=== PATIENT | male | born 1955 | race Caucasian/White ===

== ENCOUNTER → 2019-10-06 12:05 | Outpatient (BNVA) | payer MEDICARE, MEDICAID, SELFPAY | PROVIDERS: Family Provider Nurse Practitioner Family; PCP Nurse Practitioner Family; Visit Provider Nurse Practitioner Family | DX: D64.9 Anemia, unspecified (principal); R22.32 Localized swelling, mass and lump, left upper limb; F41.9 Anxiety disorder, unspecified; G89.4 Chronic pain syndrome; I10 Essential (primary) hypertension; J44.9 Chronic obstructive pulmonary disease, unspecified; E55.9 Vitamin D deficiency, unspecified; E11.9 Type 2 diabetes mellitus without complications; E78.2 Mixed hyperlipidemia; J30.2 Other seasonal allergic rhinitis; K21.9 Gastro-esophageal reflux disease without esophagitis; G47.00 Insomnia, unspecified | CPT/HCPCS: 36415; 80053; 81001; 82728; 83540; 83550; 85025 ==

== ENCOUNTER 2019-10-08 20:00 | Outpatient (CLI) | payer MEDICARE, MEDICAID, SELFPAY | END 2019-10-08 20:01 | disposition home or self-care (01) | LOC: SLEEP 10-09 09:02 | PROVIDERS: Family Provider Nurse Practitioner Family; PCP Nurse Practitioner Family; Visit Provider Nurse Practitioner Family | DX: G47.30 Sleep apnea, unspecified (principal) | CPT/HCPCS: 95810; 95811 ==

== ENCOUNTER 2019-10-16 13:24 | Outpatient (CLI) | payer MEDICARE, MEDICAID, SELFPAY ==
--- NOTE | 2019-10-16 13:30 | US_ITS ---
WS: [id number] US soft tissue/extremity 60766 REASON FOR EXAM: mass left axillary FINDINGS: The left axilla shows a large mass measures 6.34 x 2.88 cm. The mass appears to be complex in most likely represents a complex lymph node. Increased flow in the lesion is seen. US/US soft tissue/extremity 01117 IMPRESSION: Complex mass left axilla greater than 6 cm most likely lymphadenopathy.
== END 2019-10-16 13:25 | disposition home or self-care (01) ==
LOC: US 13:28
PROVIDERS: Family Provider Nurse Practitioner Family; PCP Nurse Practitioner Family; Visit Provider Nurse Practitioner Family
DX: R22.32 Localized swelling, mass and lump, left upper limb (principal)
CPT/HCPCS: 76882

== ENCOUNTER → 2020-01-21 11:07 | Outpatient (BNVA) | payer MEDICARE, MEDICAID, SELFPAY | PROVIDERS: Family Provider Nurse Practitioner Family; PCP Nurse Practitioner Family; Visit Provider Nurse Practitioner Family | DX: E78.2 Mixed hyperlipidemia (principal); I10 Essential (primary) hypertension; E55.9 Vitamin D deficiency, unspecified; E03.9 Hypothyroidism, unspecified; E11.9 Type 2 diabetes mellitus without complications; M25.579 Pain in unspecified ankle and joints of unspecified foot; R06.02 Shortness of breath; F41.9 Anxiety disorder, unspecified; D64.9 Anemia, unspecified | CPT/HCPCS: 36415; 71046; 73610; 80053; 80061; 81001; 82306; 82607; 82728; 83036; 83540; 83735; 83880; 84443; 85025 ==

== ENCOUNTER 2020-02-17 13:53 | Outpatient (CLI) | payer MEDICARE, MEDICAID, SELFPAY ==
--- NOTE | 2020-02-17 13:56 | XRR_ITS ---
PROCEDURE INFORMATION: Exam: XR Chest, 2 Views Exam date and time: 02/17/2020 2:08 PM Age: 64 years old Clinical indication: Shortness of breath and other: Chest heaviness; Left arm pain last week; Prior surgery; Surgery date: 6+ months TECHNIQUE: Imaging protocol: XR of the chest Views: 2 views. COMPARISON: No relevant prior studies available. FINDINGS: Lungs: Unremarkable. No consolidation. Pleural space: Unremarkable. No pleural effusion. No pneumothorax. Heart/Mediastinum: Unremarkable. No cardiomegaly. Bones/joints: Metallic sternotomy wires are in place. There is compression deformities T12 and L1 vertebral bodies. There is general osteopenia of the dorsal spine. XR/XR chest 2V* [id number] IMPRESSION: No acute findings. Status post sternotomy Dorsal spine osteopenia and compression deformities.
--- NOTE | 2020-02-17 13:56 | CTR_ITS ---
PROCEDURE INFORMATION: Exam: CT Neck With Contrast Exam date and time: 02/17/2020 1:57 PM Age: 64 years old Clinical indication: Other: Axillary lymphadenopathy TECHNIQUE: Imaging protocol: Computed tomography images of the neck with intravenous contrast. Radiation optimization: All CT scans at this facility use at least one of these dose optimization techniques: automated exposure control; mA and/or kV adjustment per patient size (includes targeted exams where dose is matched to clinical indication); or iterative reconstruction. Contrast material: VISIPAQUE; Contrast volume: 75 ml; Contrast route: INTRAVENOUS (IV); COMPARISON: No relevant prior studies available. RADIATION DOSE METRICS: Total DLP (mGy-cm): 747.78 FINDINGS: Sinuses: Complete opacification of the left maxillary sinus with marked widening of the left ostiomeatal unit with partial opacification of the nasal cavity suggesting antrochoanal polyp. Mild right maxillary sinus disease. Mild left ethmoid sinus disease. Nasopharynx: Unremarkable. Dental: Examination is limited secondary to metallic artifact from dental fillings and/or dental hardware. Oropharynx: Unremarkable. No significant tonsillar enlargement. Hypopharynx: Unremarkable. Larynx: Unremarkable. Normal epiglottis. Retropharyngeal space: Unremarkable. Submandibular/Parotid glands: Normal. Glands are normal in size. Thyroid: Normal. No enlarged or calcified nodules. Lymph nodes: Unremarkable. No lymphadenopathy. Trachea: Visualized trachea is unremarkable. Lungs: Unremarkable as visualized. Bones/joints: Moderate to severe multilevel spine degenerative changes including degenerative disc disease, spondylosis and facet degenerative changes. Vasculature: Possible stenosis in the origin of the right ICA. Soft tissues: Unremarkable. No significant soft tissue swelling. Other findings: Levoscoliosis. CT/CT neck w con* [id number] IMPRESSION: 1. Possible stenosis in the origin of the right ICA. 2. Complete opacification of the left maxillary sinus with marked widening of the left ostiomeatal unit with partial opacification of the nasal cavity suggesting antrochoanal polyp. Radiation Dose CTDIVOL = (mGy): DLP = 747.78 (mGy-cm)
--- NOTE | 2020-02-17 13:56 | CTR_ITS ---
PROCEDURE INFORMATION: Exam: CT Chest With Contrast Exam date and time: 02/17/2020 2:00 PM Age: 64 years old Clinical indication: Other: Axillary lymphadenopathy; Prior surgery; Surgery type: Heart TECHNIQUE: Imaging protocol: Computed tomography of the chest with intravenous contrast. Radiation optimization: All CT scans at this facility use at least one of these dose optimization techniques: automated exposure control; mA and/or kV adjustment per patient size (includes targeted exams where dose is matched to clinical indication); or iterative reconstruction. Contrast material: VISIPAQUE; Contrast volume: 75 ml; Contrast route: INTRAVENOUS (IV); COMPARISON: CR XR chest 2V* [id number] 02/17/2020 2:02 PM RADIATION DOSE METRICS: Total DLP (mGy-cm): 2269.49 FINDINGS: Lungs: Right discoid atelectasis and/or scarring. Pleural space: Unremarkable. No pneumothorax. No pleural effusion. Heart: Sternotomy wires and mediastinal clips consistent with previous CABG procedure. Aorta: Unremarkable. No aortic aneurysm. Great vessels off aortic arch: Calcification of the thoracic aorta and/or great vessels consistent with atherosclerotic vessel disease. Lymph nodes: Moderate to large bilateral axillary lymphadenopathy with the largest left axillary lymph node measuring 5.2 x 3.8 cm. Infectious versus autoimmune versus neoplastic. Bones/joints: Unremarkable. No acute fracture. Soft tissues: See Lymph nodes finding. IMPRESSION: Moderate to large bilateral axillary lymphadenopathy with the largest left axillary lymph node measuring 5.2 x 3.8 cm. Infectious versus autoimmune versus neoplastic. PROCEDURE INFORMATION: Exam: CT Abdomen And Pelvis With Contrast Exam date and time: 02/17/2020 2:00 PM Age: 64 years old Clinical indication: Other: Axillary lymphadenopathy; Prior surgery; Surgery type: Heart TECHNIQUE: Imaging protocol: Computed tomography of the abdomen and pelvis with intravenous contrast. Radiation optimization: All CT scans at this facility use at least one of these dose optimization techniques: automated exposure control; mA and/or kV adjustment per patient size (includes targeted exams where dose is matched to clinical indication); or iterative reconstruction. Contrast material: VISIPAQUE; Contrast volume: 75 ml; Contrast route: INTRAVENOUS (IV); COMPARISON: CR XR chest 2V* [id number] 02/17/2020 2:02 PM RADIATION DOSE METRICS: Total DLP (mGy-cm): 2269.49 FINDINGS: Liver: Severe fatty infiltration of the liver. Gallbladder and bile ducts: Surgical clips in the gallbladder fossa consistent with cholecystectomy. Pancreas: Normal. No ductal dilation. Spleen: Normal. No splenomegaly. Adrenals: Normal. No mass. Kidneys and ureters: Normal. No hydronephrosis. Stomach and bowel: Bowel wall thickening in the distal rectum consistent with mild distal proctitis. Appendix: No evidence of appendicitis. Intraperitoneal space: Unremarkable. No free air. No significant fluid collection. Vasculature: Calcification of the abdominal aorta and/or iliac arteries consistent with atherosclerotic vessel disease. Lymph nodes: One or more calcified gerda hepatis and/or retroperitoneal and/or mesenteric lymph nodes consistent with old granulomatous disease. Bladder: Unremarkable as visualized. Reproductive: Unremarkable as visualized. Bones/joints: Moderate to severe multilevel spine degenerative changes including degenerative disc disease, spondylosis and facet degenerative changes. Mild dextroscoliosis. Soft tissues: Unremarkable. CT/CT chest abd pel w con* IMPRESSION: 1. Severe fatty infiltration of the liver. 2. Bowel wall thickening in the distal rectum consistent with mild distal proctitis. Radiation Dose CTDIVOL = (mGy): DLP = 2269.49~2269.49 (mGy-cm)
[2020-02-17] MEDS: iodixanol 320 mg/mL 100mL Btl IV ×2 (15:43→15:44)
== END 2020-02-17 13:54 | disposition home or self-care (01) ==
PROVIDERS: PCP Nurse Practitioner Family; Visit Provider Surgery
DX: R06.02 Shortness of breath (principal); R59.0 Localized enlarged lymph nodes; K76.0 Fatty (change of) liver, not elsewhere classified; M85.88 Other specified disorders of bone density and structure, other site
CPT/HCPCS: 70491; 71046; 71260; 74177

== ENCOUNTER 2020-03-16 06:39 | Day surgery (SDC) | payer MEDICARE, MEDICAID, SELFPAY ==
[2020-03-15 11:23] VITALS: BMI 33.6
[2020-03-16] VITALS (8 sets, daily range): BP systolic 113–141; BP diastolic 57–91; PULSE 72–80; RESP 15–25; TEMP 36.4–36.6; O2SAT 92–99
[2020-03-16] MEDS: sodium chloride 0.9% 1,000 ML 30 ML IV (07:10)
[2020-03-16 07:13] LABS: Glucose Point of Care 128 mg/dL (70-110)
--- NOTE | 2020-03-16 07:18 | P.ANESASSM_ITS ---
Pre-Anesthetic Assessment Pre-Anesthetic Assessment: Height/Weight: Height 1.7 m Weight 97.522 kg Temp Pulse Resp BP Pulse Ox 97.9 F 76 16 128/91 94 03/16/20 06:55 03/16/20 06:55 03/16/20 06:55 03/16/20 06:55 03/16/20 06:55 Preop Diagnosis: Bilateral axillary lymphadenopathy Proposed Procedure: Operation Date: 03/16/20 08:05 Proposed Procedures p Axillary Node Biopsy 50166 R59.0(Bilateral) - Ilan Valera MD Familial anesthetic complications: none, last took eliquis a couple of day ago Was Beta Alicia taken within 24 hours: N/A Last intake: Intake Last Liquid Date 03/16/20 Last Liquid Time 06:00 Last Solid Date 03/16/20 Last Solid Time 23:30 Social: Social History: Tobacco and No alcohol Exam: Pre-Anes Outpt Exam: alert, oriented x 3, clear to auscultation bilaterally and regular rate & rhythm Airway: Cervical ROM: WNL MP: 4 Dentition: Other (missing) Pulmonary: Pulmonary: Asthma, COPD and Sleep apnea (hasn't received) CV/HEM: CV/HEM: Afib, CAD and HTN Comments: stent placed in 2009 hx hypertrophic obstructive cardiomyopathy but has had surgical resection : : None reported Hepatic: Hepatic: None reported GI: GI: GERD Metabolic: Metabolic: DM, Hyperlipidemia, Morbid obesity and Thyroid Musc/skel: Musc/skel: None reported Neuropsych: Neuropsych: None reported Anesthetic Plan: ASA status: 3 Anesthesia: General Risk of > 500 ml blood loss (7ml/kg in children): No Meds/Allergies Current Medications: Current Medications Generic Name Dose Route Start Last Admin Trade Name Freq PRN Reason Stop Dose Admin Sodium Chloride 1,000 mls @ 30 ml s/hr 03/16/20 07:00 03/16/20 07:10 Sodium Chloride 0.9% IV 03/17/20 06:59 30 mls/hr .Q24H TOM Administration PFSH Anesthesia PFSH: Medical History Ankle pain Anxiety ASHD (arteriosclerotic heart disease) Atrial fibrillation Chronic pain syndrome Chronic seasonal allergic rhinitis Congestive heart failure (CHF) Diabetes mellitus, type II Essential hypertension Hypertrophic cardiomyopathy Hypomagnesemia Hypothyroidism Insomnia Iron deficiency Mixed hyperlipidemia Multilevel degenerative disc disease Shortness of breath Sleep apnea Tobacco abuse Vitamin D deficiency Surgical History Coronary angioplasty status [facility] 2105 H/O ventricular septal myectomy Family History Mother Myocardial infarction Father Hypertension Other Diabetes Family history of CABG Social History Smoking and tobacco status: current every day smoker Second hand smoke exposure: No Desire information about alcohol rehabilitation?: No Counseling given: No Desire information about substance/drug rehabilitation?: No Counseling given: No Data Anesthesia Other Labs: Laboratory Results - last 48 hr 03/16/20 07:08 POC Glucose 128 Cardiac Studies: No Data to Display
--- NOTE | 2020-03-16 08:10 | W.PM.OPSFHP ---
Same Day Surgery H&P Indication for Procedure/HPI DATE OF PROCEDURE: March 16, 2020 CHIEF COMPLAINT/INDICATIONFOR SURGICAL PROCEDURE: I have lumps on both armpits PREOP DIAGNOSIS: Bilateral axillary lymphadenopathy PLANNED PROCEDRUE: Operation Date: 03/16/20 08:05 Proposed Procedures p Axillary Node Biopsy 70928 R59.0(Bilateral) - Ilan Valera MD This is a pleasant 64 years old gentleman noticed growing lumps on both armpits, patient was evaluated at my office as he has been referred and I did order a CT scan of the neck chest abdomen and pelvis that appreciated bilateral axilla lymphadenopathy left is larger than the right. Patient comes today for biopsy of the lymph nodes ROS All systems have been reviewed negative except as per the above or per problem list Medications/Allergies* Allergies/Adverse Reactions Allergy/AdvReac Type Severity Reaction Status Date / Time Iodinated Contrast Media Allergy ALGY-Hives Verified 03/16/20 08:11 metoprolol Allergy unknown Verified 03/16/20 08:11 red dye Allergy unknown Verified 03/16/20 08:11 Current Medications: Generic Name Dose Route Start Last Admin Trade Name Freq PRN Reason Stop Dose Admin Sodium Chloride 1,000 mls @ 30 mls/hr 03/16/20 07:00 03/16/20 07:10 Sodium Chloride 0.9% IV 03/17/20 06:59 30 mls/hr .Q24H TOM Administration Pertinent History/Comorbid Conditions* Medical History (Updated 02/09/20 @ 10:48 by Ilan Valera MD) Ankle pain Anxiety ASHD (arteriosclerotic heart disease) Atrial fibrillation Chronic pain syndrome Chronic seasonal allergic rhinitis Congestive heart failure (CHF) Diabetes mellitus, type II Essential hypertension Hypertrophic cardiomyopathy Hypomagnesemia Hypothyroidism Insomnia Iron deficiency Mixed hyperlipidemia Multilevel degenerative disc disease Shortness of breath Sleep apnea Tobacco abuse Vitamin D deficiency Surgical History (Updated 10/06/19 @ 21:50 by PORFIRIO Hutchinson) Coronary angioplasty status [facility] 2105 H/O ventricular septal myectomy Family History (Updated 10/13/19 @ 14:50 by Becca Clark LPN) Family history of CABG Diabetes Myocardial infarction Mother Hypertension Father Social History Smoking and tobacco status: current every day smoker Second hand smoke exposure: No Desire information about alcohol rehabilitation?: No Counseling given: No Desire information about substance/drug rehabilitation?: No Counseling given: No Pertinent Exam Findings alert, oriented x 3, clear to auscultation bilaterally, regular rate & rhythm, operative site marked and procedure specific exam findings (Bilateral axillary lymphadenopathy) Recommendations Surgery/Procedure today (Informed consent per chart, will plan to obtain a biopsy of the left axillary mass) Coding Level of Care Code Acute Certification And Selection Specialist for Dina Donaldson
[2020-03-16] MEDS: lidocaine 2% INJ 20 mL INJECTION (09:20)
--- NOTE | 2020-03-16 09:23 | PM.OP ---
Operative Report Date of procedure: March 16, 2020 Pre-op Diagnosis: Bilateral axillary lymphadenopathy Post-op diagnosis: same Post-op Findings: Left axillary lymphadenopathy with altered blood contained within the lymph node Lymph node measures about 3.5 x 4 cm Procedure Done: Excision of lymph node of left axilla Implants: Surgi-Viral for hemostasis Multiple medium sized clips Specimens removed/disposition: Left axillary lymphadenopathy The lymph node was cut in 3 pieces and sent as follows: 1-tissues sent for fresh to rule out lymphoma 2-tissues for cultures and sensitivities 3-tissues for histopathology and permanent Surgeon: Ilan Valera [employer] Bever[employer] Intern: transmission technician Cristobal Circulating nurse Linh Jeter 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 Indications, risks, benefits and alternatives all discussed with the patient and he agreed to proceed accordingly understanding that he is a high risk for bleeding postoperatively as he has been on chronic blood thinner for his cardiac condition. Procedure: After identifying the patient holding area, the correct site and side was marked before the procedure by myself, left axillary region, patient was then taken to the operative suite, was placed in supine position, patient was intubated by the anesthesia provider,Timeout was done verifying the patient's name/date of /planned procedure and destination after the procedure, all were in agreement.SCDs confirmed to be functioning, preoperative antibiotics administered per protocol, and beta chan protocol was confirmed Prep and drape of the left axillary region was done under the usual sterile technique. Local anesthesia 2% lidocaine was infiltrated site of the incision overlying the left axillary lymphadenopathy, skin incision was done all the way down to the subcutaneous tissues dissection was then carried on,the mass was dissected Amalgamated lymph node with large central lymph node with bluish hue initially was concerning for melanoma yet during dissection there was an altered blood within the lymph node which measured 3.5 x 4 cm, medium size clips were used to control the feeding small vessels to the lymph node The specimen was passed to the circulating nurse after slicing the lymph node into 3 pieces by myself in the form of: 1-tissues sent for fresh to rule out lymphoma 2-tissues for cultures and sensitivities 3-tissues for histopathology and permanent Hemostasis was achieved using Bovie cautery, followed by irrigation with normal saline, 3-0 Vicryl as [id number] for hemostasis as well as Surgi-Viral, hemostasis was then achieved Closure was done in layers using 3-0 Vicryl followed by 4-0 Monocryl pressure dressing after surgical glue was applied followed by pressure dressing Count was completed at the end of the procedure Patient was taken to the recovery room in stable condition I was present for the whole entire procedure
--- NOTE | 2020-03-16 09:39 | SUR.PHASEI ---
0928 PATIENT TO PACU FROM OR. RR EVEN AND UNLABORED. SPO2 99% ON SIMPLE MASK AT 8L. DRY COUGH NOTED. DRESSING TO LEFT AXILLARY, CDI.
--- NOTE | 2020-03-16 10:01 | SUR.PHASEI ---
0957 PATIENT TO OPS. RR EVEN AND UNLABORED. BREATHING IMPROVED AFTER BREATHING TREATMENT. PATIENT DENIES PAIN. DRESSING INTACT TO RIGHT AXILLARY.
[2020-03-25 13:09] LABS: Miscellaneous Test See Scanned Lab Rpt
== END 2020-03-16 10:45 | disposition home or self-care (01) ==
PROVIDERS: PCP Nurse Practitioner Family; Visit Provider Surgery
PROC: (CPT 38525; principal; 2020-03-16 08:00)
DX: R59.1 Generalized enlarged lymph nodes (principal); J44.9 Chronic obstructive pulmonary disease, unspecified; G47.30 Sleep apnea, unspecified; I48.91 Unspecified atrial fibrillation; I25.10 Atherosclerotic heart disease of native coronary artery without angina pectoris; K21.9 Gastro-esophageal reflux disease without esophagitis; E11.9 Type 2 diabetes mellitus without complications; E66.01 Morbid (severe) obesity due to excess calories; Z68.33 Body mass index [BMI] 33.0-33.9, adult; I11.0 Hypertensive heart disease with heart failure; I50.9 Heart failure, unspecified; E03.9 Hypothyroidism, unspecified; E78.2 Mixed hyperlipidemia; F17.210 Nicotine dependence, cigarettes, uncomplicated
CPT/HCPCS: 38525; 12345; 36416; 82962; 87070; 87176; 87205; 88184; 88185; 88271; 88275; 88305; J0690; J2405; J2704; J2710; J3010; J3490; J7030; J7611

== ENCOUNTER 2020-04-07 14:03 | Outpatient (CLI) | payer MEDICARE, MEDICAID, SELFPAY ==
[2020-04-07 17:28] LABS: Immunoglobulin IGA 124 mg/dL (70-400); Immunoglobulin IGG 633 mg/dL (700-1600); Immunoglobulin IGM 56 mg/dL (40-230)
[2020-04-09 09:36] LABS: PROTEIN, TOTAL 5.7 g/dL (6.1-8.1)
[2020-04-09 15:50] LABS: KAPPA LIGHT CHAIN, FREE, SERUM 10.8 mg/L (3.3-19.4); KAPPA/LAMBDA LIGHT CHAINS FREE 1.37 (0.26-1.65); LAMBDA LIGHT CHAIN, FREE, SERU 7.9 mg/L (5.7-26.3)
[2020-04-09 16:20] LABS: ALBUMIN 3.4 g/dL (3.8-4.8); ALPHA 1 GLOBULIN 0.3 g/dL (0.2-0.3); ALPHA 2 GLOBULIN 0.7 g/dL (0.5-0.9); BETA 1 GLOBULIN 0.4 g/dL (0.4-0.6); BETA 2 GLOBULIN 0.3 g/dL (0.2-0.5); GAMMA GLOBULIN 0.6 g/dL (0.8-1.7)
--- NOTE | 2020-04-28 14:38 | ONC CON_ITS ---
Dr. Mendenhall New Patient Note Patient: Catrachito Agosto Unit #: [id number]: 1955 Dicatated By: Darlene Mendenhall M.D.Date of Visit: Apr 07, 2020 Onc MED New Patient/Consult Referring Physician: Dr. LALITO MEJIA M.D. History of Present Illness: Mr. Jose Agosto, is a 64-year-old gentleman with a year-long history of left axillary lymphadenopathy, as per patient in December he noticed fullness in the right axilla which was progressive and was referred to surgery for evaluation and was diagnosed with bilateral axillary lymphadenopathy underwent CT scan of the chest abdomen and pelvis on February 17, 2020 which showed moderate to large bilateral axillary lymphadenopathy with the largest left axillary lymph node measuring 5.2 x 3.8 cm infectious versus autoimmune versus neoplastic was the impression otherwise no intrathoracic abnormality seen CT scan of abdomen pelvis showed severe fatty infiltration of the liver bowel wall thickening in the distal rectum consistent with a mild distal proctitis, 1 or more calcified gerda hepatis and or retroperitoneal or mesenteric lymph nodes consistent with old granulomatous disease. No bone abnormality seen. 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 Patient denies any night sweats, denies any weight loss, denies any recurrent fever or infection denies any abdominal fullness denies any trauma to upper extremity denies any skin rash denies any travel to foreign land, denies any tick bite, denies any upcd-iel-[id number] herbal medication, denies any IV drug abuse. Patient has longstanding history of heavy smoking about 1 to 2 packs a day for more than 50 years. Past Medical History: Mr. Agosto's medical history consists of anxiety, ashd, cardiomyopathy, chronic obstructive pulmonary disease, chronic pain, congestive heart failure, degenerative disease of the spine, hyperlipidemia, hypertension, hypothyroidism, insomnia, iron deficiency, type II diabetes, and vitamin d deficiency. Past Surgical History: Mr. Agosto's surgical/procedural history consists of coronary angioplasty and ventricular septal myectomy. Medications: Acetaminophen Extra Strength 1 - 2 Capsule (of 500 mg) Oral daily PRN, Aspirin 1 Tablet (of 81 mg) Tablet, enteric coated Oral daily, buPROPion HCl ER (XL) 1 Tablet (of 300 mg) Tablet SR 24 HR Oral daily, Cetirizine HCl 1 Tablet (of 10 mg) Oral daily, Citalopram Hydrobromide 1 Tablet (of 40 mg) Oral daily, clonazePAM 1.5 Tablet (of 1 mg) Oral daily, Dexilant 1 Capsule (of 60 mg) Capsule Delayed Release Oral daily, dilTIAZem HCl ER 1 Capsule (of 180 mg) Capsule SR 24 HR Oral daily, Eliquis 1 Tablet (of 5 mg) Oral b.i.d., Ezetimibe 1 Tablet (of 10 mg) Oral daily, HYDROcodone-Acetaminophen 1 Tablet (of 5-325 mg) Oral q 6 hours PRN, Januvia 1 Tablet (of 25 mg) Oral daily, Levothyroxine Sodium 1 Tablet (of 200 mcg) Oral daily, metFORMIN HCl 1 Tablet (of 500 mg) Oral daily, Montelukast Sodium 1 Tablet (of 10 mg) Oral daily, Potassium Chloride ER 1 Tablet (of 20 meq) Tablet, controlled release Oral b.i.d., Rosuvastatin Calcium 1 Tablet (of 20 mg) Oral daily, Torsemide 1 Tablet (of 100 mg) Oral daily, traMADol HCl 1 Tablet (of 50 mg) Oral b.i.d. PRN, traZODone HCl 1 Tablet (of 50 mg) Oral daily, Vitamin D 1 Capsule (of 1.25 mg) Oral q 7 weeks Allergies: Metoprolol Tartrate and Red Dye. Social History: Mr. Agosto is single and he is retired. He is a daily smoker who has smoked for 39 years. He has no history of drinking. He has indicated exposure to the following products: cigarettes. Mr. Agosto reports the following support systems: lives alone, lives in own house, supportive family/friends willing to assist with needs, and adequate transportation available for expected visits. His diet consists of regular meals. He indicates his activity level as: regular exercise. Family History: Mr. Agosto's mother at age 80: myocardial infarction, and liver cancer. Mr. Bunchs father at age 87: hypertension, and Alzheimer's disease. Review Of Symptoms: Constitutional - Appetite is good and weight is stable. No fever, night sweats, or hot flashes. Energy level is fair, ENMT - Positive for sinus congestion/drainage. No mouth sores. No sore throat or difficulty swallowing, Hematologic/Lymphatic - Positive for easy bruising and bleeding, Respiratory - No shortness of breath. Positive for cough. No pleuritic pain or hemoptysis, Cardiovascular - No angina pain. No palpitations, Gastrointestinal - Positive for nausea, no vomiting. Positive for heartburn and acid reflux. No diarrhea or constipation. No blood in the stool or black stools, Genitourinary (M) - No dysuria or hematuria. No urinary frequency. No urgency. Occasional incontinence, Musculoskeletal - Positive for joint pain, Neurologic - No headache. Positive for dizziness. Positive for numbness in his legs. No other focal neurologic symptoms, Psychiatric - Positive for anxiety, depression and insomnia. Vital Signs: Performed on Apr 07, 2020 15:17: 0, 33.64 (HIGH), 2.08 sq.m, 67.00 in, 95 % (LOW), 64 /min, 20 /min, 139/71 mm(hg), 98.5 F, and 214.8 lbs (HIGH). Performance Status: 0 - Fully active, able to carry on all predisease activities without restrictions. (ECOG) Physical Examination: ENMT - No mouth sores, no thrush, no jaundice, bilateral axillary lymphadenopathy status post excisional biopsy left axilla, Respiratory - Poor air entry, with bilateral mild wheezing, Cardiovascular - Regular rate and rhythm of heart, Abdomen - Soft, bowel sounds present, nontender, Extremities - No visible edema or rash. Lab/Imaging: Most recent lab results are not available for this patient. 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 versus other per excisional biopsy of left axillary lymph node Flow cytometry of left axillary lymph node done on March 16, 2020 shows predominance of CD8 positive T cells but no monotypic B-cell or overtly aberrant T-cell population detected CT scan of chest abdomen pelvis done on February 17, 2020 showed bilateral axillary lymphadenopathy and fatty liver Plan: Discussed with patient regarding his disease status and pathology report and patient was informed that at this point pathology and subtype and primary of his malignancy is not clear, case was discussed with pathology today and have decided to proceed with cancer type ID to identify the primary as plasmacytoid differentiation was seen, will consider work-up to rule out underlying plasma cell disorder so we will consider serum protein electrophoresis, serum light chain assay, quantitative immunoglobulins, 24-hour urine for urine protein electrophoresis and immunofixation, and CT PET scan. Patient will return to clinic in 3 weeks if above-mentioned work-up remained inconclusive, done at patient's request, we may consider referring him to tertiary care center for second opinion regarding pathology as well as for clinical trial, if available. Patient was advised to quit smoking and he was offered any assistance he may need Signed By: Darlene Mendenhall M.D. <<Signature on File>>
== END 2020-04-07 14:04 | disposition home or self-care (01) ==
LOC: ONCMED 14:08
PROVIDERS: PCP Nurse Practitioner Family; Referring Provider Surgery; Visit Provider Internal Medicine Hematology & Oncology
DX: C80.1 Malignant (primary) neoplasm, unspecified (principal); R59.0 Localized enlarged lymph nodes; K76.0 Fatty (change of) liver, not elsewhere classified; F17.210 Nicotine dependence, cigarettes, uncomplicated
CPT/HCPCS: 36415; 82784; 83883; 84155; 84165; 99203

== ENCOUNTER 2020-04-28 15:10 | Outpatient (CLI) | payer MEDICARE, MEDICAID, SELFPAY ==
--- NOTE | 2020-04-28 15:30 | CT_ITS ---
WS: [id number] CT SINUSES TECHNIQUE: Noncontrast CT of the paranasal sinuses with coronal and sagittal reformatted images. CLINICAL INFORMATION: chronic sinus infection COMPARISON: None. DLP: 392.[address] scans at [facility] use at least one of these dose optimization techniques: automat ed exposure control; mA and/or kV adjustment per patient size (includes targeted exams where dose is matched to clinical indication); or iterative reconstruction. FINDINGS: Mild nasal septal deviation measuring 3 to 4 mm left to right. Complete opacification the right maxil dia sinus with inspissated secretions. Opacification of the right ostiomeatal units. Mild mucosal th ickening left maxillary sinus. Mild mucosal thickening left frontal sinus and frontal ethmoidal reces s. Partial opacification of the frontoethmoidal recesses with mild polypoid mucosal thickening. Sphen oid sinus is patent. Trace mucosal thickening in the sphenoid sinus. Mastoid air cells are well aerat ed. CT/CT sinus wo con* [id number] IMPRESSION: 1. Chronic appearing opacification of the right maxillary sinus with inspissat ed secretions. Opacification right ostiomeatal unit. 2. Mild mucosal thickening in the frontal sinuses with partial opacification frontal ethmoidal recesses. 3. Mild polypoid mucosal thickening in the ethmoid air cells. 4. Mastoid air cells are well aerated.
== END 2020-04-28 15:11 | disposition home or self-care (01) ==
LOC: RADWPI 15:15
PROVIDERS: PCP Nurse Practitioner Family; Visit Provider Nurse Practitioner Family
DX: J32.9 Chronic sinusitis, unspecified (principal)
CPT/HCPCS: 70486

== ENCOUNTER 2020-05-04 09:20 | Outpatient (CLI) | payer MEDICARE, MEDICAID, SELFPAY ==
[2020-05-04 10:07] LABS: Immunoglobulin IGA 120 mg/dL (70-400); Immunoglobulin IGG 579 mg/dL (700-1600); Immunoglobulin IGM 63 mg/dL (40-230)
[2020-05-05 10:37] LABS: PROTEIN, TOTAL 5.8 g/dL (6.1-8.1)
[2020-05-05 13:26] LABS: KAPPA LIGHT CHAIN, FREE, SERUM 11.3 mg/L (3.3-19.4); LAMBDA LIGHT CHAIN, FREE, SERU 8.7 mg/L (5.7-26.3)
[2020-05-05 14:27] LABS: CREATININE, 24 HOUR URINE 1.52 g/24 h (0.50-2.15); PROTEIN, TOTAL, 24 HR UR 276 mg/24 h (<150); Protein/Creatinine Ratio 0.182 (< OR = 0.114); Protein/Creatinine Ratio 182 mg/g creat (< OR = 114)
[2020-05-05 16:22] LABS: ALBUMIN 3.5 g/dL (3.8-4.8); ALPHA 1 GLOBULIN 0.3 g/dL (0.2-0.3); ALPHA 2 GLOBULIN 0.7 g/dL (0.5-0.9); BETA 1 GLOBULIN 0.5 g/dL (0.4-0.6); BETA 2 GLOBULIN 0.3 g/dL (0.2-0.5); GAMMA GLOBULIN 0.6 g/dL (0.8-1.7)
[2020-05-07 12:07] LABS: ALBUMIN 100 %; ALPHA-1-GLOBULINS 0 %; ALPHA-2-GLOBULINS 0 %; BETA GLOBULINS 0 %; GAMMA GLOBULINS 0 %
== END 2020-05-04 09:21 | disposition home or self-care (01) ==
LOC: ONCMED 09:24
PROVIDERS: PCP Nurse Practitioner Family; Visit Provider Internal Medicine Hematology & Oncology
DX: C85.94 Non-Hodgkin lymphoma, unspecified, lymph nodes of axilla and upper limb (principal); F41.9 Anxiety disorder, unspecified; I25.10 Atherosclerotic heart disease of native coronary artery without angina pectoris; I25.5 Ischemic cardiomyopathy; J44.9 Chronic obstructive pulmonary disease, unspecified; G89.29 Other chronic pain; M47.9 Spondylosis, unspecified; E78.5 Hyperlipidemia, unspecified; I10 Essential (primary) hypertension; E03.9 Hypothyroidism, unspecified; G47.00 Insomnia, unspecified; D50.9 Iron deficiency anemia, unspecified; E11.9 Type 2 diabetes mellitus without complications; E55.9 Vitamin D deficiency, unspecified
CPT/HCPCS: 82784; 83883; 84155; 84165

== ENCOUNTER → 2020-05-19 11:05 | Outpatient (BNVA) | payer MEDICARE, MEDICAID, SELFPAY | PROVIDERS: PCP Nurse Practitioner Family; Visit Provider Nurse Practitioner Family | DX: R59.0 Localized enlarged lymph nodes (principal); E11.69 Type 2 diabetes mellitus with other specified complication; E03.9 Hypothyroidism, unspecified | CPT/HCPCS: 80053; 82728; 83036; 83550; 84443; 85025 ==

== ENCOUNTER 2020-06-10 08:00 | Outpatient (CLI) | payer MEDICARE, MEDICAID, SELFPAY ==
[2020-06-10 08:37] LABS: Basophils # 0.1 10^3/uL (0.0-0.1); Basophils % 0.7 %; Eosinophils # 0.3 10^3/uL (0.0-0.8); Eosinophils % 3.2 %; Hematocrit 39.5 % (42.0-52.0); Hemoglobin 12.8 g/dL (11.7-16.6); Lymphocytes # 1.4 10^3/uL (0.8-4.8); Lymphocytes % 13.5 %; Mean Corpuscular HGB Conc 32.4 g/dL (30.0-36.0); Mean Corpuscular Hemoglobin 28.1 pg (28.0-34.0); Mean Corpuscular Volume 86.8 fL (80-94); Mean Platelet Volume 9.5 fL (7.4-10.4); Monocytes # 0.8 10^3/uL (0.2-0.9); Monocytes % 7.9 %; Neutrophils # 7.51 10^3/uL (1.8-7.7); Neutrophils % 74.5 %; Nucleated Red Blood Cells % 0 %; Platelet Count 281 10^3/cmm (130-400); Red Blood Count 4.55 10^6/uL (4.1-5.3); White Blood Count 10.1 10^3/uL (4.0-10.0)
[2020-06-10 09:02] LABS: Alanine Aminotransferase 20 U/L (0-41); Albumin Level 4.1 g/dL (3.5-5.2); Alkaline Phosphatase 119 IU/L (40-130); Anion Gap 13.2 (5-19); Aspartate Amino Transferase 39 U/L (0-40); Blood Urea Nitrogen 13 mg/dL (8-23); Calcium 8.9 mg/dL (8.5-10.5); Carbon Dioxide 33 mmol/L (22-29); Chloride 96 mmol/L (98-107); Globulin 2.3 g/dL (1.3-4.6); Glomerular Filtration Rate 112.5 mL/min (90-130); Glucose 142 mg/dL (65-115); Osmolality Calculated 291 mOsm/kg (285-295); Potassium 3.2 mmol/L (3.5-5.1); Sodium 139 mmol/L (136-145); Total Bilirubin 0.4 mg/dL (0.15-1.2); Total Protein 6.4 g/dL (6.6-8.7)
--- NOTE | 2020-06-10 09:55 | ONC FU_ITS ---
Dr. eMndenhall follow up note Patient: Catrachito Agosto Unit #: [id number]: 1955 Dicatated By: Darlene Mendenhall M.D.Date of Visit:Jun 10, 2020 Onc Med Follow-up/Prog Note History of Present Illness: Mr. Jose Agosto, is a 65-year-old gentleman with a year-long history of left axillary lymphadenopathy, as per patient in December he noticed fullness in the right axilla which was progressive and was referred to surgery for evaluation and was diagnosed with bilateral axillary lymphadenopathy underwent CT scan of the chest abdomen and pelvis on February 17, 2020 which showed moderate to large bilateral axillary lymphadenopathy with the largest left axillary lymph node measuring 5.2 x 3.8 cm infectious versus autoimmune versus neoplastic was the impression otherwise no intrathoracic abnormality seen CT scan of abdomen pelvis showed severe fatty infiltration of the liver bowel wall thickening in the distal rectum consistent with a mild distal proctitis, 1 or more calcified gerda hepatis and or retroperitoneal or mesenteric lymph nodes consistent with old granulomatous disease. No bone abnormality seen. 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 Patient denies any night sweats, denies any weight loss, denies any recurrent fever or infection denies any abdominal fullness denies any trauma to upper extremity denies any skin rash denies any travel to foreign land, denies any tick bite, denies any [id number]-[id number] herbal medication, denies any IV drug abuse. Patient has longstanding history of heavy smoking about 1 to 2 packs a day for more than 50 years. 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 CT PET scan was done on June 02, 2020 which showed bilateral breast involvement, 8.4 x 5.1 cm on the left side with a maximum SUV of 15.95, left axillary lymphadenopathy with a dominant 3.7 x 2.6 cm mass with a maximum SUV of 19.88 and the right breast mass also is present laterally extending to the skin with possibly involving measuring 5.9 x 3.7 cm with SUV of 17.43. And a single enlarged left superior phrenic lymph node size 1.7 cm with SUV of 13.38 and incidental findings in the ascending colon with SUV of 12.64 may reflect tumor activity. Otherwise no lung involvement no liver involvement or any osseous metastatic disease. Came for follow-up, denies any specific complaints, no fever chills, no nausea or vomiting, no diarrhea or constipation, no new bony pains. Appetite is good. Medications: Acetaminophen Extra Strength 1 - 2 Capsule (of 500 mg) Oral daily PRN, Aspirin 1 Tablet (of 81 mg) Tablet, enteric coated Oral daily, buPROPion HCl ER (XL) 1 Tablet (of 300 mg) Tablet SR 24 HR Oral daily, Cetirizine HCl 1 Tablet (of 10 mg) Oral daily, Citalopram Hydrobromide 1 Tablet (of 40 mg) Oral daily, clonazePAM 1.5 Tablet (of 1 mg) Oral daily, Dexilant 1 Capsule (of 60 mg) Capsule Delayed Release Oral daily, dilTIAZem HCl ER 1 Capsule (of 180 mg) Capsule SR 24 HR Oral daily, Eliquis 1 Tablet (of 5 mg) Oral b.i.d., Ezetimibe 1 Tablet (of 10 mg) Oral daily, HYDROcodone-Acetaminophen 1 Tablet (of 5-325 mg) Oral q 6 hours PRN, Januvia 1 Tablet (of 25 mg) Oral daily, Levothyroxine Sodium 1 Tablet (of 200 mcg) Oral daily, Montelukast Sodium 1 Tablet (of 10 mg) Oral daily, Potassium Chloride ER 1 Tablet (of 20 meq) Tablet, controlled release Oral b.i.d., Rosuvastatin Calcium 1 Tablet (of 20 mg) Oral daily, Torsemide 1 Tablet (of 100 mg) Oral daily, traMADol HCl 1 Tablet (of 50 mg) Oral b.i.d. PRN, traZODone HCl 1 Tablet (of 50 mg) Oral daily, Vitamin D 1 Capsule (of 1.25 mg) Oral q 7 days Allergies: Metoprolol Tartrate and Red Dye. Review of Systems: Constitutional - Appetite is good and weight is stable. No fever, night sweats, or hot flashes. Energy level is fair, ENMT - Positive for sinus congestion/drainage. No mouth sores. No sore throat or difficulty swallowing, Hematologic/Lymphatic - Positive for easy bruising and bleeding, Respiratory - No shortness of breath. Positive for cough. No pleuritic pain or hemoptysis, Cardiovascular - No angina pain. No palpitations, Gastrointestinal - Positive for nausea, no vomiting. Positive for heartburn and acid reflux. No diarrhea or constipation. No blood in the stool or black stools, Genitourinary (M) - No dysuria or hematuria. No urinary frequency. No urgency. Occasional incontinence, Musculoskeletal - Positive for joint pain, Neurologic - No headache. Positive for dizziness. Positive for numbness in his legs. No other focal neurologic symptoms, Psychiatric - Positive for anxiety, depression and insomnia. Vital Signs: Performed on Jun 10, 2020 08:30 Height - 67.00 in Weight - 207.6 lbs (LOW) BSA - 2.05 sq.m BMI - 32.51 (HIGH) Temperature - 98.3 F (LOW) Pulse - 73 /min Respiration - 18 /min BP - 132/75 mm(hg) O2 Sat - 93 % (LOW) Pain - 0 Performance Status: 0 - Fully active, able to carry on all predisease activities without restrictions. (ECOG) Physical Examination: ENMT - No mouth sores, no thrush no jaundice, Respiratory - Lungs are clear to auscultation, Cardiovascular - Regular rate and rhythm of heart, Abdomen - Soft, bowel sounds present, Extremities - No visible edema. Lab/Imaging: Most recent lab results are not available for this patient. 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 left breast showed 8.4 x 5.1 cm with SUV of 15.95 and 3.7 x 2.6 cm dominant lymph node with SUV of 19.88 and right breast mass also present laterally extending to the skin measuring 5.9 x 3.7 cm with SUV of 17.43 and a single enlarged 1.7 cm left superior phrenic lymph node with SUV of 13.38 and There is intense increase of metabolic activity associated with the descending colon with SUV of 12.64. CT scan of chest abdomen pelvis done on February 17, 2020 showed bilateral axillary lymphadenopathy and fatty liver Plan: Discussed with patient regarding his disease status and cancer type ID report which confirmed undifferentiated sarcoma and CT PET scan showed bilateral breast involvement along with left axillary lymphadenopathy and single left superior phrenic lymph node and also incidental finding in descending colon, second primary versus metastatic disease Discussed with patient as patient has history of cardiomyopathy, congestive heart failure for which he was treated at [facility],, will refer him to oncology clinic at [facility] for evaluation for clinical trial or second opinion. Patient will return to clinic 1 week after his visit to [place]. Signed By: Darlene Mendenhall M.D. <<Signature on File>>
== END 2020-06-10 08:01 | disposition home or self-care (01) ==
LOC: ONCMED 08:03
PROVIDERS: PCP Nurse Practitioner Family; Visit Provider Internal Medicine Hematology & Oncology
DX: C50.822 Malignant neoplasm of overlapping sites of left male breast (principal); C50.821 Malignant neoplasm of overlapping sites of right male breast; C18.9 Malignant neoplasm of colon, unspecified; C77.8 Secondary and unspecified malignant neoplasm of lymph nodes of multiple regions; I25.5 Ischemic cardiomyopathy; I50.9 Heart failure, unspecified; K76.0 Fatty (change of) liver, not elsewhere classified; R59.0 Localized enlarged lymph nodes
CPT/HCPCS: 36415; 80053; 85025; 99214

== ENCOUNTER 2020-06-10 19:44 | Emergency (ER) | payer MEDICARE, MEDICAID, SELFPAY ==
[2020-06-10 20:04] VITALS: BP 136/78; PULSE 71; RESP 18; TEMP 36.9; O2SAT 94; BMI 32.4
--- NOTE | 2020-06-10 20:29 | ED_ITS ---
HPI - General Adult General: Chief complaint: General Medical Stated complaint: ruptured lymph node with mild bleeding Time Seen by Provider: 06/10/20 19:52 History of Present Illness: HPI narrative: 65-year-old male patient presents to the emergency department via EMS due to lymph node bleeding. Diagnosed with dendritic cell sarcoma, currently awaiting treatment at [place]. He is under the care of Dr. Mendenhall. He reports enlarged lymph node underneath the right axilla with drainage times several weeks. He reports tonight, drainage increased and started bleeding. He reports not able to control the bleeding. Remains on Eliquis due to heart disease. Onset (ago): hour(s) (1-2) Location: upper extremity Pain Consistency: other (denies) Associated symptoms: Reports no associated symptoms; Deny chest pain, diaphoresis, dyspnea, headache(s), nausea, rash, palpitations or vomiting Treatments prior to arrival: other (Use of Eliquis) Review of Systems General: Reports: 10 or more systems reviewed and unremarkable except in HPI and below Const: Denies: fever(s), chills or diaphoresis Eyes: Denies: blurry vision or eye redness ENMT: Denies: throat pain, dental pain or disequilibrium Card: Denies: chest pain, palpitations or irregular heart rhythm Resp: Denies: dyspnea, productive cough, non-productive cough or wheezing GI: Denies: abdominal pain, nausea or vomiting : Denies: dysuria Musc: Denies: back pain Skin/Breast: Reports: erythema (right axilla) and changing lesions; Denies: rash or pruritus Neuro: Denies: headache(s), weakness in extremities or behavioral changes Greg/Lymph: Denies: easy bruising PFS ED PFSH: Medical History (Updated 06/10/20 @ 21:30 by CHARLIE Vidal) Acute lower respiratory infection Anxiety ASHD (arteriosclerotic heart disease) Atrial fibrillation Chronic pain syndrome Chronic recurrent sinusitis Chronic seasonal allergic rhinitis Congestive heart failure (CHF) Diabetes mellitus, type II Essential hypertension Hypertrophic cardiomyopathy Hypomagnesemia Hypothyroidism Insomnia Iron deficiency Lower respiratory infection Mixed hyperlipidemia Multilevel degenerative disc disease Sleep apnea Vitamin D deficiency Surgical History Coronary angioplasty status [facility] 2105 H/O ventricular septal myectomy Family History Mother Myocardial infarction Father Hypertension Other Diabetes Family history of CABG Social History Smoking and tobacco status: current every day smoker Second hand smoke exposure: No Desire information about alcohol rehabilitation?: No Counseling given: No Desire information about substance/drug rehabilitation?: No Counseling given: No Physical Exam Const: COMMON NORMALS: no acute distress, patient oriented x3, healthy appearing and alert GENERAL APPEARANCE: cooperative, comfortable and well hydrated HENMT: COMMON NORMALS: normocephalic, Normal external nose present and moist oral mucous membranes HEAD & SCALP: normocephalic NOSE: Normal external nose present Eye: COMMON NORMALS: Equal, round and reactive pupils present and EOMs intact bilaterally GENERAL EYE: appearance normal, both eyes and all related structures PUPIL: Yes Equal, round and reactive pupils present Neck/C-Spine: COMMON NORMALS: full ROM and no lymphadenopathy GENERAL: Yes normal visual inspection and Yes trachea midline CERVICAL SPINE: Yes cervical ROM normal Lymph: LYMPHATIC: no lymphadenopathy noted Chest: COMMONS NORMALS: normal inspection of the chest Resp: COMMON NORMALS: normal respiratory effort and clear to auscultation bilaterally AUSCULTATION: clear to auscultation bilaterally Cardio: COMMON NORMALS: regular rhythm, S1 normal heart sound present and S2 normal heart sound present RHYTHM: regular rhythm HEART SOUNDS: S1 normal heart sound present and S2 normal heart sound present GI: COMMON NORMALS: Soft to palpation and non-tender INSPECTION: Yes normal to inspection PALPATION: Yes Soft to palpation : COMMON NORMALS: Yes no CVA tenderness BLADDER/KIDNEY EXAM: Yes no CVA tenderness Back/Pelvis: COMMON NORMALS: no CVA tenderness and thoracic and lumbar spine normal to inspection Extremity: COMMON NORMALS: normal to inspection and capillary refill normal Neuro: COMMON NORMALS: patient oriented x3 and no focal motor deficits SENSORIUM/ORIENTATION: Yes alert Psych: COMMON NORMALS: mental status grossly normal, Normal thought process present and cooperative ACTIVITY/MOTOR BEHAVIOR: Yes appropriate eye contact THOUGHT PROCESS: Normal thought process present Skin: COMMON NORMALS: no rashes or lesions noted and turgor normal GENERAL SKIN EXAM: no rashes or lesions noted and turgor normal LESIONS: lesion noted (10 cm x 10 cm with 2 cm opening - small continuous trickel of blood visualized from the opening. Nontender upon exam, appears as lymph node) Procedures Laceration Laceration 1: Site: upper extremity (right axilla) Side (If applicable): right Size (cm): 2 Description: other (Opening) Depth: simple, single layer and mgraqam-nek-wetilvg (Figure 8 stitch) Local Anesthetic: lidocaine 1% and with epi Amount of anesthesia used (mL): 6 Course ED course: 65-year-old male patient presents to the emergency department with bleeding a cancerous lymph node. He reports drainage first couple of weeks with an control bleeding started tonight. Attempted to control bleeding with Surgicel, not successful; case discussed with Dr. Joseph, mnrotq-nn-bhhec stitch with 4-0 Prolene applied with hemostasis obtained. Pressure dressing was applied. Patient reports will continue to monitor - advised to return to the ED if bleeding recurs - he is to f/u with PCP/oncology for lymph node bleeding. Vital Signs: Vital signs: Vital Signs Temperature 98.4 F 06/10/20 20:04 Pulse Rate 68 06/10/20 21:42 Respiratory Rate 18 06/10/20 21:42 Blood Pressure 140/78 06/10/20 21:42 Pulse Oximetry 100 06/10/20 21:42 Discharge Plan Discharge Patient Disposition: Home Clinical Impression: Bleeding from wound Wound disruption Qualifiers: Encounter type: initial encounter Qualified Code(s): T81.30XA - Disruption of wound, unspecified, initial encounter Condition: Stable Prescriptions: No Action lidocaine HCl [Xylocaine] 10 mg/mL (1 %) solution 2 ml IM ONCE Qty: 1 RF: 0 ceftriaxone 1 gram recon soln 1 gm IM ONCE Qty: 1 RF: 0 dexamethasone sodium phosphate 10 mg/mL solution 10 mg IM ONCE Qty: 1 RF: 0 prednisone 20 mg tablet 40 mg PO .in a.m. 5 Days Qty: 10 RF: 0 clonazepam 1 mg tablet 1.5 mg PO DAILY 30 Days Qty: 50 RF: 2 fluticasone propionate 50 mcg/actuation spray,suspension 1 spray INTRANASAL DAILY PRN (Reason: allergy symptoms) 30 Days Qty: 9.9 RF: 5 albuterol sulfate [Ventolin HFA] 90 mcg/actuation HFA aerosol inhaler 1 - 2 inh INHALATION Q4H PRN (Reason: shortness of breath or wheezing) 30 Days Qty: 8.5 RF: 5 losartan [Cozaar] 50 mg tablet 50 mg PO DAILY 30 Days Qty: 30 RF: 5 tizanidine 4 mg capsule 4 mg PO .HS 30 Days Qty: 30 RF: 5 tramadol 50 mg tablet 50 mg PO BID PRN (Reason: pain) 30 Days Qty: 60 RF: 2 apixaban [Eliquis] 5 mg tablet 5 mg PO BID Qty: 60 RF: 2 Hold Instructions: Resume on 03/19/20. potassium chloride 20 mEq tablet,ER particles/crystals 20 meq PO BID 30 Days Qty: 60 RF: 5 rosuvastatin 20 mg capsule, sprinkle 20 mg PO DAILY Qty: 90 RF: 1 citalopram 40 mg tablet 40 mg PO DAILY 90 Days Qty: 90 RF: 1 bupropion HCl 300 mg tablet extended release 24 hr 300 mg PO QAM 30 Days Qty: 30 RF: 5 diltiazem HCl 180 mg capsule,extended release 24hr See Rx Instructions .ROUTE .COMPLEX Qty: 30 RF: 5 sitagliptin [Januvia] 25 mg tablet See Rx Instructions .ROUTE .COMPLEX Qty: 30 RF: 2 torsemide 100 mg tablet See Rx Instructions .ROUTE .COMPLEX Qty: 30 RF: 2 trazodone 50 mg tablet See Rx Instructions .ROUTE .COMPLEX Qty: 30 RF: 4 metformin 500 mg tablet extended release 24 hr See Rx Instructions .ROUTE .COMPLEX Qty: 90 RF: 2 ezetimibe 10 mg tablet See Rx Instructions .ROUTE .COMPLEX Qty: 30 RF: 5 montelukast 10 mg tablet See Rx Instructions .ROUTE .COMPLEX Qty: 30 RF: 5 dexlansoprazole [Dexilant] 60 mg capsule,biphase delayed releas See Rx Instructions .ROUTE .COMPLEX Qty: 30 RF: 5 ergocalciferol (vitamin D2) [Vitamin D2] 1,250 mcg (50,000 unit) capsule See Rx Instructions .ROUTE .COMPLEX Qty: 4 RF: 3 levothyroxine 200 mcg tablet See Rx Instructions .ROUTE .COMPLEX Qty: 90 RF: 1 [place] 5-325 mg tablet 1 tab PO Q6H PRN (Reason: pain) Qty: 20 RF: 0 Discharge Orders: Discharge Order (Routine); Ordered 06/10/20 Ordered By: Lyndsey Lobato Referrals: ANTONIO Torres, [facility] [Primary Care Provider] - Discharge Diet: Usual diet Discharge Activity: Limit activity as instructed Patient Instructions: Skin Abscess, Suture Care - Skin Glue Activity Restrictions/Additional Instructions: Follow-up with your primary care physician/Dr. Mendenhall in 5 to 7 days Continue follow-up with [facility] If bleeding from the area occurs, return to the emergency department Continue with pressure dressing to the area May change dressing twice daily, keep covered, do not apply water to the wound, limit right arm movement to help with bleeding issue Discharge Date/Time: 06/10/20 21:44 Coding Level of Care Code ED Radio Message Router for Chg Fwd Exam Comprehensive
[2020-06-10 21:32] VITALS: BP 136/81; PULSE 68; RESP 16; O2SAT 95
--- NOTE | 2020-06-10 21:37 | PC.NURSE ---
applied bulky pressure dressing to R axilla. Pt tolerated well.
[2020-06-10 21:42] VITALS: BP 140/78; PULSE 68; RESP 18; O2SAT 100
--- NOTE | 2020-06-14 09:42 | DCPLANNER ---
poultry hatchery manager had message to schedule a follow up appointment for patient with oncology. poultry hatchery manager spoke with Amanda Mar, gave clinic patients information. poultry hatchery manager was told patients information would be printed and a follow up appointment would be scheduled and clinic will call patient with appointment information.
--- NOTE | 2020-06-17 12:52 | DCPLANNER ---
manager outreach spoke with Amanda, community outreach coordinator with oncology. A follow up appointment was scheduled for , June 24, 2020 at 10:[address] Mendenhall. manager outreach was told that clinic will call patient with appointment information.
--- NOTE | 2020-06-25 10:26 | DCPLANNER ---
Patient had a follow up appointment scheduled for 06.24.[address] Mendenhall - patient did attend appointment.
== END 2020-06-10 21:44 | disposition home or self-care (01) ==
PROVIDERS: Emergency Provider Nurse Practitioner Family; PCP Nurse Practitioner Family
DX: T81.30XA Disruption of wound, unspecified, initial encounter (principal); I48.91 Unspecified atrial fibrillation; I11.0 Hypertensive heart disease with heart failure; I50.9 Heart failure, unspecified; E11.9 Type 2 diabetes mellitus without complications; E78.2 Mixed hyperlipidemia; Z98.61 Coronary angioplasty status; F17.210 Nicotine dependence, cigarettes, uncomplicated; Z79.84 Long term (current) use of oral hypoglycemic drugs
CPT/HCPCS: 12001; 12345; 99282

== ENCOUNTER → 2020-06-22 15:01 | Outpatient (BNVA) | payer MEDICARE, MEDICAID, SELFPAY | PROVIDERS: PCP Nurse Practitioner Family; Visit Provider Internal Medicine Hematology & Oncology | DX: Z11.59 Encounter for screening for other viral diseases (principal) | CPT/HCPCS: 87635 ==

== ENCOUNTER 2020-08-03 15:14 | Outpatient (CLI) | payer MEDICARE, MEDICAID, SELFPAY ==
[2020-08-03 15:37] LABS: Basophils # 0.1 10^3/uL (0.0-0.1); Basophils % 0.7 %; Eosinophils # 0.5 10^3/uL (0.0-0.8); Eosinophils % 3.1 %; Hematocrit 36.9 % (42.0-52.0); Hemoglobin 12.1 g/dL (11.7-16.6); Lymphocytes # 2.1 10^3/uL (0.8-4.8); Lymphocytes % 14.2 %; Mean Corpuscular HGB Conc 32.8 g/dL (30.0-36.0); Mean Corpuscular Hemoglobin 27.4 pg (28.0-34.0); Mean Corpuscular Volume 83.5 fL (80-94); Mean Platelet Volume 9.7 fL (7.4-10.4); Monocytes # 1.1 10^3/uL (0.2-0.9); Monocytes % 7.5 %; Neutrophils # 10.71 10^3/uL (1.8-7.7); Nucleated Red Blood Cells % 0 %; Platelet Count 275 10^3/cmm (130-400); Red Blood Count 4.42 10^6/uL (4.1-5.3); Red Cell Distribution Width 13.4 % (12.1-15.1); White Blood Count 14.5 10^3/uL (4.0-10.0)
[2020-08-03 16:21] LABS: Alanine Aminotransferase 18 U/L (0-41); Albumin Level 3.9 g/dL (3.5-5.2); Alkaline Phosphatase 131 IU/L (40-130); Anion Gap 12.4 (5-19); Aspartate Amino Transferase 33 U/L (0-40); Blood Urea Nitrogen 15 mg/dL (8-23); Calcium 9.1 mg/dL (8.5-10.5); Carbon Dioxide 31 mmol/L (22-29); Chloride 98 mmol/L (98-107); Globulin 2.4 g/dL (1.3-4.6); Glomerular Filtration Rate 96.4 mL/min (90-130); Glucose 110 mg/dL (65-115); Osmolality Calculated 287 mOsm/kg (285-295); Potassium 3.4 mmol/L (3.5-5.1); Sodium 138 mmol/L (136-145); Total Bilirubin 0.3 mg/dL (0.15-1.2); Total Protein 6.3 g/dL (6.6-8.7)
== END 2020-08-03 15:15 | disposition home or self-care (01) ==
LOC: ONCMED 15:20
PROVIDERS: PCP Nurse Practitioner Family; Visit Provider Internal Medicine Hematology & Oncology
DX: C76.8 Malignant neoplasm of other specified ill-defined sites (principal); C80.1 Malignant (primary) neoplasm, unspecified
CPT/HCPCS: 36415; 80053; 85025

== ENCOUNTER 2020-08-05 05:46 | Outpatient (CLI) | payer MEDICARE, MEDICAID, SELFPAY ==
--- NOTE | 2020-08-05 09:34 | ONC FU_ITS ---
Dr. Mendenhall follow up note Patient: Catrachito Agosto Unit #: [id number]: [id number] Dicatated By: Darlene Mendenhall M.D.Date of Visit:Aug 05, 2020 Onc Med Follow-up/Prog Note History of Present Illness: Mr. Jose Agosto, is a 65-year-old gentleman with a year-long history of left axillary lymphadenopathy, as per patient in December he noticed fullness in the right axilla which was progressive and was referred to surgery for evaluation and was diagnosed with bilateral axillary lymphadenopathy underwent CT scan of the chest abdomen and pelvis on February 17, 2020 which showed moderate to large bilateral axillary lymphadenopathy with the largest left axillary lymph node measuring 5.2 x 3.8 cm infectious versus autoimmune versus neoplastic was the impression otherwise no intrathoracic abnormality seen CT scan of abdomen pelvis showed severe fatty infiltration of the liver bowel wall thickening in the distal rectum consistent with a mild distal proctitis, 1 or more calcified gerda hepatis and or retroperitoneal or mesenteric lymph nodes consistent with old granulomatous disease. No bone abnormality seen. 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 Patient denies any night sweats, denies any weight loss, denies any recurrent fever or infection denies any abdominal fullness denies any trauma to upper extremity denies any skin rash denies any travel to foreign land, denies any tick bite, denies any ytgz-[id number]-[id number] herbal medication, denies any IV drug abuse. Patient has longstanding history of heavy smoking about 1 to 2 packs a day for more than 50 years. 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 CT PET scan was done on June 02, 2020 which showed bilateral breast involvement, 8.4 x 5.1 cm on the left side with a maximum SUV of 15.95, left axillary lymphadenopathy with a dominant 3.7 x 2.6 cm mass with a maximum SUV of 19.88 and the right breast mass also is present laterally extending to the skin with possibly involving measuring 5.9 x 3.7 cm with SUV of 17.43. And a single enlarged left superior phrenic lymph node size 1.7 cm with SUV of 13.38 and incidental findings in the ascending colon with SUV of 12.64 may reflect tumor activity. 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 Rosado on July 26, 2020 and immunotherapy with ipilimumab/nivolumab was recommended Came for follow-up, complaining of fullness bilateral axilla more in left. Also complaining of discomfort in anterior chest wall now taking tramadol and hydrocodone,. Denies any fever chills no nausea or vomiting no diarrhea or constipation no headaches blurred vision or double vision, no upper extremity weakness or numbness, no melena or hematochezia. Medications: Acetaminophen Extra Strength 1 - 2 Capsule (of 500 mg) Oral daily PRN, Aspirin 1 Tablet (of 81 mg) Tablet, enteric coated Oral daily, buPROPion HCl ER (XL) 1 Tablet (of 300 mg) Tablet SR 24 HR Oral daily, Cetirizine HCl 1 Tablet (of 10 mg) Oral daily, Citalopram Hydrobromide 1 Tablet (of 40 mg) Oral daily, clonazePAM 1.5 Tablet (of 1 mg) Oral daily, Dexilant 1 Capsule (of 60 mg) Capsule Delayed Release Oral daily, dilTIAZem HCl ER 1 Capsule (of 180 mg) Capsule SR 24 HR Oral daily, Eliquis 1 Tablet (of 5 mg) Oral b.i.d., Ezetimibe 1 Tablet (of 10 mg) Oral daily, HYDROcodone-Acetaminophen 1 Tablet (of 5-325 mg) Oral q 6 hours PRN, Januvia 1 Tablet (of 25 mg) Oral daily, Levothyroxine Sodium 1 Tablet (of 200 mcg) Oral daily, Montelukast Sodium 1 Tablet (of 10 mg) Oral daily, Potassium Chloride ER 1 Tablet (of 20 meq) Tablet, controlled release Oral b.i.d., Rosuvastatin Calcium 1 Tablet (of 20 mg) Oral daily, Torsemide 1 Tablet (of 100 mg) Oral daily, traMADol HCl 1 Tablet (of 50 mg) Oral b.i.d. PRN, traZODone HCl 1 Tablet (of 50 mg) Oral daily, Vitamin D 1 Capsule (of 1.25 mg) Oral q 7 days Allergies: Metoprolol Tartrate and Red Dye. Review of Systems: Constitutional - Appetite is good and weight is stable. No fever, night sweats, or hot flashes. Energy level ispoor, ENMT - Positive for sinus congestion/drainage. No mouth sores. No sore throat or difficulty swallowing, Hematologic/Lymphatic - Positive for easy bruising and bleeding, Respiratory - No shortness of breath. Positive for cough. No pleuritic pain or hemoptysis, Cardiovascular - No angina pain. No palpitations, Gastrointestinal - Positive for nausea, no vomiting. Positive for heartburn and acid reflux. No diarrhea or constipation. No blood in the stool or black stools, Genitourinary (M) - No dysuria or hematuria. No urinary frequency. No urgency. Occasional incontinence, Musculoskeletal - Positive for joint pain, Neurologic - No headache. Positive for dizziness. Positive for numbness in his legs. No other focal neurologic symptoms, Psychiatric - Positive for anxiety, depression and insomnia. Vital Signs: Performed on Aug 05, 2020 08:03 Height - 67.00 in Weight - 210.2 lbs (HIGH) BSA - 2.07 sq.m BMI - 32.92 (HIGH) Temperature - 97.8 F (LOW) Pulse - 76 /min Respiration - 20 /min BP - 149/81 mm(hg) (HIGH) O2 Sat - 96 % Pain - 0 Performance Status: 0 - Fully active, able to carry on all predisease activities without restrictions. (ECOG) Physical Examination: ENMT - No mouth sores, no thrush, no jaundice, Bilateral axillary lymphadenopathy,No overlying skin changes except scars from previous biopsies Respiratory - Lungs are clear to auscultation, Cardiovascular - Regular rate and rhythm of heart, Abdomen - Soft, bowel sounds present, Extremities - No visible edema. Lab/Imaging: Test performed on Aug 03, 2020 15:15 Sodium 138 mmol/L Potassium 3.4 mmol/L Chloride 98 mmol/L CO2 31 mmol/L Anion Gap 12.4 BUN 15 mg/dL Creatinine 0.8 mg/dL Cr Clearance (Est) 119.3400 mL/min eGFR 96.4 mL/min Glucose 110 mg/dL Osmolality - Calculated 287 mOsm/kg Calcium 9.1 mg/dL Protein, Total 6.3 g/dL Albumin 3.9 g/dL Globulin 2.4 g/dL Bilirubin, Total 0.3 mg/dL ALT (SGPT) 18 U/L AST (SGOT) 33 U/L Alkaline Phosphatase 131 IU/L WBC 14.5 10 3/uL RBC 4.42 10 6/uL HGB 12.1 g/dL HCT 36.9 % MCV 83.5 fL MCH 27.4 pg MCHC 32.8 g/dL RDW 13.4 % Platelet Count 275 10 3/cmm MPV 9.7 fL Neutrophils 10.71 10 3/uL Lymphocytes 2.1 10 3/uL Monocytes 1.1 10 3/uL Eosinophils 0.5 10 3/uL Basophils 0.1 10 3/uL Neutrophil % 74.0 % Lymphocyte % 14.2 % Monocyte % 7.5 % Eosinophil % 3.1 % Basophils % 0.7 % NRBC % 0 % Test performed on May 04, 2020 09:30 U Protein, 24hr 276 mg/24 h U Protein/Creat Ratio 0.182 U Albumin % 100 % UPE Interpretation SEE NOTE Agarose electrophoresis of urine reveals albumin. No abnormal protein is observed. 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 done on June 25, 2020 at [facility] in [place]; NRAS mutated, T ERT promoter mutated, TMB high, PD-L1 more than 99% Initially diagnosed with Poorly differentiated carcinoma high-grade sarcomatous differentiation versus histiocytic sarcoma with plasmacytoid differentiation versus other per excisional biopsy of left axillary lymph node, Later on at [facility] patient underwent another biopsy On June 25, 2020, as mentioned above, based on molecular profiling and IHC staining it was confirmed as dedifferentiated melanoma rather sarcoma Cancer type ID confirmed undifferentiated sarcoma with 90% probability CT PET scan done on June 02, 2020 showed prominent bilateral breast tissue tumor activity with additional left axillary lymph node involvement e.g. left breast showed 8.4 x 5.1 cm with SUV of 15.95 and 3.7 x 2.6 cm dominant lymph node with SUV of 19.88 and right breast mass also present laterally extending to the skin measuring 5.9 x 3.7 cm with SUV of 17.43 and a single enlarged 1.7 cm left superior phrenic lymph node with SUV of 13.38 and There is intense increase of metabolic activity associated with the descending colon with SUV of 12.64. CT scan of chest abdomen pelvis done on February 17, 2020 showed bilateral axillary lymphadenopathy and fatty liver Plan: Discussed with patient regarding his labs white blood count 14.5 hemoglobin 12.1 hematocrit 36.9 platelets 275,000 CMP within normal limits except potassium 3.4 Clinically, patient doing reasonably well now with upper anterior chest wall discomfort/pain as well as bilateral axillary fullness more on the left side not being controlled with tramadol/hydrocodone. Initially patient was diagnosed with undifferentiated sarcoma, then patient was referred to [facility] where he underwent a biopsy of right axillary mass on June 25, 2020 and final pathology report based on molecular profiling and IHC stains confirmed dedifferentiated melanoma, patient was seen in the melanoma clinic on July 26, [address] Henao recommended immunotherapy with ipilimumab 1 mg/kg and nivolumab 3 mg/kg every 3 weeks x4 and then evaluation and also recommended pretreatment CT scan of chest abdomen pelvis as last CT PET scan was done in May 2020, also suggested MRI scan of the brain., Testing for guardant ct DNA was ordered and now awaiting report. Discussed with patient regarding immunotherapy with ipilimumab/nivolumab, which will be given every 3 weeks, all the side effects possible benefits associated with immunotherapy including but not limited to, nausea, skin rash, pneumonitis, colitis, endocrinopathy, jaundice, bone marrow suppression, generalized weakness and fatigue, fever, flulike symptoms were mentioned, further teaching will done by chemotherapy nurse, in the meantime will obtain approval from his insurance prior to the treatment and also schedule him for CT scan of chest abdomen pelvis and MRI scan of the brain. And Port-A-Cath placement. Patient return to clinic 1 week after initiation of immunotherapy with CBC CMP and TSH. Signed By: Darlene Mendenhall M.D. <<Signature on File>>
== END 2020-08-05 05:47 | disposition home or self-care (01) ==
LOC: ONCMED 05:49
PROVIDERS: PCP Nurse Practitioner Family; Visit Provider Internal Medicine Hematology & Oncology
DX: C43.59 Malignant melanoma of other part of trunk (principal); C77.3 Secondary and unspecified malignant neoplasm of axilla and upper limb lymph nodes; R07.89 Other chest pain; K76.0 Fatty (change of) liver, not elsewhere classified; F17.210 Nicotine dependence, cigarettes, uncomplicated; Z79.891 Long term (current) use of opiate analgesic
CPT/HCPCS: 99214

== ENCOUNTER 2020-08-13 09:34 | Outpatient (CLI) | payer MEDICARE, MEDICAID, SELFPAY ==
--- NOTE | 2020-08-13 09:48 | CT_ITS ---
WS: [id number] CT NECK WITH CONTRAST HISTORY: MELANOMA STAGING TECHNIQUE: Contiguous 5 mm axial images are performed through the neck with intravenous contrast. Sag ittal and coronal reformats are also submitted. All CT scans at [facility] use at least o ne of these dose optimization techniques: automated exposure control; mA and/or kV adjustment per pat ient size (includes targeted exams where dose is matched to clinical indication); or iterative recons truction. CONTRAST: CONTRAST: Omnipaque 300; 95 mL IV. DLP: 824.85 mGy.cm COMPARISON: 04/28/2020, 02/17/2020. Nasopharynx, oropharynx, hypopharynx and larynx are unremarkable. No soft tissue masses or abnormal e nhancement. Torus tubarius and fossa of Rosenmuller and parapharyngeal fat are normal. Very small cervical chain lymph nodes. These lymph nodes are not enlarged. No increased density or ne crosis. Thyroid gland is very small caliber or absent. Parotid and submandibular glands are negative. Mild cervical spondylosis. No osteoblastic or osteolytic bone disease. Visualized portions of the skull base demonstrate no abnormalities. Orbits and globes are within norm al limits. No soft tissue masses. Moderate circumferential mucoperiosteal thickening in the RIGHT maxillary sinus. No air-fluid levels. No pulmonary nodules. Pulmonary artery is mildly dilated at 3.7 cm. Enlarged LEFT axillary lymph nodes. The largest measures 5.2 x 3.6 cm. These lymph nodes were previou sly described on 02/17/2020. Moderate to high-grade stenosis proximal RIGHT ICA. Described also on 02/17/2020. CT/CT neck w con* [id number] IMPRESSION: 1. No significant cervical chain lymphadenopathy. Small cervical chain lymph n odes but these are less than a centimeter with no significant enhancement. 2. LEFT axillary lymphadenopathy with the largest lymph node measuring 5.2 x 3 .6 cm. Similar in appearance to 02/17/2020. 3. High-grade RIGHT ICA stenosis.
[2020-08-13] MEDS: iodixanol 320 mg/mL 100mL Btl IV (10:18)
== END 2020-08-13 09:35 | disposition home or self-care (01) ==
LOC: RAD 09:40
PROVIDERS: PCP Nurse Practitioner Family; Visit Provider Internal Medicine
DX: C80.1 Malignant (primary) neoplasm, unspecified (principal); R59.0 Localized enlarged lymph nodes; I65.21 Occlusion and stenosis of right carotid artery
CPT/HCPCS: 70491

== ENCOUNTER 2020-08-16 09:48 | Outpatient (CLI) | payer MEDICARE, MEDICAID, SELFPAY ==
--- NOTE | 2020-08-16 09:57 | CT_ITS ---
WS: [id number] CT CHEST, ABDOMEN AND PELVIS WITH CONTRAST. HISTORY: METASTATIC MELANOMA TECHNIQUE: Contiguous 5 mm axial imaging performed through the chest, abdomen and pelvis with IV cont rast, oral contrast has not been provided. Coronal and sagittal reformats chest. Coronal and sagittal reformats through the abdomen and pelvis. All CT scans at [facility] use at least one of these dose optimization techniques: automated exposure control; mA and/or kV adjustment per patient size (includes targeted exams where dose is matched to clinical indication); or iterative reconstruct ion. CONTRAST: Visipaque 320; 95 mL IV. DLP: 2135.11 mGy.cm COMPARISON: 02/17/2020, neck CT 08/13/2020, 05/20/[address]: No pulmonary nodules or pneumonia. No pleural or pericardial effusions. No mediastinal or h ilar lymphadenopathy. Heart size is top normal to slightly enlarged. Small hiatal hernia. There is a large lobulated cystic and solid mass in the LEFT axilla measuring 5.7 x 10.0 x 5.8 cm. Th ere are septations and mild soft tissue nodules. This corresponds to the previously described lymph n odes seen on 02/17/2020 and also the recent neck CT. There is been an overall increase in size of this LEFT axillary mass. There are adjacent clips which may be from a prior biopsy. No invasion into the adjacent muscles. There is an additional new soft tissue mass posterior to the LEFT clavicle between the first and second ribs. This additional soft tissue mass is lobulated measuring 5.6 x 2.3 x 3.5 cm and doesn't extend to the intercostal muscles. Mass abuts but does not invade the LEFT axillary lauro ry. No adenopathy on the RIGHT. Prior median sternotomy. No osteoblastic or osteolytic bone disease i s appreciated. Abdomen CT: No metastatic lesions in the liver or spleen. Contracted gallbladder without inflammation . Normal pancreas. There is a soft tissue nodule which is new measuring 1.6 cm which may be arising f rom the medial limb of the LEFT adrenal gland or a metastatic deposit in the retroperitoneum. This no dule is adjacent to the superior medial border of the LEFT kidney and the medial limb of the adrenal gland. New since prior study. No renal obstruction or mass. Cyst exophytic from the upper pole the RI GHT kidney measures 1.0 cm. There is a tiny probable cyst from the mid lateral LEFT kidney. Mild athe rosclerosis aorta. No GI tract obstruction. No ascites. Pelvic CT: No free fluid within the pelvis. No adenopathy. Urinary bladder is well distended. Very mi nimal enlargement of the prostate gland. There are 2 sclerotic foci within the LEFT ischium which hav e been present and stable since 05/20/2019 and are probably benign bone islands. Additional bone islan d in the RIGHT femoral head. CT/CT chest abd pel w con* IMPRESSION: 1. Increasing size of the necrotic lobulated mass in the LEFT axilla since 01/26. Probably representing a necrotic neoplastic lymph node now measuring 5. 7 x 10.0 x 5.8 cm. 2. New lobulated mass in the upper LEFT thorax posterior to the LEFT clavicle and posterior to the LEFT subclavian artery measures 5.6 x 2.3 x 3.5 cm and is probably an additional metastatic lymph node. 3. New 1.6 cm nodule which may be an retroperitoneal diastatic deposit or asso ciated with the medial limb of the LEFT adrenal gland. Suspicious for metastati c site. 2. No metastatic lesions within the liver or RIGHT adrenal gland. 3. No ascites.
[2020-08-16] MEDS: iodixanol 320 mg/mL 100mL Btl IV (10:12)
== END 2020-08-16 09:49 | disposition home or self-care (01) ==
PROVIDERS: PCP Nurse Practitioner Family; Visit Provider Internal Medicine
DX: C43.9 Malignant melanoma of skin, unspecified (principal); R22.1 Localized swelling, mass and lump, neck
CPT/HCPCS: 71260; 74177

== ENCOUNTER 2020-08-16 11:26 | Outpatient (CLI) | payer MEDICARE, MEDICAID, SELFPAY ==
[2020-08-16 12:32] LABS: Alanine Aminotransferase 25 U/L (0-41); Albumin Level 3.8 g/dL (3.5-5.2); Alkaline Phosphatase 151 IU/L (40-130); Anion Gap 13.9 (5-19); Aspartate Amino Transferase 27 U/L (0-40); Blood Urea Nitrogen 14 mg/dL (8-23); Calcium 9.3 mg/dL (8.5-10.5); Carbon Dioxide 29 mmol/L (22-29); Chloride 100 mmol/L (98-107); Globulin 2.4 g/dL (1.3-4.6); Glomerular Filtration Rate 112.5 mL/min (90-130); Glucose 229 mg/dL (65-115); Osmolality Calculated 296 mOsm/kg (285-295); Potassium 3.9 mmol/L (3.5-5.1); Sodium 139 mmol/L (136-145); Thyroid Stimulating Hormone 0.17 uIU/mL (0.27-4.20); Total Bilirubin 0.3 mg/dL (0.15-1.2); Total Protein 6.2 g/dL (6.6-8.7)
[2020-08-16 12:39] LABS: Basophils # 0.1 10^3/uL (0.0-0.1); Basophils % 0.2 %; Hematocrit 39.1 % (42.0-52.0); Hemoglobin 12.5 g/dL (11.7-16.6); Lymphocytes # 1.5 10^3/uL (0.8-4.8); Lymphocytes % 4.9 %; Mean Corpuscular Hemoglobin 27.5 pg (28.0-34.0); Mean Corpuscular Volume 85.9 fL (80-94); Mean Platelet Volume 9.7 fL (7.4-10.4); Monocytes # 0.6 10^3/uL (0.2-0.9); Neutrophils # 28.55 10^3/uL (1.8-7.7); Neutrophils % 91.1 %; Nucleated Red Blood Cells % 0 %; Platelet Count 340 10^3/cmm (130-400); Red Blood Count 4.55 10^6/uL (4.1-5.3); Red Cell Distribution Width 13.9 % (12.1-15.1)
[2020-08-16 12:43] LABS: Slide Review Slide Review Perform; White Blood Count 31.3 10^3/uL (4.0-10.0)
== END 2020-08-16 11:27 | disposition home or self-care (01) ==
LOC: ONCMED 11:29
PROVIDERS: PCP Nurse Practitioner Family; Visit Provider Internal Medicine Hematology & Oncology
DX: C73 Malignant neoplasm of thyroid gland (principal); C43.9 Malignant melanoma of skin, unspecified; R22.1 Localized swelling, mass and lump, neck
CPT/HCPCS: 36415; 71260; 74177; 80053; 84443; 85025

== ENCOUNTER 2020-08-17 06:27 | Outpatient (CLI) | payer MEDICARE, MEDICAID, BC, SELFPAY ==
[2020-08-17] MEDS: sodium chloride 0.9% 250 ML 75 ML IV (09:20)
[2020-08-17] MEDS: acetaminophen 325 mg Tablet 650 MG PO (09:20)
[2020-08-17] MEDS: diphenhydrAMINE 50 mg/mL SDV 1mL IVP (09:25)
[2020-08-17] MEDS: sodium chloride 0.9% (100 ml) 100 ML 275 ML (09:25)
[2020-08-17] MEDS: dexamethasone 20 MG in sodium chloride 0.9% 50 ML 188 MG IV (09:55)
[2020-08-17] MEDS: famotidine 20 mg/2 mL INJ IVP (10:18)
== END 2020-08-17 06:28 | disposition home or self-care (01) ==
LOC: ONCMED 06:29
PROVIDERS: PCP Nurse Practitioner Family; Visit Provider Internal Medicine Hematology & Oncology
DX: Z51.12 Encounter for antineoplastic immunotherapy (principal); Z51.11 Encounter for antineoplastic chemotherapy; C76.8 Malignant neoplasm of other specified ill-defined sites
CPT/HCPCS: 96367; 96375; 96413; 96415; 96417; J1100; J1200; J3490; J7050; J9228; J9299

== ENCOUNTER 2020-08-18 11:30 | Outpatient (CLI) | payer MEDICARE, MEDICAID, SELFPAY ==
--- NOTE | 2020-08-18 11:34 | MR_ITS ---
WS: [id number] MRI BRAIN WITH AND WITHOUT CONTRAST HISTORY: CA W/UNKOWN PRIMARY SITE; MELANOMA, STAGING COMPARISON: CT 03/02/2018. TECHNIQUE: Multiplanar imaging performed through the brain with Prohance 17 ml's IV. No acute infarcts are seen. Vilchis-white matter differentiation is well preserved. There are numerous T 2 and FLAIR signal hyperintensities in the periventricular and subcortical white matter. None of thes e lesions enhance. No midline shift. No susceptibility artifacts or prior lacunar infarcts. Ventricles and extra-axial spaces are normal. Clivus and pituitary gland are normal. Visualized posterior fossa and brainstem are also normal. Postcontrast images are negative for masses or vascular malformations. Dural venous sinuses are normal. Paranasal sinuses: Small amount of fluid in the LEFT maxillary sinus. Mastoid air cells: Small amount of fluid in the LEFT mastoid air cells. Calvarium and scalp: Normal. MR/MR head wo/w con [id number] IMPRESSION: 1. No evidence for metastatic disease to the brain or calvarium. 2. Moderate chronic microvascular ischemic changes in the white matter.
== END 2020-08-18 11:31 | disposition home or self-care (01) ==
LOC: RADSHAW 11:32
PROVIDERS: PCP Nurse Practitioner Family; Visit Provider Internal Medicine
DX: C80.1 Malignant (primary) neoplasm, unspecified (principal); I67.82 Cerebral ischemia
CPT/HCPCS: 70553; A9579

== ENCOUNTER 2020-08-24 05:43 | Outpatient (CLI) | payer MEDICARE, MEDICAID, SELFPAY ==
[2020-08-24 13:50] LABS: Basophils % 0.2 %; Eosinophils # 0.3 10^3/uL (0.0-0.8); Eosinophils % 1.8 %; Hemoglobin 12.2 g/dL (11.7-16.6); Lymphocytes # 1.7 10^3/uL (0.8-4.8); Lymphocytes % 10.6 %; Mean Corpuscular HGB Conc 31.3 g/dL (30.0-36.0); Mean Corpuscular Hemoglobin 27.4 pg (28.0-34.0); Mean Corpuscular Volume 87.4 fL (80-94); Mean Platelet Volume 9.6 fL (7.4-10.4); Monocytes # 1.1 10^3/uL (0.2-0.9); Monocytes % 6.7 %; Neutrophils # 12.74 10^3/uL (1.8-7.7); Neutrophils % 78.8 %; Nucleated Red Blood Cells % 0 %; Platelet Count 234 10^3/cmm (130-400); Red Blood Count 4.46 10^6/uL (4.1-5.3); Red Cell Distribution Width 13.9 % (12.1-15.1); White Blood Count 16.2 10^3/uL (4.0-10.0)
[2020-08-24 14:35] LABS: Alanine Aminotransferase 23 U/L (0-41); Albumin Level 3.5 g/dL (3.5-5.2); Alkaline Phosphatase 162 IU/L (40-130); Blood Urea Nitrogen 16 mg/dL (8-23); Calcium 8.9 mg/dL (8.5-10.5); Carbon Dioxide 31 mmol/L (22-29); Chloride 96 mmol/L (98-107); Globulin 2.2 g/dL (1.3-4.6); Glomerular Filtration Rate 66.8 mL/min (90-130); Glucose 138 mg/dL (65-115); Osmolality Calculated 285 mOsm/kg (285-295); Sodium 136 mmol/L (136-145); Thyroid Stimulating Hormone 2.52 uIU/mL (0.27-4.20); Total Bilirubin 0.2 mg/dL (0.15-1.2); Total Protein 5.7 g/dL (6.6-8.7)
[2020-08-24 14:40] LABS: Anion Gap 12.7 (5-19); Aspartate Amino Transferase 36 U/L (0-40); Potassium 3.7 mmol/L (3.5-5.1)
--- NOTE | 2020-08-29 23:20 | ONC FU_ITS ---
[facility] Whittington Patient Note Patient: Catrachito Agosto Unit #: [id number]: 1955 Dictated By: Hailey StarksDate of Visit: Aug 24, 2020 Onc MED Follow-Up/Prog Note Chief Complaint: Cancer in left axilla History of Present Illness: Mr. Agosto is a 65-year-old gentleman with a year-long history of left axillary lymphadenopathy. In October of November 2019, he noticed the LEFT axillary mass seemed to increase with associated pain. He also noticed fullness in the RIGHT axilla. The right axillary mass grew significantly over 1 to 2-month interval. He did have minor trauma to the right axillary mass which led to significant bleeding from the mass requiring a trip to the emergency room for suture to secure the bleeding. At that time he stopped his aspirin but continued Eliquis for history of atrial fib. He did have follow-up with his PCP who did refer him to his surgery for a biopsy. On 03/16/2020 he underwent excisional biopsy of the left axillary mass with pathology demonstrating large cell malignancy, most suggestive of high-grade sarcomatous differentiation quotation. 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 On 03/18/[address] of the chest abdomen pelvis which demonstrated bilateral axillary lymphadenopathy (with the largest left axillary lymph node measuring 5.2 x 3.8 cm) and bowel wall thickening in the distal rectum and some calcified nodes in the abdomen. 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 CT PET scan was done on June 02, 2020 which showed bilateral breast involvement, 8.4 x 5.1 cm on the left side with a maximum SUV of 15.95, left axillary lymphadenopathy with a dominant 3.7 x 2.6 cm mass with a maximum SUV of 19.88 and the right breast mass also is present laterally extending to the skin with possibly involving measuring 5.9 x 3.7 cm with SUV of 17.43. And a single enlarged left superior phrenic lymph node size 1.7 cm with SUV of 13.38 and incidental findings in the ascending colon with SUV of 12.64 may reflect tumor activity. Otherwise no lung involvement no liver involvement or any osseous metastatic disease. On 06/15/[address] Simon (surgical oncology) and on 06/25/2020 he underwent right axillary mass excision for diagnostic and palliative indications. On 06/19/2020 the final pathology with molecular profiling and IHC stains determined to represent dedifferentiated melanoma, he was referred to Dr. Rosado in the Melanoma clinic at [facility] on 07/26/2020. 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 Mets to bilateral breast/axilla, and left deep axillary/retrocrural spicular cesar conglomerate and a left retroperitoneal soft tissue mass on PET CT from 06/02/2020. NRAS mutated, TERT promoter mutated, TMB high, PD-L1 greater than 99%. It was recommended that he have repeat chest abdomen pelvis for new baseline given the imaging at that point was greater than 2 months old. He also was recommended to have brain MRI to complete staging. In the interim it was an option to treat him with ipilimumab/nivolumab with inverted dosing (Ipi 1 mg/kg/Nivo 3 mg/kg) Mr. Agosto began his first treatment on 08/17/2020. PMH: Mr Agosto denies any night sweats, denies any weight loss, denies any recurrent fever or infection denies any abdominal fullness denies any trauma to upper extremity denies any skin rash denies any travel to foreign land, denies any tick bite, denies any [id number] herbal medication, denies any IV drug abuse. He has longstanding history of heavy smoking about 1 to 2 packs a day for more than 50 years. Other medical illnesses include atrial for, anxiety, asthma, CAD, CHF, depression, diabetes mellitus, GERD, hyperlipidemia, hypertension, hypertrophic cardiomyopathy, hypothyroidism, OH (mitral competence), HARESH, sleep apnea. Surgeries include cardiac stent placement 2009 heart surgery septum myectomy for hypertrophic cardiomyopathy in 2016. MRI of the brain on 08/18/2020 reports no evidence of metastatic disease to the brain or calvarium. There is moderate chronic microvascular ischemic changes in the white matter. Left axillary lymphadenopathy with the largest lymph node measuring 5.2 x 3.6 cm similar in appearance to 02/17/2020. CTA neck from 08/13/2020 reports no significant cervical chain lymphadenopathy. Small cervical chain lymph nodes but these are less than 1 cm with no significant enhancement. Also noted high-grade right ICA stenosis. CT of the chest abdomen pelvis with contrast from 08/16/2020 reports increase in size of the necrotic lobulated mass in the left axilla since 02/17/2020. Probably representing necrotic neoplastic lymph node now measuring 5.7 x 10 x 5.8 cm. There was a new lobulated mass in the left upper thorax posterior to the left clavicle and posterior to the left subclavian artery measuring 5.6 x 2.3 x 3.5 cm. There is a new 1.6 nodule in the retroperitoneal metastatic deposit or associated with the medial limb of the left adrenal gland which was suspicious for metastatic site. No metastatic lesions within the liver or right adrenal gland no ascites. There were 2 sclerotic foci within the left ischium which have been present and stable since 05/20/2019 and are probably benign bone islands . There are additional bone islands in the right femoral head noted. Mr. Agosto is here today for follow-up. He had his first treatment of the ipilimumab/nivolumab 1 week ago. He has tolerated the treatment well. He presents today with concerns of swelling in his left lower extremity. He states that he had significant pain 1 to 2 days ago and was bad enough that that I needed to call the ambulance but then it went away with warm moist packs and rest . He denies any nausea or vomiting. He has had no fever or chills. He states that he has had no new pain other than the leg. He has had no diarrhea or constipation. He states other than his left lower leg bothering him he has feels pretty good. He feels that the axillary mass is already better. He is having less pain in his arm. He states he did have a little loose stool but it was not bad enough to even worry about . He has had some dry mouth but admits to not drinking as much fluid as he normally does. He continues with Eliquis 5 mg at bedtime and aspirin daily for CAD/A. fib. He has not no other concerns than the left lower extremity today. His ECOG is 2. Past Medical History: Anxiety Ashd Cardiomyopathy Chronic obstructive pulmonary disease Chronic pain Congestive heart failure Degenerative disease of the spine Hyperlipidemia Hypertension Hypothyroidism Insomnia Iron deficiency Type II diabetes Vitamin d deficiency Past Surgical History: Coronary angioplasty Ventricular septal myectomy Allergies: Metoprolol Tartrate and Red Dye. Medications: Acetaminophen Extra Strength 1 - 2 Capsule (of 500 mg) Oral daily PRN Aspirin 1 Tablet (of 81 mg) Tablet, enteric coated Oral daily buPROPion HCl ER (XL) 1 Tablet (of 300 mg) Tablet SR 24 HR Oral daily Cetirizine HCl 1 Tablet (of 10 mg) Oral daily Citalopram Hydrobromide 1 Tablet (of 40 mg) Oral daily clonazePAM 1.5 Tablet (of 1 mg) Oral daily Dexilant 1 Capsule (of 60 mg) Capsule Delayed Release Oral daily dilTIAZem HCl ER 1 Capsule (of 180 mg) Capsule SR 24 HR Oral daily Eliquis 1 Tablet (of 5 mg) Oral b.i.d. Ezetimibe 1 Tablet (of 10 mg) Oral daily HYDROcodone-Acetaminophen 1 Tablet (of 5-325 mg) Oral q 6 hours PRN Januvia 1 Tablet (of 25 mg) Oral daily Levothyroxine Sodium 1 Tablet (of 200 mcg) Oral daily Montelukast Sodium 1 Tablet (of 10 mg) Oral daily Potassium Chloride ER 1 Tablet (of 20 meq) Tablet, controlled release Oral b.i.d. Rosuvastatin Calcium 1 Tablet (of 20 mg) Oral daily Torsemide 1 Tablet (of 100 mg) Oral daily traMADol HCl 1 Tablet (of 50 mg) Oral b.i.d. PRN traZODone HCl 1 Tablet (of 50 mg) Oral daily Vitamin D 1 Capsule (of 1.25 mg) Oral q 7 days Family History: Mr. Agosto's mother at age 80: myocardial infarction, and liver cancer. Mr. Agosto's father at age 87: hypertension, and Alzheimer's disease. Social History: Mr. Agosto is single and he is retired. He is an occasional smoker who has smoked 0.5 packs/day for 39 years. He has no history of drinking. He has indicated exposure to the following products: cigarettes. Mr. [place] reports the following support systems: lives alone, lives in own house, supportive family/friends willing to assist with needs, and adequate transportation available for expected visits. His diet consists of regular meals. He indicates his activity level as: regular exercise. Review Of Symptoms: Constitutional Denies fevers, chills, night sweats, excessive fatigue or weight loss. Allergic/Immunologic No reactions. Eyes Denies significant visual changes. No diplopia. No amaurosis. ENMT Denies changes in hearing, sore throat, mouth sores, difficulty or changes in swallowing ability, and/or sinus drainage. Dry mouth. Hematologic/Lymphatic Denies easy bruising or bleeding. The patient denies any tender or palpable lymph nodes. Breasts Respiratory Denies dyspnea on exertion, chest pain, cough or hemoptysis. Denies orthopnea. Cardiovascular Denies anginal chest pain, palpitations or orthopnea. Gastrointestinal Denies nausea, vomiting, diarrhea, GI bleeding, or constipation. Denies change in bowel habits and/or stool color, no heartburn or early satiety. Genitourinary (M) Denies hematuria, dysuria, increased frequency, urgency, hesitancy or incontinence. Musculoskeletal Denies joint pain, swelling or redness. No decreased range of motion. Swelling in left lower extremity with pain- it was bad enough a day or two ago I almost called the ambulance . Integumentary Denies chronic rashes, inflammation, ulcerations or skin changes. Neurologic Denies headache, blurred vision, and no areas of focal weakness or numbness. Normal gait. No sensory problems. Psychiatric Denies insomnia, depression, becky or mood swings. Vital Signs: Performed on Aug 24, 2020 14:58 Height - 67.00 in Weight - 213.8 lbs (HIGH) BSA - 2.08 sq.m BMI - 33.49 (HIGH) Temperature - 98.0 F (LOW) Pulse - 72 /min Respiration - 19 /min BP - 147/66 mm(hg) (HIGH) O2 Sat - 92 % (LOW) Pain - 0,2 - Ambulatory/capable of all self-care, unable to perform any work activities. Up and about more than 50% of waking hours. (ECOG) Physical Examination: Constitutional Alert, oriented, no acute distress. Skin pink, warm and dry. Head Normocephalic; atraumatic. Eyes Conjunctivae and sclerae are clear and without icterus. Pupils are reactive and equal. ENMT No oral exudates, ulcers, masses, thrush or mucositis. Oropharynx clear. Tongue normal. Neck Supple without masses or thyromegaly. No jugular venous distension. Hematologic/Lymphatic No petechiae or purpura. No tender or palpable lymph nodes in the cervical or supraclavicular areas. Respiratory Lungs are clear to auscultation without rhonchi or wheezing. Cardiovascular Regular rate and rhythm of heart without murmurs,clicks, gallops or rubs. Back/Spine Non-tender to palpation. Extremities LLE with 2+ edema with calf tenderness. Musculoskeletal No tenderness or swelling, normal range of motion without obvious weakness. Integumentary No rashes or lesions. Neurologic No sensory or motor deficits, normal cerebellar function, normal gait. Psychiatric Alert and oriented times three. Coherent speech. Verbalizes understanding of our discussions today. Laboratory:Test performed on Aug 24, 2020 13:23 Sodium 136 mmol/L TSH 2.52 uIU/mL Potassium 3.7 mmol/L Chloride 96 mmol/L CO2 31 mmol/L Anion Gap 12.7 BUN 16 mg/dL Creatinine 1.1 mg/dL Cr Clearance (Est) 87.8800 mL/min eGFR 66.8 mL/min Glucose 138 mg/dL Osmolality - Calculated 285 mOsm/kg Calcium 8.9 mg/dL Protein, Total 5.7 g/dL Albumin 3.5 g/dL Globulin 2.2 g/dL Bilirubin, Total 0.2 mg/dL ALT (SGPT) 23 U/L AST (SGOT) 36 U/L Alkaline Phosphatase 162 IU/L WBC 16.2 10 3/uL RBC 4.46 10 6/uL HGB 12.2 g/dL HCT 39.0 % MCV 87.4 fL MCH 27.4 pg MCHC 31.3 g/dL RDW 13.9 % Platelet Count 234 10 3/cmm MPV 9.6 fL Neutrophils 12.74 10 3/uL Lymphocytes 1.7 10 3/uL Monocytes 1.1 10 3/uL Eosinophils 0.3 10 3/uL Basophils 0.0 10 3/uL Neutrophil % 78.8 % Lymphocyte % 10.6 % Monocyte % 6.7 % Eosinophil % 1.8 % Basophils % 0.2 % NRBC % 0 % Impression: 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 excisional biopsy done on June 25, 2020 at [facility] in [place]; NRAS mutated, T ERT promoter mutated, TMB high, PD-L1 more than 99% Initially diagnosed with Poorly differentiated carcinoma high-grade sarcomatous differentiation versus histiocytic sarcoma with plasmacytoid differentiation versus other per excisional biopsy of left axillary lymph node, Later on at [facility] patient underwent another biopsy On June 25, 2020, as mentioned above, based on molecular profiling and IHC staining it was confirmed as dedifferentiated melanoma rather sarcoma Cancer type ID confirmed undifferentiated sarcoma with 90% probability CT scan of chest abdomen pelvis done on February 17, 2020 showed bilateral axillary lymphadenopathy and fatty liver. CT PET scan done on June 02, 2020 showed prominent bilateral breast tissue tumor activity with additional left axillary lymph node involvement e.g. left breast showed 8.4 x 5.1 cm with SUV of 15.95 and 3.7 x 2.6 cm dominant lymph node with SUV of 19.88 and right breast mass also present laterally extending to the skin measuring 5.9 x 3.7 cm with SUV of 17.43 and a single enlarged 1.7 cm left superior phrenic lymph node with SUV of 13.38 and There is intense increase of metabolic activity associated with the descending colon with SUV of 12.64. Mr Agosto presented to Dr Mendenhall for followup and initiation of treatment closer to home. He had upper anterior chest wall discomfort/pain as well as bilateral axillary fullness more on the left side not being controlled with tramadol/hydrocodone. Initially patient was diagnosed with undifferentiated sarcoma, then patient was referred to [facility] where he underwent a biopsy of right axillary mass on June 25, 2020 and final pathology report based on molecular profiling and IHC stains confirmed dedifferentiated melanoma, patient was seen in the melanoma clinic on July 26, [address] Henao recommended immunotherapy with ipilimumab 1 mg/kg and nivolumab 3 mg/kg every 3 weeks x4 and then evaluation and also recommended pretreatment CT scan of chest abdomen pelvis as last CT PET scan was done in May 2020, also suggested MRI scan of the brain., Testing for guardant ct DNA was ordered and now awaiting report. Mr Agosto was offered treatment with Ipilimumab/nivolumab. He began his 1st cycle on August 17, 2020. Plan: 1. Proceed with cycle 1 ipilimumab/nivolumab. This is day 8. 2. Labs from today reviewed in detail and discussed with Mr. Agosto and a copy was given to him. WBC 16.2, hemoglobin 12.2, platelets 234,000 ANC is 12,740. Potassium 3.7 random glucose 131 creatinine 1.1 LFTs are normal alk phos is 162. TSH is 2.52. His weight is stable at 213.8 pounds. He is afebrile. 3. For complaints of left lower extremity swelling and pain I have asked for a venous Doppler of the left lower extremity SARAN to rule out DVT. He is currently on Eliquis 5 mg at bedtime as well as aspirin daily. He has been anticoagulated for history of atrial fib and CAD. 4. In regards to the CT of the neck with the reports of high-grade stenosis in the ICA. I have asked for a carotid ultrasound for follow-up. 5. We did discuss the results of the CT of the neck from 08/13/2020; the CT of the chest abdomen pelvis with contrast from 08/16/2020 and the MRI of the head with and without contrast from 08/18/2020. Those were results reviewed in detail and a copy was given to them. 6. We will plan to see him back in 2 weeks with CBC CMP and TSH. 7. . Mrs. Agosto were encouraged to contact us in interim should questions or problems arise. 8. Greater than 50 minutes was spent [id number] in review of test results including labs and scans, treatment plan, side effect identification and management and answering questions. Signed By: Bayron Starks, AOCNP Darlene Mendenhall MD <<Signature on File>>
== END 2020-08-24 05:44 | disposition home or self-care (01) ==
LOC: ONCMED 05:45
PROVIDERS: Internal Medicine Hematology & Oncology; PCP Nurse Practitioner Family; Visit Provider Nurse Practitioner
DX: C43.59 Malignant melanoma of other part of trunk (principal); C77.3 Secondary and unspecified malignant neoplasm of axilla and upper limb lymph nodes; M79.605 Pain in left leg; M79.89 Other specified soft tissue disorders; F17.210 Nicotine dependence, cigarettes, uncomplicated; I48.91 Unspecified atrial fibrillation; I25.10 Atherosclerotic heart disease of native coronary artery without angina pectoris; Z79.01 Long term (current) use of anticoagulants; Z79.899 Other long term (current) drug therapy
CPT/HCPCS: 36415; 80053; 84443; 85025; 99215

== ENCOUNTER 2020-08-24 16:26 | Outpatient (CLI) | payer MEDICARE, MEDICAID, SELFPAY ==
--- NOTE | 2020-08-24 | USCV_ITS ---
Catrachito Agosto Age: 65 Gender: M : 1955 Exam Date: 08/24/2020 16:43 Ordering Phys: Sherly Whittington NP Technologist: Johny Crow [place] [facility] [place]: LEFT LEG PAIN AND SWELLING SUDDEN ONSET PROCEDURES: Venous duplex imaging was performed in only the left lower extremity. The following venous structures were evaluated: common femoral vein, profunda vein, proximal portion of the greater saphenous vein, superficial femoral vein, and the popliteal vein. In addition, the posterior tibial and peroneal trunk were evaluated. Serial compression, augmentation maneuvers, and spectral Doppler flow evaluation were performed. FINDINGS: Normal 2-D Doppler and augmentation and compressibility throughout the lower extremity venous structures. Additional imaging through the proximal calf veins also reveals no thrombus. Limited evaluation of the greater saphenous vein is patent with no thrombus.. CONCLUSIONS No evidence of left lower extremity DVT. Torres Florez MD (Electronically Signed) Final Date: 25 August 2020 16:33 S
--- NOTE | 2020-08-24 16:48 | USCV_ITS ---
Catrachito Agosto Age: 65 Gender: M : 1955 Exam Date: 08/24/2020 16:51 Ordering Phys: Sherly Whittington NP Technologist: Lynn Gardner [place]am [place] [facility] [place] [facility] [place] Indication: STENOSIS Risk Factors: Previous Vascular Surgery: Right Brachial BP: / Left Brachial BP: / Right Left Velocity (cm/s) Spectral Plaque Velocity (cm/s) Spectral Plaque Syst/Diast Broadening Syst/Diast Broadening 75.00/ 14.30 Prox CCA 63.00 / 12.30 52.90/ 14.30 Mid CCA 61.70 / 16.00 52.90/ 13.20 Distal CCA 69.10 / 17.30 80.00/ 17.50 Prox ICA 87.90 / 22.40 113.80/27.50 Mid ICA 89.50 / 25.60 85.00/ 22.50 Distal ICA 71.10 / 22.50 108.80 ECA 182.10 2.15 ICA/CCA 1.45 Antegrade Vertebral Antegrade 38.70/ 12.30 cm/s 33.20/ 11.70 cm/s Tri Subclavian Tri 174.2 107.2 0 0 CONCLUSIONS Right ICA stenosis <50%. Moderate atheromatous plaque right carotid bulb/ICA. Left ICA stenosis <50%. Mild atheromatous plaque left carotid bulb/ICA. Normal antegrade Doppler flow noted in the right vertebral artery. Normal antegrade Doppler flow noted in the left vertebral artery. Torres Florez MD (Electronically Signed) Final Date: 25 August 2020 16:39 S
== END 2020-08-24 16:27 | disposition home or self-care (01) ==
LOC: RAD 16:32
PROVIDERS: PCP Nurse Practitioner Family; Visit Provider Nurse Practitioner
DX: M79.605 Pain in left leg (principal); M79.89 Other specified soft tissue disorders; I65.23 Occlusion and stenosis of bilateral carotid arteries
CPT/HCPCS: 93880; 93971

== ENCOUNTER 2020-09-07 08:36 | Outpatient (CLI) | payer MEDICARE, MEDICAID, SELFPAY ==
[2020-09-07 09:14] LABS: Basophils % 0.2 %; Eosinophils # 1.3 10^3/uL (0.0-0.8); Eosinophils % 14.3 %; Hematocrit 40.3 % (42.0-52.0); Hemoglobin 12.8 g/dL (11.7-16.6); Lymphocytes # 1.5 10^3/uL (0.8-4.8); Lymphocytes % 16.1 %; Mean Corpuscular HGB Conc 31.8 g/dL (30.0-36.0); Mean Corpuscular Hemoglobin 27.5 pg (28.0-34.0); Mean Corpuscular Volume 86.5 fL (80-94); Mean Platelet Volume 9.1 fL (7.4-10.4); Monocytes # 0.7 10^3/uL (0.2-0.9); Monocytes % 7.3 %; Neutrophils # 5.75 10^3/uL (1.8-7.7); Neutrophils % 61.8 %; Nucleated Red Blood Cells % 0 %; Platelet Count 255 10^3/cmm (130-400); Red Blood Count 4.66 10^6/uL (4.1-5.3); Red Cell Distribution Width 14.6 % (12.1-15.1); White Blood Count 9.3 10^3/uL (4.0-10.0)
[2020-09-07 09:45] LABS: Alanine Aminotransferase 17 U/L (0-41); Albumin Level 3.8 g/dL (3.5-5.2); Alkaline Phosphatase 141 IU/L (40-130); Anion Gap 10.3 (5-19); Aspartate Amino Transferase 24 U/L (0-40); Blood Urea Nitrogen 7 mg/dL (8-23); Calcium 8.9 mg/dL (8.5-10.5); Carbon Dioxide 35 mmol/L (22-29); Chloride 98 mmol/L (98-107); Globulin 2.1 g/dL (1.3-4.6); Glomerular Filtration Rate 96.4 mL/min (90-130); Glucose 139 mg/dL (65-115); Osmolality Calculated 290 mOsm/kg (285-295); Potassium 3.3 mmol/L (3.5-5.1); Sodium 140 mmol/L (136-145); Total Bilirubin 0.3 mg/dL (0.15-1.2); Total Protein 5.9 g/dL (6.6-8.7)
[2020-09-07] MEDS: diphenhydrAMINE 50 mg/mL SDV 1mL IVP (11:15)
[2020-09-07] MEDS: sodium chloride 0.9% 250 ML 75 ML IV (11:15)
[2020-09-07] MEDS: famotidine 20 mg/2 mL INJ IVP (11:18)
[2020-09-07] MEDS: acetaminophen 325 mg Tablet 650 MG PO (11:18)
[2020-09-07] MEDS: dexamethasone 20 MG in sodium chloride 0.9% 50 ML 188 MG IV (11:23)
[2020-09-07] MEDS: oxyCODONE-APAP 5-325 mg Tablet 2 TAB PO (13:05)
--- NOTE | 2020-09-07 14:28 | ONC FU_ITS ---
Dr. Mendenhall follow up note Patient: Catrachito Agosto Unit #: [id number]: 1955 Dicatated By: Darlene Mendenhall M.D.Date of Visit:Sep 07, 2020 Onc Med Follow-up/Prog Note History of Present Illness: Mr. Agosto is a 65-year-old gentleman with a year-long history of left axillary lymphadenopathy. In OctoberNovember 2019, he noticed the LEFT axillary mass seemed to increase with associated pain. He also noticed fullness in the RIGHT axilla. The right axillary mass grew significantly over 1 to 2-month interval. He did have minor trauma to the right axillary mass which led to significant bleeding from the mass requiring a trip to the emergency room for suture to secure the bleeding. At that time he stopped his aspirin but continued Eliquis for history of atrial fib. He did have follow-up with his PCP who did refer him to his surgery for a biopsy. On 03/16/2020 he underwent excisional biopsy of the left axillary mass with pathology demonstrating large cell malignancy, most suggestive of high-grade sarcomatous differentiation quotation. 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 On 03/18/[address] of the chest abdomen pelvis which demonstrated bilateral axillary lymphadenopathy (with the largest left axillary lymph node measuring 5.2 x 3.8 cm) and bowel wall thickening in the distal rectum and some calcified nodes in the abdomen. 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 CT PET scan was done on June 02, 2020 which showed bilateral breast involvement, 8.4 x 5.1 cm on the left side with a maximum SUV of 15.95, left axillary lymphadenopathy with a dominant 3.7 x 2.6 cm mass with a maximum SUV of 19.88 and the right breast mass also is present laterally extending to the skin with possibly involving measuring 5.9 x 3.7 cm with SUV of 17.43. And a single enlarged left superior phrenic lymph node size 1.7 cm with SUV of 13.38 and incidental findings in the ascending colon with SUV of 12.64 may reflect tumor activity. Otherwise no lung involvement no liver involvement or any osseous metastatic disease. On 06/15/[address] Simon (surgical oncology) and on 06/25/2020 he underwent right axillary mass excision for diagnostic and palliative indications. On 06/19/2020 the final pathology with molecular profiling and IHC stains determined to represent dedifferentiated melanoma, he was referred to Dr. Rosado in the Melanoma clinic at [facility] on 07/26/2020. 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 Mets to bilateral breast/axilla, and left deep axillary/retrocrural spicular cesar conglomerate and a left retroperitoneal soft tissue mass on PET CT from 06/02/2020. NRAS mutated, TERT promoter mutated, TMB high, PD-L1 greater than 99%. It was recommended that he have repeat chest abdomen pelvis for new baseline given the imaging at that point was greater than 2 months old. He also was recommended to have brain MRI to complete staging. In the interim it was an option to treat him with ipilimumab/nivolumab with inverted dosing (Ipi 1 mg/kg/Nivo 3 mg/kg) Mr. Agosto began his first treatment on 08/17/2020. PMH: Mr Agosto denies any night sweats, denies any weight loss, denies any recurrent fever or infection denies any abdominal fullness denies any trauma to upper extremity denies any skin rash denies any travel to foreign land, denies any tick bite, denies any weag-fyl-msjjpsw herbal medication, denies any IV drug abuse. He has longstanding history of heavy smoking about 1 to 2 packs a day for more than 50 years. Other medical illnesses include atrial for, anxiety, asthma, CAD, CHF, depression, diabetes mellitus, GERD, hyperlipidemia, hypertension, hypertrophic cardiomyopathy, hypothyroidism, AR (mitral competence), HARESH, sleep apnea. Surgeries include cardiac stent placement 2009 heart surgery septum myectomy for hypertrophic cardiomyopathy in 2016. MRI of the brain on 08/18/2020 reports no evidence of metastatic disease to the brain or calvarium. There is moderate chronic microvascular ischemic changes in the white matter. Left axillary lymphadenopathy with the largest lymph node measuring 5.2 x 3.6 cm similar in appearance to 02/17/2020. CTA neck from 08/13/2020 reports no significant cervical chain lymphadenopathy. Small cervical chain lymph nodes but these are less than 1 cm with no significant enhancement. Also noted high-grade right ICA stenosis. CT of the chest abdomen pelvis with contrast from 08/16/2020 reports increase in size of the necrotic lobulated mass in the left axilla since 02/17/2020. Probably representing necrotic neoplastic lymph node now measuring 5.7 x 10 x 5.8 cm. There was a new lobulated mass in the left upper thorax posterior to the left clavicle and posterior to the left subclavian artery measuring 5.6 x 2.3 x 3.5 cm. There is a new 1.6 nodule in the retroperitoneal metastatic deposit or associated with the medial limb of the left adrenal gland which was suspicious for metastatic site. No metastatic lesions within the liver or right adrenal gland no ascites. There were 2 sclerotic foci within the left ischium which have been present and stable since 05/20/2019 and are probably benign bone islands . There are additional bone islands in the right femoral head noted. Left lower extremity venous Doppler study done on August 24, 2020 showed no evidence of DVT Started on ipilimumab/nivolumab Every 3 weeks on August 17, 2020. Came for follow-up, complaining of generalized weakness and fatigue otherwise no fever chills, no shortness of breath, no wheezing, no jaundice, no diarrhea or constipation, no mouth sores, no headaches. Tolerated first cycle of immunotherapy with ipi/nivolumab, well Medications: Acetaminophen Extra Strength 1 - 2 Capsule (of 500 mg) Oral daily PRN, Aspirin 1 Tablet (of 81 mg) Tablet, enteric coated Oral daily, buPROPion HCl ER (XL) 1 Tablet (of 300 mg) Tablet SR 24 HR Oral daily, Cetirizine HCl 1 Tablet (of 10 mg) Oral daily, Citalopram Hydrobromide 1 Tablet (of 40 mg) Oral daily, clonazePAM 1.5 Tablet (of 1 mg) Oral daily, Dexilant 1 Capsule (of 60 mg) Capsule Delayed Release Oral daily, dilTIAZem HCl ER 1 Capsule (of 180 mg) Capsule SR 24 HR Oral daily, Eliquis 1 Tablet (of 5 mg) Oral b.i.d., Ezetimibe 1 Tablet (of 10 mg) Oral daily, HYDROcodone-Acetaminophen 1 Tablet (of 5-325 mg) Oral q 6 hours PRN, Januvia 1 Tablet (of 25 mg) Oral daily, Levothyroxine Sodium 1 Tablet (of 200 mcg) Oral daily, Montelukast Sodium 1 Tablet (of 10 mg) Oral daily, Potassium Chloride ER 1 Tablet (of 20 meq) Tablet, controlled release Oral b.i.d., Rosuvastatin Calcium 1 Tablet (of 20 mg) Oral daily, Torsemide 1 Tablet (of 100 mg) Oral daily, traMADol HCl 1 Tablet (of 50 mg) Oral b.i.d. PRN, traZODone HCl 1 Tablet (of 50 mg) Oral daily, Vitamin D 1 Capsule (of 1.25 mg) Oral q 7 days Allergies: Metoprolol Tartrate and Red Dye. Review of Systems: Constitutional - Appetite is good and weight is stable. No fever, night sweats, or hot flashes. Energy level is poor, ENMT - Positive for sinus congestion/drainage. No mouth sores. No sore throat or difficulty swallowing, Hematologic/Lymphatic - Positive for easy bruising and bleeding, Respiratory - No shortness of breath. Positive for cough. No pleuritic pain or hemoptysis, Cardiovascular - No angina pain. No palpitations, Gastrointestinal - Positive for nausea, no vomiting. Positive for heartburn and acid reflux. No diarrhea or constipation. No blood in the stool or black stools, Genitourinary (M) - No dysuria or hematuria. No urinary frequency. No urgency. Occasional incontinence, Musculoskeletal - Positive for joint pain, Neurologic - No headache. Positive for dizziness. Positive for numbness in his legs. No other focal neurologic symptoms, Psychiatric - Positive for anxiety, depression and insomnia. Vital Signs: Performed on Sep 07, 2020 10:15 Height - 67.00 in Weight - 212.0 lbs (LOW) BSA - 2.07 sq.m BMI - 33.20 (HIGH) Temperature - 97.5 F (LOW) Pulse - 72 /min Respiration - 18 /min BP - 135/64 mm(hg) O2 Sat - 95 % (LOW) Pain - 6 Performance Status: 1 - No physically strenuous activity, but ambulatory and able to carry out light or sedentary work (e.g. office work, light house work). (ECOG) Physical Examination: ENMT - No mouth sores, no thrush, no jaundice, Respiratory - Lungs are clear to auscultation, Cardiovascular - irregular rate and rhythm of heart, Abdomen - Soft, bowel sounds present, Extremities - Trace edema left leg. Lab/Imaging: Test performed on Sep 07, 2020 09:00 TSH 1.90 uU/mL Glucose 139 mg/dL BUN 7 mg/dL Creatinine 0.8 mg/dL Cr Clearance (Est) 120.84 mL/min Sodium 140 mmol/L Potassium 3.3 mmol/L Chloride 98 mmol/L CO2 35 mmol/L Calcium 8.9 mg/dL Protein, Total 5.9 g/dL Albumin 3.8 g/dL Globulin 2.1 g/dL Bilirubin, Total 0.3 mg/dL Alkaline Phosphatase 141 IU/L AST (SGOT) 24 IU/L ALT (SGPT) 17 IU/L WBC 9.3 10^9/L RBC 4.66 10^12/L HGB 12.8 g/dL HCT 40.3 % MCV 86.5 fl MCH 27.5 pg MCHC 31.8 g/dL RDW 14.6 % Platelet Count 255 10^9/L MPV 9.1 fL Neutrophils (Gran) 5.75 10^9/L Lymphocytes 1.5 10^9/L Monocytes 0.7 10^9/L Eosinophils 1.3 10^9/L Manual Lymphocytes 16.1 % Manual Monocytes 7.3 % Manual Eosinophils 14.3 % Manual Basophils 0.2 % Test performed on Aug 24, 2020 13:23 Anion Gap 12.7 eGFR 66.8 mL/min Osmolality - Calculated 285 mOsm/kg Basophils 0.0 10 3/uL Neutrophil % 78.8 % Lymphocyte % 10.6 % Monocyte % 6.7 % Eosinophil % 1.8 % Basophils % 0.2 % NRBC % 0 % Test performed on Aug 16, 2020 11:45 CBC Slide Review Slide Review Perform SLIDE REVIEW AGREES WITH AUTOMATED RESULTS Test performed on May 04, 2020 09:30 U Protein, 24hr 276 mg/24 h U Protein/Creat Ratio 0.182 U Albumin % 100 % UPE Interpretation SEE NOTE Agarose electrophoresis of urine reveals albumin. No abnormal protein is observed. THIS TEST WAS PERFORMED AT: [facility] [address] [place] [address] OBDULIA BELTRAN DO,MPH U Creatinine, 24 hr 1.52 g/24 h IgA 120 mg/dL IgG 579 mg/dL IgM 63 mg/dL [place] Free Light Chains 11.3 mg/L Lambda Free Light Chains 8.7 mg/L [place]/Lambda Free Ratio 1.30 U [id number] 0 % U Gywrm-1-[id number] 0 % U Beta Globulin 0 % U Gamma Globulin 0 % Impression: 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 excisional biopsy done on June 25, 2020 at [place] in [facility]; NRAS mutated, T ERT promoter mutated, TMB high, PD-L1 more than 99% Initially diagnosed with Poorly differentiated carcinoma high-grade sarcomatous differentiation versus histiocytic sarcoma with plasmacytoid differentiation versus other per excisional biopsy of left axillary lymph node, Later on at [place] patient underwent another biopsy On June 25, 2020, as mentioned above, based on molecular profiling and IHC staining it was confirmed as dedifferentiated melanoma rather sarcoma Cancer type ID confirmed undifferentiated sarcoma with 90% probability CT scan of chest abdomen pelvis done on February 17, 2020 showed bilateral axillary lymphadenopathy and fatty liver. CT PET scan done on June 02, 2020 showed prominent bilateral breast tissue tumor activity with additional left axillary lymph node involvement e.g. left breast showed 8.4 x 5.1 cm with SUV of 15.95 and 3.7 x 2.6 cm dominant lymph node with SUV of 19.88 and right breast mass also present laterally extending to the skin measuring 5.9 x 3.7 cm with SUV of 17.43 and a single enlarged 1.7 cm left superior phrenic lymph node with SUV of 13.38 and There is intense increase of metabolic activity associated with the descending colon with SUV of 12.64. Mr Agosto presented to us for followup and initiation of treatment closer to home. He had upper anterior chest wall discomfort/pain as well as bilateral axillary fullness more on the left side not being controlled with tramadol/hydrocodone. Initially patient was diagnosed with undifferentiated sarcoma, then patient was referred to [facility] where he underwent a biopsy of right axillary mass on June 25, 2020 and final pathology report based on molecular profiling and IHC stains confirmed dedifferentiated melanoma, patient was seen in the melanoma clinic on July 26, [address] Henao recommended immunotherapy with ipilimumab 1 mg/kg and nivolumab 3 mg/kg every 3 weeks x4 and then evaluation and also recommended pretreatment CT scan of chest abdomen pelvis as last CT PET scan was done in May 2020, also suggested MRI scan of the brain., Testing for guardant ct DNA was ordered and now awaiting report. Mr Agosto was offered treatment with Ipilimumab/nivolumab. He began his 1st cycle on August 17, 2020. Plan: Discussed with patient regarding his labs white blood count 9.3 hemoglobin 12.8 hematocrit 40.3 platelets 255,000 CMP within normal limit except potassium 3.3 and TSH is 1.90 Clinically, patient is doing well with no new signs symptom suggestive of disease progression, has tolerated first dose of 3 weekly ipi/nivolumab, now will proceed with next cycle #2/4 with IPI/nivolumab today and then he will return to clinic in 3 weeks with CBC CMP As far as hypokalemia is concerned, patient is on potassium supplement with diuretics, he was advised to take additional dose for 3 days and will follow the potassium level Carotid study shows right ICA and left ICA stenosis both are less than 50% with a mild atheromatous plaque. Patient is already on aspirin.We will refer him to vascular surgery for evaluation Signed By: Darlene Mendenhall M.D. <<Signature on File>>
== END 2020-09-07 08:37 | disposition home or self-care (01) ==
PROVIDERS: PCP Nurse Practitioner Family; Visit Provider Internal Medicine Hematology & Oncology
DX: Z51.12 Encounter for antineoplastic immunotherapy (principal); C43.59 Malignant melanoma of other part of trunk; C77.3 Secondary and unspecified malignant neoplasm of axilla and upper limb lymph nodes; E87.6 Hypokalemia; I65.23 Occlusion and stenosis of bilateral carotid arteries; Z79.899 Other long term (current) drug therapy; Z79.82 Long term (current) use of aspirin
CPT/HCPCS: 80053; 84443; 85025; 96367; 96375; 96413; 96417; 99214; J1100; J1200; J3490; J7050; J9228; J9299

== ENCOUNTER → 2020-09-10 11:15 | Outpatient (BNVA) | payer MEDICARE, MEDICAID, SELFPAY | PROVIDERS: PCP Nurse Practitioner Family; Visit Provider Surgery | DX: R59.0 Localized enlarged lymph nodes (principal) | CPT/HCPCS: 87635 ==

== ENCOUNTER 2020-09-14 10:32 | Day surgery (SDC) | payer MEDICARE, MEDICAID, SELFPAY ==
[2020-09-13 10:27] VITALS: BMI 31.0
--- NOTE | 2020-09-14 11:05 | SC_ITS ---
WS: [id number] C-ARM RADIOGRAPHS CHEST; 3 IMAGES HISTORY: Powerport Placement COMPARISON: None available. Intraoperative imaging during Port-A-Cath placement. The distal tip overlies the RIGHT hilum near the SVC RIGHT atrial junction. SC/C-arm FL for CVA [id number] IMPRESSION: Intraoperative imaging during Port-A-Cath placement through the RIGHT subclavia n vein.
--- NOTE | 2020-09-14 11:32 | P.HP_ITS ---
Same Day Surgery H&P Indication for Procedure/HPI DATE OF PROCEDURE: September 14, 2020 CHIEF COMPLAINT/INDICATIONFOR SURGICAL PROCEDURE: History of melanoma PREOP DIAGNOSIS: Melanoma PLANNED PROCEDRUE: Operation Date: 09/14/20 12:55 Proposed Procedures p Portacath Placement 28214 R59.0(Not Applicable) - Ilan Valera MD This is a 65 years old gentleman well-known to me from previous clinical encounter where I did obtain a biopsy from left axillary mass, patient had unclear pathological diagnosis and was worked up further at [place] and was found to have melanoma likely with unknown known primary. Patient presents today to my office to discuss Port-A-Cath placementTo start immunotherapy Interim history 09/14/2020 Patient comes today for PowerPort placement ROS All systems have been reviewed negative except as per the above and/or per problem list Medications/Allergies* Home Medications Medication Instructions Recorded Confirmed Type Dexilant 60 mg PO DAILY 09/13/20 09/13/20 History Januvia 25 mg PO DAILY 09/13/20 09/13/20 History Vitamin D2 1,250 mcg PO Q7D 09/13/20 09/13/20 History bupropion HCl 300 mg PO DAILY 09/13/20 09/13/20 History citalopram 40 mg PO DAILY 09/13/20 09/13/20 History diltiazem HCl 180 mg PO DAILY 09/13/20 09/13/20 History ezetimibe 10 mg PO DAILY 09/13/20 09/13/20 History levothyroxine 200 mcg PO DAILY 09/13/20 09/13/20 History montelukast 10 mg PO DAILY 09/13/20 09/13/20 History potassium chloride 20 meq PO DAILY 09/13/20 09/13/20 History rosuvastatin 20 mg PO DAILY 09/13/20 09/13/20 History torsemide 100 mg PO DAILY 09/13/20 09/13/20 History trazodone 50 mg PO DAILY 09/13/20 09/13/20 History Allergies/Adverse Reactions Allergy/AdvReac Type Severity Reaction Status Date / Time Iodinated Contrast Media Allergy ALGY-Hives Verified 09/14/20 11:33 metoprolol Allergy unknown Verified 09/14/20 11:33 red dye Allergy unknown Verified 09/14/20 11:33 Pertinent History/Comorbid Conditions* Medical History (Updated 08/14/20 @ 18:02 by Ilan Valera MD) Acute lower respiratory infection Anxiety ASHD (arteriosclerotic heart disease) Atrial fibrillation Chronic pain syndrome Chronic recurrent sinusitis Chronic seasonal allergic rhinitis Congestive heart failure (CHF) Diabetes mellitus, type II Essential hypertension Hypertrophic cardiomyopathy Hypomagnesemia Hypothyroidism Insomnia Iron deficiency Lower respiratory infection Mixed hyperlipidemia Multilevel degenerative disc disease Sarcoma Sleep apnea Vitamin D deficiency Surgical History (Updated 10/06/19 @ 21:50 by PORFIRIO Hutchinson) Coronary angioplasty status [facility] 2105 H/O ventricular septal myectomy Family History (Updated 10/13/19 @ 14:50 by Becca Clark LPN) Family history of CABG Diabetes Myocardial infarction Mother Hypertension Father Social History Smoking and tobacco status: current every day smoker Second hand smoke exposure: No Desire information about alcohol rehabilitation?: No Counseling given: No Desire information about substance/drug rehabilitation?: No Counseling given: No Pertinent Exam Findings alert, oriented x 3, clear to auscultation bilaterally, regular rate & rhythm, operative site marked and procedure specific exam findings Recommendations Surgery/Procedure today (Plan of care;After thorough history physical examination and reviewing the chart, I counseled the patient for Port-A-Cath placement, indications, risks including pneumothorax and injury of major vascular structures, benefits,indications and alternatives were all discussed with the patient, patient u) Coding Level of Care Code Acute Veterinary Laboratory Diagnostician for Dina Donaldson
[2020-09-14 11:36] VITALS: BP 133/59; PULSE 76; RESP 18; TEMP 36.5; O2SAT 94
[2020-09-14 11:37] LABS: Glucose Point of Care 121 mg/dL (70-110)
[2020-09-14] MEDS: sodium chloride 0.9% 1,000 ML 30 ML IV (11:42)
--- NOTE | 2020-09-14 11:45 | ANES.PREANE2 ---
Pre-Anesthetic Assessment Pre-Anesthetic Assessment: Height/Weight: Height 1.75 m Weight 95.254 kg Temp Pulse Resp BP Pulse Ox 97.7 F 76 18 133/59 94 09/14/20 11:36 09/14/20 11:36 09/14/20 11:36 09/14/20 11:36 09/14/20 11:36 Preop Diagnosis: Melanoma Proposed Procedure: Operation Date: 09/14/20 12:55 Proposed Procedures p Portacath Placement 21300 R59.0(Not Applicable) - Ilan Valera MD Familial anesthetic complications: None Was Beta Alicia taken within 24 hours: N/A Last intake: Intake Last Liquid Date 09/13/20 Last Liquid Time 23:55 Last Solid Date 09/13/20 Last Solid Time 22:00 Social: Social History: No alcohol and No tobacco Exam: Pre-Anes Outpt Exam: alert, oriented x 3, clear to auscultation bilaterally and regular rate & rhythm Airway: Cervical ROM: WNL MP: 3 Dentition: Chipped Pulmonary: Pulmonary: COPD Comments: Smokers cough CV/HEM: CV/HEM: CAD Comments: hX HOCM s/p septal myectomy hx afib Metabolic: Metabolic: DM and Thyroid Anesthetic Plan: ASA status: 4 Anesthesia: MAC Risk of > 500 ml blood loss (7ml/kg in children): No Meds/Allergies Current Medications: Current Medications Generic Name Dose Route Start Last Admin Trade Name Freq PRN Reason Stop Dose Admin Sodium Chloride 1,000 mls @ 30 ml s/hr 09/14/20 11:30 09/14/20 11:42 Sodium Chloride 0.9% IV 09/15/20 11:29 30 mls/hr .Q24H TOM Administration PFSH Anesthesia PFSH: Medical History Acute lower respiratory infection Anxiety ASHD (arteriosclerotic heart disease) Atrial fibrillation Chronic pain syndrome Chronic recurrent sinusitis Chronic seasonal allergic rhinitis Congestive heart failure (CHF) Diabetes mellitus, type II Essential hypertension Hypertrophic cardiomyopathy Hypomagnesemia Hypothyroidism Insomnia Iron deficiency Lower respiratory infection Mixed hyperlipidemia Multilevel degenerative disc disease Sarcoma Sleep apnea Vitamin D deficiency Surgical History Coronary angioplasty status [facility] 2105 H/O ventricular septal myectomy Family History Mother Myocardial infarction Father Hypertension Other Diabetes Family history of CABG Social History Smoking and tobacco status: current every day smoker Second hand smoke exposure: No Desire information about alcohol rehabilitation?: No Counseling given: No Desire information about substance/drug rehabilitation?: No Counseling given: No Data Anesthesia Other Labs: Laboratory Results - last 48 hr 09/14/20 11:35 POC Glucose 121 H Cardiac Studies: No Data to Display
[2020-09-14] MEDS: lidocaine 2% INJ 20 mL INJECTION (12:35)
[2020-09-14] MEDS: heparin, porcine 1,000 unit/mL INJ 10 mL 9000 UNIT IRRIGATION (12:37)
--- NOTE | 2020-09-14 12:53 | PM.OP ---
Operative Report Date of procedure: September 14, 2020 Pre-op Diagnosis: Melanoma Post-op diagnosis: same Post-op Findings: Normal anatomy right subclavian vein Procedure Done: PowerPort placement right subclavian vein Fluoroscopy interpretation done with me through the procedure Implants: PowerPort right subclavian vein Surgeon: Ilan Valera Guest Services Coordinator: highway engineering technician Donna Circulating nurse Linh Jeter Anesthesia: MAC (Kanika Akbar) Estimated blood loss (mL): 15 Condition: stable Disposition: same day Brief History: This is a pleasant 65 years old gentleman diagnosed with melanoma requiring PowerPort placement . plan of care; After thorough history physical examination and reviewing the chart, I counseled the patient for Port-A-Cath placement, indications, risks including pneumothorax and injury of major vascular structures, benefits,indications and alternatives were all discussed with the patient, patient understands and is interested to proceed. Rationale was carefully and clearly discussed with the patient.Appropriate informed consent have been reviewed and signed. Procedure: Patient was identified in the holding area and taken to the operative room and placed in supine position IV propofol was given by the anesthesia provider ,both arms were tucked,Time-out was done verifying the patient's name/date of /planned procedure and destination after the procedure, all were in agreement. SCDs confirmed to be functioning, preoperative antibiotics administered per protocol, and beta chan protocol was confirmed, appropriate positioning of the patient was done by me. Medications were reviewed to assess for anticoagulant usage. Risks and benefits and prevention of central line associated blood stream infection (CLABSI) were discussed with the patient/CPOA, and a consent was obtained. Monitors were in place and monitored throughout the procedure. All necessary supplies were available prior to start. Hand hygiene was completed prior to starting. Maximum barrier technique was utilized including a sterile gown, sterile gloves with a hat and mask. Site was was prepped with [chlorhexidine] and a full body drape was placed. 5 mL of 2% lidocaine was injected into the skin with a 25 gauge needle. Prep& drape was done under the usual sterile technique, lidocaine 2% was injected at the site of the stick, started by right subclavian stick that retrieved venous blood was obtained from the first stick, a guidewire was then threaded and under the guidance of fluoroscopy position was confirmed to be in the IVC and my interpretation, there was no PVC changes, at that point the guidewire was secured to the drapes with a hemostat and the needle was taken out, attention was then deviated towards creation of a pocket for the port were lidocaine 2% was injected using an 15 blade knife skin incision was created dissection using the Bovie to create a pocket for the Port-A-Cath to be accommodated, hemostasis was secured, after the port being appropriately flushed it was inserted into the pocket and a tunneler was used to accommodate the catheter of the port cath to be delivered through the incision first created at the site of the stick, at that point under fluoroscopy an estimated length was measured for the catheter and was cut at the designed level, followed by that a dilator with the sheath introduced onto the guidewire the dilator and the wire were retrieved and the catheter of the port was introduced via the sheath where it was peeled off and the catheter maintained to be in the SVC that was confirmed with fluoroscopy, and the fluoroscopy interpretation was done by me throughout the entire procedure. I did discuss with Dr. Kumar over the phone and she recommended to pull back 2 to 3 cm on the catheter which I did and reimaged it and maintained to be in an appropriate position thereafter. And the port maintained to flush appropriately. The port was kept in its pocket,3-0 Vicryl deep subdermal interrupted sutures, skin was then closed by 4-0 Monocryl as subcuticular closure. The stick site was closed by 4-0 Monocryl and Dermabond was used followed by dressing. Patient tolerated the procedure well was taken to the recovery area Count was correct at the end of the procedure I was present for the whole entire procedure Position of the catheter was checked with a postoperative chest x-ray and it was in good position without evidence of pneumothorax
--- NOTE | 2020-09-14 12:56 | XRR_ITS ---
PROCEDURE INFORMATION: Exam: XR Chest, 1 View Exam date and time: 09/14/2020 1:07 PM Age: 65 years old Clinical indication: Device placement; Other: Status post powerport placement right subclavian vein; Prior surgery; Surgery date: Post-operative (0-2 days) TECHNIQUE: Imaging protocol: XR of the chest Views: 1 view. COMPARISON: CT chest abd pel w con* 08/16/2020 10:01 AM FINDINGS: Tubes, catheters and devices: A right central line is present extending into the right atrium. Lungs: A linear fibrotic density is present in the right lower lobe. No consolidation. Pleural space: Unremarkable. No pleural effusion. No pneumothorax. Heart/Mediastinum: Unremarkable. No cardiomegaly. Bones/joints: Metallic sternotomy wires are in place. Soft tissues: Metallic surgical clips are present in the left axillary soft tissues. XR/XR chest 1V portable [id number] IMPRESSION: 1. No acute findings. 2. A central line is present on the right side extending into the right atrium 3. Status post sternotomy
[2020-09-14 12:58] VITALS: BP 169/80; PULSE 72; RESP 18; TEMP 36.3; O2SAT 92
[2020-09-14 13:40] VITALS: BP 153/98; PULSE 68; RESP 18; O2SAT 93
--- NOTE | 2020-09-14 14:18 | ANE.PACU2 ---
Inpatient post-anesthesia follow up: Airway intact: Yes Vital signs: Temperature 97.4 F Pulse Rate 68 Respiratory Rate 18 Blood Pressure 153/98 Pulse Oximetry 93 Oxygen Delivery Me thod Room Air Oxygen Flow Rate Fraction of Inspir ed Oxygen Hydration adequate: Yes Nausea and vomiting: No Pain level: 1 Mental status: Baseline
== END 2020-09-14 14:09 | disposition home or self-care (01) ==
PROVIDERS: PCP Nurse Practitioner Family; Visit Provider Surgery
PROC: (CPT 36561; principal; 2020-09-14 12:45)
DX: C43.9 Malignant melanoma of skin, unspecified (principal); J44.9 Chronic obstructive pulmonary disease, unspecified; I25.10 Atherosclerotic heart disease of native coronary artery without angina pectoris; I48.91 Unspecified atrial fibrillation; E11.9 Type 2 diabetes mellitus without complications; F17.210 Nicotine dependence, cigarettes, uncomplicated; F41.9 Anxiety disorder, unspecified; I10 Essential (primary) hypertension; E03.9 Hypothyroidism, unspecified; E78.2 Mixed hyperlipidemia; G47.30 Sleep apnea, unspecified
CPT/HCPCS: 36561; 12345; 36416; 71045; 77001; 82962; 96365; C1788; J0690; J1644; J2250; J2704; J3010; J7030

== ENCOUNTER 2020-09-27 06:15 | Outpatient (CLI) | payer MEDICARE, MEDICAID, SELFPAY ==
[2020-09-27 14:16] LABS: Basophils # 0.1 10^3/uL (0.0-0.1); Hematocrit 38.9 % (42.0-52.0); Hemoglobin 12.4 g/dL (11.7-16.6); Lymphocytes # 1.8 10^3/uL (0.8-4.8); Lymphocytes % 19.2 %; Mean Corpuscular HGB Conc 31.9 g/dL (30.0-36.0); Mean Corpuscular Hemoglobin 27.3 pg (28.0-34.0); Mean Corpuscular Volume 85.7 fL (80-94); Mean Platelet Volume 9.4 fL (7.4-10.4); Monocytes # 1.1 10^3/uL (0.2-0.9); Monocytes % 11.6 %; Neutrophils # 5.19 10^3/uL (1.8-7.7); Neutrophils % 56.9 %; Nucleated Red Blood Cells % 0 %; Platelet Count 205 10^3/cmm (130-400); Red Blood Count 4.54 10^6/uL (4.1-5.3); White Blood Count 9.1 10^3/uL (4.0-10.0)
[2020-09-27 15:17] LABS: Alanine Aminotransferase 24 U/L (0-41); Alkaline Phosphatase 122 IU/L (40-130); Anion Gap 8.3 (5-19); Aspartate Amino Transferase 40 U/L (0-40); Blood Urea Nitrogen 12 mg/dL (8-23); Calcium 9.3 mg/dL (8.5-10.5); Carbon Dioxide 34 mmol/L (22-29); Chloride 97 mmol/L (98-107); Globulin 2.1 g/dL (1.3-4.6); Glomerular Filtration Rate 96.4 mL/min (90-130); Glucose 94 mg/dL (65-115); Osmolality Calculated 282 mOsm/kg (285-295); Potassium 3.3 mmol/L (3.5-5.1); Sodium 136 mmol/L (136-145); Thyroid Stimulating Hormone 0.08 uIU/mL (0.27-4.20); Total Bilirubin 0.4 mg/dL (0.15-1.2); Total Protein 6.1 g/dL (6.6-8.7)
== END 2020-09-27 06:16 | disposition home or self-care (01) ==
LOC: ONCMED 06:17
PROVIDERS: PCP Nurse Practitioner Family; Visit Provider Internal Medicine Hematology & Oncology
DX: C43.59 Malignant melanoma of other part of trunk (principal)
CPT/HCPCS: 36415; 80053; 84443; 85025

== ENCOUNTER 2020-09-28 05:41 | Outpatient (CLI) | payer MEDICARE, MEDICAID, SELFPAY ==
--- NOTE | 2020-09-28 11:14 | ONC FU_ITS ---
Dr. Mendenhall follow up note Patient: Catrachito Agosto Unit #: [id number]: 1955 Dicatated By: Darlene Mendenhall M.D.Date of Visit:Sep 28, 2020 Onc Med Follow-up/Prog Note History of Present Illness: Mr. Agosto is a 65-year-old gentleman with a year-long history of left axillary lymphadenopathy. In October of November 2019, he noticed the LEFT axillary mass seemed to increase with associated pain. He also noticed fullness in the RIGHT axilla. The right axillary mass grew significantly over 1 to 2-month interval. He did have minor trauma to the right axillary mass which led to significant bleeding from the mass requiring a trip to the emergency room for suture to secure the bleeding. At that time he stopped his aspirin but continued Eliquis for history of atrial fib. He did have follow-up with his PCP who did refer him to his surgery for a biopsy. On 03/16/2020 he underwent excisional biopsy of the left axillary mass with pathology demonstrating large cell malignancy, most suggestive of high-grade sarcomatous differentiation quotation. 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 On 03/18/[address] of the chest abdomen pelvis which demonstrated bilateral axillary lymphadenopathy (with the largest left axillary lymph node measuring 5.2 x 3.8 cm) and bowel wall thickening in the distal rectum and some calcified nodes in the abdomen. 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 CT PET scan was done on June 02, 2020 which showed bilateral breast involvement, 8.4 x 5.1 cm on the left side with a maximum SUV of 15.95, left axillary lymphadenopathy with a dominant 3.7 x 2.6 cm mass with a maximum SUV of 19.88 and the right breast mass also is present laterally extending to the skin with possibly involving measuring 5.9 x 3.7 cm with SUV of 17.43. And a single enlarged left superior phrenic lymph node size 1.7 cm with SUV of 13.38 and incidental findings in the ascending colon with SUV of 12.64 may reflect tumor activity. Otherwise no lung involvement no liver involvement or any osseous metastatic disease. On 06/15/[address] Simon (surgical oncology) and on 06/25/2020 he underwent right axillary mass excision for diagnostic and palliative indications. On 06/19/2020 the final pathology with molecular profiling and IHC stains determined to represent dedifferentiated melanoma, he was referred to Dr. Rosado in the Melanoma clinic at [facility] on 07/26/2020. 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 Mets to bilateral breast/axilla, and left deep axillary/retrocrural spicular cesar conglomerate and a left retroperitoneal soft tissue mass on PET CT from 06/02/2020. NRAS mutated, TERT promoter mutated, TMB high, PD-L1 greater than 99%. It was recommended that he have repeat chest abdomen pelvis for new baseline given the imaging at that point was greater than 2 months old. He also was recommended to have brain MRI to complete staging. In the interim it was an option to treat him with ipilimumab/nivolumab with inverted dosing (Ipi 1 mg/kg/Nivo 3 mg/kg) Mr. Agosto began his first treatment on 08/17/2020. PMH: Mr Agosto denies any night sweats, denies any weight loss, denies any recurrent fever or infection denies any abdominal fullness denies any trauma to upper extremity denies any skin rash denies any travel to foreign land, denies any tick bite, denies any cacq-vxf-mmlqzak herbal medication, denies any IV drug abuse. He has longstanding history of heavy smoking about 1 to 2 packs a day for more than 50 years. Other medical illnesses include atrial for, anxiety, asthma, CAD, CHF, depression, diabetes mellitus, GERD, hyperlipidemia, hypertension, hypertrophic cardiomyopathy, hypothyroidism, NH (mitral competence), HARESH, sleep apnea. Surgeries include cardiac stent placement 2009 heart surgery septum myectomy for hypertrophic cardiomyopathy in 2016. MRI of the brain on 08/18/2020 reports no evidence of metastatic disease to the brain or calvarium. There is moderate chronic microvascular ischemic changes in the white matter. Left axillary lymphadenopathy with the largest lymph node measuring 5.2 x 3.6 cm similar in appearance to 02/17/2020. CTA neck from 08/13/2020 reports no significant cervical chain lymphadenopathy. Small cervical chain lymph nodes but these are less than 1 cm with no significant enhancement. Also noted high-grade right ICA stenosis. CT of the chest abdomen pelvis with contrast from 08/16/2020 reports increase in size of the necrotic lobulated mass in the left axilla since 02/17/2020. Probably representing necrotic neoplastic lymph node now measuring 5.7 x 10 x 5.8 cm. There was a new lobulated mass in the left upper thorax posterior to the left clavicle and posterior to the left subclavian artery measuring 5.6 x 2.3 x 3.5 cm. There is a new 1.6 nodule in the retroperitoneal metastatic deposit or associated with the medial limb of the left adrenal gland which was suspicious for metastatic site. No metastatic lesions within the liver or right adrenal gland no ascites. There were 2 sclerotic foci within the left ischium which have been present and stable since 05/20/2019 and are probably benign bone islands . There are additional bone islands in the right femoral head noted. Left lower extremity venous Doppler study done on August 24, 2020 showed no evidence of DVT Started on ipilimumab/nivolumab Every 3 weeks on August 17, 2020. Came for follow-up, denies any specific complaint except itching in the upper mid back and also little more anxious otherwise his left axillary mass has improved significantly since he is on immunotherapy, left arm discomfort has improved too. But no fever chills, no nausea or vomiting, no diarrhea constipation, no skin rash, no shortness of breath or wheezing, no jaundice, tolerating ipilimumab/nivolumab well otherwise Medications: Acetaminophen Extra Strength 1 - 2 Capsule (of 500 mg) Oral daily PRN, Aspirin 1 Tablet (of 81 mg) Tablet, enteric coated Oral daily, buPROPion HCl ER (XL) 1 Tablet (of 300 mg) Tablet SR 24 HR Oral daily, Cetirizine HCl 1 Tablet (of 10 mg) Oral daily, Citalopram Hydrobromide 1 Tablet (of 40 mg) Oral daily, clonazePAM 1.5 Tablet (of 1 mg) Oral daily, Dexilant 1 Capsule (of 60 mg) Capsule Delayed Release Oral daily, dilTIAZem HCl ER 1 Capsule (of 180 mg) Capsule SR 24 HR Oral daily, Eliquis 1 Tablet (of 5 mg) Oral b.i.d., Ezetimibe 1 Tablet (of 10 mg) Oral daily, HYDROcodone-Acetaminophen 1 Tablet (of 5-325 mg) Oral q 6 hours PRN, Januvia 1 Tablet (of 25 mg) Oral daily, Levothyroxine Sodium 0.5 Tablet (of 200 mcg) Oral daily, Montelukast Sodium 1 Tablet (of 10 mg) Oral daily, Potassium Chloride ER 1 Tablet (of 20 meq) Tablet, controlled release Oral b.i.d., Rosuvastatin Calcium 1 Tablet (of 20 mg) Oral daily, Torsemide 1 Tablet (of 100 mg) Oral daily, traMADol HCl 1 Tablet (of 50 mg) Oral b.i.d. PRN, traZODone HCl 1 Tablet (of 50 mg) Oral daily, Vitamin D 1 Capsule (of 1.25 mg) Oral q 7 days Allergies: Metoprolol Tartrate and Red Dye. Review of Systems: Review of Systems is not available for this patient. Vital Signs: Performed on Sep 28, 2020 10:37 Height - 67.00 in Weight - 211.8 lbs (LOW) BSA - 2.07 sq.m BMI - 33.17 (HIGH) Temperature - 96.4 F (LOW) Pulse - 76 /min Respiration - 18 /min BP - 142/65 mm(hg) (HIGH) O2 Sat - 92 % (LOW) Pain - 0 Performance Status: 1 - No physically strenuous activity, but ambulatory and able to carry out light or sedentary work (e.g. office work, light house work). (ECOG) Physical Examination: ENMT - No mouth sores, no thrush, no jaundice, Significant improvement in left axillary lymphadenopathy, Respiratory - Lungs are clear to auscultation, Cardiovascular - Regular rate and rhythm of heart, Abdomen - Soft, bowel sounds present, Extremities - No visible edema About 1 cm wartlike raised skin lesion in the mid upper back and adjacent to that on the right side of upper back there is half centimeter irregular flat pigmented skin lesion. Lab/Imaging: Test performed on Sep 07, 2020 09:00 Sodium 140 mmol/L TSH 1.90 uIU/mL Potassium 3.3 mmol/L Chloride 98 mmol/L CO2 35 mmol/L Anion Gap 10.3 BUN 7 mg/dL Creatinine 0.8 mg/dL Cr Clearance (Est) 120.8400 mL/min eGFR 96.4 mL/min Glucose 139 mg/dL Osmolality - Calculated 290 mOsm/kg Calcium 8.9 mg/dL Protein, Total 5.9 g/dL Albumin 3.8 g/dL Globulin 2.1 g/dL Bilirubin, Total 0.3 mg/dL ALT (SGPT) 17 U/L AST (SGOT) 24 U/L Alkaline Phosphatase 141 IU/L WBC 9.3 10 3/uL RBC 4.66 10 6/uL HGB 12.8 g/dL HCT 40.3 % MCV 86.5 fL MCH 27.5 pg MCHC 31.8 g/dL RDW 14.6 % Platelet Count 255 10 3/cmm MPV 9.1 fL Neutrophils 5.75 10 3/uL Lymphocytes 1.5 10 3/uL Monocytes 0.7 10 3/uL Eosinophils 1.3 10 3/uL Basophils 0.0 10 3/uL Neutrophil % 61.8 % Lymphocyte % 16.1 % Manual Lymphocytes 16.1 % Manual Monocytes 7.3 % Monocyte % 7.3 % Eosinophil % 14.3 % Manual Eosinophils 14.3 % Basophils % 0.2 % Manual Basophils 0.2 % NRBC % 0 % Test performed on Aug 16, 2020 11:45 CBC Slide Review Slide Review Perform SLIDE REVIEW AGREES WITH AUTOMATED RESULTS Test performed on May 04, 2020 09:30 U Protein, 24hr 276 mg/24 h U Protein/Creat Ratio 0.182 U Albumin % 100 % UPE Interpretation SEE NOTE Agarose electrophoresis of urine reveals albumin. No abnormal protein is observed. THIS TEST WAS PERFORMED AT: [employer] [address] [place] [address] OBDULIA BELTRAN DO,MPH U Creatinine, 24 hr 1.52 g/24 h IgA 120 mg/dL IgG 579 mg/dL IgM 63 mg/dL Friedens Free Light Chains 11.3 mg/L Lambda Free Light Chains 8.7 mg/L Friedens/Lambda Free Ratio 1.30 U [id number]-2-[id number] 0 % U Ygury-3-qgdpjssw 0 % U Beta Globulin 0 % U Gamma Globulin 0 % Impression: 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 excisional biopsy done on June 25, 2020 at [facility] in [place]; NRAS mutated, T ERT promoter mutated, TMB high, PD-L1 more than 99% Initially diagnosed with Poorly differentiated carcinoma high-grade sarcomatous differentiation versus histiocytic sarcoma with plasmacytoid differentiation versus other per excisional biopsy of left axillary lymph node, Later on at [facility] patient underwent another biopsy On June 25, 2020, as mentioned above, based on molecular profiling and IHC staining it was confirmed as dedifferentiated melanoma rather sarcoma Cancer type ID confirmed undifferentiated sarcoma with 90% probability CT scan of chest abdomen pelvis done on February 17, 2020 showed bilateral axillary lymphadenopathy and fatty liver. CT PET scan done on June 02, 2020 showed prominent bilateral breast tissue tumor activity with additional left axillary lymph node involvement e.g. left breast showed 8.4 x 5.1 cm with SUV of 15.95 and 3.7 x 2.6 cm dominant lymph node with SUV of 19.88 and right breast mass also present laterally extending to the skin measuring 5.9 x 3.7 cm with SUV of 17.43 and a single enlarged 1.7 cm left superior phrenic lymph node with SUV of 13.38 and There is intense increase of metabolic activity associated with the descending colon with SUV of 12.64. Mr Agosto presented to us for followup and initiation of treatment closer to home. He had upper anterior chest wall discomfort/pain as well as bilateral axillary fullness more on the left side not being controlled with tramadol/hydrocodone. Initially patient was diagnosed with undifferentiated sarcoma, then patient was referred to [facility] where he underwent a biopsy of right axillary mass on June 25, 2020 and final pathology report based on molecular profiling and IHC stains confirmed dedifferentiated melanoma, patient was seen in the melanoma clinic on July 26, [address] Henao recommended immunotherapy with ipilimumab 1 mg/kg and nivolumab 3 mg/kg every 3 weeks x4 and then evaluation and also recommended pretreatment CT scan of chest abdomen pelvis as last CT PET scan was done in May 2020, also suggested MRI scan of the brain., Testing for guardant ct DNA was ordered and now awaiting report. Mr Agosto was offered treatment with Ipilimumab/nivolumab. He began his 1st cycle on August 17, 2020. Plan: Discussed with patient regarding his labs white blood count 9.1 hemoglobin 12.4 hematocrit 38.9 platelets 205,000 CMP within normal limit except potassium 3.3 and his TSH is 0.08 compared to 1.90 on September 07, 2020 and patient is on levothyroxine 200 mcg p.o. daily Clinically, patient is done reasonably well, tolerating immunotherapy with ipilimumab/nivolumab well but with expected side effects. We will proceed with next dose #3/4 today and then he will return to clinic in 3 weeks with CBC CMP and TSH We will also adjust his thyroid supplement based on his recent TSH level, patient has already taken his recommended dose of levothyroxine 200 mcg p.o. daily today, patient was advised to skip tomorrow and then start on levothyroxine 100 mcg p.o. daily on day after tomorrow and will follow with his TSH level. As far as mild hypokalemia is concerned, patient on potassium supplement 20 mEq p.o. twice a day, will check his magnesium level if low, consider supplement otherwise we will add additional dose of KCl 20 mEq for 3 days then he will continue with his usual dose and will follow with potassium level. As far as mid upper back itching is concerned, patient has raised skin lesion in the mid upper back, will refer him to dermatology for evaluation. Return to clinic in 3 weeks with CBC CMP and TSH Signed By: Darlene Mendenhall M.D. <<Signature on File>>
[2020-09-28] MEDS: acetaminophen 325 mg Tablet 650 MG PO (11:36)
[2020-09-28] MEDS: sodium chloride 0.9% 250 ML 75 ML IV (11:55)
[2020-09-28] MEDS: famotidine 20 mg/2 mL INJ IVP (11:57)
[2020-09-28] MEDS: dexamethasone 20 MG in sodium chloride 0.9% 50 ML 187 MG IV (12:00)
[2020-09-28 12:01] LABS: Magnesium 2.1 mg/dL (1.7-2.3)
[2020-09-28] MEDS: sodium chloride 0.9% (100 ml) 100 ML 75 ML (12:20)
[2020-09-28] MEDS: diphenhydrAMINE 50 mg/mL SDV 1mL IVP (12:20)
== END 2020-09-28 05:42 | disposition home or self-care (01) ==
LOC: ONCMED 05:44
PROVIDERS: PCP Nurse Practitioner Family; Visit Provider Internal Medicine Hematology & Oncology
DX: Z51.12 Encounter for antineoplastic immunotherapy (principal); C43.59 Malignant melanoma of other part of trunk; C77.3 Secondary and unspecified malignant neoplasm of axilla and upper limb lymph nodes; E87.6 Hypokalemia; L29.9 Pruritus, unspecified; L98.9 Disorder of the skin and subcutaneous tissue, unspecified; Z79.899 Other long term (current) drug therapy
CPT/HCPCS: 83735; 96367; 96375; 96413; 96417; 99214; J1100; J1200; J3490; J7050; J9228; J9299

== ENCOUNTER 2020-10-14 19:49 | Inpatient (IN) | payer MEDICARE, MEDICAID, SELFPAY ==
[2020-10-14 19:50] VITALS: BP 119/73; PULSE 76; RESP 24; TEMP 38.5; O2SAT 89; BMI 32.5
--- NOTE | 2020-10-14 19:59 | XRR_ITS ---
PROCEDURE INFORMATION: Exam: XR Chest, 1 View Exam date and time: 10/14/2020 8:07 PM Age: 65 years old Clinical indication: Cough and fever and shortness of breath; Prior surgery; Surgery type: Heart, port TECHNIQUE: Imaging protocol: XR of the chest Views: 1 view. COMPARISON: CR XR chest 1V portable [id number] 09/14/2020 1:04 PM FINDINGS: Tubes, catheters and devices: Central venous catheter again demonstrated. Lungs: Hyperinflation, interstitial prominence, and left basilar airspace disease. Pleural spaces: Mild pleural thickening. Heart/Mediastinum: Borderline cardiomegaly. Bones/joints: Median sternotomy. Degenerative change. Soft tissues: Surgical clips in the left axilla. XR/XR chest 1V portable [id number] IMPRESSION: Hyperinflation, interstitial prominence, and left basilar airspace disease.
--- NOTE | 2020-10-14 20:00 | ECG_ITS ---
[facility] Test Date: 2020-10-14 Pat Name: Catrachito Agosto Department: Room: Gender: Male Band Saw Marker: : 1955 Requested By: Ericka Blanc Order Number: [id number] José MD: Prince Orlando M.D. Measurements Intervals [place] Rate: 77 P: 29 ID: [id number] QRS: -33 QRSD: 130 T: 113 QT: 439 QTc: 498 Interpretive Statements SINUS RHYTHM LEFT AXIS DEVIATION [QRS AXIS < -30] POSSIBLE ANTERIOR MYOCARDIAL INFARCTION , OF INDETERMINATE AGE [30 ms Q WAVE IN V3/V4, OR R < 0.2 mV IN V4] MODERATE T-WAVE ABNORMALITY, CONSIDER LATERAL ISCHEMIA [-0.1+ mV T WAVE IN I/aVL/V5/V6] Compared to ECG 03/02/2018 19:49:24 Left-axis deviation now present Myocardial infarct finding now present T-wave abnormality now present Possible ischemia now present Sinus bradycardia no longer present First degree AV block no longer present Left bundle-branch block no longer present Electronically Signed On 10-15-2020 16:05:30 [employer] by Prince Orlando M.D. [id number]
[2020-10-14] MEDS: acetaminophen 500 mg Tablet 1000 MG PO (20:50)
[2020-10-14] MEDS: cefTRIAXone 1,000 MG in sodium chloride 0.9% (plus) 50 ML 100 MG IV (20:51)
[2020-10-14 21:03] LABS: INR 1.14 (0.8-1.2)
[2020-10-14 21:04] LABS: Basophils # 0.1 10^3/uL (0.0-0.1); Basophils % 0.6 %; Eosinophils # 0.7 10^3/uL (0.0-0.8); Eosinophils % 4.7 %; Hematocrit 39.8 % (42.0-52.0); Hemoglobin 12.8 g/dL (11.7-16.6); Lymphocytes # 1.5 10^3/uL (0.8-4.8); Lymphocytes % 10.8 %; Mean Corpuscular HGB Conc 32.2 g/dL (30.0-36.0); Mean Corpuscular Hemoglobin 27.4 pg (28.0-34.0); Mean Platelet Volume 9.6 fL (7.4-10.4); Monocytes % 7.4 %; Neutrophils # 10.53 10^3/uL (1.8-7.7); Neutrophils % 76.1 %; Nucleated Red Blood Cells % 0 %; Platelet Count 222 10^3/cmm (130-400); Red Blood Count 4.68 10^6/uL (4.1-5.3); Red Cell Distribution Width 15.5 % (12.1-15.1); White Blood Count 13.8 10^3/uL (4.0-10.0)
[2020-10-14 21:06] LABS: Lactic Sepsis W/Reflex 1.3 mmol/L (0.5-2.2)
[2020-10-14 21:12] LABS: Troponin(5th) Baseline 23 ng/L (0-15)
[2020-10-14 21:19] LABS: Alanine Aminotransferase 17 U/L (0-41); Albumin Level 3.3 g/dL (3.5-5.2); Alkaline Phosphatase 88 IU/L (40-130); Aspartate Amino Transferase 30 U/L (0-40); Blood Urea Nitrogen 3 mg/dL (8-23); Calcium 8.5 mg/dL (8.5-10.5); Carbon Dioxide 28 mmol/L (22-29); Chloride 94 mmol/L (98-107); Globulin 2.2 g/dL (1.3-4.6); Glomerular Filtration Rate 84.2 mL/min (90-130); Glucose 116 mg/dL (65-115); NT Pro B Type Natriuretic Pept 111 pg/mL (0-125); Osmolality Calculated 272 mOsm/kg (285-295); Sodium 132 mmol/L (136-145); Total Bilirubin 0.5 mg/dL (0.15-1.2); Total Protein 5.5 g/dL (6.6-8.7)
--- NOTE | 2020-10-14 21:21 | CTR_ITS ---
PROCEDURE INFORMATION: Exam: CT Chest Without Contrast; Diagnostic Exam date and time: 10/14/2020 9:25 PM Age: 65 years old Clinical indication: Fever and shortness of breath; Prior surgery; Additional info: Fever, HX melanoma axillae, chest TECHNIQUE: Imaging protocol: Diagnostic computed tomography of the chest without contrast. Radiation optimization: All CT scans at this facility use at least one of these dose optimization techniques: automated exposure control; mA and/or kV adjustment per patient size (includes targeted exams where dose is matched to clinical indication); or iterative reconstruction. COMPARISON: CT chest abd pel w con* 08/16/2020 10:01 AM RADIATION DOSE METRICS: Total DLP (mGy-cm): 2404.72 FINDINGS: Tubes, catheters and devices: A MediPort catheter is placed via the right subclavian vein with its tip at the level of the superior cavoatrial junction. Lungs: There are strandy opacities present in the lung bases posteriorly likely representing atelectasis or parenchymal and pleural scarring. However, a bibasilar infiltrate and pneumonia cannot be entirely excluded. Pleural spaces: Unremarkable. No pneumothorax. No pleural effusion. Heart: Calcifications are present within the coronary arteries. Aorta: Calcifications are seen within the thoracic aorta. Lymph nodes: Unremarkable. No enlarged lymph nodes. Bones/joints: Unremarkable. No acute fracture. Soft tissues: Unremarkable. IMPRESSION: Strandy opacities are seen in the lung bases posteriorly most probably representing atelectasis or parenchymal and pleural scarring although a bibasilar infiltrate and pneumonia cannot be entirely excluded. PROCEDURE INFORMATION: Exam: CT Abdomen And Pelvis Without Contrast Exam date and time: 10/14/2020 9:25 PM Age: 65 years old Clinical indication: Fever and shortness of breath; Prior surgery; Additional info: Fever, HX melanoma axillae, chest TECHNIQUE: Imaging protocol: Computed tomography of the abdomen and pelvis without contrast. Radiation optimization: All CT scans at this facility use at least one of these dose optimization techniques: automated exposure control; mA and/or kV adjustment per patient size (includes targeted exams where dose is matched to clinical indication); or iterative reconstruction. COMPARISON: CT chest abd pel w con* 08/16/2020 10:01 AM RADIATION DOSE METRICS: Total DLP (mGy-cm): 2404.72 FINDINGS: Mediastinal space: There is a small hiatal hernia present. Liver: There is hypoattenuation of the hepatic parenchyma compatible with fatty infiltration. Gallbladder and bile ducts: Normal. No calcified stones. No ductal dilation. Pancreas: Normal. No ductal dilation. Spleen: Normal. No splenomegaly. Adrenal glands: Normal. No mass. Kidneys and ureters: Normal. No hydronephrosis. Stomach and bowel: There are strandy and hazy opacities adjacent to the descending colon, findings could represent mild colitis. Appendix: No evidence of appendicitis. Intraperitoneal space: Unremarkable. No free air. No significant fluid collection. Vasculature: Unremarkable. No abdominal aortic aneurysm. Lymph nodes: Unremarkable. No enlarged lymph nodes. Urinary bladder: There is mild bladder wall thickening although the bladder is incompletely distended. However, cystitis cannot be entirely excluded. Reproductive: Unremarkable as visualized. Bones/joints: Unremarkable. No acute fracture. Soft tissues: Unremarkable. CT/CT chest abd pel wo con IMPRESSION: 1. Hazy opacities are seen adjacent to the descending colon, findings could represent mild inflammatory changes and colitis. 2. Fatty infiltration of the liver 3. Small hiatal hernia 4. Mild bladder wall thickening although the bladder is nondistended. However, cystitis cannot be entirely excluded. Radiation Dose CTDIVOL = (mGy): DLP = 2404.72~2404.72 (mGy-cm)
--- NOTE | 2020-10-14 21:21 | CTR_ITS ---
PROCEDURE INFORMATION: Exam: CT Head Without Contrast Exam date and time: 10/14/2020 9:25 PM Age: 65 years old Clinical indication: Altered mental status/memory loss and fever and weakness, extremity; Bilateral; Confusion or disorientation; Additional info: Fever, melanoma, confusion TECHNIQUE: Imaging protocol: Computed tomography of the head without contrast. Radiation optimization: All CT scans at this facility use at least one of these dose optimization techniques: automated exposure control; mA and/or kV adjustment per patient size (includes targeted exams where dose is matched to clinical indication); or iterative reconstruction. ADDITIONAL STUDY INFORMATION: Total DLP (mGy-cm): 1738.85 COMPARISON: CT head wo con* [id number] 03/02/2018 6:32 PM FINDINGS: Examination is limited by artifacts from patient motion. There are prominent intracranial arterial calcifications. Evaluation of the brain demonstrates no other convincing areas of abnormal density when allowing for artifacts from patient motion. There is mild cerebral cortical atrophy. Ventricles do not appear significantly dilated. No definite depressed calvarial fracture is demonstrated. There is opacification in some of the visualized paranasal sinuses, most compatible with mucosal disease. Visualized mastoid air cells demonstrate no significant opacification. There is aeration of the left anterior clinoid process and the optic nerve traverses this region. CT/CT head wo con* [id number] IMPRESSION: No definite acute intracranial process is demonstrated when allowing for artifacts from patient motion. Other findings as discussed above. Radiation Dose CTDIVOL = (mGy): DLP = 1738.85 (mGy-cm)
[2020-10-14] MEDS: vancomycin 1,500 MG/300 ML PIGGYBACK 200 MG IV (21:23)
[2020-10-14 21:30] VITALS: BP 119/73; PULSE 77; RESP 18; O2SAT 96
--- NOTE | 2020-10-14 21:37 | ED_ITS ---
HPI - Weakness General: Chief complaint: Weakness Stated complaint: gen weakness Time Seen by Provider: 10/14/20 19:53 History of Present Illness: HPI Narrative: This patient is a 65-year-old gentleman who comes in today with fever, weakness, headache. He reports that the symptoms started at least several days ago but he is uncertain when they actually started. He knew he had a fever but was surprised that it was as high as it was when he came in. He was seen by his nurse practitioner and started on antibiotics for a presumed sinus infection a few days ago but he said he thought the antibiotic was making him sick so he only took a few of them. He has had a cough which she says is a sinus cough . His headache he also attributes to sinuses. He does feel short of breath. He has had some nausea. He was diagnosed within the last 6 months or so with melanoma first found in axillary nodes. It has been found in other areas as well but without brain metastases on his most recent work-up. He is currently on immune/chemotherapy. His last treatment was almost 3 weeks ago and he is due for another treatment coming up this week. He has a port in his right chest. He does not know of any sick contacts or exposures to Covid. He is short of breath and his sat was 89% when he came in. His temperature was 101.8. He is somewhat confused on my history. Associated symptoms: Reports chills, confusion, fever(s), headache(s) and nausea; Denies chest pain, dysuria, easy bruising or vomiting Review of Systems General: Reports: 10 or more systems reviewed and unremarkable except in HPI and below Const: Reports: fever(s), chills, body aches, fatigue and malaise Eyes: Denies: change in vision ENMT: Reports: throat pain, nasal discharge, nasal congestion and sinus pain Card: Denies: chest pain or swelling of feet/ankles Resp: Reports: dyspnea and non-productive cough; Denies: productive cough GI: Reports: nausea; Denies: abdominal pain or vomiting : Denies: difficulty urinating or dysuria Musc: Denies: neck pain or back pain Skin/Breast: Denies: rash Neuro: Reports: headache(s) and confusion; Denies: numbness in extremities or weakness in extremities Greg/Lymph: Denies: easy bruising or easy bleeding PFSH ED PFSH: Medical History (Updated 10/14/20 @ 23:19 by Ericka Braden MD) Acute lower respiratory infection Anxiety ASHD (arteriosclerotic heart disease) Atrial fibrillation Chronic pain syndrome Chronic recurrent sinusitis Chronic seasonal allergic rhinitis Congestive heart failure (CHF) Diabetes mellitus, type II Essential hypertension Hypertrophic cardiomyopathy Hypomagnesemia Hypothyroidism Insomnia Iron deficiency Lower respiratory infection Melanoma Mixed hyperlipidemia Multilevel degenerative disc disease Sleep apnea Vitamin D deficiency Surgical History Coronary angioplasty status [facility] 2105 H/O ventricular septal myectomy Family History Mother Myocardial infarction Father Hypertension Other Diabetes Family history of CABG Social History Smoking and tobacco status: current every day smoker Second hand smoke exposure: No Desire information about alcohol rehabilitation?: No Counseling given: No Desire information about substance/drug rehabilitation?: No Counseling given: No Physical Exam Const: EXAM LIMITATIONS: altered mental status GENERAL APPEARANCE: other (Uncomfortable, ill-appearing) NUTRITIONAL APPEARANCE: obese ORIENTATION/CONSCIOUSNESS: Yes oriented to person, Yes oriented to place and Yes oriented to time HENMT: HEAD & SCALP: normal to inspection FACE & SINUS: normal facial exam Eye: GENERAL EYE: appearance normal, both eyes and all related structures Neck/C-Spine: COMMON NORMALS: supple, no meningeal signs and no JVD Chest: COMMONS NORMALS: normal inspection of the chest Resp: COMMON NORMALS: normal respiratory effort and No use of accessory muscles EFFORT & INSPECTION: Yes tachypneic AUSCULTATION: diminished lung sounds Cardio: COMMON NORMALS: no JVD, regular rhythm and No murmurs present (Cardio) RATE: tachycardic RHYTHM: regular rhythm GI: COMMON NORMALS: Normal to inspection, nondistended, normoactive bowel sounds present, Soft to palpation and non-tender INSPECTION: Yes normal to inspection AUSCULTATION: Yes normoactive bowel sounds PALPATION: Yes Soft to palpation Back/Pelvis: COMMON NORMALS: thoracic and lumbar spine normal to inspection Extremity: COMMON NORMALS: normal to inspection Neuro: COMMON NORMALS: moves all extremities, no focal motor deficits and no sensory deficits noted SENSORIUM/ORIENTATION: Yes oriented to person, Yes oriented to place and Yes oriented to time MENINGEAL SIGNS: Yes no meningeal signs Psych: COMMON NORMALS: mental status grossly normal, cooperative and normal affect Skin: COMMON NORMALS: no rashes or lesions noted and turgor normal GENERAL SKIN EXAM: no rashes or lesions noted and turgor normal Course ED course: Patient with history of cancer and chemotherapy. He presents with fever today. His symptoms are related to sinus per the patient. He also does have some shortness of breath and cough. His oxygen saturation on initial arrival was 89%. He does not use oxygen at home. He said he has been told he has a little bit of COPD. His sats remained in the low 90s in the ER. He was on 2 L of oxygen. His chest x-ray was fairly unremarkable. His CT of his chest showed some infiltrates in bilateral bases which could also have been scarring or atelectasis. CT of his head just showed some sinusitis. Covid rapid test was negative however a PCR has been sent. According to his chart he was put on amoxicillin clavulanate by urgent care but he said he had not been taking it because he thought it was making him worse. Potassium was low and was replaced IV. Magnesium level is pending. White count is 13.8. He will be admitted to the hospitalist for IV antibiotics and further management of his symptoms. Vital Signs: Vital signs: Vital Signs Temperature 101.3 F H 10/14/20 19:50 Pulse Rate 77 10/14/20 21:30 Respiratory Rate 18 10/14/20 21:30 Blood Pressure 119/73 10/14/20 21:30 Pulse Oximetry 96 10/14/20 21:30 MDM - Weakness Lab Data: Labs: Lab Results 10/14/20 10/14/20 10/14/20 Range/Units 20:23 20:23 20:23 WBC 13.8 H (4.0-10.0) 10^3/ uL RBC 4.68 (4.1-5.3) 10^6/u L Hgb 12.8 (11.7-16.6) g/dL Hct 39.8 L (42.0-52.0) % MCV 85.0 (80-94) fL MCH 27.4 L (28.0-34.0) pg MCHC 32.2 (30.0-36.0) g/dL RDW 15.5 H (12.1-15.1) % Plt Count 222 (130-400) 10^3/c mm MPV 9.6 (7.4-10.4) fL Neut % (Auto) 76.1 % Lymph % (Auto) 10.8 % [place] % (Auto) 7.4 % Eos % (Auto) 4.7 % Baso % (Auto) 0.6 % Neut # (Auto) 10.53 H (1.8-7.7) 10^3/u L Lymph # (Auto) 1.5 (0.8-4.8) 10^3/u L [place] # (Auto) 1.0 H (0.2-0.9) 10^3/u L Eos # (Auto) 0.7 (0.0-0.8) 10^3/u L Baso # (Auto) 0.1 (0.0-0.1) 10^3/u L Nucleated RBC % (a uto) 0 % Nucleated RBCs # 0.0 /100WBC PT 15.00 H (12.1-14.9) SECO NDS INR 1.14 (0.8-1.2) Sodium 132 L (136-145) mmol/L Potassium 3.0 L (3.5-5.1) mmol/L Chloride 94 L (98-107) mmol/L Carbon Dioxide 28 (22-29) mmol/L Anion Gap 13.0 (5-19) BUN 3 L (8-23) mg/dL Creatinine 0.9 (0.7-1.2) mg/dL GFR Calculation 84.2 L (90-130) mL/min Glucose 116 H (65-115) mg/dL Calculated Osmolal ity 272 L (285-295) mOsm/k g Lactic Acid (0.5-2.2) mmol/L Calcium 8.5 (8.5-10.5) mg/dL Total Bilirubin 0.5 (0.15-1.2) mg/dL AST 30 (0-40) U/L ALT 17 (0-41) U/L Alkaline Phosphata se 88 (40-130) IU/L Troponin T Baselin e (0-15) ng/L Delta Troponin T (0-10) ABS# NT-Pro-B Natriuret Pep 111 (0-125) pg/mL Total Protein 5.5 L (6.6-8.7) g/dL Albumin 3.3 L (3.5-5.2) g/dL Globulin 2.2 (1.3-4.6) g/dL Urine Color (Yellow) Urine Appearance (CLEAR) Urine pH (5-7) Ur Specific Gravit y (1.005-1.030) Urine Protein (Negative) Urine Glucose (UA) (Normal) Urine Ketones (Negative) Urine Blood (Negative) Urine Nitrate (Negative) Urine Bilirubin (Negative) Urine Urobilinogen (Negative) mg/dL Ur Leukocyte Abida ase (Negative) SARS-CoV-2 Ag (Rap id) (Negative) 10/14/20 10/14/20 10/14/20 Range/Units 20:23 20:35 22:09 WBC (4.0-10.0) 10^3/ uL RBC (4.1-5.3) 10^6/u L Hgb (11.7-16.6) g/dL Hct (42.0-52.0) % MCV (80-94) fL MCH (28.0-34.0) pg MCHC (30.0-36.0) g/dL RDW (12.1-15.1) % Plt Count (130-400) 10^3/c mm MPV (7.4-10.4) fL Neut % (Auto) % Lymph % (Auto) % [place] % (Auto) % Eos % (Auto) % Baso % (Auto) % Neut # (Auto) (1.8-7.7) 10^3/u L Lymph # (Auto) (0.8-4.8) 10^3/u L [place] # (Auto) (0.2-0.9) 10^3/u L Eos # (Auto) (0.0-0.8) 10^3/u L Baso # (Auto) (0.0-0.1) 10^3/u L Nucleated RBC % (a uto) % Nucleated RBCs # /100WBC PT (12.1-14.9) SECO NDS INR (0.8-1.2) Sodium (136-145) mmol/L Potassium (3.5-5.1) mmol/L Chloride (98-107) mmol/L Carbon Dioxide (22-29) mmol/L Anion Gap (5-19) BUN (8-23) mg/dL Creatinine (0.7-1.2) mg/dL GFR Calculation (90-130) mL/min Glucose (65-115) mg/dL Calculated Osmolal ity (285-295) mOsm/k g Lactic Acid 1.3 (0.5-2.2) mmol/L Calcium (8.5-10.5) mg/dL Total Bilirubin (0.15-1.2) mg/dL AST (0-40) U/L ALT (0-41) U/L Alkaline Phosphata se (40-130) IU/L Troponin T Baselin e 23 H (0-15) ng/L Delta Troponin T (0-10) ABS# NT-Pro-B Natriuret Pep (0-125) pg/mL Total Protein (6.6-8.7) g/dL Albumin (3.5-5.2) g/dL Globulin (1.3-4.6) g/dL Urine Color Yellow (Yellow) Urine Appearance Clear (CLEAR) Urine pH 6 (5-7) Ur Specific Gravit y 1.010 (1.005-1.030) Urine Protein Neg (Negative) Urine Glucose (UA) Norm (Normal) Urine Ketones Negative (Negative) Urine Blood Neg (Negative) Urine Nitrate Negative (Negative) Urine Bilirubin Neg (Negative) Urine Urobilinogen Norm (Negative) mg/dL Ur Leukocyte Abida ase Negative (Negative) SARS-CoV-2 Ag (Rap id) (Negative) 10/14/20 10/14/20 Range/Units 22:09 22:42 WBC (4.0-10.0) 10^3/ uL RBC (4.1-5.3) 10^6/u L Hgb (11.7-16.6) g/dL Hct (42.0-52.0) % MCV (80-94) fL MCH (28.0-34.0) pg MCHC (30.0-36.0) g/dL RDW (12.1-15.1) % Plt Count (130-400) 10^3/c mm MPV (7.4-10.4) fL Neut % (Auto) % Lymph % (Auto) % [place] % (Auto) % Eos % (Auto) % Baso % (Auto) % Neut # (Auto) (1.8-7.7) 10^3/u L Lymph # (Auto) (0.8-4.8) 10^3/u L [place] # (Auto) (0.2-0.9) 10^3/u L Eos # (Auto) (0.0-0.8) 10^3/u L Baso # (Auto) (0.0-0.1) 10^3/u L Nucleated RBC % (a uto) % Nucleated RBCs # /100WBC PT (12.1-14.9) SECO NDS INR (0.8-1.2) Sodium (136-145) mmol/L Potassium (3.5-5.1) mmol/L Chloride (98-107) mmol/L Carbon Dioxide (22-29) mmol/L Anion Gap (5-19) BUN (8-23) mg/dL Creatinine (0.7-1.2) mg/dL GFR Calculation (90-130) mL/min Glucose (65-115) mg/dL Calculated Osmolal ity (285-295) mOsm/k g Lactic Acid (0.5-2.2) mmol/L Calcium (8.5-10.5) mg/dL Total Bilirubin (0.15-1.2) mg/dL AST (0-40) U/L ALT (0-41) U/L Alkaline Phosphata se (40-130) IU/L Troponin T Baselin e (0-15) ng/L Delta Troponin T 8.50 (0-10) ABS# NT-Pro-B Natriuret Pep (0-125) pg/mL Total Protein (6.6-8.7) g/dL Albumin (3.5-5.2) g/dL Globulin (1.3-4.6) g/dL Urine Color (Yellow) Urine Appearance (CLEAR) Urine pH (5-7) Ur Specific Gravit y (1.005-1.030) Urine Protein (Negative) Urine Glucose (UA) (Normal) Urine Ketones (Negative) Urine Blood (Negative) Urine Nitrate (Negative) Urine Bilirubin (Negative) Urine Urobilinogen (Negative) mg/dL Ur Leukocyte Abida ase (Negative) SARS-CoV-2 Ag (Rap id) Negative (Negative) Discharge Plan Discharge Prescriptions: No Action amoxicillin-pot clavulanate [Augmentin] 875-125 mg tablet 1 tab PO BID 10 Days Qty: 20 RF: 0 prednisone 20 mg tablet 40 mg PO .in a.m. 5 Days Qty: 10 RF: 0 fluticasone propionate 50 mcg/actuation spray,suspension 1 spray INTRANASAL DAILY PRN (Reason: allergy symptoms) 30 Days Qty: 9.9 RF: 5 losartan [Cozaar] 50 mg tablet 50 mg PO DAILY 30 Days Qty: 30 RF: 5 tizanidine 4 mg capsule 4 mg PO .HS 30 Days Qty: 30 RF: 5 tramadol 50 mg tablet 50 mg PO BID PRN (Reason: pain) 30 Days Qty: 60 RF: 2 ferrous sulfate 325 mg (65 mg iron) tablet 325 mg PO DAILY Qty: 30 RF: 5 clonazepam 1 mg tablet 1.5 mg PO DAILY 30 Days Qty: 50 RF: 2 albuterol sulfate [ProAir HFA] 90 mcg/actuation HFA aerosol inhaler See Rx Instructions .ROUTE .COMPLEX Qty: 8.5 RF: 3 Eliquis 5 mg tablet 5 mg PO DAILY 30 Days Qty: 30 RF: 2 Hold Instructions: Resume on 09/18/20. hydrocodone-acetaminophen [[place]] 5-325 mg tablet 1 tab PO Q6H PRN (Reason: pain) Qty: 20 RF: 0 citalopram 40 mg tablet 40 mg PO DAILY RF: 0 trazodone 50 mg tablet 50 mg PO DAILY RF: 0 diltiazem HCl 180 mg capsule,extended release 24hr 180 mg PO DAILY RF: 0 potassium chloride 20 mEq tablet,ER particles/crystals 20 meq PO DAILY RF: 0 torsemide 100 mg tablet 100 mg PO DAILY RF: 0 montelukast 10 mg tablet 10 mg PO DAILY RF: 0 levothyroxine 200 mcg tablet 200 mcg PO DAILY RF: 0 Vitamin D2 1,250 mcg (50,000 unit) capsule 1,250 mcg PO Q7D RF: 0 ezetimibe 10 mg tablet 10 mg PO DAILY RF: 0 rosuvastatin 20 mg tablet 20 mg PO DAILY RF: 0 bupropion HCl 300 mg tablet extended release 24 hr 300 mg PO DAILY RF: 0 Januvia 25 mg tablet 25 mg PO DAILY RF: 0 Dexilant 60 mg capsule,biphase delayed releas 60 mg PO DAILY RF: 0 Coding Level of Care Code ED Head School Custodian for Dina Donaldson
--- NOTE | 2020-10-14 21:45 | PC.NURSE ---
patient to ct
--- NOTE | 2020-10-14 22:00 | ECG_ITS ---
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 Measurements Intervals [place] Rate: 67 P: 34 VT: 173 QRS: -27 QRSD: 133 T: 108 QT: 490 QTc: 517 Interpretive Statements SINUS RHYTHM INTRAVENTRICULAR CONDUCTION DELAY [130+ ms QRS DURATION] POSSIBLE ANTERIOR MYOCARDIAL INFARCTION , OF INDETERMINATE AGE [30 ms Q WAVE IN V3/V4, OR R < 0.2 mV IN V4] Compared to ECG 10/14/2020 20:06:18 Intraventricular conduction delay now present Left-axis deviation no longer present T-wave abnormality no longer present Possible ischemia no longer present Myocardial infarct finding still present Electronically Signed On 10-15-2020 16:11:08 SCHOOL BUSINESS MANAGER by Prince Orlando M.D. [id number]
[2020-10-14 22:40] LABS: Add Urine Microscopic? NO
[2020-10-14 22:48] LABS: Bilirubin Urine Neg (Negative); Blood Urine Neg (Negative); Glucose Urine UA Norm (Normal); Ketones Urine Negative (Negative); Leukocyte Esterase Urine Negative (Negative); Nitrate Urine Negative (Negative); Protein Urine Neg (Negative); Urine Appearance Clear (CLEAR); Urine Color Yellow (Yellow); Urobilinogen Urine Norm (Negative); pH Urine 6 (5-7)
[2020-10-14 22:59] LABS: SARS Covid-2 Antigen Negative (Negative)
[2020-10-14 23:11] LABS: Magnesium 1.4 mg/dL (1.7-2.3)
--- NOTE | 2020-10-14 23:29 | PM.HP ---
Providers/Chief Complaint Primary Care Provider: PORFIRIO Beard Chief Complaint: gen weakness History of Present Illness Catrachito Agosto is a 65 year old male who is currently undergoing chemotherapy for melanoma presented today with chief complaint abdominal pain and diarrhea. Patient is stating that for last few weeks he has been feeling extremely fatigued and lethargic, initially he attributed his weakness to chemotherapeutic agents, but this time his weakness was not getting better, a week ago he was experiencing sinus congestion, low-grade fever and recently he started experiencing abdominal pain which is associated with diarrhea. He has not noticed chest pain, orthopnea, PND, productive cough. Because of these concerns he decided to come to the hospital for further evaluation. Diagnostics in the ER revealed colitis, concern for COVID-19 however Covid antigen negative PCR was sent, he met sepsis criteria with fever, , leukocytosis, he was given ceftriaxone, azithromycin & vancomycin in the ER without fluid resuscitation, CT chest abdomen pelvis was reviewed which revealed colitis, pulmonary imaging revealed pleural scarring and possible infiltrate left-sided Review of Systems Const: Reports: fever(s), chills, body aches, change in appetite, fatigue and malaise Eyes: Denies: change in vision ENMT: Denies: throat pain Card: Denies: chest pain Resp: Denies: dyspnea GI: Reports: abdominal pain, nausea, vomiting, diarrhea and bloating : Denies: flank pain Musc: Denies: neck pain Skin/Breast: Reports: rash, lesions and changes in skin color Neuro: Denies: headache(s) Psych: Denies: anxiety Endo: Denies: polyuria Greg/Lymph: Denies: easy bruising All/Imm: Denies: urticaria Medications/Allergies Home Medications Medication Instructions Recorded Confirmed Last Taken Type fluticasone propionate 50 1 spray INTRANASAL DAILY PRN 30 10/06/19 09/23/20 09/13/20 Rx mcg/actuation nasal Days #9.9 ml spray,suspension losartan 50 mg tablet 50 mg PO DAILY 30 Days #30 tab 10/06/19 09/23/20 09/13/20 Rx tizanidine 4 mg capsule 4 mg PO .HS 30 Days #30 cap 10/06/19 09/23/20 03/15/20 Rx hydrocodone-acetaminophen [[place]] 1 tab PO Q6H PRN #20 tab 03/16/20 09/23/20 09/12/20 Rx ferrous sulfate 325 mg (65 mg 325 mg PO DAILY #30 tab 07/14/20 09/23/20 09/13/20 Rx iron) tablet clonazepam 1 mg tablet 1.5 mg PO DAILY 30 Days #50 tab 08/02/20 09/23/20 09/13/20 Rx Dexilant 60 mg PO DAILY 09/13/20 09/23/20 09/13/20 History Januvia 25 mg PO DAILY 09/13/20 09/23/20 09/13/20 History Vitamin D2 1,250 mcg PO Q7D 09/13/20 09/23/20 Unknown History bupropion HCl 300 mg PO DAILY 09/13/20 09/23/20 09/13/20 History citalopram 40 mg PO DAILY 09/13/20 09/23/20 09/13/20 History diltiazem HCl 180 mg PO DAILY 09/13/20 09/23/20 09/14/20 08:00 History ezetimibe 10 mg PO DAILY 09/13/20 09/23/20 09/13/20 History levothyroxine 200 mcg PO DAILY 09/13/20 09/23/20 09/14/20 10:00 History montelukast 10 mg PO DAILY 09/13/20 09/23/20 Unknown History potassium chloride 20 meq PO DAILY 09/13/20 09/23/20 Unknown History rosuvastatin 20 mg PO DAILY 09/13/20 09/23/20 Unknown History torsemide 100 mg PO DAILY 09/13/20 09/23/20 Unknown History trazodone 50 mg PO DAILY 09/13/20 09/23/20 Unknown History albuterol sulfate 90 mcg/actuation See Rx Instructions .ROUTE 09/22/20 09/23/20 Unknown Rx aerosol inhaler .COMPLEX #8.5 g apixaban 5 mg tablet 5 mg PO DAILY 30 Days #30 tab 09/22/20 09/23/20 Unknown Rx amoxicillin 875 mg-potassium 1 tab PO BID 10 Days #20 tab 10/08/20 10/08/20 Unknown Rx clavulanate 125 mg tablet prednisone 20 mg tablet 40 mg PO .in a.m. 5 Days #10 tab 10/08/20 10/08/20 Unknown Rx tramadol 50 mg tablet 50 mg PO BID PRN 30 Days #60 tab 02/12/21 02/12/21 Unknown Rx Allergies Allergy/AdvReac Type Severity Reaction Status Date / Time Iodinated Contrast Media Allergy ALGY-Hives Verified 09/23/20 15:01 metoprolol Allergy unknown Verified 09/23/20 15:01 red dye Allergy unknown Verified 09/23/20 15:01 PFSH Acute PFSH: Medical History Acute lower respiratory infection Anxiety ASHD (arteriosclerotic heart disease) Atrial fibrillation Chronic pain syndrome Chronic recurrent sinusitis Chronic seasonal allergic rhinitis Congestive heart failure (CHF) Diabetes mellitus, type II Essential hypertension Hypertrophic cardiomyopathy Hypomagnesemia Hypothyroidism Insomnia Iron deficiency Lower respiratory infection Melanoma Mixed hyperlipidemia Multilevel degenerative disc disease Sleep apnea Vitamin D deficiency Surgical History Coronary angioplasty status [facility] 2105 H/O ventricular septal myectomy Family History Mother Myocardial infarction Father Hypertension Other Diabetes Family history of CABG Social History Smoking and tobacco status: current every day smoker Second hand smoke exposure: No Desire information about alcohol rehabilitation?: No Counseling given: No Desire information about substance/drug rehabilitation?: No Counseling given: No Vitals/I&O/Wt Last Vital Signs Temp 101.3 F H 10/14/20 19:50 Pulse 77 10/14/20 21:30 Resp 18 10/14/20 21:30 BP 119/73 10/14/20 21:30 Pulse Ox 96 10/14/20 21:30 Weight last 48 hrs Weight 99.79 kg Physical Exam Narrative: EXAM NARRATIVE: Middle-age male who appears stated age Currently in distress because abdominal pain He was saturating well on room air when I entered the room, he was not requiring supplemental oxygen Normal blood pressure, S1, S2 no murmur or signs of heart failure Central obesity, mild tenderness to deep palpation of midepigastric region, bowel sounds sluggish No acute respiratory distress bilateral breath sounds without adventitious rhonchi or crackles No neurological deficit awake alert oriented x3 GCS 15 He appears drowsy however verbally redirectable able to mention above HPI no signs of meningitis, kerning's sign is negative Has chronic skin changes with history of melanoma Lower extremity venous dermatitis Data : 10/14/20 20:23 10/14/20 20:23 Micro: Microbiology 10/14/20 20:55 Blood Culture - Preliminary Blood SPECIMEN COLLECTED 10/14/20 20:35 Blood Culture - Preliminary Blood SPECIMEN COLLECTED A&P Assessment and plan (1) Sepsis: Status: Acute (2) Colitis: Status: Acute (3) Community acquired pneumonia: Status: Acute (4) Fever: Status: Acute (5) Melanoma: Status: Acute Additional A&P Information Sepsis Sepsis criteria met with fever, leukocytosis, Source of infection colitis and left lower lobe pneumonia Covid antigen negative, PCR sent Considering his immunocompromise state I would use vancomycin and Zosyn for now, check urine antigens, obtain blood cultures, give him septic bolus Melanoma: Currently undergoing chemotherapy, next session is on Sunday Hypertrophic cardiomyopathy: Status post surgery: No acute exacerbation, avoid dehydration We will give him septic bolus Abdominal pain and diarrhea secondary to colitis: Hypomagnesemia will be repleted, patient is not neutropenic, I highly doubt typhlitis, continue broad-spectrum antibiotics for now obtain enteric culture Consistent carb diet DVT prophylaxis Lovenox Full code Attestations Medical Necessity Statement*: Anticipating stay in the hospital cross more than 2 midnights for sepsis colitis and pneumonia Time Spent in Patient Care: (>than 50% of time spent in counselling and/or direct pt care on unit). 40mins Coding Level of Care Code Acute Quality Assurance Tester for g Fwd Diagnoses Sepsis A41.9 Colitis K52.9 Community acquired pneumonia J18.9 Fever R50.9 Melanoma C43.9
[2020-10-14] MEDS: azithromycin 500 MG in sodium chloride 0.9% 250 ML 250 MG IV (23:45)
[2020-10-14 23:54] VITALS: BP 119/73; PULSE 67; RESP 12; O2SAT 93
[2020-10-15] VITALS (13 sets, daily range): BP systolic 70–135; BP diastolic 43–82; PULSE 62–88; RESP 13–19; TEMP 36.9–37.1; O2SAT 90–99
[2020-10-15] MEDS: potassium chloride premix 100 ML 25 MEQ IV (01:08)
--- NOTE | 2020-10-15 02:00 | ECG_ITS ---
[facility] Test Date: 2020-10-15 Pat Name: Catrachito Agosto Department: Room: EDIP Gender: Male Utilization Reviewer: : 1955 Requested By: Ericka Blanc Order Number: [id number] José MD: Prince Orlando M.D. Measurements Intervals [place] Rate: 70 P: 69 [place]: 177 QRS: 23 QRSD: 107 T: 41 QT: 494 QTc: 536 Interpretive Statements SINUS RHYTHM PROLONGED QT INTERVAL CRITICAL TEST RESULT Compared to ECG 10/14/2020 22:50:44 Prolonged QT interval now present Intraventricular conduction delay no longer present Myocardial infarct finding no longer present Electronically Signed On 10-15-2020 16:12:14 LOADING AND UNLOADING SUPERVISOR by Prince Orlando M.D. [id number]
[2020-10-15 02:28] LABS: Troponin 5 6HR 23.88 ng/L (0-15); Troponin 5 6HR Delta 0.88 ng/L (0-12)
[2020-10-15] MEDS: sodium chloride 0.9% 1,000 ML 999 ML IV ×2 (06:14→21:28)
[2020-10-15] MEDS: magnesium sulfate premix 2 GM/50 ML PIGGYBACK IV (06:15)
[2020-10-15] MEDS: losartan 50 mg Tablet PO (08:29)
[2020-10-15] MEDS: buPROPion XL (24 HR) 300 mg Tablet PO (08:33)
[2020-10-15] MEDS: apixaban 5 mg Tablet PO ×2 (08:33→21:17)
[2020-10-15] MEDS: dilTIAZem ER (24HR) 180 mg Capsule PO (08:33)
[2020-10-15] MEDS: levothyroxine 100 mcg Tablet 200 MCG PO (08:33)
[2020-10-15] MEDS: sodium chloride 0.9% 1,000 ML 75 ML IV ×2 (08:34→18:20)
[2020-10-15] MEDS: piperacillin-tazobactam 3.375 GM in sodium chloride 0.9% (plus) 50 ML IV ×2 (08:34→21:15)
[2020-10-15] MEDS: HYDROcodone-acetaminophen 5-325 mg Tablet 1 TAB PO (08:41)
[2020-10-15 11:15] LABS: Anion Gap 11.3 (5-19); Blood Urea Nitrogen 5 mg/dL (8-23); Calcium 8.2 mg/dL (8.5-10.5); Carbon Dioxide 26 mmol/L (22-29); Chloride 96 mmol/L (98-107); Creatinine Clr Calc Pharmacy 69.5663; Glomerular Filtration Rate 60.4 mL/min (90-130); Glucose 111 mg/dL (65-115); Magnesium 1.8 mg/dL (1.7-2.3); Phosphorus 2.4 mg/dL (2.5-4.5); Potassium 3.3 mmol/L (3.5-5.1); Sodium 130 mmol/L (136-145)
[2020-10-15] MEDS: vancomycin 1,500 MG/300 ML PIGGYBACK 200 MG IV (11:27)
[2020-10-15] MEDS: phosphorus 250 mg Tablet PO (13:22)
[2020-10-15] MEDS: potassium chloride ER 20 mEq Tablet 40 MEQ PO (13:22)
--- NOTE | 2020-10-15 14:26 | P.PN_ITS ---
Subjective Subjective: Interval history: Patient reports feeling a little better. Reports improved diarrhea. No rectal blood, fever or chills, nausea or vomiting, abdominal pain, shortness of breath, chest pain or cough. He reports that he develops this type of diarrhea every time after he takes antibiotics. He was recently on antibiotics for sinus infection. Medications: Reviewed: Yes Medication Review Details: Generic Name Dose Route Start Last Admin Trade Name Freq PRN Reason Stop Dose Admin Hydrocodone Bitart /Acetaminophen 1 tab 10/15/20 04:56 10/15/20 08:41 Hydrocodone-Acet aminophen 5-325 Mg Tablet PO 1 tab Q6H PRN Administration MODERATE PAIN Apixaban 5 mg 10/15/20 09:00 10/15/20 08:33 Apixaban 5 Mg Ta blet PO 5 mg BID@0900,2100 TOM Administration Bupropion HCl 300 mg 10/15/20 09:00 10/15/20 08:33 Bupropion Xl (24 Hr) 300 Mg Tablet PO 300 mg DAILY TOM Administration Diltiazem HCl 180 mg 10/15/20 09:00 10/15/20 08:33 Diltiazem Er (24 hr) 180 Mg Capsule PO 180 mg DAILY TOM Administration Sodium Chloride 1,000 mls @ 75 ml s/hr 10/15/20 04:56 10/15/20 08:34 Sodium Chloride 0.9% IV 75 mls/hr .[id number] TOM Administration Piperacillin Sod/T azobactam 50 mls @ 12.5 mls /hr 10/15/20 09:00 10/15/20 11:59 Sod 3.375 gm/ So dium Chloride IV Infused Q8H TMO Infusion Vancomycin/PEG/NAD A/Lysine/Water 1,500 mg in 300 m ls @ 200 mls/hr 10/15/20 12:00 10/15/20 13:23 Vancocin IV Infused Q12H TOM Infusion Insulin Aspart 0 unit 10/15/20 08:00 10/15/20 11:27 Insulin Aspart 1 00 Unit/1 Ml SUBCUT Not Given WM&BEDTIME TOM Protocol Levothyroxine Sodi um 200 mcg 10/15/20 08:00 10/15/20 08:33 Levothyroxine 10 0 Mcg Tablet PO 200 mcg QAM TOM Administration Losartan Potassium 50 mg 10/15/20 09:00 10/15/20 08:29 Losartan 50 Mg T ablet PO 50 mg DAILY TOM Administration Vitals/I&O/Wt Last Vital Signs Temp 98.4 F 10/15/20 03:21 Pulse 82 10/15/20 03:48 Resp 14 10/15/20 03:48 BP 117/56 10/15/20 08:29 Pulse Ox 91 10/15/20 03:48 10/14/20 10/15/20 10/15/20 22:59 06:59 14:59 Intake Total 700 / 700 2840 / 2840 Balance 700 / 700 2840 / 2840 Weight last 48 hrs Weight 99.79 kg Physical Exam Narrative: EXAM NARRATIVE: Sleeping comfortably when I entered the room. Arousable. Alert and oriented x4. No acute distress. Mood and affect are appropriate. Responses are adequate. Skin is warm and dry. Moist mucous memories. Eyes PERRLA, extraocular muscles are intact Neck supple. No JVD Lungs decreased breath sounds bibasilarly. Minimal crackles at left base. No respiratory distress no accessory muscle use Heart S1, S2, regular Abdomen is soft, slightly distended, obese, nontender, bowel sounds are present. No guarding or rebound. Extremities no peripheral cyanosis no calf tenderness bilaterally Data : 10/14/20 20:23 10/15/20 10:54 Other Labs: Laboratory Results WBC 13.8 10^3/uL (4.0-10.0) H 10/14/20 20:23 RBC 4.68 10^6/uL (4.1-5.3) 10/14/20 20:23 Hgb 12.8 g/dL (11.7-16.6) 10/14/20 20:23 Hct 39.8 % (42.0-52.0) L 10/14/20 20:23 MCV 85.0 fL (80-94) 10/14/20 20:23 MCH 27.4 pg (28.0-34.0) L 10/14/20 20:23 MCHC 32.2 g/dL (30.0-36.0) 10/14/20 20:23 RDW 15.5 % (12.1-15.1) H 10/14/20 20:23 Plt Count 222 10^3/cmm (130-400) 10/14/20 20:23 MPV 9.6 fL (7.4-10.4) 10/14/20 20:23 Neut % (Auto) 76.1 % 10/14/20 20:23 Lymph % (Auto) 10.8 % 10/14/20 20:23 [place] % (Auto) 7.4 % 10/14/20 20:23 Eos % (Auto) 4.7 % 10/14/20 20:23 Baso % (Auto) 0.6 % 10/14/20 20:23 Neut # (Auto) 10.53 10^3/uL (1.8-7.7) H 10/14/20 20:23 Lymph # (Auto) 1.5 10^3/uL (0.8-4.8) 10/14/20 20:23 [place] # (Auto) 1.0 10^3/uL (0.2-0.9) H 10/14/20 20:23 Eos # (Auto) 0.7 10^3/uL (0.0-0.8) 10/14/20 20:23 Baso # (Auto) 0.1 10^3/uL (0.0-0.1) 10/14/20 20:23 Nucleated RBC % (auto) 0 % 10/14/20 20: Nucleated RBCs # 0.0 /100WBC 10/14/20 20:23 PT 15.00 SECONDS (12.1-14.9) H 10/14/20 20:23 INR 1.14 (0.8-1.2) 10/14/20 20:23 Sodium 130 mmol/L (136-145) L 10/15/20 10:54 Potassium 3.3 mmol/L (3.5-5.1) L 10/15/20 10:54 Chloride 96 mmol/L (98-107) L 10/15/20 10:54 Carbon Dioxide 26 mmol/L (22-29) 10/15/20 10:54 Anion Gap 11.3 (5-19) 10/15/20 10:54 BUN 5 mg/dL (8-23) L 10/15/20 10:54 Creatinine 1.2 mg/dL (0.7-1.2) 10/15/20 10:54 GFR Calculation 60.4 mL/min (90-130) L 10/15/20 10:54 Glucose 111 mg/dL (65-115) 10/15/20 10:54 Calculated Osmolality 272 mOsm/kg (285-295) L 10/14/20 20:23 Lactic Acid 1.3 mmol/L (0.5-2.2) 10/14/20 20:35 Calcium 8.2 mg/dL (8.5-10.5) L 10/15/20 10:54 Phosphorus 2.4 mg/dL (2.5-4.5) L 10/15/20 10:54 Magnesium 1.8 mg/dL (1.7-2.3) 10/15/20 10:54 Total Bilirubin 0.5 mg/dL (0.15-1.2) 10/14/20 20:23 AST 30 U/L (0-40) 10/14/20 20:23 ALT 17 U/L (0-41) 10/14/20 20:23 Alkaline Phosphatase 88 IU/L (40-130) 10/14/20 20:23 Troponin T Baseline 23 ng/L (0-15) H 10/14/20 20:23 Troponin T 120 Minute 31.50 ng/L (0-15) H 10/14/20 22:42 Delta Troponin T 8.50 ABS# (0-10) 10/14/20 22:42 Troponin T Hi Sens 6Hr 23.88 ng/L (0-15) H 10/15/20 02:05 Troponin T Hi Sens 6Hr Delta 0.88 ng/L (0-12) 10/15/20 02:05 NT-Pro-B Natriuret Pep 111 pg/mL (0-125) 10/14/20 20:23 Total Protein 5.5 g/dL (6.6-8.7) L 10/14/20 20:23 Albumin 3.0 g/dL (3.5-5.2) L 10/15/20 10:54 Globulin 2.2 g/dL (1.3-4.6) 10/14/20 20:23 Urine Color Yellow (Yellow) 10/14/20 22:09 Urine Appearance Clear (CLEAR) 10/14/20 22:09 Urine pH 6 (5-7) 10/14/20 22:09 Ur Specific [place] 1.010 (1.005-1.030) 10/14/20 22:09 Urine Protein Neg (Negative) 10/14/20 22:09 Urine Glucose (UA) Norm (Normal) 10/14/20 22:09 Urine Ketones Negative (Negative) 10/14/20 22:09 Urine Blood Neg (Negative) 10/14/20 22:09 Urine Nitrate Negative (Negative) 10/14/20 22:09 Urine Bilirubin Neg (Negative) 10/14/20 22:09 Urine Urobilinogen Norm mg/dL (Negative) 10/14/20 22:09 Ur Leukocyte Esterase Negative (Negative) 10/14/20 22:09 SARS-CoV-2 Ag (Rapid) Negative (Negative) 10/14/20 22:09 Impressions Chest X-Ray 10/14/20 19:59 IMPRESSION: Hyperinflation, interstitial prominence, and left basilar airspace disease. Chest/Abdomen/Pelvis CT 10/14/20 21:21 IMPRESSION: 1. Hazy opacities are seen adjacent to the descending colon, findings could represent mild inflammatory changes and colitis. 2. Fatty infiltration of the liver 3. Small hiatal hernia 4. Mild bladder wall thickening although the bladder is nondistended. However, cystitis cannot be entirely excluded. Radiation Dose CTDIVOL = (mGy): DLP = 2404.72~2404.72 (mGy-cm) Head CT 10/14/20 21:21 IMPRESSION: No definite acute intracranial process is demonstrated when allowing for artifacts from patient motion. Other findings as discussed above. Radiation Dose CTDIVOL = (mGy): DLP = 1738.85 (mGy-cm) Micro: Microbiology 10/14/20 22:09 Legionella Urinary Antigen - Final Urine,Clean Catch Bacterial Antigens - Final 10/15/20 06:02 Enteric Pathogens (PCR) - Final Stool Routine Collection C.difficile Toxin B Gene (PCR) - Final 10/14/20 20:55 Blood Culture - Preliminary Blood SPECIMEN COLLECTED 10/14/20 20:35 Blood Culture - Preliminary Blood SPECIMEN COLLECTED A&P Assessment and plan (1) Sepsis: Status: Acute (2) Colitis: Status: Acute (3) Community acquired pneumonia: Status: Acute (4) Fever: Status: Acute (5) Melanoma: Status: Acute Additional A&P Information Sepsis Sepsis criteria met with fever, leukocytosis, Source of infection colitis and left lower lobe pneumonia Covid antigen negative, PCR sent Considering his immunocompromise state I would use vancomycin and Zosyn for now, check urine antigens, obtain blood cultures, give him septic bolus Melanoma: Currently undergoing chemotherapy, next session is on Sunday Hypertrophic cardiomyopathy: Status post surgery: No acute exacerbation, avoid dehydration We will give him septic bolus Abdominal pain and diarrhea secondary to colitis: Hypomagnesemia will be repleted, patient is not neutropenic, I highly doubt typhlitis, continue broad- spectrum antibiotics for now obtain enteric culture Consistent carb diet DVT prophylaxis -[id number] Full code [place] Sepsis probably secondary to pneumonia versus colitis. Resolved. Continue IV fluids. Pneumonia. Immunosuppressed host. Continue vancomycin and Zosyn. Respiratory menon is stable. Colitis. Diarrhea is improving. Will order stool studies to rule out C. difficile. Will adjust antibiotics if C. difficile is present. For now continu e current antibiotics. No evidence of toxic megacolon or significant toxic state. History of atrial fibrillation. Continue home apixaban and diltiazem. Mildly elevated troponin without chest pain. I suspect demand ischemia secondary to sepsis. I will check his fasting lipids. We will prescribe statin if LDL is elevated. I will order aspirin. We will continue close monitoring. Will consider cardiology consult if he develops any chest pain or other acute cardiac concerns. Outpatient follow-up with the primary cardiology. Hypomagnesemia and hypokalemia. Continue monitoring and replacing. QT prolongation present on EKG. Probably secondary to electrolyte abnormalities. Acute metabolic encephalopathy secondary to sepsis. Resolved. Continue close monitoring. Hyponatremia probably secondary to lung disease and dehydration. Continue monitoring. History of melanoma. Continue follow-up with the primary oncologist after discharge. Hypertension. Well-controlled. Continue current management. DVT prophylaxis. On apixaban. The plan of care was discussed with the patient. He verbalized understanding and agreement. Attestations Medical Necessity Statement*: The patient requires IV antibiotics and close monitoring due to several severe problems identified. Coding Level of Care Code Acute Toxicologist for [facility] Diagnoses Sepsis A41.9 Colitis K52.9 Community acquired pneumonia J18.9 Fever R50.9 Melanoma C43.9
[2020-10-15 18:00] LABS: Coronavirus Lab Test PTC Negative
[2020-10-15] MEDS: sodium chloride 0.9% 500 ML 999 ML IV (18:15)
--- NOTE | 2020-10-15 20:15 | PC.NURSE ---
SHIFT SUMMARY THIS NURSE WAS MADE AWARE THAT THIS PT HAD ARRIVED TO THE [facility] UNIT AROUND 1800. THE AID, Mitra ROMO, WAS WITH THE PT, OBTAINING HIS VITAL SIGNS. THE PTS BLOOD PRESSURE WAS 58/35. I WAS THEN NOTIFIED, WE OBTAINED THE BLOOD PRESSURE AGAIN AND IT WAS NOT ANY BETTER. THE AID THEN DID A MANUAL IN THE PTS RIGHT ARM AND GOT A READING OF 62/38. THIS NURSE THEN DID A MANUAL IN THE PTS LEFT ARM AND GOT A READING OF 70/48. I OBTAINED THE BLOOD PRESSURE AGAIN AND THERE WAS NOT HARDLY ANY CHANGE IN THE PTS BLOOD PRESSURE. ANOTHER NURSE, Danni MCKINLEY RN, OBTAINED THE PATIENTS BLOOD PRESSURE AND GOT A READING OF 70/43. THE PHYSICIAN WAS NOTIFIED AND AN ORDER OF NORMAL SALINE 500ML IV BOLUS (999/HR) WAS GIVEN. THE FLUIDS WERE STARTED ON THE PT. PT WAS MONITORED THE WHOLE TIME, HE TOLERATED THE BOLUS WELL AND HIS LUNG SOUNDS WERE MONITORED CLOSELY WITH ONLY DIMINISHED LUNG SOUNDS NOTED, NO CRACKLES OR WHEEZES HEARD. AFTER THE 500 ML BOLUS THE PTS BLOOD PRESSURE WENT UP TO 95/59. SHIFT CHANGE HAD ALREADY OCCURRED. REPORT WAS GIVEN TO ANIMAL KILLER NURSE, Humberto SHAFFER, RN. Humberto SHAFFER IS GOING TO NOTIFY THE PHYSICIAN ON TONIGHT AND SEE IF ANY FURTHER ORDERS ARE GIVEN. PT HAS REMAINED ASYMPTOMATIC THE WHOLE TIME. NO COMPLAINTS OF DIZZINESS. PT HAS BEEN PINK AND WARM TO TOUCH, WITH THE EXCEPTION OF COOL FEET WITH PALPABLE PULSES BILATERALLY. Humberto SHAFFER WILL CONTINUE TO CLOSELY MONITOR PT THROUGHOUT THE NIGHT.
[2020-10-15] MEDS: ipratropium-albuterol 3 mL Neb INHALATION ×2 (20:18→23:42)
[2020-10-16] VITALS (80 sets, daily range): BP systolic 88–143; BP diastolic 43–72; PULSE 65–93; RESP 2–27; TEMP 36.6–37.6; O2SAT 74–99
--- NOTE | 2020-10-16 01:00 | PC.NURSE ---
Dr. Wilkerson at bedside. Patient has had low blood pressures since being admitted to the floor at around 1800. Patient is A&O and appears to be asymptomatic. Patient last manual blood pressure was 82/42.Dr. Wilkerson notified at bedside. Patient has also received 500mls at around 1800 and then a 1 liter bolus this evening. Bladder scar completed at Dr. Wilkerson request which showed 200mls of urine. In and out straight cath completed at Dr. Wilkersons request which emptied 350mls of dark yellow urine out of patient's bladder. Patient tolerated In and Out cath well. Orders placed by at this time. Patient is a COVIID rule out at this time.
[2020-10-16] MEDS: vancomycin 1,500 MG/300 ML PIGGYBACK 200 MG IV ×2 (01:27→12:37)
[2020-10-16] MEDS: hydrocortisone 100 mg/2 mL SDV IVP (01:41)
[2020-10-16] MEDS: levothyroxine 25 mcg Tablet PO (01:41)
[2020-10-16] MEDS: midodrine 5 mg TABLET 10 MG PO (03:02)
--- NOTE | 2020-10-16 03:04 | PM.EVENT ---
Event Note Event Note: Patient was evaluated for persistent hypotension, he required 1.5 L normal saline lipase pressure has not been incrementing his MAP is less than 65, Patient is not complaining overall excruciating abdominal pain, I requested nurse to take no pressure from size 10 which revealed blood pressure 90/50, I also gave him stress dose steroid and an extra dose of levothyroxine but his pressure has not been responding. He was awake alert oriented x3 GCS 15, no active distress, no active signs of peritonitis abdomen distended right lower quadrant pain radiating towards midepigastric region Urinary retention 250 cc straight cath x1 Transfer to ICU start phenylephrine held antihypertensive agents, discontinue midodrine, requested lactic acid
--- NOTE | 2020-10-16 03:32 | PC.NURSE ---
Report to Jose RN. Patient is A&Ox3. Respirations even and non-labored on 4 liters NC.
--- NOTE | 2020-10-16 03:50 | PC.NURSE ---
Patient transferred to ICU 12 at this time.
[2020-10-16] MEDS: phenylephrine inj 25 MG in sodium chloride 0.9% 250 ML 24.2 MG IV (03:58)
[2020-10-16] MEDS: piperacillin-tazobactam 3.375 GM in sodium chloride 0.9% (plus) 50 ML IV ×3 (04:08→19:44)
[2020-10-16] MEDS: HYDROcodone-acetaminophen 5-325 mg Tablet 1 TAB PO (04:50)
--- NOTE | 2020-10-16 05:01 | PC.NURSE ---
Patient arrived to the unit at 0343. Patient is pleasant and cooperative, no signs of distress, patient to be started on sy gtt
[2020-10-16] MEDS: ipratropium-albuterol 3 mL Neb INHALATION ×2 (05:06→08:06)
[2020-10-16] MEDS: levothyroxine 100 mcg Tablet 200 MCG PO (05:12)
[2020-10-16 06:59] LABS: Basophils % 0.3 %; Eosinophils # 0.1 10^3/uL (0.0-0.8); Hematocrit 34.9 % (42.0-52.0); Hemoglobin 11.1 g/dL (11.7-16.6); Lymphocytes # 0.7 10^3/uL (0.8-4.8); Lymphocytes % 5.5 %; Mean Corpuscular HGB Conc 31.8 g/dL (30.0-36.0); Mean Corpuscular Hemoglobin 27.8 pg (28.0-34.0); Mean Corpuscular Volume 87.5 fL (80-94); Mean Platelet Volume 9.3 fL (7.4-10.4); Monocytes # 0.3 10^3/uL (0.2-0.9); Monocytes % 2.4 %; Neutrophils # 11.59 10^3/uL (1.8-7.7); Nucleated Red Blood Cells % 0 %; Platelet Count 204 10^3/cmm (130-400); Red Blood Count 3.99 10^6/uL (4.1-5.3); Red Cell Distribution Width 16.1 % (12.1-15.1); White Blood Count 12.9 10^3/uL (4.0-10.0)
[2020-10-16 07:08] LABS: Lactate (Lactic Acid level) 0.7 mmol/L (0.5-2.2)
[2020-10-16 07:23] LABS: Procalcitonin 0.82 ng/mL (0-0.5)
--- NOTE | 2020-10-16 07:32 | ECG_ITS ---
[facility] Test Date: 2020-10-16 Pat Name: Catrachito Agosto Department: Room: ICU12 Gender: Male Lathe Operator: : 1955 Requested By: Adam Howard Order Number: [id number] José MD: Richa Diaz M.D. Measurements Intervals [place] Rate: 69 P: 22 MS: 152 QRS: -13 QRSD: 142 T: 105 QT: 460 QTc: 495 Interpretive Statements SINUS RHYTHM LEFT BUNDLE BRANCH BLOCK [120+ ms QRS DURATION, 80+ ms Q/S IN V1/V2, 85+ ms R IN I/aVL/V5/V6] Compared to ECG 10/15/2020 03:16:50 Left bundle-branch block now present Prolonged QT interval no longer present Electronically Signed On 10-16-2020 19:50:15 WIRE HARNESS ASSEMBLER by Richa Diaz M.D. [id number]
[2020-10-16 07:36] LABS: Anion Gap 13.7 (5-19); Blood Urea Nitrogen 9 mg/dL (8-23); Chloride 100 mmol/L (98-107); Potassium 3.7 mmol/L (3.5-5.1)
[2020-10-16 07:37] LABS: Magnesium 1.9 mg/dL (1.7-2.3); Phosphorus 3.1 mg/dL (2.5-4.5)
[2020-10-16 08:12] LABS: Albumin Level 2.7 g/dL (3.5-5.2); C Reactive Protein 142.6 mg/L (0.0-4.9); Calcium 7.6 mg/dL (8.5-10.5); Carbon Dioxide 21 mmol/L (22-29); Glomerular Filtration Rate 50.5 mL/min (90-130); Glucose 136 mg/dL (65-115); HDL Cholesterol 15 mg/dL (60-100); Sodium 131 mmol/L (136-145)
[2020-10-16 08:53] LABS: LDL Cholesterol Calculated 3 mg/dL (50-129); Triglycerides 192 mg/dL (0-150)
[2020-10-16] MEDS: apixaban 5 mg Tablet PO ×2 (09:03→20:21)
[2020-10-16 09:04] LABS: Cortisol Random 31.11 ug/dL (2.47-19.5)
[2020-10-16 09:06] LABS: Free T4 Free Thyroxine 1.01 ng/dL (0.82-1.77); Thyroid Stimulating Hormone 0.14 uIU/mL (0.27-4.20)
[2020-10-16 09:21] LABS: Cholesterol 56 mg/dL (0-200)
[2020-10-16 09:22] LABS: Chol HDL Ratio 3.73 mg/dL (1.0-5.00); Troponin T (5th) Once 23 ng/L (0-15)
[2020-10-16] MEDS: buPROPion XL (24 HR) 300 mg Tablet PO (09:54)
[2020-10-16] MEDS: sodium chlor 0.9% + KCl 20 mEq 20 MEQ/1,000 ML BAG 100 MEQ IV ×2 (10:27→21:04)
--- NOTE | 2020-10-16 10:40 | CTR_ITS ---
PROCEDURE INFORMATION: Exam: CT Abdomen And Pelvis Without Contrast Exam date and time: 10/16/2020 1:21 PM Age: 65 years old Clinical indication: Abdominal pain; Generalized; Patient HX: C/O abd pain and loose stools; Additional info: Abd. Pain TECHNIQUE: Imaging protocol: Computed tomography of the abdomen and pelvis without contrast. Total images: 253 Radiation optimization: All CT scans at this facility use at least one of these dose optimization techniques: automated exposure control; mA and/or kV adjustment per patient size (includes targeted exams where dose is matched to clinical indication); or iterative reconstruction. COMPARISON: CT chest abd pel wo con 10/14/2020 10:37 PM RADIATION DOSE METRICS: Total DLP (mGy-cm): 1522.38 FINDINGS: Lungs: Limited assessment of the lung bases fails to reveal evidence for active cardiopulmonary process. Minimal dependent atelectasis. Heart: Mild cardiomegaly. Coronary artery disease. No visible pericardial effusion. Mediastinal space: Small hiatal hernia. Liver: Diffuse fatty infiltration of the liver with hepatomegaly. Gallbladder and bile ducts: Partial hepatization of the gallbladder. No visible form cholelithiasis. No visible intra or extrahepatic biliary ectasia. Pancreas: Pancreas unremarkable. No visible pancreatic ductal ectasia. Spleen: Normal. No splenomegaly. Adrenal glands: Adrenal glands unremarkable. Kidneys and ureters: No hydronephrosis or perinephric fluid. No visible nephrolithiasis or ureterolithiasis. Stomach and bowel: Moderate grade diffuse either infectious or inflammatory colitis. Nonobstructive bowel pattern. No visible significant associated adynamic or reactive ileus. Appendix: The appendix is visualized and appears noninflamed. Intraperitoneal space: No visible evidence of mesenteric lymphadenitis or active mesenteritis/panniculitis. No visible pneumoperitoneum or intraperitoneal ascites. Vasculature: The abdominal aorta is nonaneurysmal. Mild arterial sclerotic disease. Lymph nodes: No current visible evidence of active mesenteric or retroperitoneal lymphadenopathy. Rare calcified granuloma. Urinary bladder: Urinary bladder unremarkable. Reproductive: Mild prostate hypertrophy. Bones/joints: No visible active or acute osseous pathology. Degenerative disease and degenerative disc disease of the spine. Mild scoliotic curvature. Soft tissues: Bilateral small inguinal hernias containing fat only. Other findings: Marked obesity. CT/CT abdomen pelvis wo con [id number] IMPRESSION: 1. Moderate grade diffuse either infectious or inflammatory colitis. 2. Diffuse fatty infiltration of the liver with hepatomegaly. 3. Partial hepatization of the gallbladder. 4. Other nonurgent, nonemergent, chronic, and age related findings as detailed in text above. Radiation Dose CTDIVOL = (mGy): DLP = 1522.38 (mGy-cm)
--- NOTE | 2020-10-16 13:50 | P.PN_ITS ---
Subjective Subjective: Interval history: He reports ongoing diarrhea. He was transferred to ICU due to hypotension. Received several boluses of IV fluids. Currently on Keagan-Synephrine. Denies abdominal pain. No fevers or chills. No nausea or vomiting. No chest pain, shortness of breath, cough, palpitations. Medications: Reviewed: Yes Medication Review Details: Generic Name Dose Route Start Last Admin Trade Name Freq PRN Reason Stop Dose Admin Hydrocodone Bitart /Acetaminophen 1 tab 10/15/20 04:56 10/15/20 08:41 Hydrocodone-Acet aminophen 5-325 Mg Tablet PO 1 tab Q6H PRN Administration MODERATE PAIN Apixaban 5 mg 10/15/20 09:00 10/15/20 08:33 Apixaban 5 Mg Ta blet PO 5 mg BID@0900,2100 TOM Administration Bupropion HCl 300 mg 10/15/20 09:00 10/15/20 08:33 Bupropion Xl (24 Hr) 300 Mg Tablet PO 300 mg DAILY TOM Administration Diltiazem HCl 180 mg 10/15/20 09:00 10/15/20 08:33 Diltiazem Er (24 hr) 180 Mg Capsule PO 180 mg DAILY TOM Administration Sodium Chloride 1,000 mls @ 75 ml s/hr 10/15/20 04:56 10/15/20 08:34 Sodium Chloride 0.9% IV 75 mls/hr .[id number] TOM Administration Piperacillin Sod/T azobactam 50 mls @ 12.5 mls /hr 10/15/20 09:00 10/15/20 11:59 Sod 3.375 gm/ So dium Chloride IV Infused Q8H TOM Infusion Vancomycin/PEG/NAD A/Lysine/Water 1,500 mg in 300 m ls @ 200 mls/hr 10/15/20 12:00 10/15/20 13:23 Vancocin IV Infused Q12H TOM Infusion Insulin Aspart 0 unit 10/15/20 08:00 10/15/20 11:27 Insulin Aspart 1 00 Unit/1 Ml SUBCUT Not Given WM&BEDTIME TOM Protocol Levothyroxine Sodi um 200 mcg 10/15/20 08:00 10/15/20 08:33 Levothyroxine 10 0 Mcg Tablet PO 200 mcg QAM TOM Administration Losartan Potassium 50 mg 10/15/20 09:00 10/15/20 08:29 Losartan 50 Mg T ablet PO 50 mg DAILY TOM Administration Vitals/I&O/Wt Last Vital Signs Temp 98.1 F 10/16/20 12:08 Pulse 83 10/16/20 13:30 Resp 21 H 10/16/20 13:30 BP 117/63 10/16/20 13:30 Pulse Ox 91 10/16/20 13:30 10/15/20 10/16/20 10/16/20 22:59 06:59 14:59 Intake Total 1976.25 / 4816.25 980.855 / 5797.105 943.389 / 943.389 Output Total 220 / 220 380 / 600 1200 / 1200 Balance 1756.25 / 4596.25 600.855 / 5197.105 -256.611 / -256.611 Weight last 48 hrs Weight 99.79 kg Physical Exam Narrative: EXAM NARRATIVE: Sleeping comfortably when I entered the room. Arousable. Alert and oriented x4. No acute distress. Mood and affect are appropriate. Responses are adequate. Skin is warm and dry. Dry mucous memories. Eyes PERRLA, extraocular muscles are intact Neck supple. No JVD Lungs decreased breath sounds bibasilarly. Minimal crackles at left base. No respiratory distress no accessory muscle use Heart S1, S2, regular Abdomen is soft, more distended today, obese, nontender, bowel sounds are present. No guarding or rebound. Extremities no peripheral cyanosis no calf tenderness bilaterally Data : 10/16/20 06:37 10/16/20 06:37 Micro: Microbiology 10/15/20 20:45 C.difficile Toxin B Gene (PCR) - Final Stool - Stool Aspirate 10/15/20 20:45 Stool Lactoferrin - Final Stool 10/14/20 20:55 Blood Culture - Preliminary Blood NEGATIVE TO DATE 10/14/20 20:35 Blood Culture - Preliminary Blood NEGATIVE TO DATE 10/14/20 22:09 Legionella Urinary Antigen - Final Urine,Clean Catch Bacterial Antigens - Final 10/15/20 06:02 Enteric Pathogens (PCR) - Final Stool Routine Collection C.difficile Toxin B Gene (PCR) - Final A&P Assessment and plan (1) Sepsis: Status: Acute (2) Colitis: Status: Acute (3) Community acquired pneumonia: Status: Acute (4) Fever: Status: Acute (5) Melanoma: Status: Acute Additional A&P Information Sepsis Sepsis criteria met with fever, leukocytosis, Source of infection colitis and left lower lobe pneumonia Covid antigen negative, PCR sent Considering his immunocompromise state I would use vancomycin and Zosyn for now, check urine antigens, obtain blood cultures, give him septic bolus Melanoma: Currently undergoing chemotherapy, next session is on Sunday Hypertrophic cardiomyopathy: Status post surgery: No acute exacerbation, avoid dehydration We will give him septic bolus Abdominal pain and diarrhea secondary to colitis: Hypomagnesemia will be repleted, patient is not neutropenic, I highly doubt typhlitis, continue broad- spectrum antibiotics for now obtain enteric culture Consistent carb diet DVT prophylaxis -[id number]- Full code [place] Sepsis probably secondary to pneumonia versus colitis. Continuing IV fluids and pressors as needed. Lactic acid was not elevated. Pneumonia. Immunosuppressed host. Continue vancomycin and Zosyn. Respiratory menon is stable. Colitis. Abdomen is more distended. Bowel sounds are heard. Having ongoing diarrhea. Stool is positive for fecal leukocytes. C. difficile was negative. During CT of the abdomen to rule out developing toxic megacolon. Unfortunately he has iodine allergy and we cannot use contrast. Acute kidney injury. Mild. Probably secondary to sepsis and dehydration. Continue IV hydration. Will consider additional testing if it worsens. History of atrial fibrillation. Continue home apixaban and diltiazem. Hypomagnesemia and hypokalemia. Continue monitoring and replacing. EKG abnormalities. QT prolongation present on initial EKG. Probably secondary to electrolyte abnormalities. Currently resolved. However the new EKG shows new left bundle branch block. His troponin is only minimally elevated and decreased from the baseline. I suspect the EKG and troponin changes are due to hypotension and sepsis, demand ischemia. There is no chest pain or other cardiac complaints. I will closely monitor him. I will continue his home medications including apixaban. I will add aspirin. He will need to follow-up with his outpatient management architect. Will consider cardiology consultation if his status changes. Acute metabolic encephalopathy secondary to sepsis. Resolved. Continue close monitoring. Hyponatremia probably secondary to lung disease and dehydration. Continue monitoring. History of melanoma. Continue follow-up with the primary oncologist after discharge. Hypertension. Currently hypotensive. DVT prophylaxis. On apixaban. GI prophylaxis. Famotidine. The plan of care was discussed with the patient. He verbalized understanding and agreement. Attestations Medical Necessity Statement*: Patient with sepsis and hypotension in ICU re quiring pressors and IV antibiotics. Coding Level of Care Code Acute Ethylene Oxide Panelboard Operator for [facility] Fwd Diagnoses Sepsis A41.9 Colitis K52.9 Community acquired pneumonia J18.9 Fever R50.9 Melanoma C43.9
--- NOTE | 2020-10-16 13:57 | ECG_ITS ---
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 Measurements Intervals [place] Rate: 83 P: 27 NM: 139 QRS: 9 QRSD: 140 T: 113 QT: 413 QTc: 486 Interpretive Statements SINUS RHYTHM LEFT BUNDLE BRANCH BLOCK [120+ ms QRS DURATION, 80+ ms Q/S IN V1/V2, 85+ ms R IN I/aVL/V5/V6] Compared to ECG 10/16/2020 08:31:28 No significant changes Electronically Signed On 10-16-2020 19:26:15 MANAGER SERVICES by Richa Diaz M.D. [id number]
[2020-10-16] MEDS: famotidine 20 mg/2 mL INJ IVP (14:29)
[2020-10-16 15:14] LABS: Troponin(5th) Baseline 16 ng/L (0-15)
[2020-10-16 17:12] LABS: Troponin 5 2HR 18.07 ng/L (0-15); Troponin 5 2HR Delta 2.07 ABS# (0-10)
[2020-10-16 20:22] LABS: Troponin 5 6HR 20.08 ng/L (0-15); Troponin 5 6HR Delta 4.08 ng/L (0-12)
[2020-10-16] MEDS: oxyCODONE-APAP 10-325 mg Tablet 1 TAB PO (21:03)
[2020-10-17] VITALS (48 sets, daily range): BP systolic 84–148; BP diastolic 44–81; PULSE 64–88; RESP 8–20; TEMP 37–37.3; O2SAT 89–100
[2020-10-17 00:07] LABS: Vancomycin Trough 26.4 ug/mL (10-15)
--- NOTE | 2020-10-17 00:31 | PC.PHAR ---
Vancomycin trough level on dosage of 1500mg IVPB every 12 hours is 26.4. Vancomycin is held for two doses and fgrequency is reduced to every 24 hours with another trough level to be obtained before the fourth dose at this frequency.
[2020-10-17] MEDS: famotidine 20 mg/2 mL INJ IVP ×2 (02:16→15:22)
[2020-10-17] MEDS: piperacillin-tazobactam 3.375 GM in sodium chloride 0.9% (plus) 50 ML IV ×3 (03:21→20:07)
[2020-10-17] MEDS: oxyCODONE-APAP 10-325 mg Tablet 1 TAB PO ×3 (04:28→22:26)
[2020-10-17] MEDS: levothyroxine 100 mcg Tablet 200 MCG PO (05:03)
[2020-10-17 05:09] LABS: Procalcitonin 0.58 ng/mL (0-0.5)
[2020-10-17 05:23] LABS: Albumin Level 2.6 g/dL (3.5-5.2); Anion Gap 9.5 (5-19); Blood Urea Nitrogen 6 mg/dL (8-23); C Reactive Protein 91.1 mg/L (0.0-4.9); Calcium 7.8 mg/dL (8.5-10.5); Carbon Dioxide 25 mmol/L (22-29); Chloride 103 mmol/L (98-107); Creatinine Clr Calc Pharmacy 104.3494; Glomerular Filtration Rate 96.4 mL/min (90-130); Glucose 93 mg/dL (65-115); Magnesium 1.7 mg/dL (1.7-2.3); Phosphorus 1.4 mg/dL (2.5-4.5); Potassium 3.5 mmol/L (3.5-5.1); Sodium 134 mmol/L (136-145)
[2020-10-17 05:46] LABS: Basophils # 0.1 10^3/uL (0.0-0.1); Basophils % 0.9 %; Eosinophils # 0.5 10^3/uL (0.0-0.8); Eosinophils % 7.2 %; Hematocrit 31.2 % (42.0-52.0); Lymphocytes % 15.3 %; Mean Corpuscular HGB Conc 32.1 g/dL (30.0-36.0); Mean Corpuscular Hemoglobin 27.7 pg (28.0-34.0); Mean Corpuscular Volume 86.4 fL (80-94); Mean Platelet Volume 9.4 fL (7.4-10.4); Monocytes # 0.7 10^3/uL (0.2-0.9); Monocytes % 10.6 %; Neutrophils # 4.19 10^3/uL (1.8-7.7); Neutrophils % 65.5 %; Nucleated Red Blood Cells % 0 %; Platelet Count 198 10^3/cmm (130-400); Red Blood Count 3.61 10^6/uL (4.1-5.3); Red Cell Distribution Width 15.8 % (12.1-15.1); White Blood Count 6.4 10^3/uL (4.0-10.0)
[2020-10-17] MEDS: sodium chlor 0.9% + KCl 20 mEq 20 MEQ/1,000 ML BAG 100 MEQ IV ×2 (06:27→15:23)
[2020-10-17] MEDS: CLONazepam 1 mg Tablet 1.5 MG PO (08:52)
[2020-10-17] MEDS: buPROPion XL (24 HR) 300 mg Tablet PO (08:53)
[2020-10-17] MEDS: apixaban 5 mg Tablet PO ×2 (08:53→20:07)
[2020-10-17 09:29] LABS: Glucose Point of Care 100 mg/dL (70-110)
[2020-10-17 12:44] LABS: Glucose Point of Care 101 mg/dL (70-110)
--- NOTE | 2020-10-17 14:20 | P.PN_ITS ---
Subjective Subjective: Interval history: She reports feeling better. Reports improved diarrhea, decreased abdominal distention, resolved abdominal discomfort. No nausea or vomiting. No chills. No blood in the stool or black stool. Denies chest pain, palpitations, shortness of breath, diaphoresis. Medications: Reviewed: Yes Medication Review Details: Generic Name Dose Route Start Last Admin Trade Name Freq PRN Reason Stop Dose Admin Albuterol/Ipratrop ium 3 ml 10/15/20 04:56 10/16/20 08:06 Ipratropium-Albu terol 3 Ml Neb INHALATION 3 ml Q4H PRN Administration SHORTNESS OF LYNDSAY TH Apixaban 5 mg 10/15/20 09:00 10/17/20 08:53 Apixaban 5 Mg Ta blet PO 5 mg BID@0900,2100 TOM Administration Bupropion HCl 300 mg 10/15/20 09:00 10/17/20 08:53 Bupropion Xl (24 Hr) 300 Mg Tablet PO 300 mg DAILY TOM Administration Clonazepam 1.5 mg 10/16/20 08:00 10/17/20 08:52 Clonazepam 1 Mg Tablet PO 1.5 mg DAILY@0800 TOM Administration Famotidine 20 mg 10/16/20 14:00 10/17/20 02:16 Famotidine 20 Mg /2 Ml Inj IVP 20 mg Q12H TOM Administration Piperacillin Sod/T azobactam 50 mls @ 12.5 mls /hr 10/15/20 09:00 10/17/20 11:37 Sod 3.375 gm/ So dium Chloride IV 12.5 mls/hr Q8H TOM Administration Phenylephrine HCl 25 mg/ 252.5 mls @ 0 mls /hr 10/16/20 03:20 10/16/20 13:37 Sodium Chloride IV 0 mcg/min .Q0M TOM 0 mls/hr Titration Protocol Per Protocol Potassium Chloride /Sodium Chloride 20 meq in 1,000 m ls @ 100 mls/hr 10/16/20 09:45 10/17/20 06:27 Sodium Chlor 0.9 % + Kcl 20 Meq IV 100 mls/hr .Q10H TOM Administration Insulin Aspart 0 unit 10/15/20 08:00 10/17/20 12:46 Insulin Aspart 1 00 Unit/1 Ml SUBCUT Not Given WM&BEDTIME TOM Protocol Levothyroxine Sodi um 200 mcg 10/15/20 08:00 10/17/20 05:03 Levothyroxine 10 0 Mcg Tablet PO 200 mcg QAM TOM Administration Oxycodone/Acetamin ophen 1 tab 10/16/20 15:23 10/17/20 09:07 Oxycodone-Apap 1 0-325 Mg Tablet PO 1 tab Q6H PRN Administration Pain Vitals/I&O/Wt Last Vital Signs Temp 98.6 F 10/17/20 08:00 Pulse 70 10/17/20 14:00 Resp 16 10/17/20 14:00 BP 115/67 10/17/20 14:00 Pulse Ox 98 10/17/20 14:00 10/16/20 10/17/20 10/17/20 22:59 06:59 14:59 Intake Total 4350 / 5293.389 1488.333 / 6781.722 582 / 582 Output Total 3250 / 4450 900 / 5350 700 / 700 Balance 1100 / 843.389 588.333 / 1431.722 -118 / -118 Physical Exam Narrative: EXAM NARRATIVE: Awake, alert and oriented x4. No acute distress. Mood and affect are appropriate. Responses are adequate. Skin is warm and dry. Dry mucous memories. Eyes PERRLA, extraocular muscles are intact Neck supple. No JVD Lungs decreased breath sounds bibasilarly. Minimal crackles at left base. No respiratory distress no accessory muscle use Heart S1, S2, regular Abdomen is soft, less distended today,nontender, bowel sounds are present. No guarding or rebound. Extremities no peripheral cyanosis no calf tenderness bilaterally Data : 10/17/20 04:09 10/17/20 04:09 A&P Assessment and plan (1) Sepsis: Status: Acute (2) Colitis: Status: Acute (3) Community acquired pneumonia: Status: Acute (4) Fever: Status: Acute (5) Melanoma: Status: Acute Additional A&P Information Sepsis Sepsis criteria met with fever, leukocytosis, Source of infection colitis and left lower lobe pneumonia Covid antigen negative, PCR sent Considering his immunocompromise state I would use vancomycin and Zosyn for now, check urine antigens, obtain blood cultures, give him septic bolus Melanoma: Currently undergoing chemotherapy, next session is on Sunday Hypertrophic cardiomyopathy: Status post surgery: No acute exacerbation, avoid dehydration We will give him septic bolus Abdominal pain and diarrhea secondary to colitis: Hypomagnesemia will be repleted, patient is not neutropenic, I highly doubt typhlitis, continue broad- spectrum antibiotics for now obtain enteric culture Consistent carb diet DVT prophylaxis -[id number]- Full code [place] Sepsis probably secondary to pneumonia versus colitis. Continuing IV fluids. Currently off pressors. Stable. Pneumonia. Immunosuppressed host. Continue vancomycin and Zosyn. Respiratory menon is stable. Colitis. Symptoms are better. Diarrhea is better. Stool is positive for fecal leukocytes. C. difficile was negative. Continue current management for now. Acute kidney injury. Mild. Probably secondary to sepsis and dehydration. Resolved. Continue IV hydration. History of atrial fibrillation. Continue home apixaban. Rate controlled. Holding diltiazem. Hypomagnesemia, hypophosphatemia and hypokalemia. Continue monitoring and replacing. EKG abnormalities. QT prolongation present on initial EKG. Probably secondary to electrolyte abnormalities. Currently resolved. However the new EKG shows new left bundle branch block. His troponin is only minimally elevated and decreased from the baseline. I suspect the EKG and troponin changes are due to hypotension and sepsis, demand ischemia. There is no chest pain or other cardiac complaints. I will closely monitor him. I will continue his home medications including apixaban. He will need to follow-up with his outpatient hair or beauty salon manager. Will consider cardiology consultation if his status changes. (curb-sided dr Diaz) Acute metabolic encephalopathy secondary to sepsis. Resolved. Continue close monitoring. Hyponatremia probably secondary to lung disease and dehydration. Improved. Continue monitoring. History of melanoma. Continue follow-up with the primary oncologist after discharge. Hypertension. Stable. DVT prophylaxis. On apixaban. GI prophylaxis. Famotidine. The plan of care was discussed with the patient. He verbalized understanding and agreement. Discussed with the multidisciplinary team. Attestations Medical Necessity Statement*: Patient still requires IV fluids and IV antibiotics. Condition is not stable enough yet for transfer to regular floor. Coding Level of Care Code Acute Missile Control Pilot for [facility] Fwd Diagnoses Sepsis A41.9 Colitis K52.9 Community acquired pneumonia J18.9 Fever R50.9 Melanoma C43.9
[2020-10-17] MEDS: ipratropium-albuterol 3 mL Neb INHALATION ×2 (16:07→20:02)
[2020-10-17 18:17] LABS: Glucose Point of Care 89 mg/dL (70-110)
[2020-10-17 20:19] LABS: Glucose Point of Care 88 mg/dL (70-110)
[2020-10-18] VITALS (28 sets, daily range): BP systolic 97–135; BP diastolic 48–76; PULSE 69–90; RESP 12–22; TEMP 36.4–37.3; O2SAT 92–100
[2020-10-18] MEDS: famotidine 20 mg/2 mL INJ IVP ×2 (01:37→13:08)
[2020-10-18] MEDS: sodium chlor 0.9% + KCl 20 mEq 20 MEQ/1,000 ML BAG 100 MEQ IV ×3 (01:37→18:22)
[2020-10-18] MEDS: piperacillin-tazobactam 3.375 GM in sodium chloride 0.9% (plus) 50 ML IV ×3 (04:20→19:52)
[2020-10-18] MEDS: levothyroxine 100 mcg Tablet 200 MCG PO (05:09)
[2020-10-18 05:51] LABS: Basophils # 0.1 10^3/uL (0.0-0.1); Basophils % 0.8 %; Eosinophils # 0.7 10^3/uL (0.0-0.8); Eosinophils % 10.5 %; Hematocrit 33.3 % (42.0-52.0); Hemoglobin 10.3 g/dL (11.7-16.6); Lymphocytes # 1.1 10^3/uL (0.8-4.8); Lymphocytes % 17.7 %; Mean Corpuscular HGB Conc 30.9 g/dL (30.0-36.0); Mean Corpuscular Hemoglobin 27.4 pg (28.0-34.0); Mean Corpuscular Volume 88.6 fL (80-94); Mean Platelet Volume 9.1 fL (7.4-10.4); Monocytes # 0.7 10^3/uL (0.2-0.9); Monocytes % 10.8 %; Neutrophils # 3.72 10^3/uL (1.8-7.7); Neutrophils % 59.7 %; Nucleated Red Blood Cells % 0 %; Platelet Count 228 10^3/cmm (130-400); Red Blood Count 3.76 10^6/uL (4.1-5.3); Red Cell Distribution Width 16.1 % (12.1-15.1); White Blood Count 6.2 10^3/uL (4.0-10.0)
[2020-10-18 06:14] LABS: Alanine Aminotransferase 15 U/L (0-41); Albumin Level 2.7 g/dL (3.5-5.2); Alkaline Phosphatase 83 IU/L (40-130); Aspartate Amino Transferase 26 U/L (0-40); Blood Urea Nitrogen 4 mg/dL (8-23); Calcium 7.7 mg/dL (8.5-10.5); Carbon Dioxide 25 mmol/L (22-29); Chloride 104 mmol/L (98-107); Creatinine Clr Calc Pharmacy 104.3494; Globulin 2.1 g/dL (1.3-4.6); Glomerular Filtration Rate 134.4 mL/min (90-130); Glucose 77 mg/dL (65-115); Magnesium 1.7 mg/dL (1.7-2.3); Osmolality Calculated 278 mOsm/kg (285-295); Phosphorus 2.1 mg/dL (2.5-4.5); Sodium 136 mmol/L (136-145); Total Bilirubin 0.2 mg/dL (0.15-1.2); Total Protein 4.8 g/dL (6.6-8.7)
[2020-10-18 07:25] LABS: Glucose Point of Care 77 mg/dL (70-110)
[2020-10-18] MEDS: ipratropium-albuterol 3 mL Neb INHALATION (07:42)
--- NOTE | 2020-10-18 07:58 | PC.NURSE ---
Assisted patient up to chair, patient bear down and pushed out rectal tube, tube was intact and balloon was still inflated, noted blood tinged stool, assisted with urinal voided, hygiene completed and assisted back up to chair for breakfast. Call light in reach.
[2020-10-18 08:41] LABS: Glucose Point of Care 94 mg/dL (70-110)
[2020-10-18] MEDS: CLONazepam 1 mg Tablet 1.5 MG PO (08:50)
[2020-10-18] MEDS: phosphorus 250 mg Tablet PO ×2 (08:50→18:20)
[2020-10-18] MEDS: apixaban 5 mg Tablet PO ×2 (08:52→21:59)
[2020-10-18] MEDS: buPROPion XL (24 HR) 300 mg Tablet PO (08:55)
[2020-10-18] MEDS: magnesium sulfate premix 2 GM/50 ML PIGGYBACK IV (08:58)
[2020-10-18] MEDS: predniSONE 20 mg Tablet 40 MG PO (09:03)
[2020-10-18] MEDS: oxyCODONE-APAP 10-325 mg Tablet 1 TAB PO (09:09)
--- NOTE | 2020-10-18 09:32 | PC.CHAP ---
Pastoral Care Encounter/Spiritual Assessment Type of Contact [] Declined boiler fitter visit [] Patient/Family/Request visit [] Outpatient visit [] Follow-up visit [] Physician referral [] Code/Alert [x] Routine visit [] Staff referral [] Actively dying [] Patient sleeping [] Family support [] [] Out of room [] Palliative care [] [] Receiving care in room [] Pre-surgical visit [] Trauma [] Long length of stay [x] ICU visit [] Other: Relational/Emotional Strength [] Patient feels connected with others/family/visitors/staff [] Distress [] Loneliness/isolation [] Abandonment Spirituality of Patient [] Person of [place] [] Attends Oriental Orthodox of their [place] [] Believes in Prayer [] Reads Bible or Latter-Day materials [] There are Spiritual issues to be addressed Co Director Interventions [x] Prayer [] Active listening [] Non-anxious presence [] Spiritual/emotional support [] Crisis/trauma care [] Spiritual counseling [] Bereavement support [] Provided bereavement packet [] Provided Bible/devotional materials [] Provided toy/stuffed animal, coloring book to patient or family member [] Provided Communion [] Anointing/[place] [] Salvation [x] Completed spiritual assessment [] Other: Impact on Illness or Injury [] Angry [] Fearful [] Anxious [] Often cries [] Exhaustion [] Unable to work [] Unable to attend episcopalian [] Unable to walk/stand [] Unable to read [] Unable to drive [] Unable to eat/drink [] Unable to sleep [] Unable to be with family [] Patient intubated [] Other: Summary Time spent with patient
[2020-10-18 12:33] LABS: Glucose Point of Care 93 mg/dL (70-110)
--- NOTE | 2020-10-18 13:06 | P.PN_ITS ---
Subjective Subjective: Interval history: This morning patient was examined, he sitting up in bed, enjoying breakfast, he tells me that this is the first time in the last few days had he has had an appetite to eat anything, has been afebrile overnight, currently on 2 L, does not use oxygen at home, is rectal tube came out last night, and it remains out, patient would not like it to to be placed again, his diarrhea has improved to some degree, no cough, no fevers, no chills, no chest pain Medications: Reviewed: Yes Medication Review Details: Generic Name Dose Route Start Last Admin Trade Name Freq PRN Reason Stop Dose Admin Albuterol/Ipratrop ium 3 ml 10/15/20 04:56 10/16/20 08:06 Ipratropium-Albu terol 3 Ml Neb INHALATION 3 ml Q4H PRN Administration SHORTNESS OF LYNDSAY TH Apixaban 5 mg 10/15/20 09:00 10/17/20 08:53 Apixaban 5 Mg Ta blet PO 5 mg BID@0900,2100 TOM Administration Bupropion HCl 300 mg 10/15/20 09:00 10/17/20 08:53 Bupropion Xl (24 Hr) 300 Mg Tablet PO 300 mg DAILY TOM Administration Clonazepam 1.5 mg 10/16/20 08:00 10/17/20 08:52 Clonazepam 1 Mg Tablet PO 1.5 mg DAILY@0800 TOM Administration Famotidine 20 mg 10/16/20 14:00 10/17/20 02:16 Famotidine 20 Mg /2 Ml Inj IVP 20 mg Q12H TOM Administration Piperacillin Sod/T azobactam 50 mls @ 12.5 mls /hr 10/15/20 09:00 10/17/20 11:37 Sod 3.375 gm/ So dium Chloride IV 12.5 mls/hr Q8H TOM Administration Phenylephrine HCl 25 mg/ 252.5 mls @ 0 mls /hr 10/16/20 03:20 10/16/20 13:37 Sodium Chloride IV 0 mcg/min .Q0M TOM 0 mls/hr Titration Protocol Per Protocol Potassium Chloride /Sodium Chloride 20 meq in 1,000 m ls @ 100 mls/hr 10/16/20 09:45 10/17/20 06:27 Sodium Chlor 0.9 % + Kcl 20 Meq IV 100 mls/hr .Q10H TOM Administration Insulin Aspart 0 unit 10/15/20 08:00 10/17/20 12:46 Insulin Aspart 1 00 Unit/1 Ml SUBCUT Not Given WM&BEDTIME TOM Protocol Levothyroxine Sodi um 200 mcg 10/15/20 08:00 10/17/20 05:03 Levothyroxine 10 0 Mcg Tablet PO 200 mcg QAM TOM Administration Oxycodone/Acetamin ophen 1 tab 10/16/20 15:23 10/17/20 09:07 Oxycodone-Apap 1 0-325 Mg Tablet PO 1 tab Q6H PRN Administration Pain Vitals/I&O/Wt Last Vital Signs Temp 97.6 F 10/18/20 12:00 Pulse 90 10/18/20 12:00 Resp 21 H 10/18/20 12:00 BP 110/74 10/18/20 12:00 Pulse Ox 94 10/18/20 12:00 10/17/20 10/18/20 10/18/20 22:59 06:59 14:59 Intake Total 1243.333 / 9397.797 6353 / 3485.333 1160 / 1160 Output Total 1450 / 2150 350 / 2500 875 / 875 Balance -206.667 / -679.869 4437 / 985.333 285 / 285 Physical Exam Const: COMMON NORMALS: no acute distress and patient oriented x3 HENMT: COMMON NORMALS: normocephalic HEAD & SCALP: normocephalic Neck/C-Spine: COMMON NORMALS: no JVD Resp: COMMON NORMALS: normal respiratory effort, No retractions, No use of accessory muscles and clear to auscultation bilaterally AUSCULTATION: clear to auscultation bilaterally Cardio: COMMON NORMALS: no JVD, regular rate, regular rhythm, S1 normal heart sound present and S2 normal heart sound present RATE: regular rate RHYTHM: regular rhythm HEART SOUNDS: S1 normal heart sound present and S2 normal heart sound present GI: COMMON NORMALS: Normal to inspection, nondistended, normoactive bowel sounds present, Soft to palpation, non-tender, No hepatosplenomegaly present, no masses and no bruits PALPATION: Yes Soft to palpation and Yes No hepatosplenomegaly present Extremity: COMMON NORMALS: capillary refill normal, no clubbing, cyanosis or edema, no calf tenderness and no pedal edema Neuro: COMMON NORMALS: patient oriented x3 Psych: COMMON NORMALS: mental status grossly normal Data : 10/18/20 04:31 10/18/20 04:31 Micro: Microbiology 10/18/20 08:37 Occult Blood (FIT) - Final Stool - Stool Aspirate A&P Assessment and plan (1) Sepsis: -Secondary to pneumonia and/or colitis -In immunocompromised patient -Off pressors -Hemodynamically stable -Blood cultures, sputum cultures have been unremarkable Stool studies have been unremarkable -Currently on vancomycin and Zosyn -We will move out of the ICU later on today -I have added Cryptosporidium, Entamoeba, CMV studies -Continue IV fluids Status: Acute (2) Colitis: No infectious source so far has been found, additional stool studies has been ordered, likely chemotherapy playing a significant role Status: Acute (3) Community acquired pneumonia: In immunocompromised patient So far blood cultures, sputum cultures unremarkable Continue vancomycin and Zosyn Currently is on 2 L Status: Acute (4) Fever: Status: Acute (5) Melanoma: Status: Acute (6) WILLIAM (acute kidney injury): Status: Acute Additional A&P Information Hypertrophic cardiomyopathy: Status post surgery: No acute exacerbation, avoid dehydration We will give him septic bolus History of atrial fibrillation. Continue home apixaban. Rate controlled. Holding diltiazem due to hypotension. Hypomagnesemia, hypophosphatemia and hypokalemia. Continue monitoring and replacing. QT interval prolongation, likely secondary electrolyte abnormalities, now resolved Left bundle branch block, new onset, no chest pain complaints, troponins only minimally elevated, continue to monitor for chest pain, will have patient follow-up with cardiology as outpatient Acute metabolic encephalopathy secondary to sepsis. Resolved. Continue close monitoring. Hyponatremia resolved History of melanoma. Continue follow-up with the primary oncologist after disch arge. Hypertension. Stable. DVT prophylaxis. On apixaban. GI prophylaxis. Famotidine. The plan of care was discussed with the patient. He verbalized understanding and agreement. Discussed with the multidisciplinary team. Attestations Medical Necessity Statement*: Patient requires hospitalization force sepsis secondary to pneumonia, colitis, electrolyte abnormalities, QT interval prolongation, will move out of ICU today, critical care time spent over 45 minutes Coding Level of Care Code Acute Acoustic Engineer for [facility] Fwd Diagnoses Sepsis A41.9 Colitis K52.9 Community acquired pneumonia J18.9 Fever R50.9 Melanoma C43.9 WILLIAM (acute kidney injury) N17.9
--- NOTE | 2020-10-18 15:03 | PC.SOCIAL ---
*IMM* Patient received IM from Medicare. Signed, gave a copy to patient copy placed in the chart.
--- NOTE | 2020-10-18 15:21 | PC.NURSE ---
report called to MARIE Zhou, patient transferred to [facility] via wheelchair, transferred to bed, call light in reach.
[2020-10-18 18:46] LABS: Glucose Point of Care 158 mg/dL (70-110)
[2020-10-18 21:29] LABS: Glucose Point of Care 126 mg/dL (70-110)
[2020-10-18 23:39] LABS: Vancomycin Trough < 4.0 ug/mL (10-15)
[2020-10-19] VITALS (9 sets, daily range): BP systolic 121–153; BP diastolic 70–84; PULSE 78–87; RESP 16–20; TEMP 35.9–36.8; O2SAT 91–99
[2020-10-19] MEDS: vancomycin 1,500 MG/300 ML PIGGYBACK 200 MG IV (00:44)
[2020-10-19] MEDS: famotidine 20 mg/2 mL INJ IVP (01:55)
[2020-10-19 04:52] LABS: Basophils % 0.5 %; Eosinophils % 0.4 %; Hematocrit 31.4 % (42.0-52.0); Lymphocytes # 0.7 10^3/uL (0.8-4.8); Lymphocytes % 9.3 %; Mean Corpuscular HGB Conc 31.8 g/dL (30.0-36.0); Mean Corpuscular Hemoglobin 27.5 pg (28.0-34.0); Mean Corpuscular Volume 86.3 fL (80-94); Monocytes # 0.6 10^3/uL (0.2-0.9); Monocytes % 8.6 %; Neutrophils # 5.87 10^3/uL (1.8-7.7); Neutrophils % 80.4 %; Nucleated Red Blood Cells % 0 %; Platelet Count 234 10^3/cmm (130-400); Red Blood Count 3.64 10^6/uL (4.1-5.3); Red Cell Distribution Width 15.5 % (12.1-15.1); White Blood Count 7.3 10^3/uL (4.0-10.0)
[2020-10-19] MEDS: piperacillin-tazobactam 3.375 GM in sodium chloride 0.9% (plus) 50 ML IV (04:58)
[2020-10-19 05:16] LABS: Alanine Aminotransferase 14 U/L (0-41); Albumin Level 2.8 g/dL (3.5-5.2); Alkaline Phosphatase 76 IU/L (40-130); Anion Gap 8.2 (5-19); Aspartate Amino Transferase 21 U/L (0-40); Blood Urea Nitrogen 3 mg/dL (8-23); C Reactive Protein 37.8 mg/L (0.0-4.9); Calcium 8.4 mg/dL (8.5-10.5); Carbon Dioxide 28 mmol/L (22-29); Chloride 105 mmol/L (98-107); Creatinine Clr Calc Pharmacy 104.3494; Globulin 2.1 g/dL (1.3-4.6); Glomerular Filtration Rate 165.9 mL/min (90-130); Glucose 111 mg/dL (65-115); Magnesium 1.6 mg/dL (1.7-2.3); Osmolality Calculated 281 mOsm/kg (285-295); Phosphorus 1.6 mg/dL (2.5-4.5); Potassium 4.2 mmol/L (3.5-5.1); Sodium 137 mmol/L (136-145); Total Bilirubin 0.2 mg/dL (0.15-1.2); Total Protein 4.9 g/dL (6.6-8.7)
[2020-10-19 05:23] LABS: NT Pro B Type Natriuretic Pept 1202 pg/mL (0-125)
[2020-10-19] MEDS: levothyroxine 100 mcg Tablet 200 MCG PO (06:00)
[2020-10-19 06:52] LABS: Glucose Point of Care 108 mg/dL (70-110)
[2020-10-19] MEDS: sodium chlor 0.9% + KCl 20 mEq 20 MEQ/1,000 ML BAG 100 MEQ IV (08:29)
[2020-10-19] MEDS: phosphorus 250 mg Tablet PO (08:29)
[2020-10-19] MEDS: montelukast sodium 10 mg Tablet PO (08:30)
[2020-10-19] MEDS: predniSONE 20 mg Tablet 40 MG PO (08:30)
[2020-10-19] MEDS: CLONazepam 1 mg Tablet 1.5 MG PO (08:30)
[2020-10-19] MEDS: atorvastatin 40 mg Tablet 80 MG PO (08:30)
[2020-10-19] MEDS: buPROPion XL (24 HR) 300 mg Tablet PO (08:30)
[2020-10-19] MEDS: apixaban 5 mg Tablet PO (08:31)
--- NOTE | 2020-10-19 09:27 | PC.NURSE ---
Patient pulled IV port out of right chest port while ambulating to the restroom. After using the restroom Port access was restarted with a 19 guage in two attempts. Clear dressing applied and patient tolerated well.
[2020-10-19] MEDS: phosphorus 250 mg Tablet 500 MG PO (10:31)
[2020-10-19] MEDS: magnesium sulfate premix 2 GM/50 ML PIGGYBACK IV (10:31)
--- NOTE | 2020-10-19 11:44 | PM.DCS ---
Discharge Providers Date of Admission: 10/15/20 01:42 Date of Discharge: October 19, 2020 Attending Provider at Admission: Praneeth Wilkerson MD Attending Provider at Discharge: Curt Youssef MD Primary Care Provider: PORFIRIO Beard Diagnoses at Discharge Discharge Diagnosis (1) Sepsis: Status: Acute (2) Colitis: Status: Acute (3) Community acquired pneumonia: Status: Acute (4) Fever: Status: Acute (5) Melanoma: Status: Acute (6) WILLIAM (acute kidney injury): Status: Acute Reason for Visit Reason for Visit: gen weakness Hospital Course Hospital Course This is a 65-year-old male with a past medical history of atrial fibrillation on Coumadin, hypertension, congestive heart failure, type 2 diabetes mellitus, hypertension, history of hypertrophic cardiomyopathy status post septal myomectomy, hypothyroidism, history of CAD status post angioplasty, with a history of melanoma currently undergoing chemotherapy with ipilimumab and nivolumab who presents [facility] due to complaints of diarrhea and abdominal pain Patient was admitted to [facility] for diarrhea and abdominal pain secondary to colitis with left lower lobe pneumonia evidence sepsis and acute metabolic encephalopathy secondary to sepsis. Patient was admitted to the general medical floors, received broad-spectrum antibiotic therapy, fluid hydration, and clinically monitored. Patient developed an episode of low blood pressure, requiring ICU transfer, blood pressure improved with IV hydration, no pressors required. All cultures including blood cultures, stool cultures, C. difficile have been unremarkable. Patient's diarrhea improved, hydration status improved, blood pressures improved, patient was moved to the general medical floors. I spoke to Dr. Mendenhall, as patient continued to have episodes of diarrhea despite medical therapy, patient possibly could have an inflammatory colitis associated with his chemotherapy, thus he received steroid therapy as inpatient. On the morning of 10/19/2020, patient was adamant about going home, did not want to take any antibiotics as he thought that this was associated with his diarrhea. I have discharged the patient on instructions to drink plenty of electrolyte balance fluids, doxycycline for left lower lobe pneumonia, a prednisone burst, and a close follow-up with primary care and Dr. Mendenhall as outpatient. In addition patient's prior PET scan showed increased activity associated with the descending colon which correlates with the inflammatory changes seen on the CT of the abdomen, I have referred the patient for consideration of outpatient colonoscopy with general surgery. On discharge patient CMV, Entamoeba, Cryptosporidium results are pending which should be followed up as outpatient. Patient also had QT prolongation during his hospital admission secondary to electrolyte abnormalities, which corrected with electrolyte replacement. Patient has chronic hypomagnesemia, hypophosphatemia, hypokalemia. This is likely been exacerbated by patient's diarrhea. I have discharged the patient on magnesium and phosphate replacement therapy. Patient was also found to have a new onset left bundle branch block on admission, no complaints of chest pain, patient is to follow-up with cardiology as outpatient. Physical Exam Const: COMMON NORMALS: no acute distress and patient oriented x3 HENMT: COMMON NORMALS: normocephalic HEAD & SCALP: normocephalic Neck/C-Spine: COMMON NORMALS: no JVD Resp: COMMON NORMALS: normal respiratory effort, No retractions, No use of accessory muscles and clear to auscultation bilaterally AUSCULTATION: clear to auscultation bilaterally Cardio: COMMON NORMALS: no JVD, regular rate, regular rhythm, S1 normal heart sound present and S2 normal heart sound present RATE: regular rate RHYTHM: regular rhythm HEART SOUNDS: S1 normal heart sound present and S2 normal heart sound present GI: COMMON NORMALS: Normal to inspection, nondistended, normoactive bowel sounds present, Soft to palpation, non-tender, No hepatosplenomegaly present, no masses and no bruits PALPATION: Yes Soft to palpation and Yes No hepatosplenomegaly present Extremity: COMMON NORMALS: capillary refill normal, no clubbing, cyanosis or edema, no calf tenderness and no pedal edema Neuro: COMMON NORMALS: patient oriented x3 Psych: COMMON NORMALS: mental status grossly normal Discharge Data Data Completed and Pending: Completed Studies During Hospitalization Category Date Time Status CT abdomen pelvis wo con [id number] Rout ine Cat Scan 10/16/20 10:[address] chest abd pel wo con Urgent Cat Scan 10/14/20 21:[address] head wo con* 7 0450 Urgent Cat Scan 10/14/20 21:21 Completed XR chest 1V gerda ble [id number] Stat Exams 10/14/20 19:59 Completed Pending at discharge Category Date Time Status Blood Culture Sta t Lab 10/14/20 20:55 Results C Reactive Protei n AM LABS Lab 10/20/20 04:00 Ordered C Reactive Protei n AM LABS Lab 10/21/20 04:00 Ordered CMV IGG&IGM Panel Stat Lab 10/18/20 04:31 Received CYTOMEGALOVIRUS D NA, QN, REAL DAILY Lab 10/19/20 09:53 Received Complete Blood Co unt w/Auto AM LABS Lab 10/20/20 04:00 Ordered Complete Blood Co unt w/Auto AM LABS Lab 10/21/20 04:00 Ordered Comprehensive Met abolic Panel AM LA BS Lab 10/20/20 04:00 Ordered Comprehensive Met abolic Panel AM LA BS Lab 10/21/20 04:00 Ordered Enteric Parasite Panel by PCR Routi ne Lab 10/18/20 20:07 Received Lactate (Lactic A kiara level) AM LABS Lab 10/20/20 04:00 Ordered Lactate (Lactic A kiara level) AM LABS Lab 10/21/20 04:00 Ordered Magnesium AM LABS Lab 10/20/20 04:00 Ordered Magnesium AM LABS Lab 10/21/20 04:00 Ordered Miscellaneous Neelima t Routine Lab 10/18/20 08:37 Received Miscellaneous Neelima t Routine Lab 10/18/20 13:13 Ordered NT Pro B Type Lynne riuretic Pept QAM Lab 10/20/20 06:00 Ordered NT Pro B Type Lynne riuretic Pept QAM Lab 10/21/20 06:00 Ordered Phosphorus AM LAB S Lab 10/20/20 04:00 Ordered Phosphorus AM LAB S Lab 10/21/20 04:00 Ordered Procalcitonin AM LABS Lab 10/20/20 04:00 Ordered Procalcitonin AM LABS Lab 10/21/20 04:00 Ordered Labs from last 24 hours 10/19/20 10/19/20 10/19/20 09:53 06:41 04:35 WBC RBC Hgb Hct MCV MCH MCHC RDW Plt Count MPV Neut % (Auto) Lymph % (Auto) [place] % (Auto) Eos % (Auto) Baso % (Auto) Neut # (Auto) Lymph # (Auto) [place] # (Auto) Eos # (Auto) Baso # (Auto) Nucleated RBC % (a uto) Nucleated RBCs # Sodium Potassium Chloride Carbon Dioxide Anion Gap BUN Creatinine GFR Calculation Glucose POC Glucose 108 Calculated Osmolal ity Lactate Calcium Phosphorus Magnesium Total Bilirubin AST ALT Alkaline Phosphata se C-Reactive Protein NT-Pro-B Natriuret Pep 1202 H Total Protein Albumin Globulin Procalcitonin 0.20 Vancomycin Trough CMV Culture Source Pending CMV IgG Ab CMV IgM Ab CMV DNA Quant PCR Pending CMV Qnt PCR Interp Pending 10/19/20 10/19/20 10/19/20 04:35 04:35 04:35 WBC 7.3 RBC 3.64 L Hgb 10.0 L Hct 31.4 L MCV 86.3 MCH 27.5 L MCHC 31.8 RDW 15.5 H Plt Count 234 MPV 9.0 Neut % (Auto) 80.4 Lymph % (Auto) 9.3 [place] % (Auto) 8.6 Eos % (Auto) 0.4 Baso % (Auto) 0.5 Neut # (Auto) 5.87 Lymph # (Auto) 0.7 L [place] # (Auto) 0.6 Eos # (Auto) 0.0 Baso # (Auto) 0.0 Nucleated RBC % (a uto) 0 Nucleated RBCs # 0.0 Sodium 137 Potassium 4.2 Chloride 105 Carbon Dioxide 28 Anion Gap 8.2 BUN 3 L Creatinine 0.5 L GFR Calculation 165.9 H Glucose 111 POC Glucose Calculated Osmolal ity 281 L Lactate 1.0 Calcium 8.4 L Phosphorus 1.6 L Magnesium 1.6 L Total Bilirubin 0.2 AST 21 ALT 14 Alkaline Phosphata se 76 C-Reactive Protein 37.8 H NT-Pro-B Natriuret Pep Total Protein 4.9 L Albumin 2.8 L Globulin 2.1 Procalcitonin Vancomycin Trough CMV Culture Source CMV IgG Ab CMV IgM Ab CMV DNA Quant PCR CMV Qnt PCR Interp 10/18/20 10/18/20 10/18/20 23:06 21:20 18:08 WBC RBC Hgb Hct MCV MCH MCHC RDW Plt Count MPV Neut % (Auto) Lymph % (Auto) [place] % (Auto) Eos % (Auto) Baso % (Auto) Neut # (Auto) Lymph # (Auto) [place] # (Auto) Eos # (Auto) Baso # (Auto) Nucleated RBC % (a uto) Nucleated RBCs # Sodium Potassium Chloride Carbon Dioxide Anion Gap BUN Creatinine GFR Calculation Glucose POC Glucose 126 H 158 H Calculated Osmolal ity Lactate Calcium Phosphorus Magnesium Total Bilirubin AST ALT Alkaline Phosphata se C-Reactive Protein NT-Pro-B Natriuret Pep Total Protein Albumin Globulin Procalcitonin Vancomycin Trough < 4.0 L CMV Culture Source CMV IgG Ab CMV IgM Ab CMV DNA Quant PCR CMV Qnt PCR Interp 10/18/20 10/18/20 11:00 04:31 WBC RBC Hgb Hct MCV MCH MCHC RDW Plt Count MPV Neut % (Auto) Lymph % (Auto) [place] % (Auto) Eos % (Auto) Baso % (Auto) Neut # (Auto) Lymph # (Auto) [place] # (Auto) Eos # (Auto) Baso # (Auto) Nucleated RBC % (a uto) Nucleated RBCs # Sodium Potassium Chloride Carbon Dioxide Anion Gap BUN Creatinine GFR Calculation Glucose POC Glucose 93 Calculated Osmolal ity Lactate Calcium Phosphorus Magnesium Total Bilirubin AST ALT Alkaline Phosphata se C-Reactive Protein NT-Pro-B Natriuret Pep Total Protein Albumin Globulin Procalcitonin Vancomycin Trough CMV Culture Source CMV IgG Ab Pending CMV IgM Ab Pending CMV DNA Quant PCR CMV Qnt PCR Interp Vitals: Last Vital Signs Temp 97.1 F L 10/19/20 11:32 Pulse 87 10/19/20 11:32 Resp 18 10/19/20 11:32 BP 153/74 10/19/20 11:32 Pulse Ox 99 10/19/20 11:32 Discharge Plan Discharge Patient Disposition: Home Condition: Stable Prescriptions: New Phospha 250 Neutral 250 mg Tablet 500 mg PO BID 30 Days Qty: 30 RF: 0 magnesium oxide 400 mg magnesium tablet 400 mg PO BID 30 Days Qty: 60 RF: 0 doxycycline hyclate 100 mg tablet 100 mg PO BID 7 Days Qty: 14 RF: 0 Anti-Diarrheal (loperamide) 1 mg/7.5 mL liquid 2 mg PO Q4H PRN (Reason: loose stool) Qty: 120 RF: 0 prednisone 20 mg tablet 20 mg PO BID 5 Days Qty: 10 RF: 0 Continued citalopram 40 mg tablet 40 mg PO DAILY@0800 RF: 0 trazodone 50 mg tablet 50 mg PO DAILY@0800 RF: 0 diltiazem HCl 180 mg capsule,extended release 24hr 180 mg PO DAILY@0800 RF: 0 potassium chloride 20 mEq tablet,ER particles/crystals 20 meq PO DAILY@0800 RF: 0 montelukast 10 mg tablet 10 mg PO DAILY@0800 RF: 0 levothyroxine 200 mcg tablet 200 mcg PO DAILY@0700 RF: 0 ergocalciferol (vitamin D2) [Vitamin D2] 1,250 mcg (50,000 unit) capsule 1,250 mcg PO Q7D RF: 0 ezetimibe 10 mg tablet 10 mg PO DAILY@0800 RF: 0 rosuvastatin 20 mg tablet 20 mg PO DAILY@0800 RF: 0 bupropion HCl 300 mg tablet extended release 24 hr 300 mg PO DAILY@0800 RF: 0 Januvia 25 mg tablet 25 mg PO DAILY@0800 RF: 0 Dexilant 60 mg capsule,biphase delayed releas 60 mg PO DAILY@0800 RF: 0 losartan 50 mg Tablet 50 mg PO DAILY@0800 RF: 0 tizanidine 4 mg Tablet 4 mg PO BEDTIME@2000 RF: 0 hydrocodone-acetaminophen 5-325 mg tablet 1 tab PO Q6H PRN (Reason: Pain) RF: 0 clonazepam 1 mg tablet 1.5 mg PO DAILY@0800 RF: 0 tramadol 50 mg tablet 50 mg PO BID PRN (Reason: Pain) RF: 0 ProAir HFA 90 mcg/actuation HFA aerosol inhaler See Rx Instructions .ROUTE .COMPLEX RF: 0 fluticasone propionate 1 spray nasal DAILY PRN (Reason: Allergy Symptoms) RF: 0 oxycodone-acetaminophen 10-325 mg tablet 1 tab PO Q6H PRN (Reason: Pain) RF: 0 Changed Eliquis 5 mg tablet 5 mg PO BID Qty: 0 RF: 0 Held torsemide 100 mg tablet 100 mg PO DAILY@0800 RF: 0 Hold Instructions: Resume on 10/25/20. Discontinued amoxicillin-pot clavulanate 875-125 mg tablet 1 tab PO BID@0800,1999 RF: 0 Discharge Orders: Discharge Order (Routine); Ordered 10/19/20 Ordered By: Curt Youssef Referrals: Ilan Valera MD [Physician] - 11/17/20 1:00 pm (need for colonoscopy) ANTONIO Torres, PATIENT INTAKE COORDINATOR [Primary Care Provider] - 10/26/20 11:00 am Darlene Mendenhall MD [Staff Physician] - 1 week Discharge Diet: As Directed Discharge Activity: Resume usual activity Patient Instructions: Loperamide (By mouth), Doxycycline (By mouth), Magnesium Oxide (By mouth), Phosphate Supplement (By mouth), Ulcerative Colitis (DC), Infectious Colitis (GEN) Activity Restrictions/Additional Instructions: -Drink plenty of electrolyte balance fluids such as Gatorade -Take magnesium and phosphorus supplementation as prescribed -Take antibiotics as prescribed -If you have lightheadedness, dizziness, fevers come back to the emergency room -Follow-up with Dr. Mendenhall -Follow-up with general surgery in 3 to 4 weeks for consideration of colonoscopy Discharge Attestations Time Spent in Discharge Care*: greater than 30 min Quality Metrics Clinical Quality Measures During this hospital stay, did patient experience: None Coding Level of Care Code Acute Hatch Tender for [facility] Fwd Exam Comprehensive Diagnoses Sepsis A41.9 Colitis K52.9 Community acquired pneumonia J18.9 Fever R50.9 Melanoma C43.9 WILLIAM (acute kidney injury) N17.9
[2020-10-19 11:51] LABS: Glucose Point of Care 100 mg/dL (70-110)
[2020-10-19] MEDS: doxycycline 100 mg Tablet PO (12:34)
[2020-10-19] MEDS: loperamide liquid 1 mg/7.5 mL Btl 120 mL 4 MG PO (12:34)
[2020-10-19 12:43] LABS: Cytomegalovirus Antibody (IGM) <30.00 AU/mL
--- NOTE | 2020-10-19 13:16 | PC.NURSE ---
stool was on the floor at this time.
--- NOTE | 2020-10-19 14:50 | PC.NURSE ---
Patient's port access removed. 2x2 and tegaderm. Patient tolerated well. Patient educated well on discharge medications and instructions as well as follow up appointments. Patient stated understanding. Patient wheeled out via wheelchair accompanied by caregiver.
[2020-10-21 13:32] LABS: CMV DNA By PCR <200 IU/mL; CMV DNA, QN PCR <2.30 Log IU/mL; SOURCE WHOLE BLOOD
== END 2020-10-19 14:45 | disposition home or self-care (01) | DRG 871 ==
LOC: ER 10-15 00:27 → ER IP 10-15 07:19 → MEDSURG 10-15 17:03 → ICU 10-16 03:48 → MEDSURG 10-18 15:06
PROVIDERS: Internal Medicine; Admitting Provider Internal Medicine; Emergency Provider Emergency Medicine; PCP Nurse Practitioner Family; Visit Provider Family Medicine
DX: A41.9 Sepsis, unspecified organism (principal); G93.41 Metabolic encephalopathy; J18.9 Pneumonia, unspecified organism; N17.9 Acute kidney failure, unspecified; I24.8 Other forms of acute ischemic heart disease; E87.1 Hypo-osmolality and hyponatremia; C43.9 Malignant melanoma of skin, unspecified; Z79.899 Other long term (current) drug therapy; K52.9 Noninfective gastroenteritis and colitis, unspecified; F41.9 Anxiety disorder, unspecified; I25.10 Atherosclerotic heart disease of native coronary artery without angina pectoris; Z98.61 Coronary angioplasty status; I48.91 Unspecified atrial fibrillation; G89.4 Chronic pain syndrome; J32.9 Chronic sinusitis, unspecified; I50.9 Heart failure, unspecified; I11.0 Hypertensive heart disease with heart failure; E11.9 Type 2 diabetes mellitus without complications; E03.9 Hypothyroidism, unspecified; G47.00 Insomnia, unspecified; D50.9 Iron deficiency anemia, unspecified; E78.2 Mixed hyperlipidemia; G47.30 Sleep apnea, unspecified; E55.9 Vitamin D deficiency, unspecified; F17.210 Nicotine dependence, cigarettes, uncomplicated; Z79.51 Long term (current) use of inhaled steroids; Z79.891 Long term (current) use of opiate analgesic; I45.81 Long QT syndrome; I44.7 Left bundle-branch block, unspecified; I95.9 Hypotension, unspecified; E86.0 Dehydration; E87.6 Hypokalemia; E83.42 Hypomagnesemia
CPT/HCPCS: 36415; 36416; 36591; 70450; 71045; 71250; 74176; 80053; 80061; 80069; 80202; 81003; 82274; 82533; 82962; 83605; 83630; 83735; 83880; 84100; 84145; 84439; 84443; 84484; 85025; 85610; 86140; 86403; 87040; 87177; 87209; 87426; 87449; 87493; 87496; 87506; 87635; 87641; 93005; 94640; 94660; 96365; 96366; 96367; 96368; 96372; 97116; 97161; 97165; 97530; 99291; J0456; J0696; J1720; J1815; J2370; J2543; J2930; J3370; J3475; J3480; J3490; J3535; J7030; J7040; J7050; J7512

== ENCOUNTER 2020-10-22 16:58 | Emergency (ER) | payer MEDICARE, MEDICAID, SELFPAY ==
[2020-10-22 17:02] VITALS: BP 179/90; PULSE 80; RESP 18; TEMP 37.1; O2SAT 95; BMI 31.7
--- NOTE | 2020-10-22 19:24 | W.ED.NAVMDI ---
HPI - Nausea/Vomiting/Diarrhea General: Chief complaint: Nausea/Vomiting/Diarrhea Stated complaint: colitis Time Seen by Provider: 10/22/20 19:12 History of Present Illness: HPI Narrative: Patient is a 65-year-old male comes to the ED with diarrhea. Patient has a history of CHF, diabetes type 2, hypothyroidism, hypertension, A. fib and hyperlipidemia. Patient was hospitalized here at [facility] on October 14 for generalized weakness due to diarrhea. He was then discharged from inpatient care on October 16. He was diagnosed with sepsis and colitis. He has been taking Imodium and doxycycline since discharge. Patient says his diarrhea is about the same as it was when he discharged on October 16. He says whenever he eats anything it goes right through him. Patient says he has 6+ episodes of diarrhea a day. He describes having a little tinge of blood sometimes, but denies any visible blood seen in the stool. He is able to drink and keep fluids down denies any nausea or vomiting. He denies any fever, chills, abdominal pain, chest pain, shortness of breath, dysuria or hematuria. Patient is scheduled to follow-up with some of his doctors in the next 2 weeks. He was told at discharge to stop taking his Lasix until next week. Associated nausea: No Associated symtoms: Reports fatigue; Denies change in vision, chest pain, dysuria, headache(s), nausea or palpitations Review of Systems Const: Reports: change in appetite (Decreased appetite because he has diarrhea after he eats) and fatigue; Denies: fever(s) or chills Eyes: Denies: change in vision or eye discomfort ENMT: Denies: throat pain, odynophagia, nasal discharge or nasal congestion Card: Denies: chest pain, palpitations, edema, swelling of feet/ankles, dyspnea on exertion or orthopnea Resp: Denies: dyspnea, productive cough or non-productive cough GI: Reports: diarrhea; Denies: abdominal pain, nausea, vomiting, constipation or hematochezia : Denies: flank pain, difficulty urinating, dysuria or hematuria Musc: Denies: neck pain, back pain or extremity swelling Skin/Breast: Denies: rash or new lesions Neuro: Denies: headache(s), numbness in extremities or weakness in extremities PFS ED PFSH: Medical History Acute lower respiratory infection Anxiety ASHD (arteriosclerotic heart disease) Atrial fibrillation Chronic pain syndrome Chronic recurrent sinusitis Chronic seasonal allergic rhinitis Congestive heart failure (CHF) Diabetes mellitus, type II Essential hypertension Hypertrophic cardiomyopathy Hypomagnesemia Hypothyroidism Insomnia Iron deficiency Lower respiratory infection Melanoma Mixed hyperlipidemia Multilevel degenerative disc disease Sleep apnea Vitamin D deficiency Surgical History Coronary angioplasty status [facility] 2105 H/O ventricular septal myectomy Family History Mother Myocardial infarction Father Hypertension Other Diabetes Family history of CABG Social History Smoking and tobacco status: current every day smoker Second hand smoke exposure: No Desire information about alcohol rehabilitation?: No Counseling given: No Desire information about substance/drug rehabilitation?: No Counseling given: No Physical Exam Const: COMMON NORMALS: no acute distress, patient oriented x3 and healthy appearing GENERAL APPEARANCE: cooperative and comfortable HENMT: COMMON NORMALS: normocephalic HEAD & SCALP: normocephalic MOUTH: Normal oral and palatal mucosa present THROAT: posterior oropharynx normal and uvula midline Neck/C-Spine: COMMON NORMALS: supple GENERAL: Yes normal visual inspection Resp: COMMON NORMALS: normal respiratory effort, No retractions, No use of accessory muscles and clear to auscultation bilaterally AUSCULTATION: clear to auscultation bilaterally Cardio: COMMON NORMALS: regular rate, regular rhythm, S1 normal heart sound present, S2 normal heart sound present, No gallops present (Cardio), No clicks present (Cardio), No murmurs present (Cardio) and Peripheral pulses 2+ throughout RATE: regular rate RHYTHM: regular rhythm HEART SOUNDS: S1 normal heart sound present and S2 normal heart sound present PERIPHERAL PULSES: Peripheral pulses 2+ throughout GI: COMMON NORMALS: Normal to inspection, nondistended, normoactive bowel sounds present, Soft to palpation, non-tender and no masses INSPECTION: Yes central obesity PALPATION: Yes Soft to palpation : COMMON NORMALS: Yes no CVA tenderness BLADDER/KIDNEY EXAM: Yes no CVA tenderness Back/Pelvis: COMMON NORMALS: no CVA tenderness Extremity: GENERAL: Yes edema (Bilateral 2+ pitting edema to mid mtz.) Neuro: COMMON NORMALS: patient oriented x3 and moves all extremities Skin: GENERAL SKIN EXAM: dry skin Course Vital Signs: Vital signs: Vital Signs Temperature 98.7 F 10/22/20 17:02 Pulse Rate 77 10/22/20 22:08 Respiratory Rate 16 10/22/20 22:08 Blood Pressure 146/78 10/22/20 22:08 Pulse Oximetry 96 10/22/20 22:08 MDM - Nausea/Vomiting/Diarrhea MDM Narrative: Medical decision making narrative: Patient is a 65-year-old male who comes to the ED with diarrhea. Patient has a past medical history of heart failure, hypertension, A. fib, diabetes type 2 and hyperlipidemia. Patient was recently hospitalized over 6 days ago for sepsis due to colitis. He was told to stop taking his Lasix until October 25. Patient is currently taking Imodium and doxycycline to treat diarrhea. Patient appears nontoxic and in no acute distress while here in the ED. he has bilateral 2+ pitting edema on lower extremities. White blood cell count of 10.5 with the rest of CBC and CMP were unremarkable. Lipase 110. Lactic 0.8. Chest x-ray showed no acute findings. Patient was diagnosed with diarrhea and bilateral leg edema. He was told to continue taking his previously prescribed meds and I informed him to start taking his previously prescribed Lasix to help with his fluid retention. I recommended that he take the Lasix every other day until he sees a doctor and discuss his further management. Patient was given half a liter of IV fluids while here in the ED. He has follow-up with his PCP and Dr. Valera within the next couple weeks. Return to ED precautions. Patient understood agree with plan. Lab Data: Attestation: I reviewed the patient's lab results. Labs: Lab Results 10/22/20 10/22/20 10/22/20 Range/Units 19:40 19:40 19:40 WBC 10.5 H (4.0-10.0) 10^3/ uL RBC 4.16 (4.1-5.3) 10^6/u L Hgb 11.5 L (11.7-16.6) g/dL Hct 36.9 L (42.0-52.0) % MCV 88.7 (80-94) fL MCH 27.6 L (28.0-34.0) pg MCHC 31.2 (30.0-36.0) g/dL RDW 16.0 H (12.1-15.1) % Plt Count 386 (130-400) 10^3/c mm MPV 8.5 (7.4-10.4) fL Lymph % (Auto) Not Reportable Mora % (Auto) Not Reportable Lymph # (Auto) Not Reportable Mora # (Auto) Not Reportable Total Counted 100 (0-100) Atypical Lymphs % 0.0 (0-5) % Absolute Neutrophi ls 8.4 H (1.4-6.5) 10^3/c mm Segmented Neutroph ils 54 % Abs Segm Neuts (Ma n) 5.7 (1.6-7.1) 10/cmm Band Neutrophils 26.0 % Abs Band Neuts (Ma n) 2.7 H (0.0-1.2) 10^3/c mm Lymphocytes (Manua l) 9 % Monocytes (Manual) 7.0 % Absolute Monocytes 0.7 H (0.1-0.6) 10^3/c mm Eosinophils (Manua l) 0 % Absolute Eosinophi ls 0.0 (0.0-0.7) 10^3/c mm Basophils (Manual) 0.0 % Absolute Basophils 0.0 (0.0-0.2) 10^3/c mm Metamyelocytes 3.0 % Myelocytes 1.0 % Nucleated RBCs 1.0 (0-1) /100WBC Platelet Estimate Normal (Normal) Polychromasia 1+ H Sodium 138 (136-145) mmol/L Potassium 3.5 (3.5-5.1) mmol/L Chloride 102 (98-107) mmol/L Carbon Dioxide 29 (22-29) mmol/L Anion Gap 10.5 (5-19) BUN 6 L (8-23) mg/dL Creatinine 0.7 (0.7-1.2) mg/dL GFR Calculation 112.5 (90-130) mL/min Glucose 88 (65-115) mg/dL Calculated Osmolal ity 283 L (285-295) mOsm/k g Lactic Acid 0.8 (0.5-2.2) mmol/L Calcium 8.1 L (8.5-10.5) mg/dL Total Bilirubin 0.3 (0.15-1.2) mg/dL AST 34 (0-40) U/L ALT 22 (0-41) U/L Alkaline Phosphata se 82 (40-130) IU/L Total Protein 5.3 L (6.6-8.7) g/dL Albumin 3.2 L (3.5-5.2) g/dL Globulin 2.1 (1.3-4.6) g/dL Lipase 110 H (13-60) U/L Urine Color (Yellow) Urine Appearance (CLEAR) Urine pH (5-7) Ur Specific Gravit y (1.005-1.030) Urine Protein (Negative) Urine Glucose (UA) (Normal) Urine Ketones (Negative) Urine Blood (Negative) Urine Nitrate (Negative) Urine Bilirubin (Negative) Prot Sulfosalicyli c Acd (Negative) Urine Urobilinogen (Negative) mg/dL Ur Leukocyte Abida ase (Negative) Urine RBC (0-2) /hpf Urine WBC (0-5) /hpf Ur Squamous Epith Cells (0-5) /hpf Amorphous Sediment Urine Bacteria (NONE) /hpf 10/22/20 Range/Units 21:03 WBC (4.0-10.0) 10^3/ uL RBC (4.1-5.3) 10^6/u L Hgb (11.7-16.6) g/dL Hct (42.0-52.0) % MCV (80-94) fL MCH (28.0-34.0) pg MCHC (30.0-36.0) g/dL RDW (12.1-15.1) % Plt Count (130-400) 10^3/c mm MPV (7.4-10.4) fL Lymph % (Auto) Mora % (Auto) Lymph # (Auto) Mora # (Auto) Total Counted (0-100) Atypical Lymphs % (0-5) % Absolute Neutrophi ls (1.4-6.5) 10^3/c mm Segmented Neutroph ils % Abs Segm Neuts (Ma n) (1.6-7.1) 10/cmm Band Neutrophils % Abs Band Neuts (Ma n) (0.0-1.2) 10^3/c mm Lymphocytes (Manua l) % Monocytes (Manual) % Absolute Monocytes (0.1-0.6) 10^3/c mm Eosinophils (Manua l) % Absolute Eosinophi ls (0.0-0.7) 10^3/c mm Basophils (Manual) % Absolute Basophils (0.0-0.2) 10^3/c mm Metamyelocytes % Myelocytes % Nucleated RBCs (0-1) /100WBC Platelet Estimate (Normal) Polychromasia Sodium (136-145) mmol/L Potassium (3.5-5.1) mmol/L Chloride (98-107) mmol/L Carbon Dioxide (22-29) mmol/L Anion Gap (5-19) BUN (8-23) mg/dL Creatinine (0.7-1.2) mg/dL GFR Calculation (90-130) mL/min Glucose (65-115) mg/dL Calculated Osmolal ity (285-295) mOsm/k g Lactic Acid (0.5-2.2) mmol/L Calcium (8.5-10.5) mg/dL Total Bilirubin (0.15-1.2) mg/dL AST (0-40) U/L ALT (0-41) U/L Alkaline Phosphata se (40-130) IU/L Total Protein (6.6-8.7) g/dL Albumin (3.5-5.2) g/dL Globulin (1.3-4.6) g/dL Lipase (13-60) U/L Urine Color Yellow (Yellow) Urine Appearance Clear (CLEAR) Urine pH 9 H (5-7) Ur Specific Gravit y 1.010 (1.005-1.030) Urine Protein Neg (Negative) Urine Glucose (UA) Norm (Normal) Urine Ketones Negative (Negative) Urine Blood Neg (Negative) Urine Nitrate Negative (Negative) Urine Bilirubin Neg (Negative) Prot Sulfosalicyli c Acd Negative (Negative) Urine Urobilinogen Norm (Negative) mg/dL Ur Leukocyte Abida ase Negative (Negative) Urine RBC 0-4 H (0-2) /hpf Urine WBC 0-4 H (0-5) /hpf Ur Squamous Epith Cells 0-4 H (0-5) /hpf Amorphous Sediment Not Reportable Urine Bacteria Trace (NONE) /hpf Imaging Data^: CXR: Attestation: I personally reviewed and interpreted this imaging study as follows: Radiologist's impression: [address] [address] XRay Report Signed Patient: Catrachito Agosto Unit #: [id number] : 1955 Age/Sex: 65 / M ADM Date: 10/22/20 Loc: ER Room/Bed: Attending Dr: Ordering Provider/Ordering MD: Yobany Zamora Date of Service: 10/22/20 Procedure(s): XR chest 1V portable [id number] Accession Number(s): [id number] Report Number: [id number] PROCEDURE INFORMATION: Exam: XR Chest Exam date and time: 10/22/2020 7:44 PM Age: 65 years old Clinical indication: Other: Weak; Prior surgery; Surgery date: 6+ months; Additional info: Weakness TECHNIQUE: Imaging protocol: XR of the chest Views: 1 view. COMPARISON: CT chest abd pel wo con 10/14/2020 10:37 PM FINDINGS: Tubes, catheters and devices: Right chest tunnel Port-A-Cath terminates in the distal SVC. Lungs: Unremarkable. No consolidation. Pleural spaces: Unremarkable. No pleural effusion. No pneumothorax. Heart/Mediastinum: Prior CABG. Mild cardiac enlargement. Bones/joints: Unremarkable. Soft tissues: Surgical clips in the left axilla. XR/XR chest 1V portable [id number] IMPRESSION: No focal acute pulmonary disease identified. Dictated By: Angel Vega Signed By: Angel Vega Signed Date/Time: 10/22/202016 DD/ 14 Discharge Plan Discharge Patient Disposition: Home Clinical Impression: Leg edema Diarrhea Qualifiers: Diarrhea type: unspecified type Qualified Code(s): R19.7 - Diarrhea, unspecified Condition: Stable Prescriptions: No Action ergocalciferol (vitamin D2) [Vitamin D2] 1,250 mcg (50,000 unit) capsule See Rx Instructions .ROUTE .COMPLEX Qty: 4 RF: 3 citalopram 40 mg tablet 40 mg PO DAILY@0800 RF: 0 trazodone 50 mg tablet 50 mg PO DAILY@0800 RF: 0 diltiazem HCl 180 mg capsule,extended release 24hr 180 mg PO DAILY@0800 RF: 0 potassium chloride 20 mEq tablet,ER particles/crystals 20 meq PO DAILY@0800 RF: 0 torsemide 100 mg tablet 100 mg PO DAILY@0800 RF: 0 Hold Instructions: Resume on 10/25/20. montelukast 10 mg tablet 10 mg PO DAILY@0800 RF: 0 levothyroxine 200 mcg tablet 200 mcg PO DAILY@0700 RF: 0 ezetimibe 10 mg tablet 10 mg PO DAILY@0800 RF: 0 rosuvastatin 20 mg tablet 20 mg PO DAILY@0800 RF: 0 bupropion HCl 300 mg tablet extended release 24 hr 300 mg PO DAILY@0800 RF: 0 Januvia 25 mg tablet 25 mg PO DAILY@0800 RF: 0 Dexilant 60 mg capsule,biphase delayed releas 60 mg PO DAILY@0800 RF: 0 losartan 50 mg Tablet 50 mg PO DAILY@0800 RF: 0 tizanidine 4 mg Tablet 4 mg PO BEDTIME@2000 RF: 0 hydrocodone-acetaminophen 5-325 mg tablet 1 tab PO Q6H PRN (Reason: Pain) RF: 0 clonazepam 1 mg tablet 1.5 mg PO DAILY@0800 RF: 0 tramadol 50 mg tablet 50 mg PO BID PRN (Reason: Pain) RF: 0 ProAir HFA 90 mcg/actuation HFA aerosol inhaler See Rx Instructions .ROUTE .COMPLEX RF: 0 fluticasone propionate 1 spray nasal DAILY PRN (Reason: Allergy Symptoms) RF: 0 oxycodone-acetaminophen 10-325 mg tablet 1 tab PO Q6H PRN (Reason: Pain) RF: 0 Phospha 250 Neutral 250 mg Tablet 500 mg PO BID 30 Days Qty: 30 RF: 0 magnesium oxide 400 mg magnesium tablet 400 mg PO BID 30 Days Qty: 60 RF: 0 doxycycline hyclate 100 mg tablet 100 mg PO BID 7 Days Qty: 14 RF: 0 Eliquis 5 mg tablet 5 mg PO BID Qty: 0 RF: 0 Anti-Diarrheal (loperamide) 1 mg/7.5 mL liquid 2 mg PO Q4H PRN (Reason: loose stool) Qty: 120 RF: 0 prednisone 20 mg tablet 20 mg PO BID 5 Days Qty: 10 RF: 0 Discharge Orders: Discharge ED (Routine); Ordered 10/22/20 Ordered By: Yobany Zamora Referrals: ANTONIO Torres, [employer] [Primary Care Provider] - Discharge Diet: Cardiac and Low Salt Discharge Activity: Increase activity as tolerated Patient Instructions: Diarrhea - Adult, Leg Edema (ED) Activity Restrictions/Additional Instructions: Follow-up with medical provider as directed in 7 to 10 days for reevaluation. Start taking your diuretic every other day until reevaluated and seen by doctor. Also start taking your Metamucil multiple times daily to help with diarrhea. Continue taking all home medications as prescribed. Return to the ER or your medical provider if condition worsens. Please read and understand discharge instructions. If any questions, please ask. Coding Level of Care Code ED Supervisor Scouring Pads for Dina Fwd Exam Comprehensive
--- NOTE | 2020-10-22 19:32 | XRR_ITS ---
PROCEDURE INFORMATION: Exam: XR Chest Exam date and time: 10/22/2020 7:44 PM Age: 65 years old Clinical indication: Other: Weak; Prior surgery; Surgery date: 6+ months; Additional info: Weakness TECHNIQUE: Imaging protocol: XR of the chest Views: 1 view. COMPARISON: CT chest abd pel wo con 10/14/2020 10:37 PM FINDINGS: Tubes, catheters and devices: Right chest tunnel Port-A-Cath terminates in the distal SVC. Lungs: Unremarkable. No consolidation. Pleural spaces: Unremarkable. No pleural effusion. No pneumothorax. Heart/Mediastinum: Prior CABG. Mild cardiac enlargement. Bones/joints: Unremarkable. Soft tissues: Surgical clips in the left axilla. XR/XR chest 1V portable [id number] IMPRESSION: No focal acute pulmonary disease identified.
[2020-10-22] MEDS: sodium chloride 0.9% 500 ML 999 ML IV (19:38)
[2020-10-22 19:54] LABS: Hematocrit 36.9 % (42.0-52.0); Hemoglobin 11.5 g/dL (11.7-16.6); Mean Corpuscular HGB Conc 31.2 g/dL (30.0-36.0); Mean Corpuscular Hemoglobin 27.6 pg (28.0-34.0); Mean Corpuscular Volume 88.7 fL (80-94); Mean Platelet Volume 8.5 fL (7.4-10.4); Platelet Count 386 10^3/cmm (130-400); Red Blood Count 4.16 10^6/uL (4.1-5.3); White Blood Count 10.5 10^3/uL (4.0-10.0)
[2020-10-22 20:24] LABS: Alanine Aminotransferase 22 U/L (0-41); Albumin Level 3.2 g/dL (3.5-5.2); Alkaline Phosphatase 82 IU/L (40-130); Anion Gap 10.5 (5-19); Aspartate Amino Transferase 34 U/L (0-40); Blood Urea Nitrogen 6 mg/dL (8-23); Calcium 8.1 mg/dL (8.5-10.5); Carbon Dioxide 29 mmol/L (22-29); Chloride 102 mmol/L (98-107); Globulin 2.1 g/dL (1.3-4.6); Glomerular Filtration Rate 112.5 mL/min (90-130); Glucose 88 mg/dL (65-115); Lipase 110 U/L (13-60); Osmolality Calculated 283 mOsm/kg (285-295); Potassium 3.5 mmol/L (3.5-5.1); Sodium 138 mmol/L (136-145); Total Bilirubin 0.3 mg/dL (0.15-1.2); Total Protein 5.3 g/dL (6.6-8.7)
[2020-10-22 20:25] LABS: Lactic Sepsis W/Reflex 0.8 mmol/L (0.5-2.2)
[2020-10-22 20:38] LABS: Absolute Neutrophil 8.4 10^3/cmm (1.4-6.5); Absolute Segmented Neutrophil 5.7 10/cmm (1.6-7.1); Band Neutrophils Absolute 2.7 10^3/cmm (0.0-1.2); Eosinophils 0 %; Lymphocytes 9 %; Monocytes Absolute 0.7 10^3/cmm (0.1-0.6); Platelet Estimate Normal (Normal); Polychromasia 1+; Segmented Neutrophils 54 %; Slide Review Slide Review Perform; Total Cells Counted 100 (0-100)
[2020-10-22 21:04] VITALS: BP 167/87; PULSE 75; RESP 17; O2SAT 96
[2020-10-22 21:29] LABS: Urine Appearance Clear (CLEAR); Urine Color Yellow (Yellow); pH Urine 9 (5-7)
[2020-10-22 21:30] LABS: Bilirubin Urine Neg (Negative); Blood Urine Neg (Negative); Glucose Urine UA Norm (Normal); Ketones Urine Negative (Negative); Leukocyte Esterase Urine Negative (Negative); Nitrate Urine Negative (Negative); Protein Urine Neg (Negative); Sulfosalicylic Acid Urine Negative (Negative); Urobilinogen Urine Norm (Negative)
[2020-10-22 21:31] LABS: RBC Urine 0-4 /hpf (0-2); Squamous Epithelial Cell Urine 0-4 /hpf (0-5); WBC Urine 0-4 /hpf (0-5)
[2020-10-22 21:32] LABS: Add Urine Culture? No; Bacteria Urine TRACE /hpf
[2020-10-22 22:08] VITALS: BP 146/78; PULSE 77; RESP 16; O2SAT 96
--- NOTE | 2020-10-22 22:11 | PC.NURSE ---
port de-accessed with 20cc NS flushed then 500Units Heparin
== END 2020-10-22 22:11 | disposition home or self-care (01) ==
PROVIDERS: Emergency Provider Physician Assistant; PCP Nurse Practitioner Family
DX: R19.7 Diarrhea, unspecified (principal); R60.0 Localized edema; Z79.01 Long term (current) use of anticoagulants; I48.91 Unspecified atrial fibrillation; I11.0 Hypertensive heart disease with heart failure; I50.9 Heart failure, unspecified; E11.9 Type 2 diabetes mellitus without complications; E78.2 Mixed hyperlipidemia; Z98.61 Coronary angioplasty status; F17.210 Nicotine dependence, cigarettes, uncomplicated
CPT/HCPCS: 71045; 80053; 81001; 83605; 83690; 85007; 85025; 87040; 99283; J7040

== ENCOUNTER 2020-10-28 09:35 | Inpatient (IN) | payer MEDICARE, MEDICAID, SELFPAY ==
[2020-10-28] VITALS (11 sets, daily range): BP systolic 86–112; BP diastolic 44–69; PULSE 60–89; RESP 17–20; TEMP 36.8–37.5; O2SAT 91–98; BMI 29.7
--- NOTE | 2020-10-28 10:02 | ECG_ITS ---
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 Measurements Intervals [place] Rate: 81 P: 33 NJ: 127 QRS: -38 QRSD: 134 T: 110 QT: 427 QTc: 498 Interpretive Statements SINUS RHYTHM LEFT AXIS DEVIATION [QRS AXIS < -30] INTRAVENTRICULAR CONDUCTION DELAY [130+ ms QRS DURATION] Compared to ECG 10/16/2020 15:59:47 Left-axis deviation now present Intraventricular conduction delay now present Left bundle-branch block no longer present Electronically Signed On 10-28-2020 21:58:19 [employer] by Richa Diaz M.D. [id number]
--- NOTE | 2020-10-28 10:11 | W.ED.NAVMDI ---
HPI - Nausea/Vomiting/Diarrhea General: Chief complaint: Nausea/Vomiting/Diarrhea Stated complaint: N/V, DIARRHEA Time Seen by Provider: 10/28/20 09:54 History of Present Illness: HPI Narrative: The patient is a 65-year-old male with past medical history sepsis from colitis recently discharged, CHF, diabetes, A. fib on Coumadin, hypertension and, melanoma. He comes to the ER today complaining of nausea vomiting and diarrhea and generalized weakness. No focal weakness. Also complains of abdominal cramping and pain. MD elicited complaint: nausea, vomiting and diarrhea Description of vomiting: watery Description of diarrhea: watery Location of pain: Diffuse Radiation: diffuse Severity: moderate Quality: cramping Relieving factors: none Associated symtoms: Denies anxiety, change in vision, chest pain, dizziness, fatigue, headache(s) or palpitations Review of Systems General: Reports: 10 or more systems reviewed and unremarkable except in HPI and below Const: Denies: fatigue Eyes: Denies: change in vision, blurry vision or eye redness ENMT: Denies: throat pain, swelling of lips/tongue, ear or mastoid pain or nasal congestion Card: Denies: chest pain, palpitations, irregular heart rhythm, edema, dyspnea on exertion or orthopnea Resp: Denies: dyspnea, productive cough or non-productive cough GI: Denies: abdominal pain, diarrhea or GI cramping : Denies: flank pain, urinary frequency or urinary urgency Musc: Denies: neck pain, back pain, extremity pain, joint pain, joint redness, limited range of motion or muscle weakness Skin/Breast: Denies: rash, pruritus, erythema, skin pain or skin tenderness Neuro: Denies: headache(s), numbness in extremities, weakness in extremities, sensory changes, difficulty walking, dizziness, confusion or Slurred speech present Psych: Denies: anxiety or depression Endo: Denies: polyuria All/Imm: Denies: urticaria, throat swelling or tongue swelling PFSH ED PFSH: Medical History Acute lower respiratory infection Anxiety ASHD (arteriosclerotic heart disease) Atrial fibrillation Chronic pain syndrome Chronic recurrent sinusitis Chronic seasonal allergic rhinitis Congestive heart failure (CHF) Diabetes mellitus, type II Essential hypertension Hypertrophic cardiomyopathy Hypomagnesemia Hypothyroidism Insomnia Iron deficiency Lower respiratory infection Melanoma Mixed hyperlipidemia Multilevel degenerative disc disease Sleep apnea Vitamin D deficiency Surgical History Coronary angioplasty status [facility] 2105 H/O ventricular septal myectomy Family History Mother Myocardial infarction Father Hypertension Other Diabetes Family history of CABG Social History Smoking and tobacco status: current every day smoker Second hand smoke exposure: No Desire information about alcohol rehabilitation?: No Counseling given: No Desire information about substance/drug rehabilitation?: No Counseling given: No Physical Exam Const: COMMON NORMALS: no acute distress, average body habitus, patient oriented x3, no limitations, healthy appearing, alert and well nourished GENERAL APPEARANCE: cooperative, comfortable, well kempt and well developed ORIENTATION/CONSCIOUSNESS: Yes awake, Yes oriented to person, Yes oriented to place and Yes oriented to time HENMT: COMMON NORMALS: normocephalic, external ears normal and Normal external nose present HEAD & SCALP: normal to inspection and normocephalic NOSE: Normal external nose present EXTERNAL EAR: Yes external ears normal MOUTH: Normal oral and palatal mucosa present THROAT: posterior oropharynx normal Eye: COMMON NORMALS: Equal, round and reactive pupils present and EOMs intact bilaterally GENERAL EYE: appearance normal, both eyes and all related structures PUPIL: Yes Equal, round and reactive pupils present Neck/C-Spine: COMMON NORMALS: full ROM, no lymphadenopathy, no meningeal signs and no JVD GENERAL: Yes normal visual inspection Lymph: LYMPHATIC: no lymphadenopathy noted Chest: COMMONS NORMALS: normal inspection of the chest and normal palpation of entire chest wall Resp: COMMON NORMALS: normal respiratory effort, No retractions and No use of accessory muscles AUSCULTATION: wheezes expiratory wheezes and lower bilaterally Cardio: COMMON NORMALS: no JVD, regular rate, regular rhythm, S1 normal heart sound present, S2 normal heart sound present and Peripheral pulses 2+ throughout RATE: regular rate RHYTHM: regular rhythm HEART SOUNDS: S1 normal heart sound present and S2 normal heart sound present PERIPHERAL PULSES: Peripheral pulses 2+ throughout GI: COMMON NORMALS: Normal to inspection, nondistended, normoactive bowel sounds present and Soft to palpation PALPATION: Yes Soft to palpation OTHER: mild discomfort to palpation in all quadrants. No significant tenderness. : COMMON NORMALS: Yes no CVA tenderness BLADDER/KIDNEY EXAM: Yes no CVA tenderness Back/Pelvis: COMMON NORMALS: no CVA tenderness, thoracic and lumbar spine normal to inspection, no thoracic nor lumbar tenderness and thoraco-lumbar ROM normal Extremity: COMMON NORMALS: normal to inspection, full ROM, capillary refill normal, no joint enlargement and no pedal edema GENERAL: Yes normal exam except as noted Neuro: COMMON NORMALS: patient oriented x3, CN's II-XII intact bilaterally, moves all extremities, no focal motor deficits, no sensory deficits noted and gait normal SENSORIUM/ORIENTATION: Yes alert, Yes oriented to person, Yes oriented to place and Yes oriented to time MENINGEAL SIGNS: Yes no meningeal signs Psych: COMMON NORMALS: mental status grossly normal, Normal thought process present, cooperative, normal affect and speech normal APPEARANCE: Yes well kempt ATTITUDE: Yes calm SPEECH: Yes normal speech THOUGHT PROCESS: Normal thought process present Skin: COMMON NORMALS: no rashes or lesions noted GENERAL SKIN EXAM: no rashes or lesions noted Course Vital Signs: Vital signs: Vital Signs Temperature 98.2 F 10/28/20 09:47 Pulse Rate 80 10/28/20 12:45 Respiratory Rate 18 10/28/20 12:45 Blood Pressure 97/56 10/28/20 12:45 Pulse Oximetry 92 10/28/20 12:45 MDM - Nausea/Vomiting/Diarrhea MDM Narrative: Medical decision making narrative: This patient came to the ED with profound diarrhea and also mild nausea and vomiting. CT shows again repeat colitis with a white count of 20.9. He was given IV fluids to treat some mild hypotension and he is likely quite dehydrated. Also levofloxacin and Flagyl IV. Discussed with Dr. Reza who accepts to the floor. Lab Data: Labs: Lab Results 10/28/20 10/28/20 10/28/20 Range/Units 10:30 10:30 10:30 WBC 20.9 H (4.0-10.0) 10^3/ uL RBC 4.76 (4.1-5.3) 10^6/u L Hgb 13.1 (11.7-16.6) g/dL Hct 40.1 L (42.0-52.0) % MCV 84.2 (80-94) fL MCH 27.5 L (28.0-34.0) pg MCHC 32.7 (30.0-36.0) g/dL RDW 15.5 H (12.1-15.1) % Plt Count 301 (130-400) 10^3/c mm MPV 8.8 (7.4-10.4) fL Neut % (Auto) 83.8 % Lymph % (Auto) 7.5 % Mellette % (Auto) 5.8 % Eos % (Auto) 1.5 % Baso % (Auto) 0.5 % Neut # (Auto) 17.46 H (1.8-7.7) 10^3/u L Lymph # (Auto) 1.6 (0.8-4.8) 10^3/u L Mellette # (Auto) 1.2 H (0.2-0.9) 10^3/u L Eos # (Auto) 0.3 (0.0-0.8) 10^3/u L Baso # (Auto) 0.1 (0.0-0.1) 10^3/u L Nucleated RBC % (a uto) 0.1 % Nucleated RBCs # 0.0 /100WBC PT (12.1-14.9) SECO NDS INR (0.8-1.2) Sodium 126 L (136-145) mmol/L Potassium 3.4 L (3.5-5.1) mmol/L Chloride 85 L (98-107) mmol/L Carbon Dioxide 33 H (22-29) mmol/L Anion Gap 11.4 (5-19) BUN 9 (8-23) mg/dL Creatinine 1.4 H (0.7-1.2) mg/dL GFR Calculation 50.5 L (90-130) mL/min Glucose 101 (65-115) mg/dL Calculated Osmolal ity 261 L (285-295) mOsm/k g Lactate 1.6 (0.5-2.2) mmol/L Calcium 8.2 L (8.5-10.5) mg/dL Total Bilirubin 0.9 (0.15-1.2) mg/dL AST 19 (0-40) U/L ALT 10 (0-41) U/L Alkaline Phosphata se 82 (40-130) IU/L Troponin T Gen 5 n g/L (0-15) ng/L NT-Pro-B Natriuret Pep 175 H (0-125) pg/mL Total Protein 5.0 L (6.6-8.7) g/dL Albumin 3.1 L (3.5-5.2) g/dL Globulin 1.9 (1.3-4.6) g/dL Lipase 37 (13-60) U/L Urine Color (Yellow) Urine Appearance (CLEAR) Urine pH (5-7) Ur Specific Gravit y (1.005-1.030) Urine Protein (Negative) Urine Glucose (UA) (Normal) Urine Ketones (Negative) Urine Blood (Negative) Urine Nitrate (Negative) Urine Bilirubin (Negative) Urine Urobilinogen (Negative) mg/dL Ur Leukocyte Abida ase (Negative) Urine RBC (0-2) /hpf Urine WBC (0-5) /hpf Ur Squamous Epith Cells (0-5) /hpf Amorphous Sediment /hpf Urine Bacteria (NONE) /hpf 10/28/20 10/28/20 10/28/20 Range/Units 10:30 10:30 10:31 WBC (4.0-10.0) 10^3/ uL RBC (4.1-5.3) 10^6/u L Hgb (11.7-16.6) g/dL Hct (42.0-52.0) % MCV (80-94) fL MCH (28.0-34.0) pg MCHC (30.0-36.0) g/dL RDW (12.1-15.1) % Plt Count (130-400) 10^3/c mm MPV (7.4-10.4) fL Neut % (Auto) % Lymph % (Auto) % Mellette % (Auto) % Eos % (Auto) % Baso % (Auto) % Neut # (Auto) (1.8-7.7) 10^3/u L Lymph # (Auto) (0.8-4.8) 10^3/u L Mellette # (Auto) (0.2-0.9) 10^3/u L Eos # (Auto) (0.0-0.8) 10^3/u L Baso # (Auto) (0.0-0.1) 10^3/u L Nucleated RBC % (a uto) % Nucleated RBCs # /100WBC PT 17.90 H (12.1-14.9) SECO NDS INR 1.42 H (0.8-1.2) Sodium (136-145) mmol/L Potassium (3.5-5.1) mmol/L Chloride (98-107) mmol/L Carbon Dioxide (22-29) mmol/L Anion Gap (5-19) BUN (8-23) mg/dL Creatinine (0.7-1.2) mg/dL GFR Calculation (90-130) mL/min Glucose (65-115) mg/dL Calculated Osmolal ity (285-295) mOsm/k g Lactate (0.5-2.2) mmol/L Calcium (8.5-10.5) mg/dL Total Bilirubin (0.15-1.2) mg/dL AST (0-40) U/L ALT (0-41) U/L Alkaline Phosphata se (40-130) IU/L Troponin T Gen 5 n g/L 32 H (0-15) ng/L NT-Pro-B Natriuret Pep (0-125) pg/mL Total Protein (6.6-8.7) g/dL Albumin (3.5-5.2) g/dL Globulin (1.3-4.6) g/dL Lipase (13-60) U/L Urine Color Dark yellow (Yellow) Urine Appearance Sl hazy (CLEAR) Urine pH 5 (5-7) Ur Specific Gravit y 1.020 (1.005-1.030) Urine Protein Neg (Negative) Urine Glucose (UA) Norm (Normal) Urine Ketones Negative (Negative) Urine Blood 2+ H (Negative) Urine Nitrate Negative (Negative) Urine Bilirubin Neg (Negative) Urine Urobilinogen Norm (Negative) mg/dL Ur Leukocyte Abida ase Negative (Negative) Urine RBC 5-10 H (0-2) /hpf Urine WBC None (0-5) /hpf Ur Squamous Epith Cells None (0-5) /hpf Amorphous Sediment 1+ /hpf Urine Bacteria Trace (NONE) /hpf Discharge Plan Discharge Patient Disposition: Admitted As Inpatient Clinical Impression: Colitis, Sepsis Condition: Stable Coding Level of Care Code ED 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
[2020-10-28] MEDS: albuterol 8 gm MDI 2 PUFF INHALATION (10:19)
--- NOTE | 2020-10-28 10:20 | CT_ITS ---
WS: [id number] CT ABDOMEN AND PELVIS NONCONTRAST HISTORY: abdominal pain n/v/d. Recent sepsis from colitis TECHNIQUE: Imaging performed through the abdomen and pelvis. Coronal and sagittal reformats are submi tted. All CT scans at [facility] use at least one of these dose optimization techniques: automated exposure control; mA and/or kV adjustment per patient size (includes targeted exams where d ose is matched to clinical indication); or iterative reconstruction. DLP: 1277.23 mGy.cm COMPARISON: 10/16/2020 Lower thorax: Mild dependent changes at the lung bases. Moderate enlargement the heart. Moderate size hiatal hernia. Liver: Mild hepatomegaly and hepatic steatosis. No bile duct dilatation or mass. Gallbladder: Normal gallbladder. Pancreas: Normal size and attenuation. Normal pancreatic duct. No pancreatitis or mass. Spleen: Normal. Adrenal glands: Mild nodularity at the LEFT adrenal gland is unchanged. Negative RIGHT adrenal. Right kidney: Normal size kidney with no mass or hydronephrosis. Left kidney: Normal size kidney with no mass or hydronephrosis. Aorta: Mild atherosclerosis abdominal aorta with no aneurysm. No free fluid, intraperitoneal air or significant lymphadenopathy. GI tract: There is persistent mucosal edema and thickening greatest involving the ascending and trans verse colon. As compared to the most recent study the extent of the colitis and inflammatory changes has moderately improved. Mild dilatation of the distal small bowel with fluid. No high-grade strictur es are identified. Abdominal wall: Negative. No hernia. Pelvis: Normal. Osseous structures: Increase in the lower lumbar lordosis. No osteoblastic or osteolytic bone disease . CT/CT abdomen pelvis wo con [id number] IMPRESSION: 1. Persistent circumferential mucosal edema and wall thickening greatest invol ving the ascending and transverse colon. Overall moderate improvement since 09/28. Differential includes infectious and inflammatory disease. Early palmer es of pseudomembranous colitis should also be considered. 2. No ascites.
[2020-10-28 10:44] LABS: Basophils # 0.1 10^3/uL (0.0-0.1); Basophils % 0.5 %; Eosinophils # 0.3 10^3/uL (0.0-0.8); Eosinophils % 1.5 %; Hematocrit 40.1 % (42.0-52.0); Hemoglobin 13.1 g/dL (11.7-16.6); Lymphocytes # 1.6 10^3/uL (0.8-4.8); Lymphocytes % 7.5 %; Mean Corpuscular HGB Conc 32.7 g/dL (30.0-36.0); Mean Corpuscular Hemoglobin 27.5 pg (28.0-34.0); Mean Corpuscular Volume 84.2 fL (80-94); Mean Platelet Volume 8.8 fL (7.4-10.4); Monocytes # 1.2 10^3/uL (0.2-0.9); Monocytes % 5.8 %; Neutrophils # 17.46 10^3/uL (1.8-7.7); Neutrophils % 83.8 %; Nucleated Red Blood Cells % 0.1 %; Platelet Count 301 10^3/cmm (130-400); Red Blood Count 4.76 10^6/uL (4.1-5.3); Red Cell Distribution Width 15.5 % (12.1-15.1); White Blood Count 20.9 10^3/uL (4.0-10.0)
[2020-10-28 11:00] LABS: INR 1.42 (0.8-1.2)
--- NOTE | 2020-10-28 11:05 | XR_ITS ---
WS: [id number] Portable AP upright chest, 10/28/2020 Clinical Data: dyspnea Comparison: Portable chest, 10/22/2020. Findings: No nodules, masses or effusions are seen. The heart is normal. The pulmonary vascularity is not increased. No pneumonia or pneumothorax is seen. The right Port-A-Cath remains in same position. Midline sternotomy sutures are present. There are surgical clips in the left axilla. XR/XR chest 1V portable [id number] Impression: Atherosclerosis.
[2020-10-28 11:07] LABS: Lactate (Lactic Acid level) 1.6 mmol/L (0.5-2.2)
[2020-10-28 11:09] LABS: Troponin T (5th) Once 32 ng/L (0-15)
[2020-10-28 11:17] LABS: Alanine Aminotransferase 10 U/L (0-41); Albumin Level 3.1 g/dL (3.5-5.2); Alkaline Phosphatase 82 IU/L (40-130); Anion Gap 11.4 (5-19); Aspartate Amino Transferase 19 U/L (0-40); Blood Urea Nitrogen 9 mg/dL (8-23); Calcium 8.2 mg/dL (8.5-10.5); Carbon Dioxide 33 mmol/L (22-29); Chloride 85 mmol/L (98-107); Globulin 1.9 g/dL (1.3-4.6); Glomerular Filtration Rate 50.5 mL/min (90-130); Glucose 101 mg/dL (65-115); Lipase 37 U/L (13-60); NT Pro B Type Natriuretic Pept 175 pg/mL (0-125); Osmolality Calculated 261 mOsm/kg (285-295); Potassium 3.4 mmol/L (3.5-5.1); Sodium 126 mmol/L (136-145); Total Bilirubin 0.9 mg/dL (0.15-1.2)
[2020-10-28 11:59] LABS: Add Urine Microscopic? YES; Bilirubin Urine Neg (Negative); Blood Urine 2+ (Negative); Glucose Urine UA Norm (Normal); Ketones Urine Negative (Negative); Leukocyte Esterase Urine Negative (Negative); Nitrate Urine Negative (Negative); Protein Urine Neg (Negative); Urine Appearance SL Hazy (CLEAR); Urine Color Dark Yellow (Yellow); Urobilinogen Urine Norm (Negative); pH Urine 5 (5-7)
[2020-10-28 12:02] LABS: Add Urine Culture? No; Amorphous Sediment Urine 1+ /hpf; Bacteria Urine TRACE /hpf
[2020-10-28] MEDS: sodium chloride 0.9% 1,000 ML 999 ML IV (12:30)
[2020-10-28] MEDS: ondansetron 2 mg/ML SDV 2 mL 4 MG IVP (13:58)
[2020-10-28] MEDS: levofloxacin-dextrose 5 % 500 MG/100 ML PREMIX 100 MG IV (13:59)
[2020-10-28] MEDS: metroNIDAZOLE IV 500 MG/100 ML PREMIX 100 MG IV ×2 (14:57→23:07)
[2020-10-28 17:23] LABS: C Reactive Protein 128.3 mg/L (0.0-4.9)
[2020-10-28] MEDS: lactated ringers 500 ML 999 ML IV (17:48)
--- NOTE | 2020-10-28 17:49 | XR_ITS ---
WS: [id number] Portable AP upright chest, 10/28/2020 1829 hours. Clinical Data: low oxygen level Comparison: Portable chest, 10/28/2020, 1107 hours. Findings: There is now atelectasis and/or minimal pneumonia over the surface of the left diaphragm. T here are bilateral minimal atelectatic changes in both lung bases. The pulmonary vascularity is not i ncreased. No pneumonia or pneumothorax is seen. The heart is normal. Midline sternotomy sutures are p resent. The right subclavian catheter remains in good position. There are clips in the left axilla. XR/XR chest 1V portable [id number] Impression: 1. Development of atelectasis and/or pneumonia over the surface left diaphragm. 2. Minimal bibasilar atelectasis in the midlungs has developed.
[2020-10-28 18:27] LABS: Erythrocyte Sedimentation Rate 26 mm/hr (0-10)
--- NOTE | 2020-10-28 18:28 | PC.NURSE ---
No diet order.
[2020-10-28] MEDS: apixaban 5 mg Tablet PO (20:36)
--- NOTE | 2020-10-28 21:43 | P.HP_ITS ---
Providers/Chief Complaint Admitting Physician: Jemal Reza Primary Care Provider: PORFIRIO Beard Chief Complaint: N/V, DIARRHEA History of Present Illness Pleasant 65-year-old gentleman recently admitted with colitis of unknown cause, possibly related to checkpoint inhibitor, also with questionable invasion of melanoma into colon, possible infectious, or other inflammatory colitis, was treated with antibiotics, with unremarkable stool studies for C. difficile, stool cultures, ova and parasites, with positive Hemoccult, positive lactoferrin, during last hospitalization treated with Zosyn, vancomycin, methylprednisolone 125 mg, and then 40 mg prednisone daily, discharged home on 10/19 with doxycycline, prednisone 20 mg twice daily for 5 days, loperamide, states continued having nausea vomiting, diarrhea, especially with worsening diarrhea in the last several days, although says today it actually stopped up. Due to persistence/worsening of symptoms, generalized weakness came to ER today. He is having mild generalized abdominal discomfort, but no pain. He states that he had not received any additional therapy for his cancer since prior to the last admission. Denies having any fever at home. Diarrhea mostly has been green, watery, on and off a little bit of reddish coloration, not much ro blood, no hematemesis. He does state he has been eating well. In ER noted transiently hypotensive. He does state he also continue taking his blood pressure medications, as well as his diuretic. He is afebrile. With noted leukocytosis 20.9. Mostly neutrophilic. Sodium 126. Potassium 3.4. Chloride 85. Bicarb 33. Anion gap 11.4. Creatinine 1.4, with baseline in the normal range. Lactic acid 1.6. Calcium 8.2. Albumin 3.1. Troponin 32. BNP 175. CRP 128 ESR 26. Lipase 37. UA with 5-10 RBCs. EKG with sinus rhythm, LAD, intraventricular conduction delay. Chest x-ray with atherosclerosis. CT abdomen pelvis with persistent circumferential mucosal edema and wall thickening greatest involving the ascending and transverse colon. Overall moderate improvement since 10/16/2020. Differential with possible infectious and inflammatory disease. Upon arrival to the floor blood pressure soft, 97/57, however, noted hypoxic with saturations down into the 80s, started on 4 L nasal cannula with improvement into mid 90s. In ER he received 1500 mL fluid boluses with normal saline, albuterol, Zofran, Levaquin, Flagyl. He reports he was recently diagnosed with sleep apnea, but has not yet received his CPAP at home. Rapid COVID-19 antigen generalized admission was negative. Review of Systems Const: Reports: malaise; Denies: fever(s), chills or body aches Eyes: Denies: change in vision or eye redness ENMT: Denies: throat pain, oral sores or ear or mastoid pain Card: Denies: chest pain, edema, pre-syncope or dyspnea on exertion Resp: Denies: dyspnea, productive cough, change in phlegm color or hemoptysis GI: Reports: nausea, diarrhea and hematochezia; Denies: abdominal pain, constipation or melena : Reports: urinary frequency; Denies: flank pain, difficulty urinating or hematuria Musc: Denies: back pain, joint swelling or joint redness Skin/Breast: Denies: rash, sores or new lesions Neuro: Denies: headache(s), numbness in extremities, weakness in extremities, dizziness, confusion or seizure-like activity Endo: Denies: polyuria or polydipsia Greg/Lymph: Denies: easy bleeding or purpura All/Imm: Denies: urticaria, throat swelling or tongue swelling Medications/Allergies Home Medications Medication Instructions Recorded Confirmed Last Taken Type Dexilant 60 mg PO DAILY@0809/13/20 10/28/20 10/28/20 History Januvia 25 mg PO DAILY@0809/13/20 10/28/20 10/28/20 History bupropion HCl 300 mg PO DAILY@79909/13/20 10/28/20 10/28/20 History citalopram 40 mg PO DAILY@79909/13/20 10/28/20 10/28/20 History diltiazem HCl 180 mg PO DAILY@79909/13/20 10/28/20 10/28/20 History ezetimibe 10 mg PO DAILY@79909/13/20 10/28/20 10/14/20 History levothyroxine 200 mcg PO DAILY@0700 09/13/20 10/28/20 10/28/20 History montelukast 10 mg PO DAILY@79909/13/20 10/28/20 10/28/20 History potassium chloride 20 meq PO DAILY@0800 09/13/20 10/28/20 10/28/20 History rosuvastatin 20 mg PO DAILY@0800 09/13/20 10/28/20 10/28/20 History torsemide 100 mg PO DAILY@0800 09/13/20 10/28/20 10/28/20 History trazodone 50 mg PO DAILY@0800 09/13/20 10/28/20 Unknown History albuterol sulfate [ProAir HFA] See Rx Instructions .ROUTE .COMPLEX 10/15/20 10/28/20 10/28/20 History clonazepam 1.5 mg PO DAILY@0800 10/15/20 10/28/20 10/28/20 History fluticasone propionate 1 spray NASAL DAILY PRN 10/15/20 10/28/20 10/28/20 History hydrocodone-acetaminophen 1 tab PO Q6H PRN 10/15/20 10/28/20 10/28/20 History losartan 50 mg PO DAILY@0800 10/15/20 10/28/20 Unknown History oxycodone-acetaminophen 1 tab PO Q6H PRN 10/15/20 10/28/20 Unknown History tizanidine 4 mg PO BEDTIME@199910/15/20 10/28/20 Unknown History tramadol 50 mg PO BID PRN 10/15/20 10/28/20 Unknown History loperamide [Anti-Diarrheal 2 mg PO Q4H PRN #120 ml 10/19/20 10/28/20 Unknown Rx (loperamide)] ergocalciferol (vitamin D2) 1,250 See Rx Instructions .ROUTE 10/20/20 10/28/20 10/27/20 Rx mcg (50,000 unit) capsule .COMPLEX #4 cap Eliquis 5 mg PO BID@0800,199910/28/20 10/28/20 10/28/20 History magnesium oxide 400 mg PO BID@0800,199910/28/20 10/28/20 10/28/20 History sod phos di, mono-K phos mono 500 mg PO BID@0800,199910/28/20 10/28/20 Unknown History [Phospha 250 Neutral] Allergies Allergy/AdvReac Type Severity Reaction Status Date / Time Iodinated Contrast Media Allergy ALGY-Hives Verified 10/28/20 09:53 metoprolol Allergy unknown Verified 10/28/20 09:53 red dye Allergy unknown Verified 10/28/20 09:53 PFSH Acute PFSH: Medical History Acute lower respiratory infection Anxiety ASHD (arteriosclerotic heart disease) Atrial fibrillation Chronic pain syndrome Chronic recurrent sinusitis Chronic seasonal allergic rhinitis Congestive heart failure (CHF) Diabetes mellitus, type II Essential hypertension Hypertrophic cardiomyopathy Hypomagnesemia Hypothyroidism Insomnia Iron deficiency Lower respiratory infection Melanoma Mixed hyperlipidemia Multilevel degenerative disc disease Sleep apnea Vitamin D deficiency Surgical History Coronary angioplasty status [facility] 2105 H/O ventricular septal myectomy Family History Mother Myocardial infarction Father Hypertension Other Diabetes Family history of CABG Social History Smoking and tobacco status: current every day smoker Second hand smoke exposure: No Desire information about alcohol rehabilitation?: No Counseling given: No Desire information about substance/drug rehabilitation?: No Counseling given: No Vitals/I&O/Wt Last Vital Signs Temp 98.7 F 10/28/20 19:57 Pulse 67 10/28/20 19:57 Resp 18 10/28/20 19:57 BP 96/61 10/28/20 19:57 Pulse Ox 95 10/28/20 19:57 10/28/20 10/28/20 10/28/20 06:59 14:59 22:59 Intake Total 1700 / 1700 Balance 1700 / 1700 Weight last 48 hrs Weight 86.183 kg Physical Exam Const: COMMON NORMALS: no acute distress and patient oriented x3 HENMT: COMMON NORMALS: oropharynx normal Neck/C-Spine: COMMON NORMALS: no JVD Chest: OTHER: Healed old midline sternotomy scar Resp: COMMON NORMALS: normal respiratory effort and clear to auscultation bilaterally AUSCULTATION: clear to auscultation bilaterally Cardio: COMMON NORMALS: no JVD, regular rhythm, S1 normal heart sound present, S2 normal heart sound present and No murmurs present (Cardio) RHYTHM: regular rhythm HEART SOUNDS: S1 normal heart sound present and S2 normal heart sound present GI: COMMON NORMALS: Soft to palpation and non-tender PALPATION: Yes Soft to palpation and Yes Tenderness to palpation present (GI) (Mild generalized discomfort to palpation) Extremity: COMMON NORMALS: no joint enlargement and no pedal edema Neuro: COMMON NORMALS: patient oriented x3 and moves all extremities Skin: COMMON NORMALS: no rashes or lesions noted GENERAL SKIN EXAM: no rashes or lesions noted Data : 10/28/20 10:30 10/28/20 10:30 A&P Assessment and plan (1) Colitis: Discussed extensively with him, as well as his oncologist. We are still not clear on the etiology. High suspicion regarding checkpoint inhibitor colitis. Possible malignant invasion as previously seen on PET scan. This will be reviewed by his oncologist tomorrow. Possible infectious colitis. Possible other inflammatory colitis. Does not have history of inflammatory bowel disease or other autoimmune condition. No IBD history and family. This appears to be less likely. At this time empiric treatment with Levaquin, Flagyl will be continued from ER. Follow-up C. difficile studies, stool cultures, Hemoccult, lactoferrin. With noted hypoxia on arrival to [facility] floor, will check rapid COVID-19. Status: Acute (2) Acute kidney injury: Creatinine up to 1.4 with normal baseline. Suspect prerenal with hypote nsion, dehydration secondary to diarrhea, vomiting, continued intake of diuretic. Hold diuretic. Received IV fluid challenge in ER. Due to hypoxia, possible fluid overload for now avoid additional IVF. Monitor renal function. Status: Acute (3) Leukocytosis: Obtain blood cultures Status: Acute (4) Hyponatremia: Acute hyponatremia, sodium 126. Previously 138. Suspected hypovolemic hyponatremia, also continue to take diuretic. Hold diuretic. Received fluid challenge. Hold additional IVF for now. Encourage oral intake. Recheck sodium. Status: Acute (5) Hypokalemia: Mild hypokalemia. Hold diuretic. Status: Acute (6) Hypotension: Received fluid challenge. Improved. Hold antihypertensives, diuretic. Monitor blood pressure. Status: Acute (7) Elevated troponin: No chest pain. EKG changes without suggestion of acute UT. Suspect this is due to demand ischemia. Will check additional troponin level. Monitor on telemetry. Status: Acute (8) Microscopic hematuria: Incidentally noted. Consider follow-up reassessment for resolution. On anticoagulation. No signs of UTI otherwise. Status: Acute (9) Hematochezia: He reports on and off some red discoloration in his stool. Possibly small amount/low-grade bleed. Hemoccult was positive during last admission. He is chronically on anticoagulation which appears to be for atrial fibrillation. For now continue. Hemoglobin appears to be hemoconcentrated, but will monitor for bleeding. Status: Acute (10) Melanoma: Undergoing treatment with checkpoint inhibitors. Follows with Dr. Mendenhall. Status: Acute (11) Hypoxia: Noted on arrival to [facility] floor. Saturation down to 80s. Repeat chest x-ray. Hold off additional fluids, may be secondary to volume overload after receiving fluids and ER. Check rapid COVID-19. Monitor on continuous pulse oximetry. CPAP nightly for sleep apnea. Continue anticoagulation. PE less likely as he is anticoagulated. Status: Acute (12) Sleep apnea: CPAP nightly. Status: Acute Attestations Medical Necessity Statement*: Admission of over 2 midnights is admitted for assessment management of persistent/recurrent colitis of unclear etiology, with dehydration, hypotension, acute kidney injury, hyponatremia and other metabolic abnormalities, hypoxia in a gentleman with underlying melanoma currently undergoing treatment. Coding Level of Care Code Acute [employer] Electrical Designer for Dina Donaldson Diagnoses Colitis K52.9 Acute kidney injury N17.9 Leukocytosis D72.829 Hyponatremia E87.1 Hypokalemia E87.6 Hypotension I95.9 Elevated troponin R77.8 Microscopic hematuria R31.29 Hematochezia K92.1 Melanoma C43.9 Hypoxia R09.02 Sleep apnea G47.30
[2020-10-28] MEDS: albuterol 8 gm MDI INHALATION (22:15)
[2020-10-28 22:29] LABS: Glucose Point of Care 121 mg/dL (70-110)
[2020-10-28] MEDS: famotidine 20 mg/2 mL INJ IVP (23:07)
[2020-10-29] VITALS (13 sets, daily range): BP systolic 95–134; BP diastolic 56–77; PULSE 56–78; RESP 16–18; TEMP 36.3–36.6; O2SAT 90–97
[2020-10-29 01:04] LABS: SARS Covid-2 Antigen Negative (Negative)
[2020-10-29 02:57] LABS: Basophils % 0.2 %; Eosinophils % 0.1 %; Hematocrit 34.8 % (42.0-52.0); Hemoglobin 11.3 g/dL (11.7-16.6); Lymphocytes # 0.5 10^3/uL (0.8-4.8); Lymphocytes % 2.9 %; Mean Corpuscular HGB Conc 32.5 g/dL (30.0-36.0); Mean Corpuscular Hemoglobin 27.8 pg (28.0-34.0); Mean Corpuscular Volume 85.7 fL (80-94); Mean Platelet Volume 9.1 fL (7.4-10.4); Monocytes # 0.2 10^3/uL (0.2-0.9); Monocytes % 1.1 %; Neutrophils # 16.57 10^3/uL (1.8-7.7); Nucleated Red Blood Cells % 0 %; Platelet Count 249 10^3/cmm (130-400); Red Blood Count 4.06 10^6/uL (4.1-5.3); Red Cell Distribution Width 15.4 % (12.1-15.1); White Blood Count 17.4 10^3/uL (4.0-10.0)
[2020-10-29 03:19] LABS: Alanine Aminotransferase 10 U/L (0-41); Albumin Level 2.4 g/dL (3.5-5.2); Alkaline Phosphatase 93 IU/L (40-130); Anion Gap 11.8 (5-19); Aspartate Amino Transferase 22 U/L (0-40); Blood Urea Nitrogen 9 mg/dL (8-23); Calcium 7.8 mg/dL (8.5-10.5); Carbon Dioxide 29 mmol/L (22-29); Chloride 90 mmol/L (98-107); Creatinine Clr Calc Pharmacy 62.6357; Globulin 2.4 g/dL (1.3-4.6); Glomerular Filtration Rate 60.4 mL/min (90-130); Glucose 179 mg/dL (65-115); Osmolality Calculated 267 mOsm/kg (285-295); Potassium 3.8 mmol/L (3.5-5.1); Sodium 127 mmol/L (136-145); Total Bilirubin 0.6 mg/dL (0.15-1.2); Total Protein 4.8 g/dL (6.6-8.7)
[2020-10-29] MEDS: acetaminophen 325 mg Tablet 650 MG PO (05:34)
[2020-10-29] MEDS: metroNIDAZOLE IV 500 MG/100 ML PREMIX 100 MG IV ×3 (06:38→23:28)
[2020-10-29] MEDS: levothyroxine 100 mcg Tablet 200 MCG PO (06:38)
[2020-10-29 07:00] LABS: Glucose Point of Care 220 mg/dL (70-110)
--- NOTE | 2020-10-29 08:23 | ECG_ITS ---
[facility] Test Date: 2020-10-29 Pat Name: Catrachito Agosto Department: Room: 269 Gender: Male Chief Physical Therapist: : [id number] Requested By: Jemal Reza Order Number: [id number] José MD: Jared Tena M.D. Measurements Intervals [place] Rate: 61 P: 28 AR: 146 QRS: -14 QRSD: 134 T: 116 QT: 464 QTc: 471 Interpretive Statements SINUS RHYTHM Compared to ECG 10/28/2020 10:16:03 Left-axis deviation no longer present Electronically Signed On 10-29-2020 19:05:49 APPLIED COMPUTER SCIENCE PROFESSOR by Jared Tena M.D. [email or web address] Information [id number]
[2020-10-29] MEDS: apixaban 5 mg Tablet PO ×2 (09:00→21:31)
[2020-10-29] MEDS: citalopram 20 mg Tablet 40 MG PO (09:00)
[2020-10-29] MEDS: albuterol 8 gm MDI INHALATION ×3 (09:43→21:23)
--- NOTE | 2020-10-29 11:53 | P.PN_ITS ---
Subjective Subjective: Interval history: He is feeling better today already he states. He is getting dressed this time walking to the room so that he can get up and walk around in the levin. He feels he wants to try to walk unassisted, although is agreeable to walk with a cane, as a discussion with him appears he does use cane at home intermittently. Requesting with nursing staff to assess oxy genation with exertion as he was on oxygen up till recently and have a cane ready for him. We discussed with him that as well as a non-smoking facility, and so he is asked not to smoke anywhere on the premises. He is agreeable to have nicotine gum for cravings. Declines to continue patch. He otherwise is doing better. Abdominal discomfort is much improved. No further diarrhea so far. Vitals/I&O/Wt Last Vital Signs Temp 97.5 F L 10/29/20 07:08 Pulse 62 10/29/20 09:45 Resp 18 10/29/20 09:44 BP 95/56 10/29/20 07:08 Pulse Ox 94 10/29/20 09:45 10/28/20 10/29/20 10/29/20 22:59 06:59 14:59 Intake Total 1700 / 1700 220 / 1920 340 / 340 Output Total 1100 / 1100 425 / 425 Balance 1700 / 1700 -880 / 820 -85 / -85 Weight last 48 hrs Weight 93.077 kg Weight 86.183 kg Physical Exam Const: COMMON NORMALS: no acute distress and patient oriented x3 HENMT: COMMON NORMALS: oropharynx normal Neck/C-Spine: COMMON NORMALS: no JVD Chest: OTHER: Healed old midline sternotomy scar Resp: COMMON NORMALS: normal respiratory effort and clear to auscultation bilaterally AUSCULTATION: clear to auscultation bilaterally Cardio: COMMON NORMALS: no JVD, regular rhythm, S1 normal heart sound present, S2 normal heart sound present and No murmurs present (Cardio) RHYTHM: regular rhythm HEART SOUNDS: S1 normal heart sound present and S2 normal heart sound present GI: COMMON NORMALS: Soft to palpation and non-tender PALPATION: Yes Soft to palpation Extremity: COMMON NORMALS: no joint enlargement and no pedal edema Neuro: COMMON NORMALS: patient oriented x3 and moves all extremities Skin: COMMON NORMALS: no rashes or lesions noted GENERAL SKIN EXAM: no rashes or lesions noted Data : 10/29/20 02:23 10/29/20 02:23 Micro: Microbiology 10/28/20 09:13 Occult Blood (FIT) - Final Stool Routine Collection 10/28/20 09:13 Stool Lactoferrin - Final Stool 10/29/20 02:23 Blood Culture - Preliminary Blood SPECIMEN COLLECTED 10/29/20 02:23 Blood Culture - Preliminary Blood SPECIMEN COLLECTED A&P Assessment and plan (1) Colitis: Reports today he is feeling much better. So far diarrhea has subsided. L eukocytosis appears to be improving. Discussed with him our discussion with the oncology yesterday, in case he was not improving to consider transfer to a tertiary care facility. He states he would rather not unless he was getting worse. He does state he is improving currently. At this time he is agreeable to continue with steroids, antibiotics. We will follow up on stool studies. Support blood pressure. We will monitor heart rate as he appears was transiently bradycardic this morning. Advance diet as tolerating. Monitor hyponatremia improvement. Monitor acute kidney injury improvement. Continue IV steroids for now given persistence of colitis and worsening Discussed extensively with him, as well as his oncologist. We are still not clear on the etiology. High suspicion regarding checkpoint inhibitor colitis. Possible malignant invasion as previously seen on PET scan. This will be reviewed by his oncologist tomorrow. Possible infectious colitis. Possible other inflammatory colitis. Does not have history of inflammatory bowel disease or other autoimmune condition. No IBD history and family. This appears to be less likely. At this time empiric treatment with Levaquin, Flagyl will be continued from ER. Follow-up C. difficile studies, stool cultures, Hemoccult, lactoferrin. With noted hypoxia on arrival to [facility] floor, will check rapid COVID-19. Status: Acute (2) Hypoxia: Hypoxia appears to be improved. He is weaned down to room air. Will assess oxygenation. He wants to try to ambulate today. Avoid additional IVF. Repeat chest x-ray appears to show development of at electasis and/or pneumonia at left base. For possible pneumonia continue Levaquin as above. Incentive spirometry. CPAP nightly for sleep apnea. Continue anticoagulation. PE less likely as he is anticoagulated. Status: Acute (3) Acute kidney injury: Improving. Continue to support blood pressure. Avoid nephrotoxins. Monitor for improvement kidney injury. Hold antihypertensive for now but hold his diuretic. Hold losartan. Status: Acute (4) Leukocytosis: Today better. Suspect multifactorial secondary to colitis, dehydration, stress related. Decrease Mastel due to restarting on steroids. Obtained blood cultures Status: Acute (5) Hypotension: No further IV fluid due to hypoxia. Appears may have been transiently fluid overload last night. Hold diltiazem. Hold torsemide. Losartan. Monitor blood pressures which are still soft, although somewhat better. Oral intake is tolerating. Diarrhea appears to be improving. Monitor in the hospital for further worsening of hypotension. Status: Acute (6) Hyponatremia: Mild improvement of 127. Diarrhea appears to be eating better. Trial of diet as tolerating. Hold diuretic. Received fluid challenge. Hold additional IVF. Encourage oral intake. Status: Acute (7) Hypokalemia: Mild hypokalemia improved. Hold diuretic. Status: Acute (8) Elevated troponin: No chest pain. EKG changes without suggestion of acute AL. Suspect this is due to demand ischemia. Will check additional troponin level. Monitor on telemetry. Status: Acute (9) Microscopic hematuria: Incidentally noted. Consider follow-up reassessment for resolution. On anticoagulation. No signs of UTI otherwise. Status: Acute (10) Hematochezia: He reports on and off some red discoloration in his stool. Possibly small amount/low-grade bleed. Hemoccult was positive during last admission. He is chronically on anticoagulation which appears to be for atrial fibrillation. For now continue. Hemoglobin appears to be hemoconcentrated, but will monitor for bleeding. Status: Acute (11) Melanoma: Undergoing treatment with checkpoint inhibitors. Follows with Dr. Mendenhall. Status: Acute (12) Sleep apnea: CPAP nightly. Status: Acute (13) Smoking addiction: We discussed smoking cessation for 4 minutes. He has been trying to quit. He states he occasionally vapes. Cautioned him not to vape given recent severe lung injury noted with vaping products. He verbalized understanding. He declined nicotine patch. Agreed to nicotine gum as needed for cravings. We discussed how to chew the gum to allow for nicotine absorption. Follow-up for further support for smoking cessation with his PCP. He states he has been cutting down significantly recently. Status: Acute Attestations Medical Necessity Statement*: Continue admission for assessment management of persistent/recurrent colitis, complicated by hypotension, acute kidney injury, hypoxia with fluid overload, possible pneumonia, in a gentleman with underlying melanoma, undergoing treatment, at high risk of deterioration, requiring further monitoring and treatment in the hospital due to relapse of his condition after prior discharge and failure of outpatient therapy. Coding Level of Care Code Acute Talent Associate for g Fwd Exam Comprehensive Diagnoses Colitis K52.9 Hypoxia R09.02 Acute kidney injury N17.9 Leukocytosis D72.829 Hypotension I95.9 Hyponatremia E87.1 Hypokalemia E87.6 Elevated troponin R77.8 Microscopic hematuria R31.29 Hematochezia K92.1 Melanoma C43.9 Sleep apnea G47.30 Smoking addiction F17.200
[2020-10-29] MEDS: famotidine 20 mg/2 mL INJ IVP ×2 (12:08→21:30)
[2020-10-29] MEDS: levofloxacin-dextrose 5 % 750 MG/150 ML PREMIX 100 MG IV (12:08)
[2020-10-29 13:19] LABS: Glucose Point of Care 201 mg/dL (70-110)
[2020-10-29 17:06] LABS: Glucose Point of Care 265 mg/dL (70-110)
[2020-10-29 20:55] LABS: Glucose Point of Care 150 mg/dL (70-110)
[2020-10-29] MEDS: CLONazepam 1 mg Tablet PO (21:31)
[2020-10-29] MEDS: CLONazepam 0.5 mg Tablet PO (21:31)
[2020-10-30] VITALS (11 sets, daily range): BP systolic 126–152; BP diastolic 69–84; PULSE 71–87; RESP 17–20; TEMP 36.3–36.6; O2SAT 91–96
[2020-10-30] MEDS: acetaminophen 325 mg Tablet 650 MG PO (02:10)
[2020-10-30] MEDS: levothyroxine 100 mcg Tablet 200 MCG PO (06:12)
[2020-10-30] MEDS: metroNIDAZOLE IV 500 MG/100 ML PREMIX 100 MG IV ×2 (06:12→14:23)
[2020-10-30 06:26] LABS: Basophils # 0.1 10^3/uL (0.0-0.1); Basophils % 0.3 %; Hematocrit 35.9 % (42.0-52.0); Hemoglobin 11.7 g/dL (11.7-16.6); Lymphocytes # 0.6 10^3/uL (0.8-4.8); Mean Corpuscular HGB Conc 32.6 g/dL (30.0-36.0); Mean Corpuscular Hemoglobin 27.3 pg (28.0-34.0); Mean Corpuscular Volume 83.9 fL (80-94); Mean Platelet Volume 9.5 fL (7.4-10.4); Monocytes # 0.5 10^3/uL (0.2-0.9); Monocytes % 2.6 %; Neutrophils # 18.48 10^3/uL (1.8-7.7); Neutrophils % 93.3 %; Nucleated Red Blood Cells % 0 %; Platelet Count 374 10^3/cmm (130-400); Red Blood Count 4.28 10^6/uL (4.1-5.3); White Blood Count 19.8 10^3/uL (4.0-10.0)
[2020-10-30 06:37] LABS: Glucose Point of Care 160 mg/dL (70-110)
[2020-10-30 06:39] LABS: Alanine Aminotransferase 12 U/L (0-41); Alkaline Phosphatase 85 IU/L (40-130); Anion Gap 13.9 (5-19); Aspartate Amino Transferase 17 U/L (0-40); Blood Urea Nitrogen 16 mg/dL (8-23); Calcium 8.8 mg/dL (8.5-10.5); Carbon Dioxide 29 mmol/L (22-29); Chloride 89 mmol/L (98-107); Globulin 2.9 g/dL (1.3-4.6); Glomerular Filtration Rate 66.8 mL/min (90-130); Glucose 163 mg/dL (65-115); Osmolality Calculated 271 mOsm/kg (285-295); Potassium 3.9 mmol/L (3.5-5.1); Sodium 128 mmol/L (136-145); Total Bilirubin 0.4 mg/dL (0.15-1.2); Total Protein 5.9 g/dL (6.6-8.7)
[2020-10-30] MEDS: apixaban 5 mg Tablet PO ×2 (09:05→21:11)
[2020-10-30] MEDS: cetirizine 10 mg Tablet PO (09:07)
[2020-10-30] MEDS: citalopram 20 mg Tablet 40 MG PO (09:08)
[2020-10-30] MEDS: nicotine 2 mg Gum BUCCAL (09:09)
[2020-10-30] MEDS: nicotine 14 mg Patch 1 PATCH TRANSDERMA (09:09)
[2020-10-30] MEDS: famotidine 20 mg/2 mL INJ IVP (09:10)
[2020-10-30] MEDS: albuterol 8 gm MDI INHALATION ×2 (09:37→16:08)
--- NOTE | 2020-10-30 11:03 | P.PN_ITS ---
Subjective Subjective: Interval history: He had an episode of vomiting yesterday. He is having some intermittent episodes of diarrhea, several times a day. On and off abdominal discomfort. Currently pain-free. No trouble breathing. So far has been down to room air and doing well. He does say he gets propensity to retain fluid due to CHF, and sometimes swells up quite significantly. Vitals/I&O/Wt Last Vital Signs Temp 97.5 F L 10/30/20 08:00 Pulse 87 10/30/20 09:51 Resp 20 H 10/30/20 09:39 BP 130/75 10/30/20 08:00 Pulse Ox 94 10/30/20 09:51 10/29/20 10/30/20 10/30/20 22:59 06:59 14:59 Intake Total 460 / 1400 100 / 1500 240 / 240 Output Total 400 / 400 Balance 460 / 975 100 / 1075 -160 / -160 Weight last 48 hrs Weight 90.01 kg Weight 93.077 kg Physical Exam Const: COMMON NORMALS: no acute distress and patient oriented x3 OTHER: Up in his room. HENMT: COMMON NORMALS: oropharynx normal Neck/C-Spine: COMMON NORMALS: no JVD Chest: OTHER: Healed old midline sternotomy scar Resp: COMMON NORMALS: normal respiratory effort and clear to auscultation bilaterally AUSCULTATION: clear to auscultation bilaterally Cardio: COMMON NORMALS: no JVD, regular rhythm, S1 normal heart sound present, S2 normal heart sound present and No murmurs present (Cardio) RHYTHM: regular rhythm HEART SOUNDS: S1 normal heart sound present and S2 normal heart sound present GI: COMMON NORMALS: Soft to palpation and non-tender PALPATION: Yes Soft to palpation Extremity: COMMON NORMALS: no joint enlargement and no pedal edema Neuro: COMMON NORMALS: patient oriented x3 and moves all extremities Skin: COMMON NORMALS: no rashes or lesions noted GENERAL SKIN EXAM: no rashes or lesions noted Data : 10/30/20 05:40 10/30/20 05:40 Micro: Microbiology 10/29/20 02:23 Blood Culture - Preliminary Blood NEGATIVE TO DATE 10/29/20 02:23 Blood Culture - Preliminary Blood NEGATIVE TO DATE 10/28/20 09:13 Enteric Pathogens (PCR) - Final Stool Routine Collection Parasite Antigen Panel - Final Occult Blood (FIT) - Final 10/28/20 09:13 C.difficile Toxin B Gene (PCR) - Final Stool Routine Collection 10/28/20 09:13 Stool Lactoferrin - Final Stool A&P Assessment and plan (1) Colitis: Had no subtle vomiting yesterday. Is still having diarrhea several times a day. Leukocytosis up to 19.8 today. Afebrile. States that during last admission he did not quite significantly improve. He preferred to return home, he felt he would improve with Gatorade, and felt more comfortable at home. However, continued having diarrhea daily. Currently overall compared to how he was previously his symptoms are now gradually improving. 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 Continue monitoring the hospital. Hyponatremia gradual improvement. Continue empiric antibiotics. So far C. difficile, stool culture negative. Positive leukocytes, Hemoccult. Discussed extensively with him, as well as his oncologist. We are still not clear on the etiology. High suspicion regarding checkpoint inhibitor colitis. Possible malignant invasion as previously seen on PET scan. This will be reviewed by his oncologist. Possible infectious colitis. Possible other inflammatory colitis. Does not have history of inflammatory bowel disease or other autoimmune condition. No IBD history and family. This appears to be less likely. Status: Acute (2) Hypoxia: He reports history of CHF. Suspect may have had CHF exacerbation, fluid overload following rehydration due to dehydration, hypotension on presentation. Hypoxia resolved. CHF currently compensated. Monitor. For possible pneumonia continue Levaquin as above. Incentive spirometry. CPAP nightly for sleep apnea. Continue anticoagulation. PE less likely as he is anticoagulated. Status: Acute (3) Acute kidney injury: Resolving. Avoid nephrotoxins. Monitor for improvement kidney injury. Hold antihypertensive for now but hold his diuretic. Hold losartan. Status: Acute (4) Leukocytosis: Worse today. With persistent colitis. Possible steroid effect with demargination currently as well. Dehydration resolved. Follow blood cultures Status: Acute (5) Hypotension: Avoid further IV fluid due to hypoxia. CHF. Appears may have been transiently fluid overload last night. Hold diltiazem. Hold torsemide. Losartan. Monitor blood pressures which are still soft, although somewhat better. Oral intake is tolerating. Status: Acute (6) Hyponatremia: Mild improvement of 128. Diarrhea appears to be eating better. Trial of diet as tolerating. Hold diuretic. Received fluid challenge. Hold additional IVF. Encourage oral intake. Status: Acute (7) Hypokalemia: Mild hypokalemia improved. Hold diuretic. Status: Acute (8) Elevated troponin: No chest pain. EKG changes without suggestion of acute NM. Suspect this is due to demand ischemia. Monitor on telemetry. Status: Acute (9) Microscopic hematuria: Incidentally noted. Consider follow-up reassessment for resolution. On anticoagulation. No signs of UTI otherwise. Status: Acute (10) Hematochezia: He reports on and off some red discoloration in his stool. Possibly small amount/low-grade bleed. Hemoccult was positive during last admission. He is chronically on anticoagulation which appears to be for atrial fibrillation. For now continue. Hemoglobin appears to be hemoconcentrated, but will monitor for bleeding. Status: Acute (11) Melanoma: Undergoing treatment with checkpoint inhibitors. Follows with Dr. Mendenhall. Status: Acute (12) Sleep apnea: CPAP nightly. Status: Acute (13) Smoking addiction: Continue to encourage smoking cessation. 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 Coding Level of Care Code Acute Calender Wind Up Tender for [facility] Fwd Diagnoses Colitis K52.9 Hypoxia R09.02 Acute kidney injury N17.9 Leukocytosis D72.829 Hypotension I95.9 Hyponatremia E87.1 Hypokalemia E87.6 Elevated troponin R77.8 Microscopic hematuria R31.29 Hematochezia K92.1 Melanoma C43.9 Sleep apnea G47.30 Smoking addiction F17.200
[2020-10-30 11:37] LABS: Glucose Point of Care 216 mg/dL (70-110)
[2020-10-30] MEDS: levofloxacin-dextrose 5 % 750 MG/150 ML PREMIX 100 MG IV (12:16)
--- NOTE | 2020-10-30 18:39 | PC.NURSE ---
SHIFT SUMMARY PATIENT HAS HAD MULTIPLE LOOSE STOOLS TODAY. GOOD PO INTAKE. PATIENT TOOK A PUFF OF A CIGARETTE IN HIS ROOM THIS AM. THIS NURSE TOOK PATIENT'S CIGARETTES AND CALL CENTER OPERATIONS MANAGER. PLACED IN PATIENT CHART. THIS NURSE PROVIDED PATIENT WITH NICOTINE PATCH AND GUM. UP IN ROOM CURRENTLY.
[2020-10-30 20:09] LABS: Glucose Point of Care 144 mg/dL (70-110)
[2020-10-30] MEDS: CLONazepam 1 mg Tablet PO (21:11)
[2020-10-30] MEDS: CLONazepam 0.5 mg Tablet PO (21:11)
[2020-10-31] VITALS (12 sets, daily range): BP systolic 121–162; BP diastolic 74–84; PULSE 67–77; RESP 16–19; TEMP 35.9–36.8; O2SAT 90–99
[2020-10-31] MEDS: oxyCODONE-APAP 5-325 mg Tablet 1 TAB PO (00:26)
[2020-10-31] MEDS: famotidine 20 mg/2 mL INJ IVP ×3 (00:26→21:14)
[2020-10-31] MEDS: metroNIDAZOLE IV 500 MG/100 ML PREMIX 100 MG IV ×3 (00:26→15:32)
[2020-10-31] MEDS: levothyroxine 100 mcg Tablet 200 MCG PO (06:10)
[2020-10-31 06:24] LABS: Basophils % 0.3 %; Hematocrit 34.5 % (42.0-52.0); Hemoglobin 11.2 g/dL (11.7-16.6); Lymphocytes # 0.5 10^3/uL (0.8-4.8); Lymphocytes % 3.9 %; Mean Corpuscular HGB Conc 32.5 g/dL (30.0-36.0); Mean Corpuscular Hemoglobin 27.4 pg (28.0-34.0); Mean Corpuscular Volume 84.4 fL (80-94); Monocytes # 0.3 10^3/uL (0.2-0.9); Monocytes % 2.7 %; Neutrophils # 10.79 10^3/uL (1.8-7.7); Neutrophils % 92.5 %; Nucleated Red Blood Cells % 0 %; Platelet Count 358 10^3/cmm (130-400); Red Blood Count 4.09 10^6/uL (4.1-5.3); Red Cell Distribution Width 15.1 % (12.1-15.1); White Blood Count 11.7 10^3/uL (4.0-10.0)
[2020-10-31 06:33] LABS: Glucose Point of Care 164 mg/dL (70-110)
[2020-10-31 06:50] LABS: Alanine Aminotransferase 12 U/L (0-41); Alkaline Phosphatase 79 IU/L (40-130); Anion Gap 12.6 (5-19); Aspartate Amino Transferase 14 U/L (0-40); Blood Urea Nitrogen 18 mg/dL (8-23); Calcium 8.5 mg/dL (8.5-10.5); Carbon Dioxide 30 mmol/L (22-29); Chloride 95 mmol/L (98-107); Globulin 2.3 g/dL (1.3-4.6); Glomerular Filtration Rate 66.8 mL/min (90-130); Glucose 163 mg/dL (65-115); Osmolality Calculated 283 mOsm/kg (285-295); Potassium 3.6 mmol/L (3.5-5.1); Sodium 134 mmol/L (136-145); Total Bilirubin 0.3 mg/dL (0.15-1.2); Total Protein 5.3 g/dL (6.6-8.7)
[2020-10-31 06:55] LABS: Glucose Point of Care 136 mg/dL (70-110)
--- NOTE | 2020-10-31 07:30 | PC.NURSE ---
Report to Rabia SALAZAR at this time.
[2020-10-31] MEDS: citalopram 20 mg Tablet 40 MG PO (08:34)
[2020-10-31] MEDS: apixaban 5 mg Tablet PO ×2 (08:34→21:13)
[2020-10-31] MEDS: cetirizine 10 mg Tablet PO (08:34)
[2020-10-31] MEDS: nicotine 14 mg Patch 1 PATCH TRANSDERMA (08:44)
--- NOTE | 2020-10-31 09:00 | PC.SOCIAL ---
IMM Update Pg.2 of IMM Updated and reviewed with patient who verbalized understanding. Copy provided.
[2020-10-31 10:59] LABS: Glucose Point of Care 153 mg/dL (70-110)
[2020-10-31] MEDS: albuterol 8 gm MDI INHALATION ×2 (11:33→15:28)
--- NOTE | 2020-10-31 11:43 | P.PN_ITS ---
Subjective Subjective: Interval history: He is still bothered by diarrhea. Already went 3 times today. Overall it is more rare than it was during prior admission, but still persistent. He denies abdominal pain. Overall stool is a little bit thicker. He otherwise feels continues to improve. Is wondering if he can even return home within the next 1-2 days. He is ambulating. Appetite has not been very good. He did get about 6 hours of sleep last night for the first time. Vitals/I&O/Wt Last Vital Signs Temp 98.1 F 10/31/20 11:01 Pulse 77 10/31/20 11:33 Resp 18 10/31/20 11:33 BP 121/74 10/31/20 11:01 Pulse Ox 98 10/31/20 11:33 10/30/20 10/31/20 10/31/20 22:59 06:59 14:59 Intake Total 460 / 950 220 / 1170 340 / 340 Output Total 300 / 700 550 / 1250 300 / 300 Balance 160 / 250 -330 / -80 40 / 40 Weight last 48 hrs Weight 90.537 kg Weight 90.01 kg Physical Exam Const: COMMON NORMALS: no acute distress and patient oriented x3 OTHER: Up in his room. HENMT: COMMON NORMALS: oropharynx normal Neck/C-Spine: COMMON NORMALS: no JVD Chest: OTHER: Healed old midline sternotomy scar Resp: COMMON NORMALS: normal respiratory effort and clear to auscultation bilaterally AUSCULTATION: clear to auscultation bilaterally Cardio: COMMON NORMALS: no JVD, regular rhythm, S1 normal heart sound present, S2 normal heart sound present and No murmurs present (Cardio) RHYTHM: regular rhythm HEART SOUNDS: S1 normal heart sound present and S2 normal heart sound present GI: COMMON NORMALS: Soft to palpation and non-tender PALPATION: Yes Soft to palpation Extremity: COMMON NORMALS: no joint enlargement and no pedal edema Neuro: COMMON NORMALS: patient oriented x3 and moves all extremities Skin: COMMON NORMALS: no rashes or lesions noted GENERAL SKIN EXAM: no rashes or lesions noted Data : 10/31/20 05:59 10/31/20 05:59 A&P Assessment and plan (1) Colitis: Still persistent diarrhea which is bothering him. No abdominal pain. Ov erall slow gradual improvement. For now continue IV steroids here given relapse after last discharge. However, if continues to improve, perhaps can transition to higher dose oral steroid with slow taper on discharge. With persistent diarrhea, now declining leukocytosis, no signs of persistent sep sis, he is agreeable to trying cautiously some Imodium to help with symptoms. Hyponatremia improving. Continue empiric antibiotics. C. difficile, stool culture negative. Positive leukocytes, Hemoccult. Discussed extensively with him, as well as his oncologist. We are still not clear on the etiology. High suspicion regarding checkpoint inhibitor colitis. Possible malignant invasion as previously seen on PET scan. This will be reviewed by his oncologist (kindly please touch base with them on Sunday). Possible infectious colitis. Possible other inflammatory colitis. Does not have history of inflammatory bowel disease or other autoimmune condition. No IBD history and family. This appears to be less likely. Status: Acute (2) Hypoxia: He reports history of CHF. Suspect may have had CHF exacerbation, fluid overload following rehydration due to dehydration, hypotension on presentation. Hypoxia resolved. CHF currently compensated. Monitor since he mentions propensity to fluid retention and edema. For possible pneumonia continue Levaquin as above. Incentive spirometry. CPAP nightly for sleep apnea. Continue anticoagulation. PE less likely as he is anticoagulated. Status: Acute (3) Leukocytosis: Better. Cautiously adding Imodium. Monitor for any worsening. With persistent colitis. Possible steroid effect with demargination currently as well. Dehydration resolved. Follow blood cultures. Status: Acute (4) Acute kidney injury: Resolving. Avoid nephrotoxins. Monitor for improvement kidney injury. Hold antihypertensive for now but hold his diuretic. Hold losartan. Status: Acute (5) Hypotension: Resolved. Avoid further IV fluid due to hypoxia. CHF. Appears may have been transiently fluid overload last night. Hold diltiazem. Holding torsemide. Losartan. Monitor blood pressures which are still soft, although somewhat better. Oral intake is tolerating. Status: Acute (6) Hyponatremia: Resolving. Holding diuretic. Received fluid challenge. Hold additional IVF. Encourage oral intake. Status: Acute (7) Hypokalemia: Mild hypokalemia improved. Hold diuretic. Status: Acute (8) Elevated troponin: No chest pain. EKG changes without suggestion of acute GA. Suspect this is due to demand ischemia. Monitor on telemetry. Status: Acute (9) Microscopic hematuria: Incidentally noted. Consider follow-up reassessment for resolution after discharge. No gross hematuria. On anticoagulation. No signs of UTI otherwise. Status: Acute (10) Hematochezia: He reports on and off some red discoloration in his stool. Possibly small amount/low-grade bleed. Hemoccult was positive during last admission. He is chronically on anticoagulation which appears to be for atrial fibrillation. For now continue. Hemoglobin appears to be hemoconcentrated, but will monitor for bleeding. Status: Acute (11) Melanoma: Undergoing treatment with checkpoint inhibitors. Follows with Dr. Mendenhall. Status: Acute (12) Sleep apnea: CPAP nightly. Status: Acute (13) Smoking addiction: Continue to encourage smoking cessation. Status: Acute Attestations Medical Necessity Statement*: Continue admission for IV steroid treatment of persistent/relapsed severe colitis due to checkpoint inhibitor treatment, possible other infectious or inflammatory colitis, with high risk of relapse, persistent diarrhea, needing continued treatment and monitoring in the hospital. Coding Level of Care Code Acute Vending Machine Technician for [facility] Fwd Diagnoses Colitis K52.9 Hypoxia R09.02 Leukocytosis D72.829 Acute kidney injury N17.9 Hypotension I95.9 Hyponatremia E87.1 Hypokalemia E87.6 Elevated troponin R77.8 Microscopic hematuria R31.29 Hematochezia K92.1 Melanoma C43.9 Sleep apnea G47.30 Smoking addiction F17.200
[2020-10-31] MEDS: levofloxacin-dextrose 5 % 750 MG/150 ML PREMIX 100 MG IV (12:23)
[2020-10-31] MEDS: loperamide liquid 1 mg/7.5 mL Btl 120 mL 2 MG PO (16:34)
[2020-10-31 16:37] LABS: Glucose Point of Care 312 mg/dL (70-110)
--- NOTE | 2020-10-31 18:10 | NUR.SHIFT ---
SHIFT SUMMARY PATIENT HAS DONE WELL TODAY. STILL HAVE SEVERAL LOOSE STOOLS BUT APPEAR TO BE IMPROVING. NO COMPLAINTS OF PAIN. PATIENT HAS AMBULATED SEVERAL TIMES TODAY. PATIENT STILL HAS A POOR APPETITE BUT IS IMPROVING. CONTINUE TO MONITOR.
[2020-10-31 20:58] LABS: Glucose Point of Care 170 mg/dL (70-110)
[2020-10-31] MEDS: CLONazepam 1 mg Tablet PO (21:13)
[2020-10-31] MEDS: CLONazepam 0.5 mg Tablet PO (21:13)
[2020-11-01] VITALS (8 sets, daily range): BP systolic 121–164; BP diastolic 54–86; PULSE 55–73; RESP 16–18; TEMP 35.9–37; O2SAT 92–98
[2020-11-01] MEDS: loperamide liquid 1 mg/7.5 mL Btl 120 mL 2 MG PO (01:04)
[2020-11-01] MEDS: metroNIDAZOLE IV 500 MG/100 ML PREMIX 100 MG IV ×2 (01:07→08:46)
[2020-11-01] MEDS: levothyroxine 100 mcg Tablet 200 MCG PO (06:28)
[2020-11-01 06:37] LABS: Glucose Point of Care 146 mg/dL (70-110)
[2020-11-01] MEDS: albuterol 8 gm MDI INHALATION (08:11)
[2020-11-01] MEDS: citalopram 20 mg Tablet 40 MG PO (08:45)
[2020-11-01] MEDS: cetirizine 10 mg Tablet PO (08:46)
[2020-11-01] MEDS: apixaban 5 mg Tablet PO ×2 (08:46→21:10)
[2020-11-01 10:44] LABS: Glucose Point of Care 173 mg/dL (70-110)
[2020-11-01 11:27] LABS: Basophils % 0.2 %; Eosinophils % 0.1 %; Hematocrit 32.9 % (42.0-52.0); Hemoglobin 10.6 g/dL (11.7-16.6); Lymphocytes # 0.5 10^3/uL (0.8-4.8); Lymphocytes % 4.1 %; Mean Corpuscular HGB Conc 32.2 g/dL (30.0-36.0); Mean Corpuscular Hemoglobin 27.5 pg (28.0-34.0); Mean Corpuscular Volume 85.5 fL (80-94); Mean Platelet Volume 8.9 fL (7.4-10.4); Monocytes # 0.6 10^3/uL (0.2-0.9); Neutrophils # 10.84 10^3/uL (1.8-7.7); Neutrophils % 89.9 %; Nucleated Red Blood Cells % 0 %; Platelet Count 302 10^3/cmm (130-400); Red Blood Count 3.85 10^6/uL (4.1-5.3); Red Cell Distribution Width 15.5 % (12.1-15.1); White Blood Count 12.1 10^3/uL (4.0-10.0)
[2020-11-01] MEDS: famotidine 20 mg/2 mL INJ IVP ×2 (12:36→23:12)
[2020-11-01] MEDS: levofloxacin-dextrose 5 % 750 MG/150 ML PREMIX 100 MG IV (12:36)
--- NOTE | 2020-11-01 16:00 | PM.PN ---
Subjective Subjective: Interval history: Patient was seen and examined this morning, he was very pleasant, did not complain of any active nausea, vomiting endorsed frequent diarrheal episode more than 10, endorses abdominal cramps but no abdominal pain at all or fever Has been getting antibiotics, stayed afebrile, labs and imaging and stool report reviewed Vitals/I&O/Wt Last Vital Signs Temp 97.5 F L 11/01/20 15:57 Pulse 60 11/01/20 15:57 Resp 18 11/01/20 15:57 BP 130/76 11/01/20 15:57 Pulse Ox 98 11/01/20 15:57 11/01/20 11/01/20 11/01/20 06:59 14:59 22:59 Intake Total 100 / 910 820 / 820 150 / 970 Output Total 325 / 1225 Balance -225 / -315 820 / 820 150 / 970 Weight last 48 hrs Weight 92.125 kg Weight 90.537 kg Physical Exam Narrative: EXAM NARRATIVE: Was laying comfortably in his bed when I entered the room, saturating well on room air Pleasant mood Does not look clinically dehydrated S1, S2 no signs of heart failure Distended abdomen, soft nontender bowel sounds hyperactive No lower extremity edema gangrene or ulcer No neurological deficits No joint swelling Appropriate mood and affect No acute respiratory distress Data : 11/01/20 11:15 10/31/20 05:59 A&P Assessment and plan (1) Colitis: Status: Acute (2) Hypoxia: Status: Acute Additional A&P Information Colitis 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 difficile or ova parasites, he has been afebrile Can use Imodium if needed He has been afebrile without any blood in stool Does not look clinically dehydrated If is able to tolerate his diet and benefit from Imodium we will plan to discharge him tomorrow He will need colonoscopy once his inflammation subsides for now continue steroids denies previous history of plan. Bowel disease Continue steroids with transitioning of IV antibiotics to p.o. Hypoxia: Resolved currently saturating well on room air discontinue antibiotics highly doubt pneumonia to be the etiology, less likely to have PE Acute kidney injury: Resolved fluid resuscitation Potassium repleted for hypokalemia Regular diet: Advance today Full code DVT prophylaxis Lovenox Anticipating discharge tomorrow Attestations Medical Necessity Statement*: More than 10 episodes of diarrhea, patient is still experiencing profuse diarrheal episodes at risk of relapse and dehydration, currently monitoring, likely will be discharged tomorrow Time Spent in Patient Care: (>than 50% of time spent in counselling and/or direct pt care on unit). 30mins Coding Level of Care Code Acute Food Safety Technician for [employer] Fwd Diagnoses Colitis K52.9 Hypoxia R09.02
[2020-11-01 16:56] LABS: Glucose Point of Care 127 mg/dL (70-110)
[2020-11-01] MEDS: potassium chloride ER 20 mEq Tablet 40 MEQ PO (17:49)
[2020-11-01] MEDS: cholestyramine powder 4 gm Pkt PO (17:50)
[2020-11-01] MEDS: CLONazepam 0.5 mg Tablet PO (21:11)
[2020-11-01] MEDS: CLONazepam 1 mg Tablet PO (21:11)
[2020-11-01] MEDS: metroNIDAZOLE 500 MG Tablet PO (21:11)
[2020-11-01] MEDS: oxyCODONE-APAP 5-325 mg Tablet 1 TAB PO (21:12)
[2020-11-01 21:18] LABS: Glucose Point of Care 122 mg/dL (70-110)
[2020-11-02] VITALS (8 sets, daily range): BP systolic 145–164; BP diastolic 75–88; PULSE 55–71; RESP 17–18; TEMP 36.1–36.6; O2SAT 94–98
[2020-11-02] MEDS: levothyroxine 100 mcg Tablet 200 MCG PO (06:00)
[2020-11-02] MEDS: loperamide liquid 1 mg/7.5 mL Btl 120 mL 2 MG PO (06:01)
[2020-11-02 06:29] LABS: Anion Gap 12.2 (5-19); Blood Urea Nitrogen 19 mg/dL (8-23); Calcium 8.9 mg/dL (8.5-10.5); Carbon Dioxide 29 mmol/L (22-29); Chloride 95 mmol/L (98-107); Glomerular Filtration Rate 84.2 mL/min (90-130); Glucose 126 mg/dL (65-115); Osmolality Calculated 278 mOsm/kg (285-295); Potassium 4.2 mmol/L (3.5-5.1); Sodium 132 mmol/L (136-145)
[2020-11-02 06:29] LABS: Glucose Point of Care 163 mg/dL (70-110)
[2020-11-02] MEDS: cholestyramine powder 4 gm Pkt PO (08:41)
[2020-11-02] MEDS: citalopram 20 mg Tablet 40 MG PO (08:41)
[2020-11-02] MEDS: metroNIDAZOLE 500 MG Tablet PO (08:42)
[2020-11-02] MEDS: oxyCODONE-APAP 5-325 mg Tablet 1 TAB PO (08:42)
[2020-11-02] MEDS: cetirizine 10 mg Tablet PO (08:42)
[2020-11-02] MEDS: apixaban 5 mg Tablet PO (08:42)
--- NOTE | 2020-11-02 08:45 | PC.SOCIAL ---
IMM Update Pg. 2 of IMM updated and reviewed with patient who verbalized understanding. Copy provided.
[2020-11-02] MEDS: albuterol 8 gm MDI INHALATION (09:11)
[2020-11-02 11:15] LABS: Glucose Point of Care 130 mg/dL (70-110)
--- NOTE | 2020-11-02 12:29 | P.DS_ITS ---
Discharge Providers Date of Admission: 10/28/20 13:17 Date of Discharge: November 02, 2020 Attending Provider at Admission: Jemal Reza Attending Provider at Discharge: Praneeth Wilkerson MD Primary Care Provider: PORFIRIO Beard Diagnoses at Discharge Discharge Diagnosis (1) Colitis: Status: Acute (2) Hypoxia: Status: Acute Reason for Visit Reason for Visit: N/V, DIARRHEA Hospital Course Hospital Course 65-year-old very pleasant gentleman who presented with chief complaint of profuse diarrhea. He follows up with Dr. Mendenhall for treatment of metastatic melanoma. C. 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 However he was kept on Zosyn along steroids. His diarrhea did not improve with Imodium however addition of cholestyramine did seem to help a little. He stayed afebrile never became septic nor complain abdominal pain nausea or vomiting. Dr. Mendenhall agreed with the treatment plan. WILLIAM was also noticed during admission which resolved with fluid resuscitation. Physical Exam Narrative: EXAM NARRATIVE: Very pleasant gentleman Was sitting in his chair at the time my evaluation Saturating well on room air No active chest pain No abdominal pain, abdomen is soft central obesity nontender No extremity no edema gangrene ulcer No neurological deficit No acute respite distress Discharge Data Data Completed and Pending: Completed Studies During Hospitalization Category Date Time Status CT abdomen pelvis wo con [id number] Stat Cat Scan 10/28/20 10:20 Completed XR chest 1V gerda ble [id number] Routine Exams 10/28/20 17:49 Completed XR chest 1V gerda ble [id number] Urgent Exams 10/28/20 11:05 Completed Pending at discharge Category Date Time Status Blood Culture Sta t Lab 10/28/20 21:54 Results Labs from last 24 hours 11/02/20 11/02/20 11/02/20 11:00 06:26 05:48 Sodium 132 L Potassium 4.2 Chloride 95 L Carbon Dioxide 29 Anion Gap 12.2 BUN 19 Creatinine 0.9 GFR Calculation 84.2 L Glucose 126 H POC Glucose 130 H 163 H Calculated Osmolal ity 278 L Calcium 8.9 Magnesium 2.0 11/01/20 11/01/20 21:13 16:52 Sodium Potassium Chloride Carbon Dioxide Anion Gap BUN Creatinine GFR Calculation Glucose POC Glucose 122 H 127 H Calculated Osmolal ity Calcium Magnesium Addt'l Data from Hospital Stay: [facility] [address] [place] [address] CT Scan Report Signed Patient: Catrachito Agosto #: [id number] : [id number]#:[id number] Age/Sex: 65 / MADM Date: 10/28/20 Loc: ERRoom/Bed: Attending Dr: Ordering Provider/Ordering MD: Andrew Garcia MD Date of Service: 10/28/20 Procedure(s): CT abdomen pelvis wo con [id number] Accession Number(s): [id number] Report Number: [id number] WS: [id number] CT ABDOMEN AND PELVIS NONCONTRAST HISTORY: abdominal pain n/v/d. Recent sepsis from colitis TECHNIQUE: Imaging performed through the abdomen and pelvis. Coronal and sagittal reformats are submitted. All CT scans at [facility] use at least one of these dose optimization techniques: automated exposure control; mA and/or kV adjustment per patient size (includes targeted exams where dose is matched to clinical indication); or iterative reconstruction. DLP: 1277.23 mGy.cm COMPARISON: 10/16/2020 Lower thorax: Mild dependent changes at the lung bases. Moderate enlargement the heart. Moderate size hiatal hernia. Liver: Mild hepatomegaly and hepatic steatosis. No bile duct dilatation or mass. Gallbladder: Normal gallbladder. Pancreas: Normal size and attenuation. Normal pancreatic duct. No pancreatitis or mass. Spleen: Normal. Adrenal glands: Mild nodularity at the LEFT adrenal gland is unchanged. Negative RIGHT adrenal. Right kidney: Normal size kidney with no mass or hydronephrosis. Left kidney: Normal size kidney with no mass or hydronephrosis. Aorta: Mild atherosclerosis abdominal aorta with no aneurysm. No free fluid, intraperitoneal air or significant lymphadenopathy. GI tract: There is persistent mucosal edema and thickening greatest involving the ascending and transverse colon. As compared to the most recent study the extent of the colitis and inflammatory changes has moderately improved. Mild dilatation of the distal small bowel with fluid. No high-grade strictures are identified. Abdominal wall: Negative. No hernia. Pelvis: Normal. Osseous structures: Increase in the lower lumbar lordosis. No osteoblastic or osteolytic bone disease. CT/CT abdomen pelvis wo con [id number] IMPRESSION: 1. Persistent circumferential mucosal edema and wall thickening greatest involving the ascending and transverse colon. Overall moderate improvement since 10/16/2020. Differential includes infectious and inflammatory disease. Early changes of pseudomembranous colitis should also be considered. 2. No ascites. Vitals: Last Vital Signs Temp 97.6 F 11/02/20 11:36 Pulse 56 L 11/02/20 11:36 Resp 17 11/02/20 11:36 BP 153/85 11/02/20 11:36 Pulse Ox 98 11/02/20 11:36 Discharge Plan Discharge Patient Disposition: Home Condition: Stable Prescriptions: New metronidazole 500 mg Tablet 500 mg PO TID 5 Days Qty: 15 RF: 0 levofloxacin 750 mg Tablet 750 mg PO Q24H 5 Days Qty: 5 RF: 0 cholestyramine (with sugar) 4 gram Powder In Packet 4 g PO BID 10 Days Qty: 20 RF: 0 methylprednisolone [Medrol (Charly)] 4 mg tablets,dose pack 4 mg PO PER PKG DIR 7 Days Qty: 21 RF: 0 Continued ergocalciferol (vitamin D2) [Vitamin D2] 1,250 mcg (50,000 unit) capsule See Rx Instructions .ROUTE .COMPLEX Qty: 4 RF: 3 citalopram 40 mg tablet 40 mg PO DAILY@0800 RF: 0 trazodone 50 mg tablet 50 mg PO DAILY@0800 RF: 0 diltiazem HCl 180 mg capsule,extended release 24hr 180 mg PO DAILY@0800 RF: 0 potassium chloride 20 mEq tablet,ER particles/crystals 20 meq PO DAILY@0800 RF: 0 torsemide 100 mg tablet 100 mg PO DAILY@0800 RF: 0 Hold Instructions: Resume on 10/25/20. montelukast 10 mg tablet 10 mg PO DAILY@0800 RF: 0 levothyroxine 200 mcg tablet 200 mcg PO DAILY@0700 RF: 0 ezetimibe 10 mg tablet 10 mg PO DAILY@0800 RF: 0 rosuvastatin 20 mg tablet 20 mg PO DAILY@0800 RF: 0 bupropion HCl 300 mg tablet extended release 24 hr 300 mg PO DAILY@0800 RF: 0 Januvia 25 mg tablet 25 mg PO DAILY@0800 RF: 0 Dexilant 60 mg capsule,biphase delayed releas 60 mg PO DAILY@0800 RF: 0 losartan 50 mg Tablet 50 mg PO DAILY@0800 RF: 0 tizanidine 4 mg Tablet 4 mg PO BEDTIME@1999 RF: 0 hydrocodone-acetaminophen 5-325 mg tablet 1 tab PO Q6H PRN (Reason: Pain) RF: 0 clonazepam 1 mg tablet 1.5 mg PO DAILY@0800 RF: 0 albuterol sulfate [ProAir HFA] 90 mcg/actuation HFA aerosol inhaler See Rx Instructions .ROUTE .COMPLEX RF: 0 fluticasone propionate 1 spray nasal DAILY PRN (Reason: Allergy Symptoms) RF: 0 loperamide [Anti-Diarrheal (loperamide)] 1 mg/7.5 mL liquid 2 mg PO Q4H PRN (Reason: loose stool) Qty: 120 RF: 0 Eliquis 5 mg tablet 5 mg PO BID@08,1999 RF: 0 Phospha 250 Neutral 250 mg tablet 500 mg PO BID@08,1999 RF: 0 magnesium oxide 400 mg magnesium tablet 400 mg PO BID@799,1999 RF: 0 Changed torsemide 100 mg tablet 20 mg PO DAILY@0800 30 Days Qty: 30 RF: 0 Discontinued tramadol 50 mg tablet 50 mg PO BID PRN (Reason: Pain) RF: 0 oxycodone-acetaminophen 10-325 mg tablet 1 tab PO Q6H PRN (Reason: Pain) RF: 0 Discharge Orders: Discharge Order (Routine); Ordered 11/02/20 Ordered By: Praneeth Wilkerson Referrals: ANTONIO Torres, ROLLER MACHINE OPERATOR [Primary Care Provider] - Patient Instructions: How to Stop Smoking (GEN), Cigarette Smoking and Your Health (GEN), Infectious Colitis (GEN) Activity Restrictions/Additional Instructions: Finish antibiotic course as recommended Medrol pack for 7 days please follow prescription directory for the dosage I have added cholestyramine which would help you with diarrhea along with Imodium If you develop fever nausea vomiting or profuse sweating currently return to the ED Discharge Attestations Time Spent in Discharge Care*: greater than 30 min Quality Metrics Clinical Quality Measures During this hospital stay, did patient experience: None Coding Level of Care Code 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
--- NOTE | 2020-11-02 12:58 | PC.NURSE ---
AT APPROX 1245 [facility]E[employer] DEACCESSED PTS PORT.
[2020-11-02] MEDS: levoFLOXacin 750 mg Tablet PO (13:17)
== END 2020-11-02 13:20 | disposition home or self-care (01) | DRG 393 ==
LOC: ER 13:20 → MEDSURG 14:02
PROVIDERS: Admitting Provider Internal Medicine; Emergency Provider Family Medicine; PCP Nurse Practitioner Family; Visit Provider Internal Medicine
DX: K52.1 Toxic gastroenteritis and colitis (principal); J18.9 Pneumonia, unspecified organism; N17.9 Acute kidney failure, unspecified; E87.1 Hypo-osmolality and hyponatremia; K92.1 Melena; T45.1X5A Adverse effect of antineoplastic and immunosuppressive drugs, initial encounter; C43.9 Malignant melanoma of skin, unspecified; I95.9 Hypotension, unspecified; I25.10 Atherosclerotic heart disease of native coronary artery without angina pectoris; Z98.61 Coronary angioplasty status; G47.30 Sleep apnea, unspecified; F41.9 Anxiety disorder, unspecified; I48.91 Unspecified atrial fibrillation; G89.4 Chronic pain syndrome; J32.9 Chronic sinusitis, unspecified; I50.9 Heart failure, unspecified; I11.0 Hypertensive heart disease with heart failure; E11.9 Type 2 diabetes mellitus without complications; E03.9 Hypothyroidism, unspecified; E78.2 Mixed hyperlipidemia; E55.9 Vitamin D deficiency, unspecified; F17.210 Nicotine dependence, cigarettes, uncomplicated; Z79.01 Long term (current) use of anticoagulants; Z79.891 Long term (current) use of opiate analgesic; Z79.899 Other long term (current) drug therapy; R09.02 Hypoxemia; E86.0 Dehydration; R31.29 Other microscopic hematuria; E87.6 Hypokalemia
CPT/HCPCS: 36415; 36416; 36591; 71045; 74176; 80048; 80053; 81001; 82274; 82962; 83605; 83630; 83690; 83735; 83880; 84484; 85025; 85610; 85651; 86140; 87040; 87426; 87493; 87506; 93005; 94640; 94660; 94664; 96365; 96367; 96372; 96375; 99285; J1815; J1956; J2405; J2930; J3490; J3535; J7030; S0030

== ENCOUNTER 2020-11-09 09:19 | Inpatient (IN) | payer MEDICARE, MEDICAID, SELFPAY ==
[2020-11-09] VITALS (35 sets, daily range): BP systolic 85–137; BP diastolic 39–69; PULSE 64–93; RESP 12–25; TEMP 37.2–38; O2SAT 92–99; BMI 28.1
--- NOTE | 2020-11-09 09:29 | XR_ITS ---
WS: [id number] XR hip RT 2-3V wo/w pel* [id number] REASON FOR EXAM: fall/pain FINDINGS: No fracture or dislocation of the right hip joint. Moderate narrowing of the right hip joint space. No fracture of the superior or inferior pubic ramus. No soft tissue abnormality. XR/XR hip RT 2-3V wo/w pel* [id number] IMPRESSION: No acute abnormality.
--- NOTE | 2020-11-09 09:29 | W.ED.GENADLT ---
HPI - General Adult General: Chief complaint: Weakness Stated complaint: WEAKNESS, POST FALL Time Seen by Provider: 11/09/20 09:23 History of Present Illness: HPI narrative: 65 year old male presents emergency room with weakness and a fall at home. Review of his records he has a history of metastatic melanoma with involvement of the right hemicolon he has had 2 hospitalizations in the last 2 months 1 for diarrhea 1 for pneumonia. He is currently still being treated he is also thought to have a colitis with diarrhea secondary to checkpoint inhibitors from his chemotherapy. He is also on Eliquis for atrial fibrillation. Today he fell into bathroom in his home he did hit his head on the way down he is complaining of right hip pain he is a little foggy on several nails points in his history could not tell me his diagnosis of cancer. Onset (ago): minute(s) Location: head Relieving factors: none Exacerbating factors: none Associated symptoms: Reports confusion; Deny chest pain, cough, diaphoresis, decreased appetite, dyspnea, fevers/chills, headache(s), malaise, nausea, rash, palpitations, seizures, short of breath, syncope, vomiting or weakness Treatments prior to arrival: none Review of Systems Const: Denies: malaise or diaphoresis ENMT: Denies: throat pain, ear or mastoid pain, nasal discharge or nasal congestion Card: Denies: chest pain, palpitations or syncope Resp: Denies: dyspnea GI: Denies: nausea or vomiting : Denies: flank pain, dysuria, urinary frequency or urinary urgency Skin/Breast: Denies: rash Neuro: Reports: confusion; Denies: headache(s) PFSH ED PFSH: Medical History Acute lower respiratory infection Anxiety ASHD (arteriosclerotic heart disease) Atrial fibrillation Chronic pain syndrome Chronic recurrent sinusitis Chronic seasonal allergic rhinitis Colitis Congestive heart failure (CHF) Diabetes mellitus, type II Essential hypertension Hypertrophic cardiomyopathy Hypomagnesemia Hypothyroidism Insomnia Iron deficiency Lower respiratory infection Melanoma Mixed hyperlipidemia Multilevel degenerative disc disease Sleep apnea Smoking addiction Vitamin D deficiency Surgical History Coronary angioplasty status [facility] 2105 H/O ventricular septal myectomy Family History Mother Myocardial infarction Father Hypertension Other Diabetes Family history of CABG Social History Smoking and tobacco status: current every day smoker Second hand smoke exposure: No Desire information about alcohol rehabilitation?: No Counseling given: No Desire information about substance/drug rehabilitation?: No Counseling given: No Physical Exam Const: COMMON NORMALS: no acute distress GENERAL APPEARANCE: cooperative and comfortable HENMT: COMMON NORMALS: normocephalic, atraumatic and hearing grossly normal bilaterally HEAD & SCALP: normocephalic and atraumatic Eye: COMMON NORMALS: Equal, round and reactive pupils present, EOMs intact bilaterally, conjunctivae normal and no scleral icterus CONJUNCTIVA: Yes conjunctivae normal PUPIL: Yes Equal, round and reactive pupils present Neck/C-Spine: COMMON NORMALS: full ROM, no lymphadenopathy, supple and no JVD Lymph: LYMPHATIC: no lymphadenopathy noted and no lymphedema noted Resp: COMMON NORMALS: normal respiratory effort, No retractions, No use of accessory muscles and clear to auscultation bilaterally AUSCULTATION: clear to auscultation bilaterally Cardio: COMMON NORMALS: no JVD, regular rate, regular rhythm and No murmurs present (Cardio) RATE: regular rate RHYTHM: regular rhythm GI: COMMON NORMALS: Soft to palpation and No hepatosplenomegaly present AUSCULTATION: Yes normoactive bowel sounds PALPATION: Yes Soft to palpation, No Tenderness to palpation present (GI), No Guarding due to palpation present (GI) and Yes No hepatosplenomegaly present Extremity: COMMON NORMALS: normal to inspection, capillary refill normal, no clubbing, cyanosis or edema, no calf tenderness and no pedal edema Skin: COMMON NORMALS: no rashes or lesions noted GENERAL SKIN EXAM: no rashes or lesions noted Course Vital Signs: Vital signs: Vital Signs Temperature 100.4 F H 11/09/20 09:20 Pulse Rate 73 11/09/20 12:18 Respiratory Rate 17 11/09/20 12:18 Blood Pressure 117/52 11/09/20 12:18 Pulse Oximetry 98 11/09/20 12:18 MDM - General Adult MDM Narrative: Medical decision making narrative: Patient is hyponatremic had a fever and was also hypotensive when he first arrived given that along with his medical history he be better to watch him overnight suspect this fall may be in part related to the hyponatremia which will need to correct. We will put him on empiric antibiotics as well. Discussed with hospitalist orders are written Lab Data: Labs: Lab Results 11/09/20 11/09/20 11/09/20 Range/Units 09:27 10:09 10:14 WBC 12.1 H (4.0-10.0) 10^3/ uL RBC 4.87 (4.1-5.3) 10^6/u L Hgb 13.5 (11.7-16.6) g/dL Hct 40.7 L (42.0-52.0) % MCV 83.6 (80-94) fL MCH 27.7 L (28.0-34.0) pg MCHC 33.2 (30.0-36.0) g/dL RDW 15.1 (12.1-15.1) % Plt Count 185 (130-400) 10^3/c mm MPV 9.0 (7.4-10.4) fL Neut % (Auto) 84.5 % Lymph % (Auto) 8.4 % [place] % (Auto) 4.7 % Eos % (Auto) 0.2 % Baso % (Auto) 0.7 % Neut # (Auto) 10.21 H (1.8-7.7) 10^3/u L Lymph # (Auto) 1.0 (0.8-4.8) 10^3/u L [place] # (Auto) 0.6 (0.2-0.9) 10^3/u L Eos # (Auto) 0.0 (0.0-0.8) 10^3/u L Baso # (Auto) 0.1 (0.0-0.1) 10^3/u L Nucleated RBC % (a uto) 0 % Nucleated RBCs # 0.0 /100WBC Specimen Type Arterial Sample Site Radial, left ABG pH 7.53 H (7.35-7.45) ABG pCO2 40.3 (35-45) mmHg ABG pO2 50.7 L (80.0-100.0) mmH g ABG HCO3 33.4 H (22-26) mmol/L ABG Base Excess 9.7 H (-2.0-2.0) mmol/ L Esvin Test Pos Hematocrit 40.4 L (42-52) % Hgb O2 Saturation 86.2 L (95-100) % Carboxyhemoglobin 1.5 (0.4-20.1) %THgb Methemoglobin 0.9 (0.4-1.5) % Total Hemoglobin 13.2 L (14-18) g/dL O2 Delivery Device Room air FiO2 21.0 % Licensed Practical Vocational Nurse ID Cak Sodium (136-145) mmol/L Potassium (3.5-5.1) mmol/L Chloride (98-107) mmol/L Carbon Dioxide (22-29) mmol/L Anion Gap (5-19) BUN (8-23) mg/dL Creatinine (0.7-1.2) mg/dL GFR Calculation (90-130) mL/min Glucose (65-115) mg/dL POC Glucose 98 (70-110) mg/dL Calculated Osmolal ity (285-295) mOsm/k g Lactic Acid (0.5-2.2) mmol/L Calcium (8.5-10.5) mg/dL Total Bilirubin (0.15-1.2) mg/dL AST (0-40) U/L ALT (0-41) U/L Alkaline Phosphata se (40-130) IU/L Total Protein (6.6-8.7) g/dL Albumin (3.5-5.2) g/dL Globulin (1.3-4.6) g/dL Lipase (13-60) U/L Urine Color (Yellow) Urine Appearance (CLEAR) Urine pH (5-7) Ur Specific Gravit y (1.005-1.030) Urine Protein (Negative) Urine Glucose (UA) (Normal) Urine Ketones (Negative) Urine Blood (Negative) Urine Nitrate (Negative) Urine Bilirubin (Negative) Urine Urobilinogen (Negative) mg/dL Ur Leukocyte Abida ase (Negative) Influenza Type A A g (Negative) Influenza Type B A g (Negative) SARS-CoV-2 Ag (Rap id) (Negative) 11/09/20 11/09/20 11/09/20 Range/Units 10:14 10:14 10:53 WBC (4.0-10.0) 10^3/ uL RBC (4.1-5.3) 10^6/u L Hgb (11.7-16.6) g/dL Hct (42.0-52.0) % MCV (80-94) fL MCH (28.0-34.0) pg MCHC (30.0-36.0) g/dL RDW (12.1-15.1) % Plt Count (130-400) 10^3/c mm MPV (7.4-10.4) fL Neut % (Auto) % Lymph % (Auto) % [place] % (Auto) % Eos % (Auto) % Baso % (Auto) % Neut # (Auto) (1.8-7.7) 10^3/u L Lymph # (Auto) (0.8-4.8) 10^3/u L [place] # (Auto) (0.2-0.9) 10^3/u L Eos # (Auto) (0.0-0.8) 10^3/u L Baso # (Auto) (0.0-0.1) 10^3/u L Nucleated RBC % (a uto) % Nucleated RBCs # /100WBC Specimen Type Sample Site ABG pH (7.35-7.45) ABG pCO2 (35-45) mmHg ABG pO2 (80.0-100.0) mmH g ABG HCO3 (22-26) mmol/L ABG Base Excess (-2.0-2.0) mmol/ L Esvin Test Hematocrit (42-52) % Hgb O2 Saturation (95-100) % Carboxyhemoglobin (0.4-20.1) %THgb Methemoglobin (0.4-1.5) % Total Hemoglobin (14-18) g/dL O2 Delivery Device FiO2 % Licensed Practical Vocational Nurse ID Sodium 122 L (136-145) mmol/L Potassium 3.6 (3.5-5.1) mmol/L Chloride 82 L (98-107) mmol/L Carbon Dioxide 33 H (22-29) mmol/L Anion Gap 10.6 (5-19) BUN 12 (8-23) mg/dL Creatinine 1.0 (0.7-1.2) mg/dL GFR Calculation 74.5 L (90-130) mL/min Glucose 81 (65-115) mg/dL POC Glucose (70-110) mg/dL Calculated Osmolal ity 253 L (285-295) mOsm/k g Lactic Acid 1.4 (0.5-2.2) mmol/L Calcium 8.4 L (8.5-10.5) mg/dL Total Bilirubin 0.6 (0.15-1.2) mg/dL AST 18 (0-40) U/L ALT 7 (0-41) U/L Alkaline Phosphata se 68 (40-130) IU/L Total Protein 5.2 L (6.6-8.7) g/dL Albumin 2.8 L (3.5-5.2) g/dL Globulin 2.4 (1.3-4.6) g/dL Lipase 36 (13-60) U/L Urine Color (Yellow) Urine Appearance (CLEAR) Urine pH (5-7) Ur Specific Gravit y (1.005-1.030) Urine Protein (Negative) Urine Glucose (UA) (Normal) Urine Ketones (Negative) Urine Blood (Negative) Urine Nitrate (Negative) Urine Bilirubin (Negative) Urine Urobilinogen (Negative) mg/dL Ur Leukocyte Abida ase (Negative) Influenza Type A A g Negative (Negative) Influenza Type B A g Negative (Negative) SARS-CoV-2 Ag (Rap id) (Negative) 11/09/20 11/09/20 Range/Units 10:53 11:19 WBC (4.0-10.0) 10^3/ uL RBC (4.1-5.3) 10^6/u L Hgb (11.7-16.6) g/dL Hct (42.0-52.0) % MCV (80-94) fL MCH (28.0-34.0) pg MCHC (30.0-36.0) g/dL RDW (12.1-15.1) % Plt Count (130-400) 10^3/c mm MPV (7.4-10.4) fL Neut % (Auto) % Lymph % (Auto) % [place] % (Auto) % Eos % (Auto) % Baso % (Auto) % Neut # (Auto) (1.8-7.7) 10^3/u L Lymph # (Auto) (0.8-4.8) 10^3/u L [place] # (Auto) (0.2-0.9) 10^3/u L Eos # (Auto) (0.0-0.8) 10^3/u L Baso # (Auto) (0.0-0.1) 10^3/u L Nucleated RBC % (a uto) % Nucleated RBCs # /100WBC Specimen Type Sample Site ABG pH (7.35-7.45) ABG pCO2 (35-45) mmHg ABG pO2 (80.0-100.0) mmH g ABG HCO3 (22-26) mmol/L ABG Base Excess (-2.0-2.0) mmol/ L Esvin Test Hematocrit (42-52) % Hgb O2 Saturation (95-100) % Carboxyhemoglobin (0.4-20.1) %THgb Methemoglobin (0.4-1.5) % Total Hemoglobin (14-18) g/dL O2 Delivery Device FiO2 % Licensed Practical Vocational Nurse ID Sodium (136-145) mmol/L Potassium (3.5-5.1) mmol/L Chloride (98-107) mmol/L Carbon Dioxide (22-29) mmol/L Anion Gap (5-19) BUN (8-23) mg/dL Creatinine (0.7-1.2) mg/dL GFR Calculation (90-130) mL/min Glucose (65-115) mg/dL POC Glucose (70-110) mg/dL Calculated Osmolal ity (285-295) mOsm/k g Lactic Acid (0.5-2.2) mmol/L Calcium (8.5-10.5) mg/dL Total Bilirubin (0.15-1.2) mg/dL AST (0-40) U/L ALT (0-41) U/L Alkaline Phosphata se (40-130) IU/L Total Protein (6.6-8.7) g/dL Albumin (3.5-5.2) g/dL Globulin (1.3-4.6) g/dL Lipase (13-60) U/L Urine Color Yellow (Yellow) Urine Appearance Clear (CLEAR) Urine pH 6.5 (5-7) Ur Specific Gravit y 1.010 (1.005-1.030) Urine Protein Neg (Negative) Urine Glucose (UA) Norm (Normal) Urine Ketones Negative (Negative) Urine Blood Neg (Negative) Urine Nitrate Negative (Negative) Urine Bilirubin Neg (Negative) Urine Urobilinogen Norm (Negative) mg/dL Ur Leukocyte Abida ase Negative (Negative) Influenza Type A A g (Negative) Influenza Type B A g (Negative) SARS-CoV-2 Ag (Rap id) Negative (Negative) Discharge Plan Discharge Patient Disposition: Admitted As Inpatient Clinical Impression: Fever of unknown origin, Essential hypertension, Atrial fibrillation, Diabetes mellitus, type II, Melanoma, Acute hyponatremia, Fall Condition: Stable Prescriptions: No Action ergocalciferol (vitamin D2) [Vitamin D2] 1,250 mcg (50,000 unit) capsule See Rx Instructions .ROUTE .COMPLEX Qty: 4 RF: 3 citalopram 40 mg tablet 40 mg PO DAILY@07 RF: 0 trazodone 50 mg tablet 50 mg PO DAILY@21 PRN (Reason: Sleep) RF: 0 diltiazem HCl 180 mg capsule,extended release 24hr 180 mg PO DAILY@07 RF: 0 potassium chloride 20 mEq tablet,ER particles/crystals 20 meq PO BID RF: 0 montelukast 10 mg tablet 10 mg PO DAILY@21 RF: 0 levothyroxine 200 mcg tablet See Rx Instructions .ROUTE .COMPLEX RF: 0 ezetimibe 10 mg tablet 10 mg PO DAILY@21 RF: 0 rosuvastatin 20 mg tablet 20 mg PO DAILY@21 RF: 0 bupropion HCl 300 mg tablet extended release 24 hr 300 mg PO DAILY@07 RF: 0 Januvia 25 mg tablet 25 mg PO DAILY@07 RF: 0 Dexilant 60 mg capsule,biphase delayed releas 60 mg PO DAILY@21 RF: 0 clonazepam 1 mg tablet 1.5 mg PO DAILY@21 PRN (Reason: unknown) RF: 0 albuterol sulfate [ProAir HFA] 90 mcg/actuation HFA aerosol inhaler See Rx Instructions .ROUTE .COMPLEX RF: 0 loperamide [Anti-Diarrheal (loperamide)] 1 mg/7.5 mL liquid 2 mg PO Q4H PRN (Reason: loose stool) Qty: 120 RF: 0 Eliquis 5 mg tablet 5 mg PO BEDTIME RF: 0 Phospha 250 Neutral 250 mg tablet 500 mg PO BID RF: 0 magnesium oxide 400 mg magnesium tablet 400 mg PO BID RF: 0 cholestyramine (with sugar) 4 gram Powder In Packet 4 g PO BID 10 Days Qty: 20 RF: 0 Aspir-81 See Rx Instructions .ROUTE .COMPLEX RF: 0 prochlorperazine maleate 10 mg tablet 10 mg PO Q4H PRN (Reason: Nausea) RF: 0 Ultram 50 mg Tablet 50 mg PO BID PRN (Reason: Pain) RF: 0 Tylenol Extra Strength 500 mg Tablet 500 - 1,000 mg PO PRN RF: 0 oxycodone-acetaminophen 10-325 mg tablet 1 tab PO Q6H PRN (Reason: Pain) RF: 0 Flonase 50 mcg/actuation Miller,Suspension 2 spray INTRANASAL DAILY PRN (Reason: Allergy Symptoms) RF: 0 torsemide 100 mg tablet 20 mg PO DAILY@17 RF: 0 Referrals: ANTONIO Torres, FREIGHT ELEVATOR OPERATOR [Primary Care Provider] - Patient Instructions: Opioid Safety Coding Level of Care Code ED Design Printing Machine Setter for Dina Fwd Exam Comprehensive
--- NOTE | 2020-11-09 09:30 | XR_ITS ---
WS: [id number] XR chest 1V portable [id number] REASON FOR EXAM: dyspnea/cough FINDINGS: Sternal sutures. Normal heart and mediastinum. Right chest chemotherapy infusion port with catheter through the right subclavian vein with tip at th e superior caval atrial junction. Calcified granulomatous changes in both hemithoraces. No active pulmonary parenchymal or pleural dise ase. No significant bony abnormality. XR/XR chest 1V portable [id number] IMPRESSION: No acute chest abnormality.
--- NOTE | 2020-11-09 09:30 | CT_ITS ---
WS: [id number] CT HEAD TECHNIQUE: Noncontrast CT of the head obtained from the skullbase to the vertex. CLINICAL INFORMATION: fall, head trauma, oral antcoagulants COMPARISON: October 14, 2020 DLP: 878.[address] scans at [facility] use at least one of these dose optimization techniques: automat ed exposure control; mA and/or kV adjustment per patient size (includes targeted exams where dose is matched to clinical indication); or iterative reconstruction. FINDINGS: No evidence of intracranial hemorrhage or mass effect. Ventricular system and basal cisterns are kelley nt. Minimal small vessel changes with mild parenchymal volume loss. No extra-axial fluid collections. No evidence of mass or mass effect. Normal galloway-white differentiation. Paranasal sinuses and mastoid air cells are well aerated. .Normal visualized soft tissues. CT/CT head wo con* [id number] IMPRESSION: 1. No evidence of intracranial hemorrhage or mass effect. 2. Mild parenchymal volume loss. 3. No acute intracranial findings.
[2020-11-09 09:32] LABS: Glucose Point of Care 98 mg/dL (70-110)
[2020-11-09] MEDS: sodium chloride 0.9% 2,449.41 ML 2449.4 ML IV (09:32)
--- NOTE | 2020-11-09 09:40 | CT_ITS ---
WS: [id number] CT CERVICAL TRAUMA TECHNIQUE: Noncontrast CT of the cervical spine with coronal and sagittal reformatted images. CLINICAL INFORMATION: fall COMPARISON: None. DLP: 775.[address] scans at [facility] use at least one of these dose optimization techniques: automat ed exposure control; mA and/or kV adjustment per patient size (includes targeted exams where dose is matched to clinical indication); or iterative reconstruction. FINDINGS: Straightening of the normal cervical lordosis. Mild cervical curve. Mild spondylitic changes. Disc os teophytic ridging in the mid cervical spine. Normal craniocervical junction. Normal C1-C2 articulatio n. Dens is normal in appearance. Normal occipital condyles. No high-grade spinal canal narrowing. Nor mal C1 ring. No evidence of acute fracture or dislocation. Normal prevertebral soft tissues. Mastoids air cells are well aerated. CT/CT cervical spin wo con* [id number] IMPRESSION: Mild spondylitic changes cervical spine. No acute fractures.
--- NOTE | 2020-11-09 10:16 | PC.NURSE ---
Addendum entered by Tess Marin RN 11/09/20 10:24: All Blood and blood cultures in lab Original Note: All blood and blood cultures.
[2020-11-09 10:20] LABS: ABG PCO2 40.3 mmHg (35-45); ABG PH Result 7.53 (7.35-7.45); Arterial Blood Gas Hematocrit 40.4 % (42-52); Base Excess ABG 9.7 mmol/L (-2.0-2.0); Blood Gas Allen Test Pos; Blood Gas Operator Identificat CAK; Blood Gas Sample Site Radial, left; Blood Gas Sample Type Arterial; Carboxyhemoglobin 1.5 %THgb (0.4-20.1); HCO3 ABG 33.4 mmol/L (22-26); HGB O2 Sat 86.2 % (95-100); Methemoglobin 0.9 % (0.4-1.5); Oxygen Device ROOM AIR; PO2 ABG 50.7 mmHg (80.0-100.0); Total Hemoglobin 13.2 g/dL (14-18)
[2020-11-09 10:24] LABS: Basophils # 0.1 10^3/uL (0.0-0.1); Basophils % 0.7 %; Eosinophils % 0.2 %; Hematocrit 40.7 % (42.0-52.0); Hemoglobin 13.5 g/dL (11.7-16.6); Lymphocytes % 8.4 %; Mean Corpuscular HGB Conc 33.2 g/dL (30.0-36.0); Mean Corpuscular Hemoglobin 27.7 pg (28.0-34.0); Mean Corpuscular Volume 83.6 fL (80-94); Monocytes # 0.6 10^3/uL (0.2-0.9); Monocytes % 4.7 %; Neutrophils # 10.21 10^3/uL (1.8-7.7); Neutrophils % 84.5 %; Nucleated Red Blood Cells % 0 %; Platelet Count 185 10^3/cmm (130-400); Red Blood Count 4.87 10^6/uL (4.1-5.3); Red Cell Distribution Width 15.1 % (12.1-15.1); White Blood Count 12.1 10^3/uL (4.0-10.0)
--- NOTE | 2020-11-09 10:32 | PC.PHAR ---
pt unable to verify medications-pts caregiver madina states the pt takes the medications entered-pts caregiver states the pts aspirin was put on hold 2 weeks ago-states the pts eliquis was changed to 5mg po at bedtime-ext med history shows last filled on 11/03/20 30d/s for 5mg daily-caregiver states pt was told to start taking levothyroxine 100mcg po daily-ext med history shows last filled for 200mcg daily on 10/06/20 30d/s states the pt has been breaking the tabs in half-caregiver states the pt has been refusing to take magnesium and phospha for 3 days-pts caregiver states the pt finished medrol dose bryn, levofloxacin,and metronidazole on sunday
[2020-11-09 10:44] LABS: Alanine Aminotransferase 7 U/L (0-41); Albumin Level 2.8 g/dL (3.5-5.2); Alkaline Phosphatase 68 IU/L (40-130); Anion Gap 10.6 (5-19); Aspartate Amino Transferase 18 U/L (0-40); Blood Urea Nitrogen 12 mg/dL (8-23); Calcium 8.4 mg/dL (8.5-10.5); Carbon Dioxide 33 mmol/L (22-29); Chloride 82 mmol/L (98-107); Globulin 2.4 g/dL (1.3-4.6); Glomerular Filtration Rate 74.5 mL/min (90-130); Glucose 81 mg/dL (65-115); Lactic Sepsis W/Reflex 1.4 mmol/L (0.5-2.2); Lipase 36 U/L (13-60); Osmolality Calculated 253 mOsm/kg (285-295); Potassium 3.6 mmol/L (3.5-5.1); Sodium 122 mmol/L (136-145); Total Bilirubin 0.6 mg/dL (0.15-1.2); Total Protein 5.2 g/dL (6.6-8.7)
[2020-11-09 11:25] LABS: Add Urine Microscopic? NO
[2020-11-09 11:26] LABS: Influenza A by IFA Negative (Negative); Influenza B by IFA Negative (Negative); SARS Covid-2 Antigen Negative (Negative)
[2020-11-09 11:35] LABS: Bilirubin Urine Neg (Negative); Blood Urine Neg (Negative); Glucose Urine UA Norm (Normal); Ketones Urine Negative (Negative); Leukocyte Esterase Urine Negative (Negative); Nitrate Urine Negative (Negative); Protein Urine Neg (Negative); Urine Appearance Clear (CLEAR); Urine Color Yellow (Yellow); Urobilinogen Urine Norm (Negative); pH Urine 6.5 (5-7)
--- NOTE | 2020-11-09 12:01 | P.HP_ITS ---
Providers/Chief Complaint Primary Care Provider: PORFIRIO Beard Chief Complaint: WEAKNESS, POST FALL History of Present Illness Catrachito Agosto is a 65 year old male who has history of metastatic melanoma currently was discharged from the hospital after management of profuse diarrhea due to checkpoint inhibitor induced colitis however he received Zosyn, he was not septic. His diarrhea never resolved with the use of Imodium however ch olestyramine helped. He was discharged on Levaquin, metronidazole, cholestyramine and Medrol pack. Today he is presenting with chief complaint of generalized weakness and fall in his bathroom. Patient is stating that his diarrhea is still every 2 hours with cholestyramine he notes mild improvement otherwise no significant change he did not notice any fever worsening abdominal pain, he did experience 2-3 episodes of emesis at home today he was in his bathroom when he fell. He got up from sitting position to wash his hands and fell backwards. He is denying chest pain, shortness of breath, seizure-like activities. He has also not eaten well in last few days because of anorexia. Diagnostic work-up in the ER revealed systolic blood pressure in 90s, sodium 122 Blood pressure improved 1 L normal saline blood cultures were taken he received Levaquin for fever 100.4, contraction alkalosis, leukocytosis similar to the day of discharge In total he has received 3 L of normal saline blood pressure is still 85/55 I will transfer him to ICU for hypovolemic shock considering hyponatremia I would not like to give him more normal saline at this point monitor sodium level every 4 hours there are no active neurological signs or symptoms, ICU is needed to require vasopressors at this time I will give him stress dose steroids initiate his levothyroxine keep him on Zosyn because of pancolitis CT abdomen is revealing worsening of colitis, will also rule out C. difficile Review of Systems Const: Reports: chills, body aches and fatigue Eyes: Denies: change in vision ENMT: Denies: throat pain Card: Denies: chest pain Resp: Denies: dyspnea GI: Reports: nausea, vomiting and diarrhea : Denies: flank pain Musc: Denies: neck pain Skin/Breast: Denies: rash Neuro: Denies: headache(s) Psych: Denies: anxiety Endo: Denies: polyuria Greg/Lymph: Denies: easy bruising All/Imm: Denies: urticaria Medications/Allergies Home Medications Medication Instructions Recorded Confirmed Last Taken Type Dexilant 60 mg PO DAILY@09/13/20 11/09/20 10/28/20 History Januvia 25 mg PO DAILY@09/13/20 11/09/20 11/09/20 History bupropion HCl 300 mg PO DAILY@09/13/20 11/09/20 11/09/20 History citalopram 40 mg PO DAILY@09/13/20 11/09/20 11/09/20 History diltiazem HCl 180 mg PO DAILY@09/13/20 11/09/20 11/09/20 History ezetimibe 10 mg PO DAILY@09/13/20 11/09/20 10/14/20 History levothyroxine See Rx Instructions .ROUTE .COMPLEX 09/13/20 11/09/20 11/08/20 History montelukast 10 mg PO DAILY@09/13/20 11/09/20 10/28/20 History potassium chloride 20 meq PO BID 09/13/20 11/09/20 11/09/20 History rosuvastatin 20 mg PO DAILY@09/13/20 11/09/20 10/28/20 History trazodone 50 mg PO DAILY@ PRN 09/13/20 11/09/20 Unknown History albuterol sulfate [ProAir HFA] See Rx Instructions .ROUTE .COMPLEX 10/15/20 11/09/20 10/28/20 History clonazepam 1.5 mg PO DAILY@ PRN 10/15/20 11/09/20 10/28/20 History loperamide [Anti-Diarrheal 2 mg PO Q4H PRN #120 ml 10/19/20 11/09/20 Unknown Rx (loperamide)] ergocalciferol (vitamin D2) 1,250 See Rx Instructions .ROUTE 10/20/20 11/09/20 10/27/20 Rx mcg (50,000 unit) capsule .COMPLEX #4 cap Eliquis 5 mg PO BEDTIME 10/28/20 11/09/20 10/28/20 History Phospha 250 Neutral 500 mg PO BID 10/28/20 11/09/20 Unknown History magnesium oxide 400 mg PO BID 10/28/20 11/09/20 10/28/20 History cholestyramine (with sugar) 4 g PO BID 10 Days #20 ea 11/02/20 11/09/20 Unknown Rx Aspir-81 See Rx Instructions .ROUTE .COMPLEX 11/09/20 11/09/20 Unknown History acetaminophen [Tylenol Extra 500 - 1,000 mg PO PRN 11/09/20 11/09/20 Unknown Hi story Strength] fluticasone propionate [Flonase] 2 spray INTRANASAL DAILY PRN 11/09/20 11/09/20 Unknown History oxycodone-acetaminophen 1 tab PO Q6H PRN 11/09/20 11/09/20 Unknown History prochlorperazine maleate 10 mg PO Q4H PRN 11/09/20 11/09/20 Unknown History torsemide 20 mg PO DAILY@17 11/09/20 11/09/20 11/08/20 History tramadol [Ultram] 50 mg PO BID PRN 11/09/20 11/09/20 Unknown History Allergies Allergy/AdvReac Type Severity Reaction Status Date / Time Iodinated Contrast Media Allergy ALGY-Hives Verified 10/28/20 09:53 metoprolol Allergy unknown Verified 10/28/20 09:53 red dye Allergy unknown Verified 10/28/20 09:53 PFSH Acute PFSH: Medical History Acute lower respiratory infection Anxiety ASHD (arteriosclerotic heart disease) Atrial fibrillation Chronic pain syndrome Chronic recurrent sinusitis Chronic seasonal allergic rhinitis Colitis Congestive heart failure (CHF) Diabetes mellitus, type II Essential hypertension Hypertrophic cardiomyopathy Hypomagnesemia Hypothyroidism Insomnia Iron deficiency Lower respiratory infection Melanoma Mixed hyperlipidemia Multilevel degenerative disc disease Sleep apnea Smoking addiction Vitamin D deficiency Surgical History Coronary angioplasty status [facility] 2105 H/O ventricular septal myectomy Family History Mother Myocardial infarction Father Hypertension Other Diabetes Family history of CABG Social History Smoking and tobacco status: current every day smoker Second hand smoke exposure: No Desire information about alcohol rehabilitation?: No Counseling given: No Desire information about substance/drug rehabilitation?: No Counseling given: No Vitals/I&O/Wt Last Vital Signs Temp 100.4 F H 11/09/20 09:20 Pulse 73 11/09/20 11:39 Resp 17 11/09/20 11:39 BP 117/61 11/09/20 11:39 Pulse Ox 99 11/09/20 11:39 Weight last 48 hrs Weight 81.647 kg Physical Exam Narrative: EXAM NARRATIVE: Patient was seen and examined at the bedside Patient was awake alert oriented x3 clinically very dehydrated Dry mucous membranes Awake alert oriented x3 GCS 15 No active neurological deficit EOMI, PERRLA S1, S2, mild systolic murmur no active signs of heart failure Bilateral breath sounds without adventitious rhonchi or crackles abdomen soft mild tenderness on deep palpation in lower quadrants, bowel sounds are active No signs of peritonitis Lower extremity venous stasis dermatitis extremely cold dorsalis pedis 1+ bilaterally Appropriate mood and affect Urinary Catheter Management^: Lujan: Cath Placed During This Visit: yes Urinary Catheter Date of Insertion: 11/09/20 Urinary Catheter Time of Insertion: 11: Data : 11/09/20 10:14 11/09/20 10:14 Micro: Microbiology 11/09/20 10:14 Blood Culture - Preliminary Blood SPECIMEN COLLECTED 11/09/20 10:10 Blood Culture - Preliminary Blood SPECIMEN COLLECTED A&P Assessment and plan (1) Acute hyponatremia: Status: Acute (2) Fall: Status: Acute (3) Colitis: Status: Acute (4) Hypothyroidism: Status: Acute Qualifiers: Hypothyroidism type: acquired Qualified Code(s): E03.9 - Hypothyroidi sm, unspecified (5) Diabetes mellitus, type II: Status: Acute (6) Hypertrophic cardiomyopathy: Status: Acute (7) Atrial fibrillation: Status: Acute (8) Hypovolemic shock: Status: Acute (9) Diarrhea: Status: Acute Additional A&P Information Hypovolemic shock Secondary to severe diarrhea and vomiting Pancolitis which is worsening Received 3 L of normal saline current blood pressure 85/55, lower extremities cold however no sign of ischemia gangrene or ulcer we will transfer him to ICU for vasopressor use Not a candidate to receive more normal saline because of hyponatremia, start stress dose steroids and then methylprednisone, Hyponatremia Acute secondary to dehydration due to diarrhea Received 3 L of normal saline in the ER We will check sodium level every 4 hours and if needed will add D5 half-normal saline to avoid overcorrection Target correction 6 mEq in 24 hours Sepsis due to pancolitis Persistent diarrhea Rule out C. difficile Hewas discharged on Levaquin and metronidazole Leukocytosis same as 11/01, low-grade fever and leukocytosis will meet sepsis criteria I will continue him on steroids, Zosyn Patient is having bowel movement every 2 hours cholestyramine and Imodium has not helped his symptoms much it was deemed secondary to checkpoint inhibitor which she has not been taking Hemoglobin stable patient is denying melena or hematochezia Concentric hyper cardiomyopathy With recent diarrhea and dehydration I do believe his recent syncopal event was due to underlying cardiac condition On clinical exam he does not look fluid overloaded, he is extremely dehydrated No active chest pain, will obtain EKG EF 75% grade 2 diastolic dysfunction A. fib without RVR Currently on Eliquis I will hold Cardizem for now Full code Cardiac diet/consistent carb DVT prophylaxis not needed currently on Eliquis Attestations Medical Necessity Statement*: Need ICU for vasopressors due to hypovolemic shock due to sepsis/colitis Time Spent in Patient Care: (>than 50% of time spent in counselling and/or direct pt care on unit) . 45mins Coding Level of Care Code Acute Inspector Floor for Chg Fwd Diagnoses Acute hyponatremia E87.1 Fall W19.XXXA Colitis K52.9 Hypothyroidism E03.9 Hypothyroidism type: acquired Diabetes mellitus, type II E11.9 Hypertrophic cardiomyopathy I42.2 Atrial fibrillation I48.91 Hypovolemic shock R57.1 Diarrhea R19.7
--- NOTE | 2020-11-09 12:04 | CT_ITS ---
WS: [id number] CT ABDOMEN PELVIS TECHNIQUE: Contrast-enhanced CT of the abdomen and pelvis with coronal and sagittal reformatted image s. CLINICAL INFORMATION: colitis COMPARISON: October 28, 2020 DLP: 1707.[address] scans at [facility] use at least one of these dose optimization techniques: automat ed exposure control; mA and/or kV adjustment per patient size (includes targeted exams where dose is matched to clinical indication); or iterative reconstruction. FINDINGS: Diffuse fatty infiltration of the liver. Hepatomegaly. Portal vein and splenic vein are patent. Evy l pancreas. Normal spleen. Normal GE junction. Slight subsegmental atelectasis in the lung bases. Adr enal glands are normal. Normal renal parenchymal enhancement. No hydronephrosis. Normal caliber abdom inal aorta. Aortic calcification. Lujan catheter. Again seen is diffuse thickening with mucosal enhancement involving the entire colon similar in appea aleksandra to the prior studies. This appears slightly progressed compared to the most recent study October 28, 2020. Induration and inflammatory stranding about the cecum similar to previous. Findings are li ekaterina infectious and also recommend correlation for Pseudomembranous colitis No evidence of high-grade small or large bowel obstruction. A few air-fluid levels in the transverse colon. Tiny fat-containing umbilical hernia. No other significant changes from previous. CT/CT abdomen pelvis w con* [id number] IMPRESSION: 1. Again seen diffuse colonic thickening with mucosal enhancement involving th e entire colon consistent with pancolitis. This appears slightly progressed com pared to October 28, 2020. Findings are likely infectious and also suspicious for Pseudomembranous colitis. Recommend clinical correlation. 2. No evidence of bowel obstruction. 3. Lujan catheter. Bladder is decompressed. 4. No other significant changes from previous.
[2020-11-09] MEDS: levofloxacin-dextrose 5 % 750 MG/150 ML PREMIX 100 MG IV (12:10)
[2020-11-09] MEDS: hydrocortisone 100 mg/2 mL SDV IVP ×2 (13:09→19:24)
[2020-11-09] MEDS: diphenhydrAMINE 50 mg/mL SDV 1mL IVP (13:09)
[2020-11-09] MEDS: D5-NS 0.45% + KCL 20 mEq 20 MEQ/1,000 ML BAG 100 MEQ IV (15:46)
[2020-11-09] MEDS: cholestyramine powder 4 gm Pkt PO ×2 (15:46→21:10)
[2020-11-09 17:59] LABS: Glucose Point of Care 136 mg/dL (70-110)
[2020-11-09 18:51] LABS: Sodium 125 mmol/L (136-145)
[2020-11-09] MEDS: piperacillin-tazobactam 3.375 GM in sodium chloride 0.9% (plus) 50 ML IV (19:25)
[2020-11-09] MEDS: potassium chloride ER 20 mEq Tablet PO (19:25)
--- NOTE | 2020-11-09 19:51 | PC.NURSE ---
REPORT GIVEN TO CHARGE NURSE Danni MCKINLEY RN FROM AN ER NURSE. THE CHARGE NURSE THEN GAVE REPORT TO THIS NURSE. UPON ARRIVAL THE PATIENT APPEARED TO BE DROWSY. HE WAS ALERT AND ORIENTATED, HE WAS ABLE TO TELL ME NAME, , WHERE HE WAS AT, WHY HE IS HERE, THE YEAR, AND PRESIDENT. THE PHYSICIAN WAS IN THE ROOM NOT LONG AFTER PATIENT ARRIVED TO THE FLOOR AND WAS HERE DURING THE BEGINNING OF MY ASSESSMENT. VITAL SIGNS WERE OBTAINED. A BLOOD PRESSURE OF 94/50 WAS OBTAINED. THE BLOOD PRESSURE WAS RE-OBTAINED AND IT WAS 87/49. THE PHYSICIAN SAID TO GO AHEAD AND FINISH THE FLUID BOLUS THE ER HAD STARTED, WHICH WAS APPROXIMATELY 800 ML OF NORMAL SALINE. VITAL SIGNS WERE OBTAINED EVERY 30 MINUTES, WHICH INCLUDED FOLLOWIN/59, 85/50, 86/49, 88/53. THE PHYSICIAN WAS NOTIFIED OF THE SOFT BLOOD PRESSURES STILL BEING OBTAINED. THE PHYSICIAN DECIDED TO SEND PATIENT TO ICU TO BE PUT ON VASOPRESSORS AND MONITORED CLOSER. A FINAL BLOOD PRESSURE OF 91/50 WAS OBTAINED BEFORE SENDING PT TO ICU. PT HAS BEEN ALERT AND ORIENTATED THE WHOLE TIME. PATIENT WAS CLOSELY MONITORED THE REST OF THE TIME HE WAS UP ON THE FLOOR.
[2020-11-09] MEDS: apixaban 5 mg Tablet PO (21:05)
[2020-11-09] MEDS: pantoprazole DR 40 mg Tablet PO (21:05)
[2020-11-09 22:27] LABS: Glucose Point of Care 134 mg/dL (70-110)
[2020-11-09 22:40] LABS: Sodium 127 mmol/L (136-145)
[2020-11-10] VITALS (26 sets, daily range): BP systolic 91–118; BP diastolic 50–73; PULSE 56–77; RESP 13–22; TEMP 36.4–37.1; O2SAT 89–98
[2020-11-10] MEDS: piperacillin-tazobactam 3.375 GM in sodium chloride 0.9% (plus) 50 ML IV ×3 (01:36→17:32)
[2020-11-10] MEDS: oxyCODONE-APAP 10-325 mg Tablet 1 TAB PO ×3 (01:42→21:43)
[2020-11-10 02:24] LABS: Sodium 128 mmol/L (136-145)
[2020-11-10 04:38] LABS: Alanine Aminotransferase < 5 U/L (0-41); Alkaline Phosphatase 49 IU/L (40-130); Aspartate Amino Transferase 14 U/L (0-40); Blood Urea Nitrogen 7 mg/dL (8-23); Calcium 7.5 mg/dL (8.5-10.5); Carbon Dioxide 28 mmol/L (22-29); Chloride 94 mmol/L (98-107); Glomerular Filtration Rate 134.4 mL/min (90-130); Glucose 170 mg/dL (65-115); Osmolality Calculated 266 mOsm/kg (285-295); Sodium 127 mmol/L (136-145); Total Bilirubin 0.3 mg/dL (0.15-1.2)
[2020-11-10 04:49] LABS: Anion Gap 8.8 (5-19); Potassium 3.8 mmol/L (3.5-5.1)
[2020-11-10] MEDS: buPROPion XL (24 HR) 300 mg Tablet PO (06:25)
[2020-11-10] MEDS: levothyroxine 100 mcg Tablet PO (06:25)
[2020-11-10] MEDS: potassium chloride ER 20 mEq Tablet PO ×2 (08:06→17:32)
[2020-11-10] MEDS: cholestyramine powder 4 gm Pkt PO ×3 (08:09→21:33)
[2020-11-10 08:35] LABS: Glucose Point of Care 166 mg/dL (70-110)
[2020-11-10 11:41] LABS: Glucose Point of Care 171 mg/dL (70-110)
[2020-11-10 14:12] LABS: Coronavirus Test Green County Not Detected
--- NOTE | 2020-11-10 14:21 | PM.PN ---
Subjective Subjective: Interval history: Patient was seen and examined at the bedside, patient is endorsing feeling better his sodium has only improved up to 5 mmol in 24 hours which is at target, no neurological signs or symptoms, he only had 2 bowel movements in the last 12 hours No active worsening abdominal pain he has stayed afebrile Good urine output Looks well-hydrated today Did not require any vasopressors last night in the ICU Vitals/I&O/Wt Last Vital Signs Temp 98.7 F 11/10/20 04:07 Pulse 76 11/10/20 11:46 Resp 18 11/10/20 09:46 BP 95/56 11/10/20 04:00 Pulse Ox 95 11/10/20 11:46 11/09/20 11/10/20 11/10/20 22:59 06:59 14:59 Intake Total 3039.41 / 3039.41 1400 / 4439.41 325 / 325 Output Total 1450 / 1450 1600 / 3050 1600 / 1600 Balance 1589.41 / 1589.41 -200 / 1389.41 -1275 / -1275 Weight last 48 hrs Weight 81.647 kg Physical Exam Narrative: EXAM NARRATIVE: Patient was seen and examined at the bedside He was having a bowel movement when entered the room Patient is endorsing feeling better no active abdominal pain on clinical exam S1, S2 variable no active signs of heart failure clinically looks well-hydrated today No acute respite distress Awake alert very pleasant EOMI, PERRLA no neurological deficit alert no acute respite distress Saturating well on room air His complexion is better today No joint swelling Lower extremity has venous stasis dermatitis no active signs of gangrene ischemia or ulcer Urinary Catheter Management^: Lujan: Cath Placed During This Visit: yes Reason for Continuing Indwelling Catheter: Accurate Measurement of Urinary Output in Critically Ill Patients Urinary Catheter Date of Insertion: 11/09/20 Urinary Catheter Time of Insertion: 11:21 Data : 11/09/20 10:14 11/10/20 03:55 Micro: Microbiology 11/09/20 10:14 Blood Culture - Preliminary Blood NEGATIVE TO DATE 11/09/20 10:10 Blood Culture - Preliminary Blood NEGATIVE TO DATE 11/10/20 02:15 C.difficile Toxin B Gene (PCR) - Final Stool - Stool Aspirate A&P Assessment and plan (1) Diarrhea: Status: Acute (2) Hypovolemic shock: Status: Acute (3) Acute hyponatremia: Status: Acute (4) Colitis: Status: Acute (5) Melanoma: Status: Acute Additional A&P Information Hypovolemic shock: Resolved 11/11/2019 Volume loss due to profuse diarrhea due to colitis Looks well-hydrated today blood pressure is better did not require vasopressors in the ICU responded to 3 L of fluid that he received yesterday Today blood pressure is better Transfer out of ICU Acute hyponatremia Secondary to dehydration due to profuse diarrhea Significant improvement in last 24 hours he only had 2 bowel movements in 12 hours Sodium 127 up from 122, I would like to keep him on D5 half-normal saline to titrate sodium slowly he is at target for now my maximum daily millimoles up titration is 6/24-hour No active neurological signs or symptoms Colitis secondary to drug-induced Not a candidate for colonoscopy at this point due to active inflammation C. difficile ruled out twice Continue Zosyn and steroids Ova parasites negative CMV IgM negative FOBT positive however hemoglobin stable He will need colonoscopy down the road with biopsy for histopathological diagnosis Metastatic melanoma currently off chemotherapy Left ventricle concentric hypertrophy No active chest pain hemodynamically stable, continue fluid resuscitation History of A. fib currently on Eliquis I will resume his Cardizem which was stopped yesterday because of hypotension Hypothyroidism: Overcorrected hypothyroidism currently I am giving 100 mcg instead of 200 mcg of levothyroxine. Full code Consistent carb diet DVT prophylaxis not needed currently on Eliquis Attestations Medical Necessity Statement*: Anticipating discharge in next 48 hours significant improvement in his diarrhea, hypovolemic shock improved Time Spent in Patient Care: 30mins Coding Level of Care Code Acute Signal Worker Helper for Dina Donaldson Diagnoses Diarrhea R19.7 Hypovolemic shock R57.1 Acute hyponatremia E87.1 Colitis K52.9 Melanoma C43.9
[2020-11-10] MEDS: D5-NS 0.45% + KCL 20 mEq 20 MEQ/1,000 ML BAG 30 MEQ IV (17:32)
--- NOTE | 2020-11-10 18:53 | PC.NURSE ---
Patient in ICU for hypotension, blood pressure has been good all day so able to transfer out this afternoon. Patient transferred at 1800, left with his belongings, phone, spa coordinator, and clothes. Patient is out of isolation, and doing well. Colitis seems to be improved, though looks worse on scan. Catheter removed at 1600 patient has not voided yet.
[2020-11-10 19:52] LABS: Glucose Point of Care 272 mg/dL (70-110)
[2020-11-10 20:58] LABS: Glucose Point of Care 125 mg/dL (70-110)
[2020-11-10] MEDS: apixaban 5 mg Tablet PO (21:01)
[2020-11-10] MEDS: pantoprazole DR 40 mg Tablet PO (21:02)
[2020-11-11 00:23] VITALS: BP 111/75; PULSE 70; RESP 18; TEMP 36.5; O2SAT 94
[2020-11-11] MEDS: piperacillin-tazobactam 3.375 GM in sodium chloride 0.9% (plus) 50 ML IV ×3 (02:31→17:14)
[2020-11-11] MEDS: loperamide 2 mg Capsule PO ×4 (02:48→17:49)
--- NOTE | 2020-11-11 03:41 | PC.NURSE ---
Patient had 4 loose stools between 23:00 and 03:00 Loperamide 2 mg po given. 03:30 had another loose stool.
[2020-11-11 06:07] LABS: Basophils # 0.1 10^3/uL (0.0-0.1); Basophils % 1.4 %; Hemoglobin 11.2 g/dL (11.7-16.6); Lymphocytes # 0.4 10^3/uL (0.8-4.8); Lymphocytes % 7.5 %; Mean Corpuscular HGB Conc 32.9 g/dL (30.0-36.0); Mean Corpuscular Hemoglobin 27.8 pg (28.0-34.0); Mean Corpuscular Volume 84.4 fL (80-94); Mean Platelet Volume 9.2 fL (7.4-10.4); Monocytes # 0.4 10^3/uL (0.2-0.9); Monocytes % 6.4 %; Neutrophils % 83.7 %; Nucleated Red Blood Cells % 0 %; Platelet Count 175 10^3/cmm (130-400); Red Blood Count 4.03 10^6/uL (4.1-5.3); Red Cell Distribution Width 15.2 % (12.1-15.1); White Blood Count 5.7 10^3/uL (4.0-10.0)
[2020-11-11 06:15] LABS: Slide Review Slide Review Perform
[2020-11-11 06:18] LABS: Anion Gap 9.9 (5-19); Blood Urea Nitrogen 8 mg/dL (8-23); Calcium 7.8 mg/dL (8.5-10.5); Carbon Dioxide 26 mmol/L (22-29); Chloride 95 mmol/L (98-107); Glomerular Filtration Rate 112.5 mL/min (90-130); Glucose 135 mg/dL (65-115); Osmolality Calculated 264 mOsm/kg (285-295); Potassium 3.9 mmol/L (3.5-5.1); Sodium 127 mmol/L (136-145)
[2020-11-11] MEDS: levothyroxine 100 mcg Tablet PO (06:31)
[2020-11-11] MEDS: buPROPion XL (24 HR) 300 mg Tablet PO (06:31)
[2020-11-11] MEDS: dilTIAZem ER (24HR) 180 mg Capsule PO (06:34)
[2020-11-11 06:55] LABS: Glucose Point of Care 134 mg/dL (70-110)
[2020-11-11 07:14] VITALS: BP 138/73; PULSE 66; RESP 17; TEMP 36.1; O2SAT 95
[2020-11-11] MEDS: apixaban 5 mg Tablet PO ×2 (08:36→20:43)
[2020-11-11] MEDS: potassium chloride ER 20 mEq Tablet PO (08:36)
[2020-11-11] MEDS: cholestyramine powder 4 gm Pkt PO ×3 (08:44→20:43)
--- NOTE | 2020-11-11 10:19 | PC.CHAP ---
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 [] Patient/Family/Request visit [] Outpatient visit [] Follow-up visit [] Physician referral [] Code/Alert [x] Routine visit [] Staff referral [] Actively dying [] Patient sleeping [] Family support [] [] Out of room [] Palliative care [] [x] Receiving care in room [] Pre-surgical visit [] Trauma [x] Long length of stay [] ICU visit [] Other: Relational/Emotional Strength [x] Patient feels connected with others/family/visitors/staff [] Distress [] Loneliness/isolation [] Abandonment Spirituality of Patient [x] Person of Maria Esther [] Attends Religion of their Maria Esther [x] Believes in Prayer [] Reads Bible or Denominational materials [] There are Spiritual issues to be addressed Bench Scientist Interventions [x] Prayer [x] Active listening [x] Non-anxious presence [x] Spiritual/emotional support [] Crisis/trauma care [x] Spiritual counseling [] Bereavement support [] Provided bereavement packet [] Provided Bible/devotional materials [] Provided toy/stuffed animal, coloring book to patient or family member [] Provided Communion [] Anointing/Allison [] Salvation [x] Completed spiritual assessment [] Other: Impact on Illness or Injury [] Angry [] Fearful [x] Anxious [] Often cries [] Exhaustion [] Unable to work [] Unable to attend uatsdin [] Unable to walk/stand [] Unable to read [] Unable to drive [] Unable to eat/drink [] Unable to sleep [] Unable to be with family [] Patient intubated [] Other: Summary senior, has had tests not of the out come or need to be done, not sure3 when he can go home Time spent with patient 10 mins
[2020-11-11 10:51] VITALS: BP 115/69; PULSE 66; RESP 17; TEMP 36; O2SAT 97
--- NOTE | 2020-11-11 11:17 | PM.PN ---
Subjective Subjective: Interval history: Patient was seen and examined today. Day before yesterday he noticed improvement in his bowel movement however last night he has had multiple episodes he thinks he is getting worse today as compared to yesterday No fever, no leukocytosis, sometimes he notices blood and has history of hemorrhoids Getting Zosyn steroids C. difficile has been ruled out Endorsing abdominal soreness has improved Vitals/I&O/Wt Last Vital Signs Temp 96.8 F L 11/11/20 10:51 Pulse 66 11/11/20 10:51 Resp 17 11/11/20 10:51 BP 115/69 11/11/20 10:51 Pulse Ox 97 11/11/20 10:51 11/10/20 11/11/20 11/11/20 22:59 06:59 14:59 Intake Total 240 / 865 50 / 915 170 / 170 Output Total 150 / 150 Balance 240 / -1135 50 / -1085 20 / 20 Physical Exam Narrative: EXAM NARRATIVE: Patient was sitting at the bedside when entered the room Complaining of worsening of bowel movements No abdominal soreness no peritonitis bowel sounds hyperactive S1, S2 variable no signs of heart failure Low symmetry no edema gangrene ulcer has venous stasis dermatitis EOMI, PERRLA no neurological deficit Very pleasant and communicative Looks well-hydrated No active signs of dehydration or fluid overload No acute respite distress, saturating well on room Urinary Catheter Management^: Lujan: Cath Placed During This Visit: yes, but has since been removed by the nurse Reason for Continuing Indwelling Catheter: Decision to DC Catheter Urinary Catheter Date of Insertion: 11/09/20 Urinary Catheter Time of Insertion: 11: Date Urinary Catheter Removed: 11/10/20 Time Urinary Catheter Discontinued: 15:00 Data : 11/11/20 05:11 11/11/20 05:11 Micro: Microbiology 11/09/20 10:14 Blood Culture - Preliminary Blood NEGATIVE TO DATE 11/09/20 10:10 Blood Culture - Preliminary Blood NEGATIVE TO DATE 11/10/20 02:15 C.difficile Toxin B Gene (PCR) - Final Stool - Stool Aspirate A&P Assessment and plan (1) Hypovolemic shock: Status: Acute (2) Diarrhea: Status: Acute (3) Melanoma: Status: Acute (4) Acute hyponatremia: Status: Acute (5) Colitis: Status: Acute (6) Hypocalcemia: Status: Acute Additional A&P Information Hypovolemic shock: Secondary to colitis induced diarrhea Hypovolemic shock has resolved, he did not require any vasopressors in the ICU was transferred out of ICU yesterday, endorsing worsening of diarrhea Clinically does not look dehydrated I will switch his D5 half-normal saline to normal saline today Colitis induced persistent diarrhea Imodium cholestyramine has not improved his symptoms at all(diarrhea every 2 hours) C. 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 Mendenhall agreed with steroids and Zosyn for now Acute hyponatremia Secondary to dehydration due to diarrhea No acute neurological signs or symptoms Sodium 127, improvement of 6 mmol in 48 hours Today I will discontinue D5 and start him on normal saline Hypocalcemia: Corrected calcium is normal his albumin is 2 No need of replacement A. fib without RVR continue Cardizem along anticoagulation Full code DVT prophylaxis not indicated currently on Eliquis for A. fib Consistent carb diet Anticipating discharge in next 48 hours if his diarrhea improves Attestations Medical Necessity Statement*: Anticipating discharge in next 48 hours currently experiencing diarrhea every 2 hours Time Spent in Patient Care: 30mins Coding Level of Care Code Acute Project Management It Specialist for Chg Fwd Diagnoses Hypovolemic shock R57.1 Diarrhea R19.7 Melanoma C43.9 Acute hyponatremia E87.1 Colitis K52.9 Hypocalcemia E83.51
[2020-11-11 11:49] LABS: Glucose Point of Care 155 mg/dL (70-110)
[2020-11-11] MEDS: sodium chloride 0.9% 1,000 ML 75 ML IV (11:57)
[2020-11-11 15:02] VITALS: BP 110/62; PULSE 71; RESP 17; TEMP 36.2; O2SAT 98
[2020-11-11 15:57] LABS: Glucose Point of Care 158 mg/dL (70-110)
[2020-11-11 19:21] VITALS: BP 121/86; PULSE 68; RESP 18; TEMP 36.6; O2SAT 97
[2020-11-11 20:34] LABS: Glucose Point of Care 115 mg/dL (70-110)
[2020-11-11] MEDS: CLONazepam 1 mg Tablet 1.5 MG PO (22:55)
--- NOTE | 2020-11-11 23:39 | PC.NURSE ---
Klonopin Administration: Pt asked for his Klonipin stating that when the day shift nurse took it into him at 1800 her refused and asked for it to be given closer to bedtime. Day shift nurse did not undo the administration in the emar so it appeared as he already took the medication. Supplier Development Manager called the day shift nurse and verified that the patient in fact did not take the medication and that she wasted it in the pyxis. Pharmacy was notified and medication was credited to the patient. Supplier Development Manager then pulled an additional dise of the Klonopin and administered it to the patient. Charge nurse also notified.
[2020-11-12] VITALS (7 sets, daily range): BP systolic 114–145; BP diastolic 68–77; PULSE 55–80; RESP 14–18; TEMP 36.1–36.7; O2SAT 95–99
[2020-11-12] MEDS: loperamide 2 mg Capsule PO ×3 (00:43→15:30)
[2020-11-12] MEDS: piperacillin-tazobactam 3.375 GM in sodium chloride 0.9% (plus) 50 ML IV ×3 (04:23→20:40)
[2020-11-12] MEDS: sodium chloride 0.9% 1,000 ML 75 ML IV (04:26)
[2020-11-12 06:34] LABS: Glucose Point of Care 138 mg/dL (70-110)
[2020-11-12 06:36] LABS: Basophils # 0.1 10^3/uL (0.0-0.1); Hematocrit 31.7 % (42.0-52.0); Hemoglobin 10.2 g/dL (11.7-16.6); Lymphocytes # 0.4 10^3/uL (0.8-4.8); Lymphocytes % 6.1 %; Mean Corpuscular HGB Conc 32.2 g/dL (30.0-36.0); Mean Corpuscular Hemoglobin 27.4 pg (28.0-34.0); Mean Corpuscular Volume 85.2 fL (80-94); Mean Platelet Volume 8.7 fL (7.4-10.4); Monocytes # 0.3 10^3/uL (0.2-0.9); Neutrophils # 5.89 10^3/uL (1.8-7.7); Neutrophils % 88.2 %; Nucleated Red Blood Cells % 0 %; Platelet Count 186 10^3/cmm (130-400); Red Blood Count 3.72 10^6/uL (4.1-5.3); Red Cell Distribution Width 15.5 % (12.1-15.1); White Blood Count 6.7 10^3/uL (4.0-10.0)
[2020-11-12 06:53] LABS: Anion Gap 10.5 (5-19); Blood Urea Nitrogen 11 mg/dL (8-23); Carbon Dioxide 25 mmol/L (22-29); Chloride 101 mmol/L (98-107); Glomerular Filtration Rate 112.5 mL/min (90-130); Glucose 132 mg/dL (65-115); Magnesium 1.8 mg/dL (1.7-2.3); Osmolality Calculated 275 mOsm/kg (285-295); Potassium 4.5 mmol/L (3.5-5.1); Sodium 132 mmol/L (136-145)
[2020-11-12 07:31] LABS: Slide Review Slide Review Perform
[2020-11-12] MEDS: potassium chloride ER 20 mEq Tablet PO (08:33)
[2020-11-12] MEDS: dilTIAZem ER (24HR) 180 mg Capsule PO (08:33)
[2020-11-12] MEDS: oxyCODONE-APAP 10-325 mg Tablet 1 TAB PO (08:33)
[2020-11-12] MEDS: buPROPion XL (24 HR) 300 mg Tablet PO (08:33)
[2020-11-12] MEDS: levothyroxine 100 mcg Tablet PO (08:33)
[2020-11-12] MEDS: cholestyramine powder 4 gm Pkt PO ×3 (08:35→20:40)
[2020-11-12] MEDS: apixaban 5 mg Tablet PO ×2 (08:35→20:40)
--- NOTE | 2020-11-12 11:03 | PC.SOCIAL ---
IMM update: Pg 2 IMM update given to patient. Patient verbalized an understanding, initialed, dated, and copy placed in chart.
[2020-11-12 11:20] LABS: Glucose Point of Care 159 mg/dL (70-110)
--- NOTE | 2020-11-12 12:49 | PC.CHAP ---
Pastoral Care Encounter/Spiritual Assessment Type of Contact [] Declined arterial embalmer visit [xx] Patient/Family/Request visit [] Outpatient visit [] Follow-up visit [] Physician referral [] Code/Alert [xx] Routine visit [] Staff referral [] Actively dying [] Patient sleeping [] Family support [] [] Out of room [] Palliative care [] [] Receiving care in room [] Pre-surgical visit [] Trauma [] Long length of stay [] ICU visit [] Other: Relational/Emotional Strength [xx] Patient feels connected with others/family/visitors/staff [] Distress [] Loneliness/isolation [] Abandonment Spirituality of Patient [xx] Person of Maria Esther [] Attends Judaism of their Maria Esther [xx] Believes in Prayer [xx] Reads Bible or Holiness materials [] There are Spiritual issues to be addressed Block Operator Interventions [xx] Prayer [xx] Active listening [xx] Non-anxious presence [] Spiritual/emotional support [] Crisis/trauma care [] Spiritual counseling [] Bereavement support [] Provided bereavement packet [] Provided Bible/devotional materials [] Provided toy/stuffed animal, coloring book to patient or family member [] Provided Communion [] Anointing/[place] [] Salvation [xx] Completed spiritual assessment [] Other: Impact on Illness or Injury [] Angry [] Fearful [] Anxious [] Often cries [] Exhaustion [] Unable to work [] Unable to attend advent [] Unable to walk/stand [] Unable to read [] Unable to drive [] Unable to eat/drink [] Unable to sleep [] Unable to be with family [] Patient intubated [] Other: Summary Patient requested prayer for himself but especially for his daughter, Corine, who suffers from debilitating arthritis. Her health is of great concern to patient. He is not concerned much for himself. Time spent with patient 8 minutes
--- NOTE | 2020-11-12 13:26 | PM.PN ---
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: no focal neuro deficits Urinary Catheter Management^: Lujan: Cath Placed During This Visit: yes, but has since been removed by the nurse Reason for Continuing Indwelling Catheter: Decision to DC Catheter Urinary Catheter Date of Insertion: 11/09/20 Urinary Catheter Time of Insertion: 11: Date Urinary Catheter Removed: 11/10/20 Time Urinary Catheter Discontinued: 15:00 Data : 11/12/20 06:22 11/12/20 06:22 A&P Assessment and plan (1) Hypovolemic shock: Status: Acute (2) Diarrhea: Status: Acute (3) Melanoma: Status: Acute (4) Acute hyponatremia: Status: Acute (5) Colitis: Status: Acute (6) Hypocalcemia: Status: Acute Additional A&P Information Hypovolemic shock: Now resolved Secondary to colitis induced diarrhea continue normal saline Colitis induced persistent diarrhea Imodium cholestyramine has not improved his symptoms C. 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 Mendenhall agreed with steroids and Zosyn for now Acute hyponatremia Secondary to dehydration due to diarrhea No acute neurological signs or symptoms Soidum now improved to 132 continue normal saline A. fib without RVR continue Cardizem along anticoagulation Full code DVT prophylaxis not indicated currently on Eliquis for A. fib Consistent carb diet Anticipating discharge in next 48 hours if his diarrhea improves Attestations Medical Necessity Statement*: ongoing diarrhea, iv hydration Coding Level of Care Code Acute Detective Bureau Chief for Chg Fwd Diagnoses Hypovolemic shock R57.1 Diarrhea R19.7 Melanoma C43.9 Acute hyponatremia E87.1 Colitis K52.9 Hypocalcemia E83.51
[2020-11-12 17:16] LABS: Glucose Point of Care 122 mg/dL (70-110)
[2020-11-12 21:13] LABS: Glucose Point of Care 124 mg/dL (70-110)
[2020-11-13] VITALS (9 sets, daily range): BP systolic 103–145; BP diastolic 60–82; PULSE 52–80; RESP 12–20; TEMP 36.1–36.6; O2SAT 92–100
[2020-11-13] MEDS: oxyCODONE-APAP 10-325 mg Tablet 1 TAB PO (01:26)
[2020-11-13] MEDS: piperacillin-tazobactam 3.375 GM in sodium chloride 0.9% (plus) 50 ML IV ×2 (05:38→13:04)
[2020-11-13 06:16] LABS: Basophils # 0.1 10^3/uL (0.0-0.1); Hematocrit 31.4 % (42.0-52.0); Hemoglobin 9.9 g/dL (11.7-16.6); Lymphocytes # 0.5 10^3/uL (0.8-4.8); Lymphocytes % 5.9 %; Mean Corpuscular HGB Conc 31.5 g/dL (30.0-36.0); Mean Corpuscular Hemoglobin 27.6 pg (28.0-34.0); Mean Corpuscular Volume 87.5 fL (80-94); Mean Platelet Volume 8.8 fL (7.4-10.4); Monocytes # 0.3 10^3/uL (0.2-0.9); Monocytes % 3.9 %; Neutrophils # 6.85 10^3/uL (1.8-7.7); Neutrophils % 88.6 %; Nucleated Red Blood Cells % 0 %; Platelet Count 178 10^3/cmm (130-400); Red Blood Count 3.59 10^6/uL (4.1-5.3); Red Cell Distribution Width 15.9 % (12.1-15.1); White Blood Count 7.7 10^3/uL (4.0-10.0)
[2020-11-13] MEDS: buPROPion XL (24 HR) 300 mg Tablet PO (06:30)
[2020-11-13] MEDS: levothyroxine 100 mcg Tablet PO (06:30)
[2020-11-13] MEDS: dilTIAZem ER (24HR) 180 mg Capsule PO (06:30)
[2020-11-13] MEDS: loperamide 2 mg Capsule PO ×2 (06:37→13:04)
[2020-11-13 06:38] LABS: Glucose Point of Care 100 mg/dL (70-110)
[2020-11-13 06:52] LABS: Alanine Aminotransferase 8 U/L (0-41); Albumin Level 2.5 g/dL (3.5-5.2); Alkaline Phosphatase 70 IU/L (40-130); Anion Gap 11.8 (5-19); Aspartate Amino Transferase 9 U/L (0-40); Blood Urea Nitrogen 14 mg/dL (8-23); Carbon Dioxide 24 mmol/L (22-29); Chloride 100 mmol/L (98-107); Globulin 1.6 g/dL (1.3-4.6); Glomerular Filtration Rate 96.4 mL/min (90-130); Glucose 118 mg/dL (65-115); Osmolality Calculated 274 mOsm/kg (285-295); Potassium 4.8 mmol/L (3.5-5.1); Sodium 131 mmol/L (136-145); Total Bilirubin 0.3 mg/dL (0.15-1.2); Total Protein 4.1 g/dL (6.6-8.7)
[2020-11-13] MEDS: cholestyramine powder 4 gm Pkt PO ×3 (09:46→21:17)
[2020-11-13] MEDS: apixaban 5 mg Tablet PO ×2 (09:46→23:19)
[2020-11-13] MEDS: potassium chloride ER 20 mEq Tablet PO (09:46)
[2020-11-13 11:20] LABS: Glucose Point of Care 129 mg/dL (70-110)
[2020-11-13 16:00] LABS: Glucose Point of Care 142 mg/dL (70-110)
--- NOTE | 2020-11-13 16:22 | PM.PN ---
Subjective Subjective: Interval history: Patient sitting in chair with diaper on. He states that yesterday whenever he was urinating he also had some diarrhea with it and thus the diaper. His sister is sitting with him. They have multiple questions. Patient states that the doctor here said he could not have fiber and he states his diarrhea is much better when taking Metamucil [employer] equivalent. Medications: Reviewed: Yes Vitals/I&O/Wt Last Vital Signs Temp 96.9 F L 11/13/20 15:21 Pulse 63 11/13/20 15:21 Resp 17 11/13/20 15:21 BP 119/69 11/13/20 15:21 Pulse Ox 100 11/13/20 15:21 11/13/20 11/13/20 11/13/20 06:59 14:59 22:59 Intake Total 50 / 510 1530 / 1530 Output Total 350 / 350 Balance 50 / 510 1180 / 1180 Physical Exam Narrative: EXAM NARRATIVE: General: Patient is in no acute distress at time of exam he is visiting with his sister. Heart: Regular rate and rhythm normal S1-S2 without murmurs clicks gallops or rubs Lungs: Clear to auscultation without wheezes rales or rhonchi Abdomen soft nontender hyperactive bowel sounds Extremities: +1 pitting edema to mid calf. Urinary Catheter Management^: Lujan: Cath Placed During This Visit: yes, but has since been removed by the nurse Reason for Continuing Indwelling Catheter: Decision to DC Catheter Urinary Catheter Date of Insertion: 11/09/20 Urinary Catheter Time of Insertion: 11:21 Date Urinary Catheter Removed: 11/10/20 Time Urinary Catheter Discontinued: 15:00 Data : 11/13/20 04:21 11/13/20 04:21 A&P Assessment and plan (1) Colitis: Cdiff is negative. Already had treatment for infectious etiolgy a few weeks ago. Likely not infectious. Likely related to immunotherapy which is on hold right now. Continue steroids, stop Zosyn. Add metamucil bid and bulk/BRAT diet. Electrolytes are improving. Cont questran and immodium indefinetly. Might need to tolerate immunotherapy however if metastatic would recommend palliative therapy. Status: Acute (2) Diarrhea: as above Status: Acute (3) Acute hyponatremia: improved with fluids Status: Acute (4) Melanoma: Metastatic. not tolerating immunotherapy. consider palliative therapy and stopping aggressive treatments. Status: Acute (5) Hypothyroidism: cont synthroid. when not acutely ill TSH was normal Status: Acute Qualifiers: Hypothyroidism type: acquired Qualified Code(s): E03.9 - Hypothyroidism, unspecified (6) Diabetes mellitus, type II: will follow Status: Acute (7) Congestive heart failure (CHF): pt takes diurestics. they have been on hold. Will need to restart soon. Status: Acute Qualifiers: Heart failure type: diastolic Heart failure chronicity: chronic Qualified Code(s): I50.32 - Chronic diastolic (congestive) heart failure Attestations Medical Necessity Statement*: severe diarrhea and electrolyte abnormalities Coding Level of Care Code Acute Administrative Project Coordinator for [facility] Fwd Diagnoses Colitis K52.9 Diarrhea R19.7 Acute hyponatremia E87.1 Melanoma C43.9 Hypothyroidism E03.9 Hypothyroidism type: acquired Diabetes mellitus, type II E11.9 Congestive heart failure (CHF) I50.32 Heart failure type: diastolic Heart failure chronicity: chronic
[2020-11-13] MEDS: psyllium powder Pkt 1 PACKET PO (17:30)
[2020-11-13 20:25] LABS: Glucose Point of Care 182 mg/dL (70-110)
--- NOTE | 2020-11-13 21:13 | CTR_ITS ---
PROCEDURE INFORMATION: Exam: CT Chest Without Contrast; Diagnostic Exam date and time: 11/13/2020 9:19 PM Age: 65 years old Clinical indication: Injury or trauma; Blunt trauma (contusions or hematomas); Prior surgery; Surgery date: 6+ months; Surgery type: Port, valveunwitnessed fall in shower TECHNIQUE: Imaging protocol: Diagnostic computed tomography of the chest without contrast. Radiation optimization: All CT scans at this facility use at least one of these dose optimization techniques: automated exposure control; mA and/or kV adjustment per patient size (includes targeted exams where dose is matched to clinical indication); or iterative reconstruction. COMPARISON: CT chest abd pel wo con 10/14/2020 10:37 PM RADIATION DOSE METRICS: Total DLP (mGy-cm): 939.53 FINDINGS: Tubes, catheters and devices: The right-sided chest port is noted with the of the catheter at the cavoatrial junction. Lungs: No acute pulmonary abnormality. Trace scarring in the left lung base. Pleural spaces: Unremarkable. No pneumothorax. No pleural effusion. Heart: Unremarkable. No cardiomegaly. No pericardial effusion. Aorta: Unremarkable. No aortic aneurysm. Lymph nodes: Unremarkable. No enlarged lymph nodes. Bones/joints: Unremarkable. No acute fracture. Soft tissues: A rounded approximately 4.3 cm low-density collection in the left axilla with calcification and or suture material at its margin. CT/CT chest wo con [id number] IMPRESSION: 1. No acute abnormality. 2. An approximately 4.3 cm low-density structure in the left axilla with some calcification or suture material its margin likely reflects a seroma or abnormal lymph node. Correlation with prior surgical history is needed. Radiation Dose CTDIVOL = (mGy): DLP = 939.53 (mGy-cm)
--- NOTE | 2020-11-13 21:13 | CTR_ITS ---
PROCEDURE INFORMATION: Exam: CT Head Without Contrast Exam date and time: 11/13/2020 9:19 PM Age: 65 years old Clinical indication: Injury or trauma; Blunt trauma (contusions or hematomas); Without loss of consciousness; Patient HX: Unwitnessed fall in shower denies loc TECHNIQUE: Imaging protocol: Computed tomography of the head without contrast. Radiation optimization: All CT scans at this facility use at least one of these dose optimization techniques: automated exposure control; mA and/or kV adjustment per patient size (includes targeted exams where dose is matched to clinical indication); or iterative reconstruction. COMPARISON: CT head wo con* [id number] 11/09/2020 10:46 AM RADIATION DOSE METRICS: Total DLP (mGy-cm): 867.75 FINDINGS: Brain: Normal. No hemorrhage. Unremarkable white matter. No mass effect. Cerebral ventricles: No ventriculomegaly. Bones/joints: Unremarkable. No acute fracture. Paranasal sinuses: Visualized sinuses are unremarkable. No fluid levels. Mastoid air cells: Visualized mastoid air cells are well aerated. Soft tissues: Unremarkable. CT/CT head wo con* [id number] IMPRESSION: No acute intracranial abnormality. Radiation Dose CTDIVOL = (mGy): DLP = 867.75 (mGy-cm)
--- NOTE | 2020-11-13 21:32 | CTR_ITS ---
PROCEDURE INFORMATION: Exam: CT Cervical Spine Without Contrast Exam date and time: 11/13/2020 9:34 PM Age: 65 years old Clinical indication: Injury or trauma; Blunt trauma; Patient HX: Unwitnessed fall in shower TECHNIQUE: Imaging protocol: Computed tomography images of the cervical spine without contrast. Radiation optimization: All CT scans at this facility use at least one of these dose optimization techniques: automated exposure control; mA and/or kV adjustment per patient size (includes targeted exams where dose is matched to clinical indication); or iterative reconstruction. COMPARISON: CT cervical spin wo con* [id number] 11/09/2020 10:48 AM RADIATION DOSE METRICS: Total DLP (mGy-cm): 596.27 FINDINGS: Tubes, catheters and devices: Partial visualization of catheter tubing in the right chest wall extending into the right subclavian vein, incompletely assessed. Vertebrae: No acute fracture. Normal alignment. The cervical spine demonstrates moderate degenerative changes at multiple levels. C2-C3: No significant disc protrusion. No severe spinal canal stenosis. No significant neural foraminal narrowing. C3-C4: No significant disc protrusion. No severe spinal canal stenosis. No significant neural foraminal narrowing. C4-C5: No significant disc protrusion. No severe spinal canal stenosis. No significant neural foraminal narrowing. C5-C6: No significant disc protrusion. No severe spinal canal stenosis. No significant neural foraminal narrowing. C6-C7: No significant disc protrusion. No severe spinal canal stenosis. No significant neural foraminal narrowing. C7-T1: No significant disc protrusion. No severe spinal canal stenosis. No significant neural foraminal narrowing. Soft tissues: Unremarkable. Lungs: Lung apices are normal. CT/CT cervical spin wo con* [id number] IMPRESSION: 1. Negative for acute cervical spine fracture. 2. No change in cervical spine from recent comparison on 11/09/2020. Radiation Dose CTDIVOL = (mGy): DLP = 596.27 (mGy-cm)
[2020-11-14] VITALS (9 sets, daily range): BP systolic 107–147; BP diastolic 62–86; PULSE 67–81; RESP 17–18; TEMP 36–37.1; O2SAT 93–100
[2020-11-14] MEDS: loperamide 2 mg Capsule PO (01:37)
--- NOTE | 2020-11-14 01:53 | PC.NURSE ---
Patient at approximatly 2100 on 11/13/20 ambulated to the bathroom without assistants. Patient was able to make it to the bathroom without incident. Shortly after bathroom cord was pulled and nurse entered room to find patient on the ground partially in shower. When asked what happened. Patient stated that he believed the shower curtain was part of the wall and attempted to lean on it to up his briefs. At this time patient had no complaints of lower limb pain nor hip pain. When asked if he had hit his head to stated he had but had not lost consciousness. Physician was notified of fall and ordered a STAT CT of head and neck without contrast. Nurse also ordered to hold prescribed eliquis until after CT results. Person to notify was attempted to be reached but was unable to be contacted. Voice mail left and requested person to return call.
--- NOTE | 2020-11-14 03:58 | PM.EVENT ---
Event Note Event Note: Called earlier in the evening that patient had had a fall in the bathroom. He had gone to the bathroom, and to use washcloth to clean himself off a little bit afterwards. He put his arm out to stabilize himself during this process without really paying much attention and ended up trying to support himself with the shower curtain rather than the wall like he thought he was. He fell hitting his head on the right parietal area as well as his neck. He denies any loss of consciousness. He was not dizzy or experiencing other symptoms prior to this. He is on Eliquis. Given this I did go on and get a CT of his head without contrast. He had some minor erythema without evidence of developing bruising just yet, no broken skin. He was a bit hesitant to turn his neck around. No point tenderness on the neck though. Added imaging of the neck to the CT of the head. No evidence of bleed or fracture identified. CT of the chest got ordered and resulted during this but was not actually ordered by me. Patient is not to be charged for this procedure. 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 Neurochecks have been ordered for the night. All of this was explained to the patient. Extraocular movements are intact, pupils are equally reactive, speech is clear, face symmetric, handgrip equal. He understands what happened and is able to explain it to me in detail and answer my questions appropriately. Event Notes Attestations Time Spent in Patient Care: 17 minutes in additional care on evening shift 11/14/2019 prior to midnight discussing with nursing staff, evaluating patient, following up ordered test as well as results, notifying patient of results and reviewing plan of care with nursing staff
[2020-11-14 05:38] LABS: Anion Gap 7.6 (5-19); Blood Urea Nitrogen 14 mg/dL (8-23); Calcium 7.7 mg/dL (8.5-10.5); Carbon Dioxide 26 mmol/L (22-29); Chloride 102 mmol/L (98-107); Glomerular Filtration Rate 112.5 mL/min (90-130); Glucose 138 mg/dL (65-115); Magnesium 1.9 mg/dL (1.7-2.3); Osmolality Calculated 275 mOsm/kg (285-295); Potassium 4.6 mmol/L (3.5-5.1); Sodium 131 mmol/L (136-145)
[2020-11-14] MEDS: levothyroxine 100 mcg Tablet PO (06:12)
[2020-11-14] MEDS: dilTIAZem ER (24HR) 180 mg Capsule PO (06:12)
[2020-11-14] MEDS: buPROPion XL (24 HR) 300 mg Tablet PO (06:12)
[2020-11-14 06:49] LABS: Glucose Point of Care 126 mg/dL (70-110)
[2020-11-14] MEDS: psyllium powder Pkt 1 PACKET PO ×2 (09:05→17:33)
[2020-11-14] MEDS: potassium chloride ER 20 mEq Tablet PO (09:05)
[2020-11-14] MEDS: apixaban 5 mg Tablet PO (09:05)
[2020-11-14] MEDS: cholestyramine powder 4 gm Pkt PO ×3 (09:56→21:51)
[2020-11-14] MEDS: oxyCODONE-APAP 10-325 mg Tablet 1 TAB PO (09:56)
--- NOTE | 2020-11-14 10:10 | PC.SOCIAL ---
IMM Updated Updated pt on Pg 2 IMM. No questions voiced. Provided pt a copy. Initialed, dated, & timed copy in chart.
--- NOTE | 2020-11-14 10:12 | PC.CHAP ---
Pastoral Care Encounter/Spiritual Assessment Type of Contact [] Declined hospital clinic assistant visit [] Patient/Family/Request visit [] Outpatient visit [] Follow-up visit [] Physician referral [] Code/Alert [x] Routine visit [] Staff referral [] Actively dying [] Patient sleeping [] Family support [] [] Out of room [] Palliative care [] [] Receiving care in room [] Pre-surgical visit [] Trauma [] Long length of stay [] ICU visit [] Other: Relational/Emotional Strength [] Patient feels connected with others/family/visitors/staff [] Distress [] Loneliness/isolation [] Abandonment Spirituality of Patient [x] Person of Maria Esther [] Attends Tenriism of their Maria Esther [x] Believes in Prayer [] Reads Bible or Moravian materials [] There are Spiritual issues to be addressed Lease Purchase Driver Interventions [x] Prayer [x] Active listening [x] Non-anxious presence [x] Spiritual/emotional support [] Crisis/trauma care [] Spiritual counseling [] Bereavement support [] Provided bereavement packet [] Provided Bible/devotional materials [] Provided toy/stuffed animal, coloring book to patient or family member [] Provided Communion [] Anointing/[place] [] Salvation [] Completed spiritual assessment [] Other: Impact on Illness or Injury [] Angry [] Fearful [] Anxious [] Often cries [] Exhaustion [] Unable to work [] Unable to attend nondenominational [] Unable to walk/stand [] Unable to read [] Unable to drive [] Unable to eat/drink [] Unable to sleep [] Unable to be with family [] Patient intubated [] Other: Summary Chaplains prayed with Patient. Time spent with patient 7 minutes.
[2020-11-14 10:43] LABS: Glucose Point of Care 160 mg/dL (70-110)
[2020-11-14 16:15] LABS: Glucose Point of Care 169 mg/dL (70-110)
--- NOTE | 2020-11-14 19:06 | P.PN_ITS ---
Subjective Subjective: Interval history: Patient sitting in chair with sister. Says he is better with stool however I saw for myself and still liquid. He is not reliable historian. He memory is off. Met privately with sister and says he was starting to have memory problems for about a year and now that he has been ill with melanoma and colitis he has gotten worse. Especially this weekend. Medications: Reviewed: Yes Vitals/I&O/Wt Last Vital Signs Temp 96.9 F L 11/14/20 15:22 Pulse 69 11/14/20 15:22 Resp 17 11/14/20 15:22 BP 147/76 11/14/20 15:22 Pulse Ox 100 11/14/20 15:22 11/14/20 11/14/20 11/14/20 06:59 14:59 22:59 Intake Total 240 / 240 240 / 480 Output Total 150 / 600 425 / 425 250 / 675 Balance -150 / 1213.75 -185 / -185 -10 / -195 Physical Exam Narrative: EXAM NARRATIVE: General: Patient is in no acute distress at time of exam he is visiting with his sister. Heart: Regular rate and rhythm normal S1-S2 without murmurs clicks gallops or rubs Lungs: Clear to auscultation without wheezes rales or rhonchi Abdomen soft mildly tender in lower middle abd, hyperactive bowel sounds Extremities: +1 pitting edema to mid calf. Urinary Catheter Management^: Lujan: Cath Placed During This Visit: yes, but has since been removed by the nurse Reason for Continuing Indwelling Catheter: Decision to DC Catheter Urinary Catheter Date of Insertion: 11/09/20 Urinary Catheter Time of Insertion: 11:21 Date Urinary Catheter Removed: 11/10/20 Time Urinary Catheter Discontinued: 15:00 Data : 11/13/20 04:21 11/14/20 04:45 Micro: Microbiology 11/09/20 10:14 Blood Culture - Final Blood NO GROWTH AFTER 5 DAYS 11/09/20 10:10 Blood Culture - Final Blood NO GROWTH AFTER 5 DAYS A&P Assessment and plan (1) Colitis: Cdiff is negative. Already had treatment for infectious etiolgy a few weeks ago. Likely not infectious. Likely related to immunotherapy which is on hold right now. Continue steroids, stop Zosyn. Add metamucil bid and bulk/BRAT diet. Electrolytes are improving. Cont questran and immodium. Pt was on Eliquis with active colitis and bloody diarrhea. Stopped today. may need GI for endoscopy if not done recently - can not get accurate answer from pt and I have been unable to loook. Per Hx: Colitis induced persistent diarrhea Imodium cholestyramine has not improved his symptoms reportedly however pt requests continue. 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 Mendenhall agreed with steroids and Zosyn for now Status: Acute (2) Diarrhea: as above Status: Acute (3) Acute hyponatremia: improved Status: Acute (4) Melanoma: Metastatic. Responded to immunotherapy quickly per sister. has missed last 2 doses due to hospitalizations. due to mental status and falls, will obtain MRI brain w and wo contrast looking for mets and also as first line work up for memory disorder. Status: Acute (5) Hypothyroidism: cont synthroid. reviewed TSH hx again. runs on low side. will repeat and might need to adjust since sometimes low or low normal. may be affecting stool amount. Status: Acute Qualifiers: Hypothyroidism type: acquired Qualified Code(s): E03.9 - Hypothyroidism , unspecified (6) Diabetes mellitus, type II: BS have been controlled. no change at this time. Status: Acute (7) Congestive heart failure (CHF): pt takes diuretics at home, they have been on hold. Pt is NOT orthostatic. consider resuming before fluid overload occurs. Status: Acute Qualifiers: Heart failure type: diastolic Heart failure chronicity: chronic Qualified Code(s): I50.32 - Chronic diastolic (congestive) heart failure (8) Hypovolemic shock: Status: Resolved (9) Atrial fibrillation: on eliquis and ca channel chan. must stop eliquis with amount of bloody stool for now. Status: Acute Additional A&P Information Full code DVT prophylaxis : unable for RX tx due to melena. SCD's at night. Consistent carb diet May need GI consult. Needs fall/mental status change work up. Attestations Medical Necessity Statement*: Pt is acute on chronically ill with stools not improving now off eliquis (for stroke prevention) will need close monitoring. Also agressive work up of falls/ memory problems. Coding Level of Care Code Acute Supervisor Tree Trimming for Chg Fwd Diagnoses Colitis K52.9 Diarrhea R19.7 Acute hyponatremia E87.1 Melanoma C43.9 Hypothyroidism E03.9 Hypothyroidism type: acquired Diabetes mellitus, type II E11.9 Congestive heart failure (CHF) I50.32 Heart failure type: diastolic Heart failure chronicity: chronic Hypovolemic shock R57.1 Atrial fibrillation I48.91
[2020-11-14 20:07] LABS: Thyroid Stimulating Hormone 12.73 uIU/mL (0.27-4.20); Vitamin B12 565 pg/mL (232-1245)
[2020-11-14 20:10] LABS: Glucose Point of Care 162 mg/dL (70-110)
[2020-11-14] MEDS: phenyleph-mineral oil-petrolat Oint 28 gm 1 APPLIC PR (21:51)
--- NOTE | 2020-11-15 03:34 | PC.NURSE ---
going in toilet
[2020-11-15 04:00] VITALS: BP 118/74; PULSE 72; RESP 16; TEMP 36.4; O2SAT 93
[2020-11-15 06:33] LABS: Glucose Point of Care 116 mg/dL (70-110)
[2020-11-15] MEDS: dilTIAZem ER (24HR) 180 mg Capsule PO (06:34)
[2020-11-15] MEDS: levothyroxine 100 mcg Tablet PO (06:34)
[2020-11-15] MEDS: loperamide 2 mg Capsule PO (06:34)
[2020-11-15] MEDS: buPROPion XL (24 HR) 300 mg Tablet PO (06:34)
[2020-11-15 07:28] VITALS: BP 121/74; PULSE 73; RESP 19; TEMP 36.6; O2SAT 93
[2020-11-15] MEDS: psyllium powder Pkt 1 PACKET PO (08:09)
[2020-11-15] MEDS: phenyleph-mineral oil-petrolat Oint 28 gm 1 APPLIC PR ×2 (08:09→12:03)
[2020-11-15] MEDS: potassium chloride ER 20 mEq Tablet PO (08:10)
--- NOTE | 2020-11-15 10:56 | P.CONIM_ITS ---
Providers/Reason For Consult Consulting Physican/Specialty*: Ilan Valera MD Reason for Consult*: Colitis associated with diarrhea Attending Physician: Maricarmen Tellez MD Primary Care Provider: PORFIRIO Beard History of Present Illness History of Present Illness Catrachito Agosto is a pleasant 65 year old male with well-known history of melanoma and for the past 5 to 7 weeks or so has been having diarrhea and multiple hospitalizations associated with that, patient had multiple CT scans of the abdomen and pelvis and the latest as described below CT scan of the abdomen and pelvis 11/09/2020 showed: 1. Again seen diffuse colonic thickening with mucosal enhancement involving the entire colon consistent with pancolitis. This appears slightly progressed compared to October 28, 2020. Findings are likely infectious and also suspicious for Pseudomembranous colitis. Recommend clinical correlation. 2. No evidence of bowel obstruction. 3. Lujan catheter. Bladder is decompressed. 4. No other significant changes from previous. 11/10/2020 No C. difficile toxin B gene DNA detected Patient was supposed to get a colonoscopy at some point, I was approached by Dr. Tellez for potential evaluation to obtain a colonoscopy while the patient is still in the hospital. Apparently the patient has been having frequent episodes of falls and getting weaker. Review of Systems General: Reports: 10 or more systems reviewed and unremarkable except in HPI and below Meds/Allergies Home Medications and Allergies Home Medications Medication Instructions Recorded Confirmed Last Taken Type Dexilant 60 mg PO DAILY@09/13/20 11/09/20 10/28/20 History Januvia 25 mg PO DAILY@09/13/20 11/09/20 11/09/20 History bupropion HCl 300 mg PO DAILY@09/13/20 11/09/20 11/09/20 History citalopram 40 mg PO DAILY@09/13/20 11/09/20 11/09/20 History diltiazem HCl 180 mg PO DAILY@09/13/20 11/09/20 11/09/20 History ezetimibe 10 mg PO DAILY@09/13/20 11/09/20 10/14/20 History levothyroxine See Rx Instructions .ROUTE .COMPLEX 09/13/20 11/09/20 11/08/20 History montelukast 10 mg PO DAILY@21 09/13/20 11/09/20 10/28/20 History potassium chloride 20 meq PO BID 09/13/20 11/09/20 11/09/20 History rosuvastatin 20 mg PO DAILY@21 09/13/20 11/09/20 10/28/20 History trazodone 50 mg PO DAILY@21 PRN 09/13/20 11/09/20 Unknown History albuterol sulfate [ProAir HFA] See Rx Instructions .ROUTE .COMPLEX 10/15/20 11/09/20 10/28/20 History clonazepam 1.5 mg PO DAILY@21 PRN 10/15/20 11/09/20 10/28/20 History loperamide [Anti-Diarrheal 2 mg PO Q4H PRN #120 ml 10/19/20 11/09/20 Unknown Rx (loperamide)] ergocalciferol (vitamin D2) 1,250 See Rx Instructions .ROUTE 10/20/20 11/09/20 10/27/20 Rx mcg (50,000 unit) capsule .COMPLEX #4 cap Eliquis 5 mg PO BEDTIME 10/28/20 11/09/20 10/28/20 History Phospha 250 Neutral 500 mg PO BID 10/28/20 11/09/20 Unknown History magnesium oxide 400 mg PO BID 10/28/20 11/09/20 10/28/20 History cholestyramine (with sugar) 4 g PO BID 10 Days #20 ea 11/02/20 11/09/20 Unknown Rx Aspir-81 See Rx Instructions .ROUTE .COMPLEX 11/09/20 11/09/20 Unknown History acetaminophen [Tylenol Extra 500 - 1,000 mg PO PRN 11/09/20 11/09/20 Unknown History Strength] fluticasone propionate [Flonase] 2 spray INTRANASAL DAILY PRN 11/09/20 11/09/20 Unknown History oxycodone-acetaminophen 1 tab PO Q6H PRN 11/09/20 11/09/20 Unknown History prochlorperazine maleate 10 mg PO Q4H PRN 11/09/20 11/09/20 Unknown History torsemide 20 mg PO DAILY@17 11/09/20 11/09/20 11/08/20 History tramadol [Ultram] 50 mg PO BID PRN 11/09/20 11/09/20 Unknown History Allergies Allergy/AdvReac Type Severity Reaction Status Date / Time Iodinated Contrast Media Allergy ALGY-Hives Verified 11/15/20 10:58 metoprolol Allergy unknown Verified 11/15/20 10:58 red dye Allergy unknown Verified 11/15/20 10:58 Current Medications Current Medications Generic Name Dose Route Start Last Admin Trade Name Freq PRN Reason Stop Dose Admin Bupropion HCl 300 mg 11/10/20 07:00 11/15/20 06:34 Bupropion Xl (24 Hr) 300 Mg Tablet PO 300 mg DAILY@07 TOM Administration Cholestyramine Resin 4 gm 11/09/20 15:00 11/14/20 21:51 Cholestyramine Powder 4 Gm Pkt PO 4 gm TID TOM Administration Clonazepam 1.5 mg 11/09/20 21:00 11/11/20 22:55 Clonazepam 1 Mg Tablet PO 1.5 mg DAILY@21 PRN Administration unknown Diltiazem HCl 180 mg 11/10/20 07:00 11/15/20 06:34 Diltiazem Er (24hr) 180 Mg Capsule PO 180 mg DAILY@07 TOM Administration Insulin Aspart 0 unit 11/09/20 18:00 11/15/20 07:28 Insulin Aspart 100 Unit/1 Ml SUBCUT Not Given WM&BEDTIME [facility] Protocol Levothyroxine Sodium 100 mcg 11/10/20 06:00 11/15/20 06:34 Levothyroxine 100 Mcg Tablet PO 100 mcg QAM TOM Administration Loperamide HCl 2 mg 11/11/20 02:20 11/15/20 06:34 Loperamide 2 Mg Capsule PO 2 mg QID PRN Administration DIARRHEA Methylprednisolone Sodium Succinate 60 mg 11/09/20 21:00 11/15/20 08:09 Methylprednisolone Sod Succ 125 Mg/2 Ml Inj IVP 60 mg Q12H TOM Administration Phenyleph/Shark Oil/Min Oil/Petrol 1 applic 11/14/20 21:00 11/15/20 08:09 Phenyleph-Mineral Oil-Petrolat Oint 28 Gm IN 1 applic QID TOM Administration Potassium Chloride 20 meq 11/12/20 09:00 11/15/20 08:10 Potassium Chloride Er 20 Meq Tablet PO 20 meq DAILY TOM Administration Psyllium Hydrophilic Mucilloid 1 packet 11/13/20 18:00 11/15/20 08:09 Psyllium Powder Pkt PO 1 packet BID TOM Administration PFSH Acute PFSH: Medical History (Updated 11/14/20 @ 19:18 by Han Mejia DO) Acute lower respiratory infection Anxiety ASHD (arteriosclerotic heart disease) Atrial fibrillation Chronic pain syndrome Chronic recurrent sinusitis Chronic seasonal allergic rhinitis Colitis Congestive heart failure (CHF) Diabetes mellitus, type II Essential hypertension Hemorrhoid Hypertrophic cardiomyopathy Hypomagnesemia Hypothyroidism Insomnia Iron deficiency Lower respiratory infection Melanoma Mixed hyperlipidemia Multilevel degenerative disc disease Sleep apnea Smoking addiction Vitamin D deficiency Surgical History Coronary angioplasty status [facility] 2105 H/O ventricular septal myectomy Family History Mother Myocardial infarction Father Hypertension Other Diabetes Family history of CABG Social History Smoking and tobacco status: current every day smoker Second hand smoke exposure: No Desire information about alcohol rehabilitation?: No Counseling given: No Desire information about substance/drug rehabilitation?: No Counseling given: No Vitals/I&O/Wt Last Vital Signs Temp 97.9 F 11/15/20 07:28 Pulse 73 11/15/20 07:28 Resp 19 H 11/15/20 07:28 BP 121/74 11/15/20 07:28 Pulse Ox 93 11/15/20 07:28 11/14/20 11/15/20 11/15/20 22:59 06:59 14:59 Intake Total 360 / 600 340 / 340 Output Total 250 / 675 650 / 650 Balance 110 / -75 -310 / -310 Physical Exam Narrative: EXAM NARRATIVE: Patient is conscious alert oriented X3 BMI 28.2 Head and neck examination PERRLA no masses no cervical lymphadenopathy no jaundice Cardiac examination audible S1-S2 no murmurs no gallops no arrhythmias Chest is clear bilateral,abscence of Rhonchi or wheezes,no surgical emphysema Right upper chest PowerPort in place without complication Abdomen nontender nondistended soft no organomegaly guarding or rigidity/no signs of peritonitis Extremities no cyanosis no clubbing no edema Urinary Catheter Management^: Lujan: Cath Placed During This Visit: yes, but has since been removed by the nurse Reason for Continuing Indwelling Catheter: Decision to DC Catheter Urinary Catheter Date of Insertion: 11/09/20 Urinary Catheter Time of Insertion: 11:21 Date Urinary Catheter Removed: 11/10/20 Time Urinary Catheter Discontinued: 15:00 Data Micro: Micro: Microbiology 11/09/20 10:14 Blood Culture - Fi nal Blood NO GROWTH AFTER 5 DAYS 11/09/20 10:10 Blood Culture - Fi nal Blood NO GROWTH AFTER 5 DAYS A&P Assessment and plan (1) Colitis: After history taking physical examination and reviewing the chart and images with my personal interpretation of the CT scan of the abdomen and pelvis. I did discuss with the patient that full colonoscopy would be putting him at higher risk of perforation with the presence of colitis yet potential flex sigmoidoscopy to obtain tissues for pathology and to help narrowing his treatment would be an option. Plan of care; After thorough history and physical examination and reviewing the chart, plan to perform flex sigmoidoscopy with possible biopsy this coming Sunday in the GI lab. I discussed with the patient in details the risks,benefits,alternatives and indications.The risk of aspiration, bleeding, soft tissue injury, the higher risk of perforation of the colon and other potential concomitant complications were explained to the patient in details,also the potential need for Laparoscoy/Laparotomy to repair any related complications including but not limited to colectomy and or Closotomy.The patient understood this well and did agree to proceed. Rationale was carefully and clearly discussed with the patient.Appropriate informed consent have been reviewed and signed All questions have been answered and all concerns have been addressed to patient's satisfaction. Verbal and written Instructions were given to the patient for colonoscopy prep The plan of care has been discussed in the presence of patient's nursing staff Winnie and his caregiver. Status: Acute Consult Attestations Medical Necessity Statement: Ongoing inpatient hospitalization for medical care Time Spent in Patient Care: (>than 50% of time spent in counselling and/or direct pt care on unit) . Coding Level of Care Code Acute Test Architect for Dina Donaldson Diagnoses Colitis K52.9
--- NOTE | 2020-11-15 11:07 | P.PN_ITS ---
Vitals/I&O/Wt Last Vital Signs Temp 97.9 F 11/15/20 07:28 Pulse 73 11/15/20 07:28 Resp 19 H 11/15/20 07:28 BP 121/74 11/15/20 07:28 Pulse Ox 93 11/15/20 07:28 11/14/20 11/15/20 11/15/20 22:59 06:59 14:59 Intake Total 360 / 600 340 / 340 Output Total 250 / 675 650 / 650 Balance 110 / -75 -310 / -310 Physical Exam Urinary Catheter Management^: Lujan: Cath Placed During This Visit: yes, but has since been removed by the nurse Reason for Continuing Indwelling Catheter: Decision to DC Catheter Urinary Catheter Date of Insertion: 11/09/20 Urinary Catheter Time of Insertion: 11:21 Date Urinary Catheter Removed: 11/10/20 Time Urinary Catheter Discontinued: 15:00 Data : 11/13/20 04:21 11/14/20 04:45 Micro: Microbiology 11/09/20 10:14 Blood Culture - Final Blood NO GROWTH AFTER 5 DAYS 11/09/20 10:10 Blood Culture - Final Blood NO GROWTH AFTER 5 DAYS Coding Level of Care Code Acute Auger Press Operator for Dina Donaldson
[2020-11-15 11:58] VITALS: BP 128/72; PULSE 72; RESP 18; TEMP 36.7; O2SAT 94
[2020-11-15] MEDS: cholestyramine powder 4 gm Pkt PO ×2 (12:03→15:26)
[2020-11-15 12:26] LABS: Glucose Point of Care 113 mg/dL (70-110)
[2020-11-15 15:23] VITALS: BP 125/70; PULSE 66; RESP 18; TEMP 36.7; O2SAT 96
[2020-11-15] MEDS: TRAMadol 50 mg Tablet PO (15:25)
--- NOTE | 2020-11-15 15:42 | P.DS_ITS ---
Discharge Providers Date of Admission: 11/09/20 17:47 Date of Discharge: November 15, 2020 Attending Provider at Admission: Praneeth Wilkerson MD Attending Provider at Discharge: Maricarmen Tellez MD Primary Care Provider: PORFIRIO Beard Diagnoses at Discharge Discharge Diagnosis (1) Colitis: Status: Acute Reason for Visit Reason for Visit: WEAKNESS, POST FALL Hospital Course Hospital Course Catrachito Agosto is a 65 year old male who has history of metastatic melanoma with persistent diarrhea over the past 6 weeks with evidence of colitis on imaging, for which he has had an overall negative infectious work up and no significant relief in symptoms in spite of appropriate antimicrobial treatment. Hospital course as notable below: #Colitis: Cdiff is negative. Already had treatment for infectious etiolgy a few weeks ago. Likely not infectious. Likely related to immunotherapy which is on hold right now. Imodium cholestyramine has not improved his symptoms reportedly however pt requests continue. Recommended BRAT diet. Eliquis discontinued due to bloody diarrhea on 11/14 and held at discharge, decision to resume dependent on results of sigmoidoscopy. 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 # Melanoma: Metastatic. Responded to immunotherapy quickly per sister. has missed last 2 doses due to hospitalizations. due to mental status and falls, MRI brain w and wo contrast was obtained, negative for metastatic disease Physical Exam Narrative: EXAM NARRATIVE: GEN: Awake, alert and oriented, no acute distress CVS: S1S2 N RS: CTA B/L Abd: Soft, nt/nd , bs+ RESOLUTION ANALYST: no focal neuro deficits Urinary Catheter Management^: Lujan: Cath Placed During This Visit: yes, but has since been removed by the nurse Reason for Continuing Indwelling Catheter: Decision to DC Catheter Urinary Catheter Date of Insertion: 11/09/20 Urinary Catheter Time of Insertion: 11:21 Date Urinary Catheter Removed: 11/10/20 Time Urinary Catheter Discontinued: 15:00 Discharge Data Data Completed and Pending: Completed Studies During Hospitalization Category Date Time Status CT abdomen pelvis w con* [id number] Urge nt Cat Scan 11/09/20 12:[address] cervical spin wo con* [id number] Stat Cat Scan 11/09/20 09:[address] cervical spin wo con* [id number] Stat Cat Scan 11/13/20 21:[address] chest wo con 7 1250 Stat Cat Scan 11/13/20 21:[address] head wo con* 7 0450 Stat Cat Scan 11/09/20 09:[address] head wo con* 7 0450 Stat Cat Scan 11/13/20 21:13 Completed XR chest 1V gerda ble [id number] Stat Exams 11/09/20 09:30 Completed XR hip RT 2-3V wo /w pel* [id number] Stat Exams 11/09/20 09:29 Completed MR head wo con* 7 0551 Routine MRI 11/15/20 18:58 Completed Pending at discharge Category Date Time Status Sputum Culture St at Lab 11/09/20 09:32 Uncollected Labs from last 24 hours 11/15/20 11/15/20 11/14/20 11:57 06:27 20:06 POC Glucose 113 H 116 H 162 H Vitamin B12 TSH 11/14/20 11/14/20 16:10 04:45 POC Glucose 169 H Vitamin B12 565 TSH 12.73 H Vitals: Last Vital Signs Temp 98.0 F 11/15/20 15:23 Pulse 66 11/15/20 15:23 Resp 18 11/15/20 15:23 BP 125/70 11/15/20 15:23 Pulse Ox 96 11/15/20 15:23 Discharge Plan Discharge Patient Disposition: Home Condition: Stable Prescriptions: New pantoprazole [Protonix] 40 mg tablet,delayed release (DR/EC) 40 mg PO DAILY Qty: 14 RF: 0 Continued ergocalciferol (vitamin D2) [Vitamin D2] 1,250 mcg (50,000 unit) capsule See Rx Instructions .ROUTE .COMPLEX Qty: 4 RF: 3 citalopram 40 mg tablet 40 mg PO DAILY@07 RF: 0 trazodone 50 mg tablet 50 mg PO BEDTIME@21 PRN (Reason: Sleep) RF: 0 diltiazem HCl 180 mg capsule,extended release 24hr 180 mg PO DAILY@07 RF: 0 potassium chloride 20 mEq tablet,ER particles/crystals 20 meq PO BID RF: 0 montelukast 10 mg tablet 10 mg PO DAILY@21 RF: 0 levothyroxine 200 mcg tablet See Rx Instructions .ROUTE .COMPLEX RF: 0 ezetimibe 10 mg tablet 10 mg PO DAILY@21 RF: 0 rosuvastatin 20 mg tablet 20 mg PO DAILY@21 RF: 0 bupropion HCl 300 mg tablet extended release 24 hr 300 mg PO DAILY@07 RF: 0 Januvia 25 mg tablet 25 mg PO DAILY@07 RF: 0 Dexilant 60 mg capsule,biphase delayed releas 60 mg PO DAILY@21 RF: 0 clonazepam 1 mg tablet 1.5 mg PO DAILY@21 PRN (Reason: unknown) RF: 0 albuterol sulfate [ProAir HFA] 90 mcg/actuation HFA aerosol inhaler See Rx Instructions .ROUTE .COMPLEX RF: 0 loperamide [Anti-Diarrheal (loperamide)] 1 mg/7.5 mL liquid 2 mg PO Q4H PRN (Reason: loose stool) Qty: 120 RF: 0 Phospha 250 Neutral 250 mg tablet 500 mg PO BID RF: 0 magnesium oxide 400 mg magnesium tablet 400 mg PO BID RF: 0 prochlorperazine maleate 10 mg tablet 10 mg PO Q4H PRN (Reason: Nausea) RF: 0 tramadol [Ultram] 50 mg Tablet 50 mg PO BID PRN (Reason: Pain) RF: 0 acetaminophen [Tylenol Extra Strength] 500 mg Tablet 500 - 1,000 mg PO Q6H PRN (Reason: Pain) RF: 0 oxycodone-acetaminophen 10-325 mg tablet 1 tab PO Q6H PRN (Reason: Pain) RF: 0 aspirin 81 mg Tablet,Chewable 81 mg PO DAILY@07 Qty: 0 RF: 0 fluticasone propionate 50 mcg/actuation [place],Suspension 2 spray INTRANASAL DAILY PRN (Reason: Allergy Symptoms) RF: 0 torsemide 100 mg tablet 25 mg PO DAILY@17 RF: 0 Held Eliquis 5 mg tablet 5 mg PO BEDTIME RF: 0 Hold Instructions: Resume on 11/19/20. discuss with general surgery regarding timing of resuming after sigmoidoscopy Discharge Orders: Discharge Order (Routine); Ordered 11/15/20 Ordered By: Maricarmen Tellez Referrals: Ilan Valera MD [Physician] - 11/17/20 2:45 pm Darlene Mendenhall MD [Staff Physician] - 11/22/20 9:30 am (appointment with luis alfredo olivo. ) Discharge Diet: As Directed Discharge Activity: Resume usual activity Patient Instructions: Diarrhea - Adult, Ulcerative Colitis (GEN), Opioid Safety Discharge Attestations Time Spent in Discharge Care*: less than 30 min Quality Metrics Clinical Quality Measures During this hospital stay, did patient experience: None Coding Level of Care Code Acute Chg DC note Diagnoses Colitis K52.9
[2020-11-15 16:12] VITALS: BP 125/70; PULSE 66; RESP 18; TEMP 36.7; O2SAT 96
--- NOTE | 2020-11-15 18:58 | MR_ITS ---
WS: [id number] MRI BRAIN WITHOUT CONTRAST HISTORY: falls, ? brain mets, history of melanoma. COMPARISON: None available. TECHNIQUE: Diffusion imaging, multiplanar T1, T2 and FLAIR imaging obtained. Noncontrast examination was performed. Patient states he is allergic to the contrast. Motion artifact on several of the sequences causing some limitation. No evidence for acute infarct or hemorrhage. Vilchis-white matter differentiation is normal. There are s cattered FLAIR and T2 signal hyperintensities in the subcortical and periventricular white matter. Th madi ischemic changes were better identified on the study from 08/18/2020 is there was less motion art ifact. No progression of the white matter disease. There are no secondary findings of an acute proces s such as metastatic disease. Mild atrophy. Ventricles and extra-axial spaces are normal. No inferior displacement of cerebellar tonsils. The sella turcica and pituitary gland are unremarkabl e. Posterior fossa is also unremarkable. Dural venous sinuses and [place] demonstrate no abnormality on this unenhanced studies. Paranasal sinuses: Clear. Mastoid air cells: Normal. Calvarium and scalp: Intact. MR/MR head wo con* [id number] IMPRESSION: 1. Study is limited by motion and lack of IV contrast. Patient refused IV cont rast as he states he is allergic. 2. There are no secondary findings for metastatic disease to the brain. This s tudy is limited without IV contrast. 3. Chronic microvascular ischemic changes appear similar to 08/18/2020.
== END 2020-11-15 16:13 | disposition home or self-care (01) | DRG 385 ==
LOC: ER 12:26 → MEDSURG 12:47 → ICU 17:46 → MEDSURG 11-10 18:22
PROVIDERS: Internal Medicine; Admitting Provider Internal Medicine; Emergency Provider Family Medicine; PCP Nurse Practitioner Family; Visit Provider Student in an Organized Health Care Education/Training Program
DX: K51.00 Ulcerative (chronic) pancolitis without complications (principal); R57.1 Hypovolemic shock; E87.1 Hypo-osmolality and hyponatremia; I50.32 Chronic diastolic (congestive) heart failure; K52.1 Toxic gastroenteritis and colitis; I42.2 Other hypertrophic cardiomyopathy; C43.9 Malignant melanoma of skin, unspecified; F41.9 Anxiety disorder, unspecified; I25.10 Atherosclerotic heart disease of native coronary artery without angina pectoris; I48.91 Unspecified atrial fibrillation; G89.4 Chronic pain syndrome; J32.9 Chronic sinusitis, unspecified; I11.0 Hypertensive heart disease with heart failure; E11.9 Type 2 diabetes mellitus without complications; E03.9 Hypothyroidism, unspecified; G47.00 Insomnia, unspecified; E78.2 Mixed hyperlipidemia; G47.30 Sleep apnea, unspecified; F17.210 Nicotine dependence, cigarettes, uncomplicated; E55.9 Vitamin D deficiency, unspecified; Z79.891 Long term (current) use of opiate analgesic; Z79.84 Long term (current) use of oral hypoglycemic drugs; Z79.82 Long term (current) use of aspirin; Z79.899 Other long term (current) drug therapy; T45.1X5A Adverse effect of antineoplastic and immunosuppressive drugs, initial encounter; W18.30XA Fall on same level, unspecified, initial encounter; Y92.231 Patient bathroom in hospital as the place of occurrence of the external cause
CPT/HCPCS: 36415; 36416; 36592; 36600; 51702; 70450; 70551; 71045; 71250; 72125; 73502; 74177; 80048; 80053; 81003; 82607; 82805; 82962; 83605; 83690; 83735; 84295; 84443; 85025; 87040; 87426; 87493; 87635; 87804; 92610; 96361; 96372; 96374; 96375; 99285; G0378; J1200; J1720; J1815; J1956; J2543; J2930; J7030; Q9967

== ENCOUNTER 2020-11-18 09:48 | Inpatient (IN) | payer MEDICARE, MEDICAID, SELFPAY ==
[2020-11-18] VITALS (124 sets, daily range): BP systolic 65–117; BP diastolic 40–64; PULSE 64–93; RESP 0–24; TEMP 36.4–37.2; O2SAT 87–99; BMI 26.6
--- NOTE | 2020-11-18 10:01 | XR_ITS ---
WS: [id number] Exam: XR chest 1V portable [id number] Date/Time of Exam: 11/18/2020 10:01 AM Reason For Exam: hypotension Comparison 11/09/2020. The lungs are clear and fully inflated. Normal cardiomediastinal structures. Signs of previous median sternotomy. A right-sided port is noted and appears to end in the right atrium. Surgical clips along the left axilla. Mild plaque atelectasis in the right lung base. XR/XR chest 1V portable [id number] IMPRESSION: 1. No acute cardiopulmonary finding.
--- NOTE | 2020-11-18 10:02 | ECG_ITS ---
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 Measurements Intervals [place] Rate: 93 P: 51 WI: 143 QRS: -26 QRSD: 121 T: 110 QT: 378 QTc: 471 Interpretive Statements SINUS RHYTHM MODERATE INTRAVENTRICULAR CONDUCTION DELAY [105+ ms QRS DURATION, 80+ ms Q/S IN V1/V2, NO Q AND 60+ ms R IN I/aVL/V5/V6] ST DEVIATION AND MODERATE T-WAVE ABNORMALITY, CONSIDER LATERAL ISCHEMIA [-0.1+ mV T WAVE IN I/aVL/V5/V6] Compared to ECG 10/29/2020 09:19:37 Intraventricular conduction delay now present T-wave abnormality now present Possible ischemia now present Electronically Signed On 11-18-2020 20:36:38 CDT by Prince Orlando M.D. [id number]
[2020-11-18] MEDS: hydrocortisone 100 mg/2 mL SDV IVP (10:06)
[2020-11-18] MEDS: sodium chloride 0.9% 500 ML 999 ML IV ×2 (10:06→11:34)
[2020-11-18 10:17] LABS: Hemoglobin 11.8 g/dL (11.7-16.6); Mean Corpuscular HGB Conc 32.8 g/dL (30.0-36.0); Mean Corpuscular Hemoglobin 27.7 pg (28.0-34.0); Mean Corpuscular Volume 84.5 fL (80-94); Mean Platelet Volume 9.5 fL (7.4-10.4); Platelet Count 168 10^3/cmm (130-400); Red Blood Count 4.26 10^6/uL (4.1-5.3); Red Cell Distribution Width 15.6 % (12.1-15.1); White Blood Count 14.4 10^3/uL (4.0-10.0)
[2020-11-18 10:23] LABS: INR 1.35 (0.8-1.2)
[2020-11-18 10:29] LABS: Lactic Sepsis W/Reflex 1.8 mmol/L (0.5-2.2)
[2020-11-18 10:31] LABS: Troponin(5th) Baseline 29 ng/L (0-15)
[2020-11-18] MEDS: sodium chloride 0.9% 1,000 ML 999 ML IV ×2 (10:35→12:23)
[2020-11-18 10:36] LABS: Slide Review Slide Review Perform
[2020-11-18 10:39] LABS: Alanine Aminotransferase 19 U/L (0-41); Albumin Level 1.9 g/dL (3.5-5.2); Alkaline Phosphatase 90 IU/L (40-130); Anion Gap 11.6 (5-19); Aspartate Amino Transferase 29 U/L (0-40); Blood Urea Nitrogen 21 mg/dL (8-23); Calcium 7.3 mg/dL (8.5-10.5); Carbon Dioxide 25 mmol/L (22-29); Chloride 87 mmol/L (98-107); Globulin 2.2 g/dL (1.3-4.6); Glomerular Filtration Rate 60.4 mL/min (90-130); Glucose 74 mg/dL (65-115); Lipase 32 U/L (13-60); Magnesium 1.6 mg/dL (1.7-2.3); NT Pro B Type Natriuretic Pept 599 pg/mL (0-125); Osmolality Calculated 252 mOsm/kg (285-295); Potassium 3.6 mmol/L (3.5-5.1); Sodium 120 mmol/L (136-145); Total Bilirubin 0.6 mg/dL (0.15-1.2); Total Cells Counted 100 (0-100); Total Protein 4.1 g/dL (6.6-8.7)
[2020-11-18 10:40] LABS: Absolute Segmented Neutrophil 11.8 10/cmm (1.6-7.1); Band Neutrophils Absolute 0.3 10^3/cmm (0.0-1.2); Eosinophils 0 %; Lymphocytes 8 %; Lymphocytes Absolute 2.3 10^3/cmm (1.2-3.4); Segmented Neutrophils 82 %
[2020-11-18 10:41] LABS: Absolute Neutrophil 12.1 10^3/cmm (1.4-6.5); Anisocytosis Trace; Platelet Estimate Normal (Normal)
--- NOTE | 2020-11-18 10:50 | PC.NURSE ---
pt given hygiene care and alivia care at this time. great amount of excoriation seen around pts genitals and perineal area.
--- NOTE | 2020-11-18 11:02 | PC.NURSE ---
Pt placed in Trendelenburg d/t BP
--- NOTE | 2020-11-18 11:22 | W.ED.WEAKNES ---
HPI - Weakness General: Chief complaint: Weakness Stated complaint: GENERALIZED WEAKNESS Time Seen by Provider: 11/18/20 09:51 History of Present Illness: HPI Narrative: This patient is a 65 year old male presenting by EMS from home. He reports that he is here because he is so weak that he cannot stand up. Apparently he fell while trying to ambulate to the bathroom and home health called 911. He was recently in the hospital with a similar presentation and was severely dehydrated. He has a history of melanoma and has been having issues with severe diarrhea for a month or more. He has been tested neg for c. diff and apparently medications were thought to be the cause. He was discharged home on 11/15. He has continued to have problems since then. he was also noted to have hyponatremia on his last admission and I note that he was on steroids and those were stopped. He is not able to tell me much - he only mentioned CHF as his medical history and was not able to tell me why he had a port. Complaint: generalized weakness and difficulty walking Onset (ago): week(s) Duration: progressively worsening Location: generalized Severity: severe Relieving factors: none Exacerbating factors: none Context: recent illness and history of similar Associated symptoms: Reports diaphoresis, short of breath and syncope Review of Systems General: Reports: ROS unobtainable due to medical condition and ROS unobtainable due to mental status (patient confused and was not able to answer too many questions) Const: Reports: diaphoresis Card: Reports: syncope [facility] ED PFSH: Medical History Acute lower respiratory infection Anxiety ASHD (arteriosclerotic heart disease) Atrial fibrillation Chronic pain syndrome Chronic recurrent sinusitis Chronic seasonal allergic rhinitis Colitis Congestive heart failure (CHF) Diabetes mellitus, type II Essential hypertension Hemorrhoid Hypertrophic cardiomyopathy Hypomagnesemia Hypothyroidism Insomnia Iron deficiency Lower respiratory infection Melanoma Mixed hyperlipidemia Multilevel degenerative disc disease Sleep apnea Smoking addiction Vitamin D deficiency Surgical History Coronary angioplasty status [facility] 2105 H/O ventricular septal myectomy Family History Mother Myocardial infarction Father Hypertension Other Diabetes Family history of CABG Social History Smoking and tobacco status: current every day smoker Second hand smoke exposure: No Desire information about alcohol rehabilitation?: No Counseling given: No Desire information about substance/drug rehabilitation?: No Counseling given: No Physical Exam Const: EXAM LIMITATIONS: altered mental status GENERAL APPEARANCE: lethargic and diaphoretic NUTRITIONAL APPEARANCE: overweight ORIENTATION/CONSCIOUSNESS: Yes confused and Yes lethargic HENMT: HEAD & SCALP: normal to inspection FACE & SINUS: normal facial exam Eye: GENERAL EYE: appearance normal, both eyes and all related structures Neck/C-Spine: COMMON NORMALS: supple, no meningeal signs and no JVD Chest: COMMONS NORMALS: normal inspection of the chest Resp: COMMON NORMALS: normal respiratory effort, No use of accessory muscles and clear to auscultation bilaterally AUSCULTATION: clear to auscultation bilaterally Cardio: COMMON NORMALS: no JVD, regular rate, regular rhythm and No murmurs present (Cardio) RATE: regular rate RHYTHM: regular rhythm GI: COMMON NORMALS: Normal to inspection, nondistended, normoactive bowel sounds present, Soft to palpation and non-tender INSPECTION: Yes normal to inspection AUSCULTATION: Yes normoactive bowel sounds PALPATION: Yes Soft to palpation and Yes Tenderness to palpation present (GI) Details: LLQ and RLQ Back/Pelvis: COMMON NORMALS: thoracic and lumbar spine normal to inspection Extremity: COMMON NORMALS: normal to inspection Neuro: COMMON NORMALS: moves all extremities, no focal motor deficits and no sensory deficits noted SENSORIUM/ORIENTATION: Yes lethargic MENINGEAL SIGNS: Yes no meningeal signs Psych: COMMON NORMALS: mental status grossly normal, cooperative and normal affect Skin: COMMON NORMALS: no rashes or lesions noted and turgor normal GENERAL SKIN EXAM: no rashes or lesions noted and turgor normal Course ED course: Patient responded to fluids initially but after 3 liters was still only 80 - 90 systolic and I ordered levophed. I spoke with his sister who confirmed that he has been getting more weak and fatigued over the past month and has continued to have severe diarrhea. She is concerned about his missed treatments for his melanoma and worried about his deterioration in the recent weeks. Will admit to Dr. Mayer. Vital Signs: Vital signs: Vital Signs Temperature 98.9 F 11/18/20 10:08 Pulse Rate 78 03/25/21 13:43 Respiratory Rate 14 11/18/20 13:43 Blood Pressure 88/42 11/18/20 13:43 Pulse Oximetry 93 11/18/20 13:43 MDM - Weakness MDM Narrative: Medical decision making narrative: Sepsis, dehydration, anemia, electrolyte abnormality, encephalopathy, cardiac ischemia Lab Data: Labs: Lab Results 11/18/20 11/18/20 11/18/20 Range/Units 10:00 10:00 10:00 WBC 14.4 H (4.0-10.0) 10^3/ uL RBC 4.26 (4.1-5.3) 10^6/u L Hgb 11.8 (11.7-16.6) g/dL Hct 36.0 L (42.0-52.0) % MCV 84.5 (80-94) fL MCH 27.7 L (28.0-34.0) pg MCHC 32.8 (30.0-36.0) g/dL RDW 15.6 H (12.1-15.1) % Plt Count 168 (130-400) 10^3/c mm MPV 9.5 (7.4-10.4) fL Lymph % (Auto) Not Reportable Anderson % (Auto) Not Reportable Lymph # (Auto) Not Reportable Anderson # (Auto) Not Reportable Total Counted 100 (0-100) Atypical Lymphs % 8.0 H (0-5) % Absolute Neutrophi ls 12.1 H (1.4-6.5) 10^3/c mm Segmented Neutroph ils 82 % Abs Segm Neuts (Ma n) 11.8 H (1.6-7.1) 10/cmm Band Neutrophils 2.0 % Abs Band Neuts (Ma n) 0.3 (0.0-1.2) 10^3/c mm Absolute Lymphocyt es 2.3 (1.2-3.4) 10^3/c mm Lymphocytes (Manua l) 8 % Monocytes (Manual) 0.0 % Absolute Monocytes 0.0 L (0.1-0.6) 10^3/c mm Eosinophils (Manua l) 0 % Absolute Eosinophi ls 0.0 (0.0-0.7) 10^3/c mm Basophils (Manual) 0.0 % Absolute Basophils 0.0 (0.0-0.2) 10^3/c mm Platelet Estimate Normal (Normal) Anisocytosis Trace PT 17.20 H (12.1-14.9) SECO NDS INR 1.35 H (0.8-1.2) Sodium 120 L (136-145) mmol/L Potassium 3.6 (3.5-5.1) mmol/L Chloride 87 L (98-107) mmol/L Carbon Dioxide 25 (22-29) mmol/L Anion Gap 11.6 (5-19) BUN 21 (8-23) mg/dL Creatinine 1.2 (0.7-1.2) mg/dL GFR Calculation 60.4 L (90-130) mL/min Glucose 74 (65-115) mg/dL Calculated Osmolal ity 252 L (285-295) mOsm/k g Lactic Acid (0.5-2.2) mmol/L Calcium 7.3 L (8.5-10.5) mg/dL Magnesium 1.6 L (1.7-2.3) mg/dL Total Bilirubin 0.6 (0.15-1.2) mg/dL AST 29 (0-40) U/L ALT 19 (0-41) U/L Alkaline Phosphata se 90 (40-130) IU/L Troponin T Baselin e (0-15) ng/L Troponin T 120 Min [place] (0-15) ng/L Delta Troponin T (0-10) ABS# NT-Pro-B Natriuret Pep 599 H (0-125) pg/mL Total Protein 4.1 L (6.6-8.7) g/dL Albumin 1.9 L (3.5-5.2) g/dL Globulin 2.2 (1.3-4.6) g/dL Lipase 32 (13-60) U/L 11/18/20 11/18/20 11/18/20 Range/Units 10:00 10:00 12:19 WBC (4.0-10.0) 10^3/ uL RBC (4.1-5.3) 10^6/u L Hgb (11.7-16.6) g/dL Hct (42.0-52.0) % MCV (80-94) fL MCH (28.0-34.0) pg MCHC (30.0-36.0) g/dL RDW (12.1-15.1) % Plt Count (130-400) 10^3/c mm MPV (7.4-10.4) fL Lymph % (Auto) Anderson % (Auto) Lymph # (Auto) Anderson # (Auto) Total Counted (0-100) Atypical Lymphs % (0-5) % Absolute Neutrophi ls (1.4-6.5) 10^3/c mm Segmented Neutroph ils % Abs Segm Neuts (Ma n) (1.6-7.1) 10/cmm Band Neutrophils % Abs Band Neuts (Ma n) (0.0-1.2) 10^3/c mm Absolute Lymphocyt es (1.2-3.4) 10^3/c mm Lymphocytes (Manua l) % Monocytes (Manual) % Absolute Monocytes (0.1-0.6) 10^3/c mm Eosinophils (Manua l) % Absolute Eosinophi ls (0.0-0.7) 10^3/c mm Basophils (Manual) % Absolute Basophils (0.0-0.2) 10^3/c mm Platelet Estimate (Normal) Anisocytosis PT (12.1-14.9) SECO NDS INR (0.8-1.2) Sodium (136-145) mmol/L Potassium (3.5-5.1) mmol/L Chloride (98-107) mmol/L Carbon Dioxide (22-29) mmol/L Anion Gap (5-19) BUN (8-23) mg/dL Creatinine (0.7-1.2) mg/dL GFR Calculation (90-130) mL/min Glucose (65-115) mg/dL Calculated Osmolal ity (285-295) mOsm/k g Lactic Acid 1.8 (0.5-2.2) mmol/L Calcium (8.5-10.5) mg/dL Magnesium (1.7-2.3) mg/dL Total Bilirubin (0.15-1.2) mg/dL AST (0-40) U/L ALT (0-41) U/L Alkaline Phosphata se (40-130) IU/L Troponin T Baselin e 29 H (0-15) ng/L Troponin T 120 Min [place] 20.71 H (0-15) ng/L Delta Troponin T -8.29 L (0-10) ABS# NT-Pro-B Natriuret Pep (0-125) pg/mL Total Protein (6.6-8.7) g/dL Albumin (3.5-5.2) g/dL Globulin (1.3-4.6) g/dL Lipase (13-60) U/L Critical Care Time Critical Care Time: Critical Care Time: Yes Total Critical Care Time: 35 Attestation: This case had a high probability of a clinically significant, sudden, or life threatening deterioration of this patient's condition which required my full and direct attention, intervention and personal management. Discharge Plan Discharge Patient Disposition: Admitted As Inpatient Admit Provider: Adam Mayer Coding Level of Care Code ED Covered Button Maker for [facility] Fwd Exam Comprehensive
--- NOTE | 2020-11-18 12:02 | ECG_ITS ---
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 Measurements Intervals [place] Rate: 78 P: 52 MS: 161 QRS: -20 QRSD: 124 T: 107 QT: 430 QTc: 490 Interpretive Statements SINUS RHYTHM POSSIBLE ANTERIOR MYOCARDIAL INFARCTION , OF INDETERMINATE AGE [30 ms Q WAVE IN V3/V4, OR R < 0.2 mV IN V4] MODERATE T-WAVE ABNORMALITY, CONSIDER LATERAL ISCHEMIA [-0.1+ mV T WAVE IN I/aVL/V5/V6] Compared to ECG 11/18/2020 10:04:19 Myocardial infarct finding now present Intraventricular conduction delay no longer present T-wave abnormality still present Possible ischemia still present Electronically Signed On 11-18-2020 20:44:13 CDT by Prince Orlando M.D. [id number]
[2020-11-18 12:56] LABS: Troponin 5 2HR 20.71 ng/L (0-15)
[2020-11-18] MEDS: piperacillin-tazobactam 3.375 GM in sodium chloride 0.9% (plus) 50 ML IV (12:57)
[2020-11-18 13:00] LABS: Troponin 5 2HR Delta -8.29 ABS# (0-10)
--- NOTE | 2020-11-18 14:05 | CTR_ITS ---
PROCEDURE INFORMATION: Exam: CT Head Without Contrast Exam date and time: 11/18/2020 2:10 PM Age: 65 years old Clinical indication: Altered mental status/memory loss; Additional info: AMS TECHNIQUE: Imaging protocol: Computed tomography of the head without contrast. Radiation optimization: All CT scans at this facility use at least one of these dose optimization techniques: automated exposure control; mA and/or kV adjustment per patient size (includes targeted exams where dose is matched to clinical indication); or iterative reconstruction. COMPARISON: CT head wo con* 02020 11/13/2020 9:40 PM RADIATION DOSE METRICS: Total DLP (mGy-cm): 873.98 FINDINGS: Brain: Normal. No hemorrhage. Unremarkable white matter. No mass effect. Cerebral ventricles: No ventriculomegaly. Bones/joints: Unremarkable. No acute fracture. Paranasal sinuses: Visualized sinuses are unremarkable. No fluid levels. Mastoid air cells: Visualized mastoid air cells are well aerated. Soft tissues: Unremarkable. CT/CT head wo con* [id number] IMPRESSION: 1. No acute intracranial abnormality. 2. No change from prior on 11/13/2020. Radiation Dose CTDIVOL = (mGy): DLP = 873.98 (mGy-cm)
[2020-11-18 14:10] LABS: Add Urine Microscopic? NO
--- NOTE | 2020-11-18 14:10 | PM.HP ---
Providers/Chief Complaint Admitting Physician: Adam Mayer Primary Care Provider: PORFIRIO Beard Chief Complaint: GENERALIZED WEAKNESS History of Present Illness Catrachito Agosto is a 65 year old male with past medical history of advanced metastatic melanoma managed by Dr. Mendenhall who is brought by EMS to emergency room due to altered mental status and generalized weakness. The patient was discharged 3 days ago after hospitalization for persistent diarrhea and associated dehydration. After discharge she continued having diarrhea. According to his sister who I spoke with on the phone the patient has lost about 40 pounds since last several weeks. He does not feel like eating. He continues having diarrhea. No rectal blood. No recent fever or chills. There is also report of a fall today. However I am unable to confirm this information. The patient lives alone. He has a caregiver who takes care of him. His sister is currently in [place] and unable to provide any history regarding the most recent events. His daughter who does not live with him has already left. However according to the sister the patient has been confused recently. The most recent MRI done during his previous hospitalization was negative for any intracranial abnormalities. The patient underwent immunotherapy by Dr. Mendenhall. Last treatment was about 6 weeks ago according to the sister. The patient also takes oxycodone for pain and clonazepam for anxiety. He is also on tramadol, bupropion, citalopram, and trazodone. He has hypothyroidism for which he is prescribed levothyroxine, CHF, A. fib and coronary artery disease. He is on Eliquis, aspirin, torsemide, diltiazem. Review of Systems General: Reports: ROS unobtainable due to mental status Medications/Allergies Home Medications Medication Instructions Recorded Confirmed Last Taken Type Dexilant 60 mg PO DAILY@09/13/20 11/18/20 11/17/20 History Januvia 25 mg PO DAILY@09/13/20 11/18/20 11/17/20 History bupropion HCl 300 mg PO DAILY@09/13/20 11/18/20 11/17/20 History citalopram 40 mg PO DAILY@09/13/20 11/18/20 11/17/20 History diltiazem HCl 180 mg PO DAILY@09/13/20 11/18/20 11/17/20 History ezetimibe 10 mg PO DAILY@09/13/20 11/18/20 11/17/20 History levothyroxine See Rx Instructions .ROUTE .COMPLEX 09/13/20 11/18/20 11/17/20 History montelukast 10 mg PO DAILY@09/13/20 11/18/20 11/17/20 History potassium chloride 20 meq PO BID 09/13/20 11/18/20 11/17/20 History rosuvastatin 20 mg PO DAILY@09/13/20 11/18/20 11/17/20 History trazodone 50 mg PO BEDTIME@ PRN 09/13/20 11/18/20 11/17/20 History albuterol sulfate [ProAir HFA] See Rx Instructions .ROUTE .COMPLEX 10/15/20 11/18/20 10/28/20 History clonazepam 1.5 mg PO DAILY@ PRN 10/15/20 11/18/20 11/17/20 History loperamide [Anti-Diarrheal 2 mg PO Q4H PRN #120 ml 10/19/20 11/18/20 Unknown Rx (loperamide)] ergocalciferol (vitamin D2) 1,250 See Rx Instructions .ROUTE 10/20/20 11/18/20 11/10/20 Rx mcg (50,000 unit) capsule .COMPLEX #4 cap Eliquis 5 mg PO BEDTIME 10/28/20 11/18/20 11/17/20 History Phospha 250 Neutral 500 mg PO BID 10/28/20 11/18/20 Unknown History magnesium oxide 400 mg PO BID 10/28/20 11/18/20 11/17/20 History acetaminophen [Tylenol Extra 500 - 1,000 mg PO Q6H PRN 11/09/20 11/18/20 Unknown History Strength] aspirin 81 mg PO DAILY@07 #0 11/09/20 11/18/20 Unknown History fluticasone propionate 2 spray INTRANASAL DAILY PRN 11/09/20 11/18/20 11/17/20 History oxycodone-acetaminophen 1 tab PO Q6H PRN 11/09/20 11/18/20 Unknown History prochlorperazine maleate 10 mg PO Q4H PRN 11/09/20 11/18/20 Unknown History torsemide 25 mg PO DAILY@17 11/09/20 11/18/20 11/17/20 History tramadol [Ultram] 50 mg PO BID PRN 11/09/20 11/18/20 Unknown History pantoprazole [Protonix] 40 mg PO DAILY #14 tab 11/17/20 11/18/20 Unknown Rx Allergies Allergy/AdvReac Type Severity Reaction Status Date / Time Iodinated Contrast Media Allergy ALGY-Hives Verified 11/15/20 10:58 metoprolol Allergy unknown Verified 11/15/20 10:58 red dye Allergy unknown Verified 11/15/20 10:58 PFSH Acute PFSH: Medical History Acute lower respiratory infection Anxiety ASHD (arteriosclerotic heart disease) Atrial fibrillation Chronic pain syndrome Chronic recurrent sinusitis Chronic seasonal allergic rhinitis Colitis Congestive heart failure (CHF) Diabetes mellitus, type II Essential hypertension Hemorrhoid Hypertrophic cardiomyopathy Hypomagnesemia Hypothyroidism Insomnia Iron deficiency Lower respiratory infection Melanoma Mixed hyperlipidemia Multilevel degenerative disc disease Sleep apnea Smoking addiction Vitamin D deficiency Surgical History Coronary angioplasty status [facility] 2105 H/O ventricular septal myectomy Family History Mother Myocardial infarction Father Hypertension Other Diabetes Family history of CABG Social History Smoking and tobacco status: current every day smoker Second hand smoke exposure: No Desire information about alcohol rehabilitation?: No Counseling given: No Desire information about substance/drug rehabilitation?: No Counseling given: No Vitals/I&O/Wt Last Vital Signs Temp 98.9 F 11/18/20 10:08 Pulse 78 11/18/20 13:43 Resp 14 11/18/20 13:43 BP 88/42 11/18/20 13:43 Pulse Ox 93 11/18/20 13:43 11/17/20 11/18/20 11/18/20 22:59 06:59 14:59 Intake Total 2705.297 / 2705.297 Balance 2705.297 / 2705.297 Weight last 48 hrs Weight 77.111 kg Physical Exam Narrative: EXAM NARRATIVE: The patient is extremely weak. [place] Coma Scale is about 12. He opens his eyes on verbal request. However he does not answer to any questions. He follows simple instructions. No apparent distress. Skin is warm and dry. Pale. Dry mucous membranes Neck supple. No JVD Eyes PERRL, extraocular muscles seem to be intact. There is no facial asymmetry. Lungs are clear. No respiratory distress Heart S1, S2, regular Abdomen is soft, nontender, bowel sounds are present Extremities no calf tenderness or peripheral cyanosis. He moves all his extremities. Data : 11/18/20 10:00 11/18/20 10:00 Micro: Microbiology 11/18/20 10:10 Blood Culture - Preliminary Blood SPECIMEN COLLECTED 11/18/20 10:00 Blood Culture - Preliminary Blood SPECIMEN COLLECTED A&P Additional A&P Information Acute hypovolemic shock probably secondary to dehydration. Probably due to decreased oral intake of fluids, ongoing diarrhea, diuretic. He is also on blood pressure medications, opiates and benzo which could contribute to his hypotension. I doubt sepsis. His lactic acid level was within normal range. We will check his TSH. Not sure if he is compliant with all of his medications. If he is hypothyroid this could also cause hypotension and altered mental status. Altered mental status. Most likely multifactorial. Probable contributing factors: Hypertension, opiates and benzo medications, hyponatremia, possible hypothyroidism. I will also order stat CT head to rule out any intracranial bleeding or other abnormalities. Hyponatremia. Most likely due to dehydration. However if it persists or does not improve with hydration then additional testing will be considered. We will monitor his chemistry panel every 6 hours and adjust the treatments. Norepinephrine as needed. The patient has a Mediport which is accessed and we can use for fluids and pressors. Diarrhea. This is probably one of the most important causes of his dehydration. He missed his appointment with Dr. Pittman for colonoscopy yesterday since he did not feel like it according to his sister. We will touch base with Dr. Pittman. Metastatic melanoma. I will try to speak with Dr. Mendenhall who is managing his outpatient treatments. Pulmonary edema. Will replace IV and monitor. Severe protein calorie malnutrition secondary to above. Will discuss this after stabilization. History of hypertension, atrial fibrillation, coronary artery disease, CHF. His troponin is slightly elevated which I suspect is due to demand ischemia. Will continue home aspirin and statin. Will stabilize his vital signs. Will consider cardiology evaluation if he develops chest pain. CHF seems to be stable at this time. Will need to be careful with IV fluids. Holding his home Eliquis for now. We are also holding all his home blood pressure medications due to hypotension. Abnormal troponin probably due to demand ischemia. See above. DVT prophylaxis. Teds and SCDs. No anticoagulation at this time until we have results of CT and were sure that there is no evidence of GI bleeding. GI prophylaxis. Famotidine IV. CODE STATUS. He is full code according to his wishes per his sister. Advance care planning. I had a very long discussion with the sister. She is open to discuss and consider comfort care and hospice care in the future. However she needs some time to discuss with the patient and his daughter. I answered to all her questions to the best of my knowledge. She verbalized understanding and agreement as well as satisfaction with this conversation. Critical care time spent on this encounter is 75 minutes. Attestations Medical Necessity Statement*: The patient is being admitted in critical condition to ICU. Will need IV fluids, pressors probably very close monitoring in ICU settings. Coding Level of Care Code Acute Drawer Fitter for D[facility]on
[2020-11-18 14:25] LABS: Bilirubin Urine Neg (Negative); Blood Urine Neg (Negative); Glucose Urine UA Norm (Normal); Ketones Urine Negative (Negative); Leukocyte Esterase Urine Negative (Negative); Nitrate Urine Negative (Negative); Protein Urine Neg (Negative); Urine Appearance Clear (CLEAR); Urine Color Yellow (Yellow); Urobilinogen Urine Norm (Negative); pH Urine 5 (5-7)
[2020-11-18] MEDS: sodium chloride 0.9% 1,000 ML 75 ML IV (14:28)
[2020-11-18] MEDS: famotidine 20 mg/2 mL INJ IVP (14:28)
[2020-11-18] MEDS: magnesium sulfate premix 2 GM/50 ML PIGGYBACK IV (14:28)
[2020-11-18 15:12] LABS: Anion Gap 9.8 (5-19); Blood Urea Nitrogen 16 mg/dL (8-23); Calcium 6.5 mg/dL (8.5-10.5); Carbon Dioxide 21 mmol/L (22-29); Chloride 94 mmol/L (98-107); Glomerular Filtration Rate 96.4 mL/min (90-130); Glucose 94 mg/dL (65-115); Osmolality Calculated 253 mOsm/kg (285-295); Potassium 3.8 mmol/L (3.5-5.1); Sodium 121 mmol/L (136-145); Thyroid Stimulating Hormone 15.02 uIU/mL (0.27-4.20)
--- NOTE | 2020-11-18 16:02 | ECG_ITS ---
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 Measurements Intervals [place] Rate: 66 P: 34 VA: 182 QRS: -22 QRSD: 134 T: 111 QT: 488 QTc: 513 Interpretive Statements SINUS RHYTHM INTRAVENTRICULAR CONDUCTION DELAY [130+ ms QRS DURATION] Nonspecific ST-T changes in the high lateral leads Compared to ECG 11/18/2020 12:09:59 Intraventricular conduction delay now present Myocardial infarct finding no longer present T-wave abnormality no longer present Possible ischemia no longer present Electronically Signed On 11-18-2020 20:46:05 CDT by Prince Orlando M.D. [id number]
[2020-11-18 17:25] LABS: Troponin 5 6HR 15.51 ng/L (0-15)
[2020-11-18 20:33] LABS: Anion Gap 11.9 (5-19); Blood Urea Nitrogen 14 mg/dL (8-23); Calcium 6.6 mg/dL (8.5-10.5); Carbon Dioxide 21 mmol/L (22-29); Chloride 97 mmol/L (98-107); Glomerular Filtration Rate 112.5 mL/min (90-130); Glucose 130 mg/dL (65-115); Osmolality Calculated 264 mOsm/kg (285-295); Potassium 3.9 mmol/L (3.5-5.1); Sodium 126 mmol/L (136-145)
[2020-11-18] MEDS: atorvastatin 40 mg Tablet 80 MG PO (22:15)
[2020-11-19] VITALS (156 sets, daily range): BP systolic 76–134; BP diastolic 38–86; PULSE 65–96; RESP 3–30; TEMP 36.6–36.9; O2SAT 63–100
[2020-11-19] MEDS: famotidine 20 mg/2 mL INJ IVP ×2 (02:19→14:31)
[2020-11-19 02:31] LABS: Alanine Aminotransferase 14 U/L (0-41); Albumin Level 1.5 g/dL (3.5-5.2); Alkaline Phosphatase 74 IU/L (40-130); Anion Gap 13.6 (5-19); Aspartate Amino Transferase 23 U/L (0-40); Blood Urea Nitrogen 12 mg/dL (8-23); Calcium 6.4 mg/dL (8.5-10.5); Carbon Dioxide 20 mmol/L (22-29); Chloride 97 mmol/L (98-107); Globulin 1.9 g/dL (1.3-4.6); Glomerular Filtration Rate 112.5 mL/min (90-130); Glucose 109 mg/dL (65-115); Magnesium 1.8 mg/dL (1.7-2.3); Osmolality Calculated 264 mOsm/kg (285-295); Potassium 3.6 mmol/L (3.5-5.1); Sodium 127 mmol/L (136-145); Total Bilirubin 0.3 mg/dL (0.15-1.2); Total Protein 3.4 g/dL (6.6-8.7)
[2020-11-19 02:44] LABS: Basophils # 0.1 10^3/uL (0.0-0.1); Eosinophils % 0.1 %; Hematocrit 27.9 % (42.0-52.0); Hemoglobin 9.1 g/dL (11.7-16.6); Lymphocytes # 1.2 10^3/uL (0.8-4.8); Lymphocytes % 15.2 %; Mean Corpuscular HGB Conc 32.6 g/dL (30.0-36.0); Mean Corpuscular Hemoglobin 27.4 pg (28.0-34.0); Mean Platelet Volume 9.3 fL (7.4-10.4); Monocytes # 0.2 10^3/uL (0.2-0.9); Neutrophils # 6.17 10^3/uL (1.8-7.7); Neutrophils % 79.8 %; Nucleated Red Blood Cells % 0 %; Platelet Count 142 10^3/cmm (130-400); Red Blood Count 3.32 10^6/uL (4.1-5.3); Red Cell Distribution Width 15.5 % (12.1-15.1); White Blood Count 7.7 10^3/uL (4.0-10.0)
[2020-11-19 02:52] LABS: Slide Review Slide Review Perform
[2020-11-19] MEDS: oxyCODONE-APAP 5-325 mg Tablet 1 TAB PO (03:39)
[2020-11-19] MEDS: sodium chloride 0.9% 1,000 ML 75 ML IV ×2 (03:39→16:45)
[2020-11-19] MEDS: aspirin 81 mg Chew Tablet PO (07:58)
[2020-11-19] MEDS: levothyroxine 100 mcg Tablet PO (08:00)
[2020-11-19 09:00] LABS: Anion Gap 11.2 (5-19); Blood Urea Nitrogen 10 mg/dL (8-23)
[2020-11-19 09:27] LABS: Calcium 6.6 mg/dL (8.5-10.5); Carbon Dioxide 21 mmol/L (22-29); Chloride 97 mmol/L (98-107); Glomerular Filtration Rate 134.4 mL/min (90-130); Glucose 122 mg/dL (65-115); Osmolality Calculated 265 mOsm/kg (285-295); Potassium 3.2 mmol/L (3.5-5.1); Sodium 127 mmol/L (136-145)
--- NOTE | 2020-11-19 12:35 | PC.PT ---
Attempted PT evaluation of patient this a.m., patient agreeable to out of bed initially, but then became reluctant due to anal tube, and worry of dislocation, with which this therapist agrees, will reattempt evaluation when this is removed.
--- NOTE | 2020-11-19 13:40 | PC.CHAP ---
Pastoral Care Encounter/Spiritual Assessment Type of Contact [] Declined mastercam programmer visit [] Patient/Family/Request visit [] Outpatient visit [] Follow-up visit [] Physician referral [] Code/Alert [] Routine visit [] Staff referral [] Actively dying [xx] Patient sleeping [] Family support [] [] Out of room [] Palliative care [] [] Receiving care in room [] Pre-surgical visit [] Trauma [] Long length of stay [xx] ICU visit [] Other: Relational/Emotional Strength [] Patient feels connected with others/family/visitors/staff [] Distress [] Loneliness/isolation [] Abandonment Spirituality of Patient [] Person of [place] [] Attends Confucianist of their Maria Esther [] Believes in Prayer [] Reads Bible or Oriental Orthodox materials [] There are Spiritual issues to be addressed Chair Installer Interventions [] Prayer [] Active listening [] Non-anxious presence [] Spiritual/emotional support [] Crisis/trauma care [] Spiritual counseling [] Bereavement support [] Provided bereavement packet [] Provided Bible/devotional materials [] Provided toy/stuffed animal, coloring book to patient or family member [] Provided Communion [] Anointing/[place] [] Salvation [] Completed spiritual assessment [] Other: Impact on Illness or Injury [] Angry [] Fearful [] Anxious [] Often cries [] Exhaustion [] Unable to work [] Unable to attend catholic [] Unable to walk/stand [] Unable to read [] Unable to drive [] Unable to eat/drink [] Unable to sleep [] Unable to be with family [] Patient intubated [] Other: Summary follow up later Time spent with patient
--- NOTE | 2020-11-19 14:00 | PC.NURSE ---
All care provided by Nica Guo , student nurse, directly supervised by this RN.
[2020-11-19] MEDS: potassium chloride premix 100 ML 25 MEQ IV (14:32)
--- NOTE | 2020-11-19 15:46 | PC.NURSE ---
Report called to GINNY Alexis. Report given to Mgiuelina Anton RN.
--- NOTE | 2020-11-19 15:59 | P.DS_ITS ---
Discharge Providers Date of Admission: 11/18/20 13:00 Date of Discharge: November 19, 2020 Attending Provider at Admission: Adam Mayer Attending Provider at Discharge: Adam Mayer Primary Care Provider: PORFIRIO Beard Reason for Visit Reason for Visit: GENERALIZED WEAKNESS Hospital Course Hospital Course See patient's H&P for more details. Please also review patient's previous hospitalization records. Catrachito Agosto is a 65 year old male with past medical history of advanced metastatic melanoma managed by Dr. Mendenhall, [place], [place] who is brought by EMS to emergency room due to altered mental status and generalized weakness. The patient was discharged 3 days ago after hospitalization for persistent diarrhea and associated dehydration. The most recent abdominal CT revealed pancolitis. After the discharge he continued having diarrhea. According to his sister the patient has lost about 40 pounds since last several weeks. He does not feel like eating. He continues having constant diarrhea. No rectal blood. No recent fever or chills. There is also report of a fall. CT of the head was unremarkable. According to the sister the patient has been confused recently and almost unresponsive on presentation. The most recent MRI done during his previous hospitalization was negative for any intracranial abnormalities. The patient underwent immunotherapy by Dr. Mendenhall. Last treatment was about 6 weeks ago according to the sister. The patient also takes oxycodone for pain and clonazepam for anxiety. He is also on tramadol, bupropion, citalopram, and trazodone. He has hypothyroidism for which he is prescribed levothyroxine, CHF, A. fib and coronary artery disease. He is on Eliquis, aspirin, torsemide, diltiazem. Assessment and plan. Problem list. Acute hypovolemic shock probably secondary to dehydration. Probably due to decreased oral intake of fluids, ongoing diarrhea, diuretic. He is also on blo od pressure medications, opiates and benzo which could contribute to his hypotension. I doubt sepsis. He remained afebrile his lactic acid level was within normal range. TSH is elevated. I suspect that he was not taking his Synthroid recently due to declining health and increasing confusion. Currently improved. Still requires small dose of norepinephrine drip. Altered mental status. Currently resolved most likely multifactorial. Probable contributing factors: Hypotension, opiates and benzo medications, hyponatremia, possible hypothyroidism. Hyponatremia. Most likely due to dehydration. Improved today after hydration. Diarrhea and suspected colitis. I discussed with Dr. Price, heme-onc who reviewed his chart. Patient's original oncologist Dr. Mendenhall is on vacation currently. 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 Dr. Price recommended initiation of the steroids and GI evaluation. He agrees that the patient needs to be transferred to higher level of care where he can be seen by a GI specialist and undergo colonoscopy for diagnostic reasons. I discussed this with Dr. Campos, hospitalist at [facility] who kindly accepted the transfer. The patient will be transferred. He agrees with the plan of care. I try to notify his sister who is closely involved in his care. I left 2 messages. Waiting for her to call me back. I also communicated plan of care with the patient's caregiver on the phone. Metastatic melanoma. Please try to speak with Dr. Mendenhall, patient's primary oncologist. Will be back to work Sunday HypoMg> Replaced Severe protein calorie malnutrition secondary to above. History of hypertension, atrial fibrillation, coronary artery disease, CHF. His troponin is slightly elevated which I suspect is due to demand ischemia due to hypotension. Will continue home aspirin and statin. No chest pain or signs of fluid overload. CHF seems to be stable at this time. Will need to be careful with IV fluids. Abnormal troponin probably due to demand ischemia. Mild elevation without chest pain. Similar to previous hospitalizations. See above. DVT prophylaxis. Teds and SCDs. Resuming Eliquis. GI prophylaxis. Continue home PPI CODE STATUS. Full code. Physical Exam Narrative: EXAM NARRATIVE: Currently the patient is awake alert and oriented. No acute distress. Mood and affect are appropriate. Responses are adequate. Skin is warm and dry. Moist mucous membranes. Eyes PERRL, extraocular muscle intact Normal speech Lungs clear. No respiratory distress Heart S1, S2, regular Abdomen soft, nontender, bowel sounds are present. No rebound or guarding. Extremities. No calf tenderness bilaterally. No peripheral cyanosis. Urinary Catheter Management^: Lujan: Cath Placed During This Visit: yes Reason for Continuing Indwelling Catheter: Accurate Measurement of Urinary Output in Critically Ill Patients Urinary Catheter Date of Insertion: 11/18/20 Urinary Catheter Time of Insertion: 14:00 Discharge Data Data Completed and Pending: Completed Studies During Hospitalization Category Date Time Status CT head wo con* [id number] Stat Cat Scan 11/18/20 14:05 Completed XR chest 1V gerda ble [id number] Stat Exams 11/18/20 10:01 Completed Pending at discharge Category Date Time Status Blood Culture Sta t Lab 11/18/20 10:10 Results Complete Blood Co unt w/Auto AM LABS Lab 11/20/20 04:00 Ordered Magnesium AM LABS Lab 11/20/20 04:00 Ordered Renal Function Pa walter AM LABS Lab 11/20/20 04:00 Ordered Labs from last 24 hours 11/19/20 11/19/20 11/19/20 08:28 01:57 01:57 WBC 7.7 RBC 3.32 L Hgb 9.1 L Hct 27.9 L MCV 84.0 MCH 27.4 L MCHC 32.6 RDW 15.5 H Plt Count 142 MPV 9.3 Neut % (Auto) 79.8 Lymph % (Auto) 15.2 Bradford % (Auto) 3.0 Eos % (Auto) 0.1 Baso % (Auto) 1.0 Neut # (Auto) 6.17 Lymph # (Auto) 1.2 Bradford # (Auto) 0.2 Eos # (Auto) 0.0 Baso # (Auto) 0.1 Nucleated RBC % (a uto) 0 Nucleated RBCs # 0.0 Sodium 127 L 127 L Potassium 3.2 L 3.6 Chloride 97 L 97 L Carbon Dioxide 21 L 20 L Anion Gap 11.2 13.6 BUN 10 12 Creatinine 0.6 L 0.7 GFR Calculation 134.4 H 112.5 Glucose 122 H 109 Calculated Osmolal ity 265 L 264 L Calcium 6.6 L 6.4 L Magnesium 1.8 Total Bilirubin 0.3 AST 23 ALT 14 Alkaline Phosphata se 74 Troponin T Hi Sens 6Hr Troponin T Hi Sens 6Hr Delta Total Protein 3.4 L Albumin 1.5 L Globulin 1.9 11/18/20 11/18/20 20:00 16:30 WBC RBC Hgb Hct MCV MCH MCHC RDW Plt Count MPV Neut % (Auto) Lymph % (Auto) Bradford % (Auto) Eos % (Auto) Baso % (Auto) Neut # (Auto) Lymph # (Auto) Bradford # (Auto) Eos # (Auto) Baso # (Auto) Nucleated RBC % (a uto) Nucleated RBCs # Sodium 126 L Potassium 3.9 Chloride 97 L Carbon Dioxide 21 L Anion Gap 11.9 BUN 14 Creatinine 0.7 GFR Calculation 112.5 Glucose 130 H Calculated Osmolal ity 264 L Calcium 6.6 L Magnesium Total Bilirubin AST ALT Alkaline Phosphata se Troponin T Hi Sens 6Hr 15.51 H Troponin T Hi Sens 6Hr Delta -13.49 L Total Protein Albumin Globulin Vitals: Last Vital Signs Temp 98.4 F 11/19/20 12:00 Pulse 87 11/19/20 15:15 Resp 16 11/19/20 15:15 BP 122/62 11/19/20 15:15 Pulse Ox 99 11/19/20 15:15 Discharge Plan Discharge Patient Disposition: Short Term Hosp w Plan Readm Condition: Stable Prescriptions: Continued ergocalciferol (vitamin D2) [Vitamin D2] 1,250 mcg (50,000 unit) capsule See Rx Instructions .ROUTE .COMPLEX Qty: 4 RF: 3 citalopram 40 mg tablet 40 mg PO DAILY@07 RF: 0 trazodone 50 mg tablet 50 mg PO BEDTIME@21 PRN (Reason: Sleep) RF: 0 montelukast 10 mg tablet 10 mg PO DAILY@21 RF: 0 levothyroxine 200 mcg tablet See Rx Instructions .ROUTE .COMPLEX RF: 0 ezetimibe 10 mg tablet 10 mg PO DAILY@21 RF: 0 rosuvastatin 20 mg tablet 20 mg PO DAILY@21 RF: 0 bupropion HCl 300 mg tablet extended release 24 hr 300 mg PO DAILY@07 RF: 0 Dexilant 60 mg capsule,biphase delayed releas 60 mg PO DAILY@21 RF: 0 clonazepam 1 mg tablet 1.5 mg PO DAILY@21 PRN (Reason: unknown) RF: 0 albuterol sulfate [ProAir HFA] 90 mcg/actuation HFA aerosol inhaler See Rx Instructions .ROUTE .COMPLEX RF: 0 loperamide [Anti-Diarrheal (loperamide)] 1 mg/7.5 mL liquid 2 mg PO Q4H PRN (Reason: loose stool) Qty: 120 RF: 0 Eliquis 5 mg tablet 5 mg PO BEDTIME RF: 0 Hold Instructions: Resume on 11/19/20. discuss with general surgery regarding timing of resuming after sigmoidoscopy prochlorperazine maleate 10 mg tablet 10 mg PO Q4H PRN (Reason: Nausea) RF: 0 tramadol [Ultram] 50 mg Tablet 50 mg PO BID PRN (Reason: Pain) RF: 0 acetaminophen [Tylenol Extra Strength] 500 mg Tablet 500 - 1,000 mg PO Q6H PRN (Reason: Pain) RF: 0 oxycodone-acetaminophen 10-325 mg tablet 1 tab PO Q6H PRN (Reason: Pain) RF: 0 aspirin 81 mg Tablet,Chewable 81 mg PO DAILY@07 Qty: 0 RF: 0 fluticasone propionate 50 mcg/actuation [place],Suspension 2 spray INTRANASAL DAILY PRN (Reason: Allergy Symptoms) RF: 0 Held diltiazem HCl 180 mg capsule,extended release 24hr 180 mg PO DAILY@07 RF: 0 Hold Instructions: Until blood pressure is stabilized Januvia 25 mg tablet 25 mg PO DAILY@07 RF: 0 Hold Instructions: Overall stabilization Phospha 250 Neutral 250 mg tablet 500 mg PO BID RF: 0 Hold Instructions: Until diarrhea is resolved magnesium oxide 400 mg magnesium tablet 400 mg PO BID RF: 0 Hold Instructions: Until diarrhea is resolved torsemide 100 mg tablet 25 mg PO DAILY@17 RF: 0 Hold Instructions: Until stabilized Discontinued potassium chloride 20 mEq tablet,ER particles/crystals 20 meq PO BID RF: 0 pantoprazole [Protonix] 40 mg tablet,delayed release (DR/EC) 40 mg PO DAILY Qty: 14 RF: 0 Discharge Orders: Discharge Order (Routine); Ordered 11/19/20 Ordered By: Adam Mayer Referrals: Darlene Mendenhall MD [Staff Physician] - 2 weeks Discharge Diet: Advance as tolerated Discharge Activity: Increase activity as tolerated Discharge Attestations Time Spent in Discharge Care*: greater than 30 min Quality Metrics Clinical Quality Measures During this hospital stay, did patient experience: None Coding Level of Care Code Acute Chg FW DC note
--- NOTE | 2020-11-19 17:15 | PC.NURSE ---
Ambulance crew here. Pt transferred to their care. [facility].
== END 2020-11-19 17:15 | disposition short-term general hospital (02) | DRG 640 ==
LOC: ER 10:37 → ICU 13:15
PROVIDERS: Admitting Provider Internal Medicine; Emergency Provider Emergency Medicine; PCP Nurse Practitioner Family; Visit Provider Internal Medicine
DX: E87.1 Hypo-osmolality and hyponatremia (principal); R57.1 Hypovolemic shock; E43 Unspecified severe protein-calorie malnutrition; K51.00 Ulcerative (chronic) pancolitis without complications; I24.8 Other forms of acute ischemic heart disease; T45.1X5A Adverse effect of antineoplastic and immunosuppressive drugs, initial encounter; C43.9 Malignant melanoma of skin, unspecified; Z79.899 Other long term (current) drug therapy; Z79.891 Long term (current) use of opiate analgesic; F41.9 Anxiety disorder, unspecified; E03.9 Hypothyroidism, unspecified; I11.0 Hypertensive heart disease with heart failure; I50.9 Heart failure, unspecified; I48.91 Unspecified atrial fibrillation; I25.10 Atherosclerotic heart disease of native coronary artery without angina pectoris; Z98.61 Coronary angioplasty status; G89.4 Chronic pain syndrome; J32.9 Chronic sinusitis, unspecified; E11.9 Type 2 diabetes mellitus without complications; G47.00 Insomnia, unspecified; E78.2 Mixed hyperlipidemia; M19.90 Unspecified osteoarthritis, unspecified site; G47.30 Sleep apnea, unspecified; E55.9 Vitamin D deficiency, unspecified; F17.210 Nicotine dependence, cigarettes, uncomplicated; Z79.01 Long term (current) use of anticoagulants; Z79.82 Long term (current) use of aspirin; R41.82 Altered mental status, unspecified; Z68.28 Body mass index [BMI] 28.0-28.9, adult; T50.995A Adverse effect of other drugs, medicaments and biological substances, initial encounter; I95.9 Hypotension, unspecified; E86.0 Dehydration
CPT/HCPCS: 36415; 36591; 51702; 70450; 71045; 80048; 80053; 81003; 83605; 83690; 83735; 83880; 84443; 84484; 85007; 85025; 85610; 87040; 93005; 97167; 99291; J1720; J2543; J3475; J3480; J3490; J7030; J7040

== ENCOUNTER → 2020-12-09 11:36 | Outpatient (BNVA) | payer MEDICARE, MEDICAID, SELFPAY | PROVIDERS: PCP Nurse Practitioner Family; Visit Provider Nurse Practitioner Family | DX: E11.9 Type 2 diabetes mellitus without complications (principal); E03.9 Hypothyroidism, unspecified; C43.8 Malignant melanoma of overlapping sites of skin | CPT/HCPCS: 80053; 81003; 82728; 83036; 83550; 84443; 85025 ==

== ENCOUNTER 2020-12-10 09:32 | Outpatient (CLI) | payer MEDICARE, MEDICAID, SELFPAY ==
[2020-12-10 10:10] LABS: Basophils % 0.3 %; Eosinophils % 0.2 %; Hematocrit 29.3 % (42.0-52.0); Lymphocytes # 3.3 10^3/uL (0.8-4.8); Lymphocytes % 27.4 %; Mean Corpuscular HGB Conc 30.7 g/dL (30.0-36.0); Mean Corpuscular Hemoglobin 28.1 pg (28.0-34.0); Mean Corpuscular Volume 91.6 fL (80-94); Mean Platelet Volume 8.4 fL (7.4-10.4); Monocytes # 0.3 10^3/uL (0.2-0.9); Monocytes % 2.2 %; Neutrophils # 8.25 10^3/uL (1.8-7.7); Neutrophils % 68.7 %; Nucleated Red Blood Cells % 0 %; Platelet Count 233 10^3/cmm (130-400); Red Cell Distribution Width 18.2 % (12.1-15.1)
[2020-12-10 10:49] LABS: Alanine Aminotransferase 8 U/L (0-41); Albumin Level 2.6 g/dL (3.5-5.2); Alkaline Phosphatase 90 IU/L (40-130); Aspartate Amino Transferase 13 U/L (0-40); Blood Urea Nitrogen 7 mg/dL (8-23); Carbon Dioxide 33 mmol/L (22-29); Chloride 97 mmol/L (98-107); Globulin 1.5 g/dL (1.3-4.6); Glomerular Filtration Rate 165.9 mL/min (90-130); Glucose 129 mg/dL (65-115); Osmolality Calculated 280 mOsm/kg (285-295); Sodium 135 mmol/L (136-145); Thyroid Stimulating Hormone 20.05 uIU/mL (0.27-4.20); Total Bilirubin 0.2 mg/dL (0.15-1.2); Total Protein 4.1 g/dL (6.6-8.7)
--- NOTE | 2020-12-10 11:57 | ONC FU_ITS ---
Dr. Mendenhall follow up note Patient: Catrachito Agosto Unit #: [id number]: 1955 Dicatated By: Darlene Mendenhall M.D.Date of Visit:Dec 10, 2020 Onc Med Follow-up/Prog Note History of Present Illness: Mr. Agosto is a 65-year-old gentleman with a year-long history of left axillary lymphadenopathy. In October of November 2019, he noticed the LEFT axillary mass seemed to increase with associated pain. He also noticed fullness in the RIGHT axilla. The right axillary mass grew significantly over 1 to 2-month interval. He did have minor trauma to the right axillary mass which led to significant bleeding from the mass requiring a trip to the emergency room for suture to secure the bleeding. At that time he stopped his aspirin but continued Eliquis for history of atrial fib. He did have follow-up with his PCP who did refer him to his surgery for a biopsy. On 03/16/2020 he underwent excisional biopsy of the left axillary mass with pathology demonstrating large cell malignancy, most suggestive of high-grade sarcomatous differentiation quotation. 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 On 03/18/[address] of the chest abdomen pelvis which demonstrated bilateral axillary lymphadenopathy (with the largest left axillary lymph node measuring 5.2 x 3.8 cm) and bowel wall thickening in the distal rectum and some calcified nodes in the abdomen. 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 CT PET scan was done on June 02, 2020 which showed bilateral breast involvement, 8.4 x 5.1 cm on the left side with a maximum SUV of 15.95, left axillary lymphadenopathy with a dominant 3.7 x 2.6 cm mass with a maximum SUV of 19.88 and the right breast mass also is present laterally extending to the skin with possibly involving measuring 5.9 x 3.7 cm with SUV of 17.43. And a single enlarged left superior phrenic lymph node size 1.7 cm with SUV of 13.38 and incidental findings in the ascending colon with SUV of 12.64 may reflect tumor activity. Otherwise no lung involvement no liver involvement or any osseous metastatic disease. On 06/15/[address] Simon (surgical oncology) and on 06/25/2020 he underwent right axillary mass excision for diagnostic and palliative indications. On 06/19/2020 the final pathology with molecular profiling and IHC stains determined to represent dedifferentiated melanoma, he was referred to Dr. Rosado in the Melanoma clinic at [facility] on 07/26/2020. 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 Mets to bilateral breast/axilla, and left deep axillary/retrocrural spicular cesar conglomerate and a left retroperitoneal soft tissue mass on PET CT from 06/02/2020. NRAS mutated, TERT promoter mutated, TMB high, PD-L1 greater than 99%. It was recommended that he have repeat chest abdomen pelvis for new baseline given the imaging at that point was greater than 2 months old. He also was recommended to have brain MRI to complete staging. In the interim it was an option to treat him with ipilimumab/nivolumab with inverted dosing (Ipi 1 mg/kg/Nivo 3 mg/kg) Mr. Agosto began his first treatment on 08/17/2020. PMH: Mr Agosto denies any night sweats, denies any weight loss, denies any recurrent fever or infection denies any abdominal fullness denies any trauma to upper extremity denies any skin rash denies any travel to foreign land, denies any tick bite, denies any [id number] herbal medication, denies any IV drug abuse. He has longstanding history of heavy smoking about 1 to 2 packs a day for more than 50 years. Other medical illnesses include atrial for, anxiety, asthma, CAD, CHF, depression, diabetes mellitus, GERD, hyperlipidemia, hypertension, hypertrophic cardiomyopathy, hypothyroidism, IA (mitral competence), HARESH, sleep apnea. Surgeries include cardiac stent placement 2009 heart surgery septum myectomy for hypertrophic cardiomyopathy in 2016. MRI of the brain on 08/18/2020 reports no evidence of metastatic disease to the brain or calvarium. There is moderate chronic microvascular ischemic changes in the white matter. Left axillary lymphadenopathy with the largest lymph node measuring 5.2 x 3.6 cm similar in appearance to 02/17/2020. CTA neck from 08/13/2020 reports no significant cervical chain lymphadenopathy. Small cervical chain lymph nodes but these are less than 1 cm with no significant enhancement. Also noted high-grade right ICA stenosis. CT of the chest abdomen pelvis with contrast from 08/16/2020 reports increase in size of the necrotic lobulated mass in the left axilla since 02/17/2020. Probably representing necrotic neoplastic lymph node now measuring 5.7 x 10 x 5.8 cm. There was a new lobulated mass in the left upper thorax posterior to the left clavicle and posterior to the left subclavian artery measuring 5.6 x 2.3 x 3.5 cm. There is a new 1.6 nodule in the retroperitoneal metastatic deposit or associated with the medial limb of the left adrenal gland which was suspicious for metastatic site. No metastatic lesions within the liver or right adrenal gland no ascites. There were 2 sclerotic foci within the left ischium which have been present and stable since 05/20/2019 and are probably benign bone islands . There are additional bone islands in the right femoral head noted. Left lower extremity venous Doppler study done on August 24, 2020 showed no evidence of DVT Started on ipilimumab/nivolumab Every 3 weeks on August 17, 2020. Came for follow-up, complaining of generalized weakness and fatigue, no fever chills, but nausea with oral iron which was started for iron deficiency anemia in [facility] during his recent hospitalization for sepsis and colitis. As per patient and family in the last week of October 2020 he was admitted to [facility] with mental status changes and diagnosed with sepsis, prior to that on November 09, [address] scan of chest abdomen pelvis which showed, no acute abnormality but an approximately 4.3 cm low density structure in the left axilla with some calcification or suture material and this margin likely reflects a seroma or abnormal lymph node. Otherwise no abnormality seen in the lungs or mediastinum CT scan of abdomen pelvis done on November 09, 2020 showed diffuse colonic thickening with mucosal enhancement involving entire colon consistent with pancolitis, appears slightly progressed compared to October 28, 2020. No evidence of bowel obstruction. CT scan of the head done on November 18, 2020 showed no acute intracranial abnormality Patient was transferred to [facility] in [place] for further evaluation for sepsis and colitis, as per patient and family he underwent colonoscopy there and biopsy was done and they were told that he got colon damage from immunotherapy. And patient was also started on oral iron for iron deficiency and also given potassium supplement for hypokalemia which patient is not taking because of large size potassium pills. Medications: Acetaminophen Extra Strength 1 - 2 Capsule (of 500 mg) Oral daily PRN, buPROPion HCl ER (XL) 1 Tablet (of 300 mg) Tablet SR 24 HR Oral daily, Cetirizine HCl 1 Tablet (of 10 mg) Oral daily, Citalopram Hydrobromide 1 Tablet (of 40 mg) Oral daily, clonazePAM 1.5 Tablet (of 1 mg) Oral daily, dilTIAZem HCl ER 1 Capsule (of 180 mg) Capsule SR 24 HR Oral daily, Eliquis 1 Tablet (of 5 mg) Oral b.i.d., Ezetimibe 1 Tablet (of 10 mg) Oral daily, HYDROcodone-Acetaminophen 1 Tablet (of 5-325 mg) Oral q 6 hours PRN, Januvia 1 Tablet (of 25 mg) Oral daily, Levothyroxine Sodium 0.5 Tablet (of 200 mcg) Oral daily, Montelukast Sodium 1 Tablet (of 10 mg) Oral daily, Potassium Chloride ER 1 Tablet (of 20 meq) Tablet, controlled release Oral b.i.d., Torsemide 1 Tablet (of 100 mg) Oral daily, traMADol HCl 1 Tablet (of 50 mg) Oral b.i.d. PRN, traZODone HCl 1 Tablet (of 50 mg) Oral daily, Vitamin D 1 Capsule (of 1.25 mg) Oral q 7 days Allergies: Metoprolol Tartrate and Red Dye. Review of Systems: Review of Systems is not available for this patient. Vital Signs: Performed on Dec 10, 2020 11:23 Height - 67.00 in Weight - 176 lbs (LOW) BSA - 1.92 sq.m BMI - 27.57 Temperature - 98.0 F (LOW) Pulse - 75 /min Respiration - 18 /min BP - 127/78 mm(hg) O2 Sat - 95 % (LOW) Pain - 0 Performance Status: 2 - Ambulatory/capable of all self-care, unable to perform any work activities. Up and about more than 50% of waking hours. (ECOG) Physical Examination: ENMT - No mouth sores, no thrush, no jaundice, Respiratory - Poor air entry otherwise clear, Cardiovascular - Regular rate and rhythm of heart, Abdomen - Soft, bowel sounds present, Extremities - Trace edema bilaterally. Lab/Imaging: Test performed on Sep 27, 2020 13:50 Magnesium 2.1 mg/dL Sodium 136 mmol/L TSH 0.08 uIU/mL Potassium 3.3 mmol/L Chloride 97 mmol/L CO2 34 mmol/L Anion Gap 8.3 BUN 12 mg/dL Creatinine 0.8 mg/dL Cr Clearance (Est) 120.8400 mL/min eGFR 96.4 mL/min Glucose 94 mg/dL Osmolality - Calculated 282 mOsm/kg Calcium 9.3 mg/dL Protein, Total 6.1 g/dL Albumin 4.0 g/dL Globulin 2.1 g/dL Bilirubin, Total 0.4 mg/dL ALT (SGPT) 24 U/L AST (SGOT) 40 U/L Alkaline Phosphatase 122 IU/L WBC 9.1 10 3/uL RBC 4.54 10 6/uL HGB 12.4 g/dL HCT 38.9 % MCV 85.7 fL MCH 27.3 pg MCHC 31.9 g/dL RDW 15.0 % Platelet Count 205 10 3/cmm MPV 9.4 fL Neutrophils 5.19 10 3/uL Lymphocytes 1.8 10 3/uL Monocytes 1.1 10 3/uL Eosinophils 1.0 10 3/uL Basophils 0.1 10 3/uL Neutrophil % 56.9 % Lymphocyte % 19.2 % Monocyte % 11.6 % Eosinophil % 11.0 % Basophils % 1.0 % NRBC % 0 % Test performed on Sep 07, 2020 09:00 Manual Lymphocytes 16.1 % Manual Monocytes 7.3 % Manual Eosinophils 14.3 % Manual Basophils 0.2 % Test performed on Aug 16, 2020 11:45 CBC Slide Review Slide Review Perform SLIDE REVIEW AGREES WITH AUTOMATED RESULTS Impression: 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 excisional biopsy done on June 25, 2020 at [facility]; NRAS mutated, T ERT promoter mutated, TMB high, PD-L1 more than 99% Initially diagnosed with Poorly differentiated carcinoma high-grade sarcomatous differentiation versus histiocytic sarcoma with plasmacytoid differentiation versus other per excisional biopsy of left axillary lymph node, Later on at [facility] patient underwent another biopsy On June 25, 2020, as mentioned above, based on molecular profiling and IHC staining it was confirmed as dedifferentiated melanoma rather sarcoma Cancer type ID confirmed undifferentiated sarcoma with 90% probability CT scan of chest abdomen pelvis done on February 17, 2020 showed bilateral axillary lymphadenopathy and fatty liver. CT PET scan done on June 02, 2020 showed prominent bilateral breast tissue tumor activity with additional left axillary lymph node involvement e.g. left breast showed 8.4 x 5.1 cm with SUV of 15.95 and 3.7 x 2.6 cm dominant lymph node with SUV of 19.88 and right breast mass also present laterally extending to the skin measuring 5.9 x 3.7 cm with SUV of 17.43 and a single enlarged 1.7 cm left superior phrenic lymph node with SUV of 13.38 and There is intense increase of metabolic activity associated with the descending colon with SUV of 12.64. Mr Agosto presented to us for followup and initiation of treatment closer to home. He had upper anterior chest wall discomfort/pain as well as bilateral axillary fullness more on the left side not being controlled with tramadol/hydrocodone. Initially patient was diagnosed with undifferentiated sarcoma, then patient was referred to [facility] where he underwent a biopsy of right axillary mass on June 25, 2020 and final pathology report based on molecular profiling and IHC stains confirmed dedifferentiated melanoma, patient was seen in the melanoma clinic on July 26, [address] Henao recommended immunotherapy with ipilimumab 1 mg/kg and nivolumab 3 mg/kg every 3 weeks x4 and then evaluation and also recommended pretreatment CT scan of chest abdomen pelvis as last CT PET scan was done in May 2020, also suggested MRI scan of the brain., Testing for guardant ct DNA was ordered and now awaiting report. Mr Agosto was offered treatment with Ipilimumab/nivolumab. He began his 1st cycle on August 17, 2020. Plan: Discussed with patient regarding his labs white blood count 12 hemoglobin 9 g compared to 12.4 g on September 27, 2020 hematocrit 29.3 platelets 233,000 CMP within normal limit except potassium 3 and albumin 2.6 and TSH 20.05 Clinically, patient doing reasonably well now with generalized weakness and fatigue which could be multifactorial including progressive anemia and hypothyroidism as his TSH is elevated,Patient is supposed to be taking levothyroxine 100 mcg daily, at this point we will increase his dose to 200 mcg daily and then repeat TSH in 1 week and adjust dose accordingly, and monitor, as well as liquid KCl 20 mEq p.o. twice a day for 1 week Patient has intolerance to oral iron, will consider parenteral iron Injectafer 750 mg IV weekly x2 for iron deficiency anemia As far as metastatic melanoma is concerned, patient could not tolerate immunotherapy because of severe colitis causing sepsis, will discuss with Dr. Rosado, and melanoma clinic at [facility] regarding further treatment option as patient is not tolerating immunotherapy well. Return to clinic in 10 days with CBC CMP and TSH Signed By: Darlene Mendenhall M.D. <<Signature on File>>
== END 2020-12-10 09:33 | disposition home or self-care (01) ==
LOC: ONCMED 09:34
PROVIDERS: PCP Nurse Practitioner Family; Visit Provider Internal Medicine Hematology & Oncology
DX: C43.59 Malignant melanoma of other part of trunk (principal); C76.8 Malignant neoplasm of other specified ill-defined sites; R53.1 Weakness; R53.82 Chronic fatigue, unspecified; D50.9 Iron deficiency anemia, unspecified; E03.9 Hypothyroidism, unspecified; K52.1 Toxic gastroenteritis and colitis; T45.1X5A Adverse effect of antineoplastic and immunosuppressive drugs, initial encounter; Z79.899 Other long term (current) drug therapy
CPT/HCPCS: 36591; 80053; 84443; 85025; 99214

== ENCOUNTER 2020-12-12 07:14 | Emergency (ER) | payer MEDICARE, MEDICAID, SELFPAY ==
[2020-12-12] VITALS (7 sets, daily range): BP systolic 86–118; BP diastolic 59–78; PULSE 79–91; RESP 12–18; TEMP 36.9–37.1; O2SAT 95–97; BMI 27.3
--- NOTE | 2020-12-12 07:40 | W.ED.ABDPA2 ---
HPI - Abdominal Pain General: Chief Complaint: Abdominal Pain Stated Complaint: DIARRHEA Time Seen by Provider: 12/12/20 07:38 History of Present Illness: HPI narrative: 65-year-old male comes in with diarrhea and abdominal pain. Patient is being treated for malignant melanoma with immunotherapy. He states that he was diagnosed with infectious colitis and was admitted to [facility]. He states he was a 2 weeks. He was on antibiotics. He states he got out approximately 1 week ago. He points to his lower abdomen and says that he has been having a stabbing pain. He states it comes and goes all of a sudden. He has been having pain or burning with urination. He does state his diarrhea is doing much better. He has been having more formed stools. He denies fever or chills. No nausea or vomiting. No flank pain. He states he is breathing okay. He is not had any significant cough. He states for the past few days he has had some difficulty urinating. Patient did take Percocet 2 days ago and said that helped. He has not taken any since then. He has been trying to drink. He does have a history of anemia, low potassium and low iron. MD elicited complaint: abdominal pain Pertinent past history: other (Infectious gastritis) Onset (ago): day(s) (2) Pain Consistency: intermittent Location: LLQ and Suprapubic Severity: severe Quality: stabbing Radiation: none Migration to: no migration Exacerbating factors: nothing and other (Patient states the pain comes and goes.) Relieving factors: other (States Percocet did help.) Context: recent antibiotic use and history of similar episodes Associated Symptoms: Reports diarrhea (His loose stools have improved.) and dysuria; Denies chills, fever(s), nausea, syncope and vomiting Review of Systems Const: Denies: fever(s), chills, body aches, change in weight, night sweats or diaphoresis ENMT: Denies: throat pain or nasal discharge Card: Denies: chest pain, palpitations, irregular heart rhythm, edema, swelling of feet/ankles, lightheadedness, syncope, dyspnea on exertion, orthopnea or leg pain with exertion Resp: Denies: dyspnea, productive cough, non-productive cough, wheezing, stridor or pain on inspiration GI: Reports: abdominal pain (Current chief complaint) and diarrhea (His loose stools have improved.); Denies: nausea or vomiting : Reports: difficulty urinating, dysuria and urinary frequency; Denies: flank pain Musc: Denies: neck pain, back pain, extremity pain or extremity swelling Neuro: Denies: headache(s), numbness in extremities or weakness in extremities [facility] ED PFSH: Medical History Acute lower respiratory infection Anxiety ASHD (arteriosclerotic heart disease) Atrial fibrillation Chronic pain syndrome Chronic recurrent sinusitis Chronic seasonal allergic rhinitis Colitis Congestive heart failure (CHF) Diabetes mellitus, type II Essential hypertension Hemorrhoid Hypertrophic cardiomyopathy Hypomagnesemia Hypothyroidism Insomnia Iron deficiency Lower respiratory infection Melanoma Mixed hyperlipidemia Multilevel degenerative disc disease Sleep apnea Smoking addiction Vitamin D deficiency Surgical History Coronary angioplasty status [facility] 2105 H/O ventricular septal myectomy Family History Mother Myocardial infarction Father Hypertension Other Diabetes Family history of CABG Social History Smoking and tobacco status: current every day smoker Second hand smoke exposure: No Desire information about alcohol rehabilitation?: No Counseling given: No Desire information about substance/drug rehabilitation?: No Counseling given: No Physical Exam Const: COMMON NORMALS: no acute distress, patient oriented x3, no limitations, healthy appearing, alert and well nourished EXAM LIMITATIONS: no altered mental status GENERAL APPEARANCE: cooperative, comfortable, well kempt and well developed; not in distress and not lethargic ORIENTATION/CONSCIOUSNESS: Yes awake, Yes oriented to person, Yes oriented to place and Yes oriented to time; not confused, not patient obtunded and not lethargic HENMT: COMMON NORMALS: normocephalic and atraumatic; oral mucous membranes not moist (Mildly dry) HEAD & SCALP: normocephalic and atraumatic Eye: COMMON NORMALS: Equal, round and reactive pupils present, EOMs intact bilaterally, conjunctivae normal and no scleral icterus GENERAL EYE: appearance normal, both eyes and all related structures CONJUNCTIVA: Yes conjunctivae normal PUPIL: Yes Equal, round and reactive pupils present Neck/C-Spine: COMMON NORMALS: full ROM, supple and no JVD GENERAL: Yes normal visual inspection, Yes trachea midline and Yes anterior neck swelling CERVICAL SPINE: Yes cervical ROM normal, Yes normal cervical lordosis and No pain with cervical ROM Resp: COMMON NORMALS: normal respiratory effort, No retractions, No use of accessory muscles and clear to auscultation bilaterally EFFORT & INSPECTION: Yes able to speak in complete sentences and Yes symmetric chest movement AUSCULTATION: clear to auscultation bilaterally, no crackles, no rales, no rhonchi, no wheezes and lung sounds not diminished Cardio: COMMON NORMALS: no JVD, regular rate, regular rhythm and No murmurs present (Cardio); negative for No gallops present (Cardio), negative for No clicks present (Cardio) and negative for No rub (Cardio) RATE: regular rate RHYTHM: regular rhythm GI: COMMON NORMALS: Soft to palpation and no masses INSPECTION: Yes normal to inspection AUSCULTATION: Yes normoactive bowel sounds PALPATION: Yes Soft to palpation, Yes Tenderness to palpation present (GI) (No rebound) Details: LLQ and RLQ, No Guarding due to palpation present (GI) and No Rigid due to palpation : COMMON NORMALS: No no CVA tenderness BLADDER/KIDNEY EXAM: No no CVA tenderness Back/Pelvis: COMMON NORMALS: negative for no CVA tenderness Extremity: COMMON NORMALS: normal to inspection, full ROM and no calf tenderness Neuro: COMMON NORMALS: patient oriented x3, moves all extremities, no focal motor deficits and gait normal SENSORIUM/ORIENTATION: Yes alert, Yes oriented to person, Yes oriented to place, Yes oriented to time, No lethargic, No somnolent and No obtunded Psych: APPEARANCE: Yes well kempt Course Vital Signs: Vital signs: Vital Signs Temperature 98.7 F 12/12/20 12:23 Pulse Rate 79 12/12/20 12:23 Respiratory Rate 18 12/12/20 12:23 Blood Pressure 103/70 12/12/20 12:23 Pulse Oximetry 96 12/12/20 12:23 MDM - Abdominal Pain Lab Data: Labs: Lab Results 12/12/20 12/12/20 12/12/20 Range/Units 07:04 07:04 08:41 WBC 12.1 H (4.0-10.0) 10^3/ uL RBC 3.76 L (4.1-5.3) 10^6/u L Hgb 10.5 L (11.7-16.6) g/dL Hct 34.3 L (42.0-52.0) % MCV 91.2 (80-94) fL MCH 27.9 L (28.0-34.0) pg MCHC 30.6 (30.0-36.0) g/dL RDW 19.6 H (12.1-15.1) % Plt Count 237 (130-400) 10^3/c mm MPV 8.6 (7.4-10.4) fL Neut % (Auto) 61.3 % Lymph % (Auto) 35.2 % [place] % (Auto) 1.6 % Eos % (Auto) 0.2 % Baso % (Auto) 0.5 % Neut # (Auto) 7.45 (1.8-7.7) 10^3/u L Lymph # (Auto) 4.3 (0.8-4.8) 10^3/u L [place] # (Auto) 0.2 (0.2-0.9) 10^3/u L Eos # (Auto) 0.0 (0.0-0.8) 10^3/u L Baso # (Auto) 0.1 (0.0-0.1) 10^3/u L Nucleated RBC % (a uto) 0 % Nucleated RBCs # 0.0 /100WBC Sodium 129 L (136-145) mmol/L Potassium 3.0 L (3.5-5.1) mmol/L Chloride 92 L (98-107) mmol/L Carbon Dioxide 31 H (22-29) mmol/L Anion Gap 9.0 (5-19) BUN 4 L (8-23) mg/dL Creatinine 0.6 L (0.7-1.2) mg/dL GFR Calculation 134.4 H (90-130) mL/min Glucose 76 (65-115) mg/dL Calculated Osmolal ity 264 L (285-295) mOsm/k g Calcium 7.5 L (8.5-10.5) mg/dL Magnesium 1.5 L (1.7-2.3) mg/dL Total Bilirubin 0.4 (0.15-1.2) mg/dL AST 19 (0-40) U/L ALT 10 (0-41) U/L Alkaline Phosphata se 97 (40-130) IU/L Total Protein 5.0 L (6.6-8.7) g/dL Albumin 3.1 L (3.5-5.2) g/dL Globulin 1.9 (1.3-4.6) g/dL Lipase 56 (13-60) U/L Urine Color Yellow (Yellow) Urine Appearance Clear (CLEAR) Urine pH 7 (5-7) Ur Specific Gravit y 1.005 (1.005-1.030) Urine Protein Neg (Negative) Urine Glucose (UA) Norm (Normal) Urine Ketones Negative (Negative) Urine Blood Neg (Negative) Urine Nitrate Negative (Negative) Urine Bilirubin Neg (Negative) Urine Urobilinogen Norm (Negative) mg/dL Ur Leukocyte [place] ase Negative (Negative) Discharge Plan Discharge Patient Disposition: Home Clinical Impression: Hypomagnesemia, Acute hypokalemia, Acute hyponatremia Diarrhea Qualifiers: Diarrhea type: unspecified type Qualified Code(s): R19.7 - Diarrhea, unspecified Condition: Stable Prescriptions: No Action midodrine 5 mg tablet 5 mg PO TID RF: 0 cholestyramine (with sugar) 4 gram powder in packet PO RF: 0 Narcan 4 mg/actuation spray,non-aerosol intranasal RF: 0 prednisone 20 mg tablet PO RF: 0 cefdinir 300 mg capsule 300 mg PO BID RF: 0 metronidazole 500 mg tablet PO RF: 0 calcium polycarbophil [FiberCon] 625 mg tablet 1,250 mg PO BID RF: 0 polysaccharide iron complex [Ferrex 150] 150 mg iron capsule 150 mg PO BID RF: 0 valganciclovir [Valcyte] 450 mg tablet 900 mg PO BID RF: 0 potassium chloride 20 mEq tablet extended release 40 meq PO BID Qty: 60 RF: 0 ergocalciferol (vitamin D2) [Vitamin D2] 1,250 mcg (50,000 unit) capsule See Rx Instructions .ROUTE .COMPLEX Qty: 4 RF: 3 citalopram 40 mg tablet 40 mg PO DAILY@07 RF: 0 trazodone 50 mg tablet 50 mg PO BEDTIME@21 PRN (Reason: Sleep) RF: 0 montelukast 10 mg tablet 10 mg PO DAILY@21 RF: 0 levothyroxine 200 mcg tablet See Rx Instructions .ROUTE .COMPLEX RF: 0 bupropion HCl 300 mg tablet extended release 24 hr 300 mg PO DAILY@07 RF: 0 Januvia 25 mg tablet 25 mg PO DAILY@07 RF: 0 Hold Instructions: Overall stabilization clonazepam 1 mg tablet 1.5 mg PO DAILY@21 PRN (Reason: unknown) RF: 0 albuterol sulfate [ProAir HFA] 90 mcg/actuation HFA aerosol inhaler See Rx Instructions .ROUTE .COMPLEX RF: 0 loperamide [Anti-Diarrheal (loperamide)] 1 mg/7.5 mL liquid 2 mg PO Q4H PRN (Reason: loose stool) Qty: 120 RF: 0 Eliquis 5 mg tablet 5 mg PO BEDTIME RF: 0 Hold Instructions: Resume on 11/19/20. discuss with general surgery regarding timing of resuming after sigmoidoscopy magnesium oxide 400 mg magnesium tablet 400 mg PO BID RF: 0 Hold Instructions: Until diarrhea is resolved prochlorperazine maleate 10 mg tablet 10 mg PO Q4H PRN (Reason: Nausea) RF: 0 tramadol [Ultram] 50 mg Tablet 50 mg PO BID PRN (Reason: Pain) RF: 0 oxycodone-acetaminophen 10-325 mg tablet 1 tab PO Q6H PRN (Reason: Pain) RF: 0 fluticasone propionate 50 mcg/actuation [place],Suspension 2 spray INTRANASAL DAILY PRN (Reason: Allergy Symptoms) RF: 0 torsemide 100 mg tablet 25 mg PO DAILY@17 RF: 0 Hold Instructions: Until stabilized Discharge Orders: Discharge ED (Routine); Ordered 12/12/20 Ordered By: Dakota Salazar Referrals: ANTONIO Torres, PATIENT ACCESS ASSOCIATE [Primary Care Provider] - Discharge Diet: Advance as tolerated Discharge Activity: Resume usual activity Patient Instructions: Opioid Safety Activity Restrictions/Additional Instructions: Increase noncaffeine/nonalcoholic fluids. Continue your current medications. Take your prochlorperazine as needed for nausea. Follow-up with your primary care provider as well as your systems management consultant. Coding Level of Care Code ED Pill Maker for [place] Fwd Exam Comprehensive
[2020-12-12] MEDS: morphine 4 mg/mL SDV 1 mL IVP (08:01)
[2020-12-12] MEDS: ondansetron 2 mg/ML SDV 2 mL 4 MG IVP (08:02)
[2020-12-12 08:03] LABS: Basophils # 0.1 10^3/uL (0.0-0.1); Basophils % 0.5 %; Eosinophils % 0.2 %; Hematocrit 34.3 % (42.0-52.0); Hemoglobin 10.5 g/dL (11.7-16.6); Lymphocytes # 4.3 10^3/uL (0.8-4.8); Lymphocytes % 35.2 %; Mean Corpuscular HGB Conc 30.6 g/dL (30.0-36.0); Mean Corpuscular Hemoglobin 27.9 pg (28.0-34.0); Mean Corpuscular Volume 91.2 fL (80-94); Mean Platelet Volume 8.6 fL (7.4-10.4); Monocytes # 0.2 10^3/uL (0.2-0.9); Monocytes % 1.6 %; Neutrophils # 7.45 10^3/uL (1.8-7.7); Neutrophils % 61.3 %; Nucleated Red Blood Cells % 0 %; Platelet Count 237 10^3/cmm (130-400); Red Blood Count 3.76 10^6/uL (4.1-5.3); Red Cell Distribution Width 19.6 % (12.1-15.1); White Blood Count 12.1 10^3/uL (4.0-10.0)
[2020-12-12 08:39] LABS: Alanine Aminotransferase 10 U/L (0-41); Albumin Level 3.1 g/dL (3.5-5.2); Alkaline Phosphatase 97 IU/L (40-130); Aspartate Amino Transferase 19 U/L (0-40); Blood Urea Nitrogen 4 mg/dL (8-23); Calcium 7.5 mg/dL (8.5-10.5); Carbon Dioxide 31 mmol/L (22-29); Chloride 92 mmol/L (98-107); Creatinine Clr Calc Pharmacy 90.5043; Globulin 1.9 g/dL (1.3-4.6); Glomerular Filtration Rate 134.4 mL/min (90-130); Glucose 76 mg/dL (65-115); Lipase 56 U/L (13-60); Magnesium 1.5 mg/dL (1.7-2.3); Osmolality Calculated 264 mOsm/kg (285-295); Sodium 129 mmol/L (136-145); Total Bilirubin 0.4 mg/dL (0.15-1.2)
[2020-12-12 08:48] LABS: Add Urine Microscopic? NO; Charge for UA Resulting for Rev
[2020-12-12 09:03] LABS: Bilirubin Urine Neg (Negative); Blood Urine Neg (Negative); Glucose Urine UA Norm (Normal); Ketones Urine Negative (Negative); Leukocyte Esterase Urine Negative (Negative); Nitrate Urine Negative (Negative); Protein Urine Neg (Negative); Specific Gravity, Urine 1.005 (1.005-1.030); Urine Appearance Clear (CLEAR); Urine Color Yellow (Yellow); Urobilinogen Urine Norm (Negative); pH Urine 7 (5-7)
[2020-12-12] MEDS: potassium chloride ER 20 mEq Tablet 40 MEQ PO (10:38)
[2020-12-12] MEDS: magnesium oxide 400 mg tablet PO (10:38)
[2020-12-12] MEDS: sodium chloride 0.9% 1,000 ML 999 ML IV (10:38)
== END 2020-12-12 12:25 | disposition home or self-care (01) ==
PROVIDERS: Emergency Provider Emergency Medicine; PCP Nurse Practitioner Family
DX: E83.42 Hypomagnesemia (principal); E87.6 Hypokalemia; E87.1 Hypo-osmolality and hyponatremia; R19.7 Diarrhea, unspecified; Z79.01 Long term (current) use of anticoagulants; I48.91 Unspecified atrial fibrillation; I11.0 Hypertensive heart disease with heart failure; I50.9 Heart failure, unspecified; E11.9 Type 2 diabetes mellitus without complications; E78.2 Mixed hyperlipidemia; Z98.61 Coronary angioplasty status; F17.210 Nicotine dependence, cigarettes, uncomplicated
CPT/HCPCS: 80053; 81003; 83690; 83735; 85025; 96361; 96374; 96375; 99283; J2270; J2405; J7030

== ENCOUNTER 2020-12-14 19:51 | Emergency (ER) | payer MEDICARE, MEDICAID, SELFPAY ==
[2020-12-14 19:54] VITALS: BP 96/67; PULSE 100; RESP 24; TEMP 37.7; O2SAT 92; BMI 27.3
--- NOTE | 2020-12-14 19:58 | XR_ITS ---
WS: [id number] KUB, portable AP supine, 12/14/2020 Clinical Data: fever, diarrhea Comparison: None. Findings: No abnormal intraabdominal masses or calcifications are seen. There is no dilatated small bowel or ev idence of obstruction. There is air throughout the small bowel and the colon. There is a dextroscoliosis. XR/XR KUB portable [id number] Impression: Generalized ileus.
--- NOTE | 2020-12-14 19:58 | XR_ITS ---
WS: [id number] Portable AP upright chest, 12/14/2020 Clinical Data: fever, weakness Comparison: Portable chest, 11/18/2020. Findings: No nodules, masses or effusions are seen. The heart is normal. The pulmonary vascularity is not increased. No pneumonia or pneumothorax is seen. There is a right infusion port with the tip end ing in the superior vena cava. Midline sternotomy sutures are present. There are clips in the left ax illa. XR/XR chest 1V portable [id number] Impression: Atherosclerosis.
--- NOTE | 2020-12-14 20:24 | W.ED.WEAKNES ---
HPI - Weakness General: Chief complaint: Weakness Stated complaint: GENERALIZED WEAKNESS Time Seen by Provider: 12/14/20 19:55 History of Present Illness: HPI Narrative: 65-year-old male presents with generalized weakness, malaise. Patient has a history of myeloma. Is currently getting chemo. He has been experiencing significant diarrhea for the last couple weeks. Patient was admitted around 3 weeks ago for 2 weeks at [facility] due to enteritis. He was seen here 2 days ago due to some dehydration and continuing effects. Patient comes in today because he is continue to be weak, slight fever. Associated symptoms: Reports fever(s); Denies chest pain, nausea or vomiting Review of Systems Const: Reports: fever(s) and malaise Eyes: Denies: change in vision Card: Denies: chest pain or palpitations Resp: Denies: dyspnea or productive cough GI: Reports: diarrhea; Denies: abdominal pain, nausea or vomiting : Denies: difficulty urinating Skin/Breast: Denies: rash Neuro: Reports: other (Generalized weakness) [facility] ED PFSH: Medical History Acute lower respiratory infection Anxiety ASHD (arteriosclerotic heart disease) Atrial fibrillation Chronic pain syndrome Chronic recurrent sinusitis Chronic seasonal allergic rhinitis Colitis Congestive heart failure (CHF) Diabetes mellitus, type II Essential hypertension Hemorrhoid Hypertrophic cardiomyopathy Hypomagnesemia Hypothyroidism Insomnia Iron deficiency Lower respiratory infection Melanoma Mixed hyperlipidemia Multilevel degenerative disc disease Sleep apnea Smoking addiction Vitamin D deficiency Surgical History Coronary angioplasty status [facility] 2105 H/O ventricular septal myectomy Family History Mother Myocardial infarction Father Hypertension Other Diabetes Family history of CABG Social History Smoking and tobacco status: current every day smoker Second hand smoke exposure: No Desire information about alcohol rehabilitation?: No Counseling given: No Desire information about substance/drug rehabilitation?: No Counseling given: No Physical Exam Const: COMMON NORMALS: patient oriented x3 GENERAL APPEARANCE: well hydrated ORIENTATION/CONSCIOUSNESS: Yes awake Resp: COMMON NORMALS: normal respiratory effort and clear to auscultation bilaterally EFFORT & INSPECTION: Yes able to speak in complete sentences AUSCULTATION: clear to auscultation bilaterally Cardio: COMMON NORMALS: regular rate and regular rhythm RATE: regular rate RHYTHM: regular rhythm GI: COMMON NORMALS: Soft to palpation PALPATION: Yes Soft to palpation and Yes Tenderness to palpation present (GI) (mild diffuse ) Extremity: COMMON NORMALS: full ROM Neuro: COMMON NORMALS: patient oriented x3 and no focal motor deficits Psych: COMMON NORMALS: mental status grossly normal and normal affect Course Vital Signs: Vital signs: Vital Signs Temperature 99.9 F H 12/14/20 19:54 Pulse Rate 104 H 12/14/20 23:11 Respiratory Rate 18 12/14/20 23:11 Blood Pressure 96/67 12/14/20 19:54 Pulse Oximetry 96 12/14/20 23:11 MDM - Weakness MDM Narrative: Medical decision making narrative: Patient with mild anemia at 7.9. His baseline seems to be around 9. Based on his BUN and creatinine I suspect that this is likely delusional. Patient has been drinking a lot of water and fluids. I discussed with patient that there is no acute findings of infection or colitis at this time. That he is still probably having a side effect from being on therapy for his cancer. That he should follow-up with his primary care provider in 1 to 2 days for recheck of his labs. If he develops any bright red stool he should return the ER immediately for reevaluation. Patient stable and discharged home Lab Data: Attestation: I reviewed the patient's lab results. Labs: Lab Results 12/14/20 12/14/20 12/14/20 Range/Units 20:35 20:35 20:35 WBC 6.3 (4.0-10.0) 10^3/ uL RBC 2.82 L (4.1-5.3) 10^6/u L Hgb 7.9 L (11.7-16.6) g/dL Hct 26.7 L (42.0-52.0) % MCV 94.7 H (80-94) fL MCH 28.0 (28.0-34.0) pg MCHC 29.6 L (30.0-36.0) g/dL RDW 19.9 H (12.1-15.1) % Plt Count 165 (130-400) 10^3/c mm MPV 8.6 (7.4-10.4) fL Neut % (Auto) 50.8 % Lymph % (Auto) 41.2 % [place] % (Auto) 6.5 % Eos % (Auto) 0.3 % Baso % (Auto) 0.6 % Neut # (Auto) 3.19 (1.8-7.7) 10^3/u L Lymph # (Auto) 2.6 (0.8-4.8) 10^3/u L [place] # (Auto) 0.4 (0.2-0.9) 10^3/u L Eos # (Auto) 0.0 (0.0-0.8) 10^3/u L Baso # (Auto) 0.0 (0.0-0.1) 10^3/u L Nucleated RBC % (a uto) 0 % Nucleated RBCs # 0.0 /100WBC Sodium 130 L (136-145) mmol/L Potassium 3.2 L (3.5-5.1) mmol/L Chloride 100 (98-107) mmol/L Carbon Dioxide 23 (22-29) mmol/L Anion Gap 10.2 (5-19) BUN 3 L (8-23) mg/dL Creatinine 0.4 L (0.7-1.2) mg/dL GFR Calculation 214.6 H (90-130) mL/min Glucose 68 (65-115) mg/dL Calculated Osmolal ity 265 L (285-295) mOsm/k g Lactic Acid 0.8 (0.5-2.2) mmol/L Calcium 6.4 L (8.5-10.5) mg/dL Total Bilirubin 0.3 (0.15-1.2) mg/dL AST 9 (0-40) U/L ALT < 5 (0-41) U/L Alkaline Phosphata se 72 (40-130) IU/L Total Protein 3.8 L (6.6-8.7) g/dL Albumin 2.1 L (3.5-5.2) g/dL Globulin 1.7 (1.3-4.6) g/dL Procalcitonin 0.13 (0-0.5) ng/mL Imaging Data^: KUB: Attestation: I personally reviewed and interpreted this imaging study as follows: My impression: No acute findings CXR: Attestation: I personally reviewed and interpreted this imaging study as follows: My impression: No acute finding Discharge Plan Discharge Patient Disposition: Home Clinical Impression: Weakness generalized Diarrhea Qualifiers: Diarrhea type: unspecified type Qualified Code(s): R19.7 - Diarrhea, unspecified Condition: Stable Prescriptions: No Action midodrine 5 mg tablet 5 mg PO TID RF: 0 cholestyramine (with sugar) 4 gram powder in packet PO RF: 0 Narcan 4 mg/actuation spray,non-aerosol intranasal RF: 0 prednisone 20 mg tablet PO RF: 0 cefdinir 300 mg capsule 300 mg PO BID RF: 0 metronidazole 500 mg tablet PO RF: 0 calcium polycarbophil [FiberCon] 625 mg tablet 1,250 mg PO BID RF: 0 polysaccharide iron complex [Ferrex 150] 150 mg iron capsule 150 mg PO BID RF: 0 valganciclovir [Valcyte] 450 mg tablet 900 mg PO BID RF: 0 potassium chloride 20 mEq tablet extended release 40 meq PO BID Qty: 60 RF: 0 ergocalciferol (vitamin D2) [Vitamin D2] 1,250 mcg (50,000 unit) capsule See Rx Instructions .ROUTE .COMPLEX Qty: 4 RF: 3 fluticasone propionate 50 mcg/actuation spray,suspension 2 spray INTRANASAL DAILY PRN (Reason: Allergy Symptoms) Qty: 16 RF: 2 pantoprazole [Protonix] 40 mg tablet,delayed release (DR/EC) 40 mg PO DAILY Qty: 90 RF: 1 citalopram 40 mg tablet 40 mg PO DAILY@07 RF: 0 trazodone 50 mg tablet 50 mg PO BEDTIME@21 PRN (Reason: Sleep) RF: 0 montelukast 10 mg tablet 10 mg PO DAILY@21 RF: 0 levothyroxine 200 mcg tablet See Rx Instructions .ROUTE .COMPLEX RF: 0 bupropion HCl 300 mg tablet extended release 24 hr 300 mg PO DAILY@07 RF: 0 Januvia 25 mg tablet 25 mg PO DAILY@07 RF: 0 Hold Instructions: Overall stabilization clonazepam 1 mg tablet 1.5 mg PO DAILY@21 PRN (Reason: unknown) RF: 0 albuterol sulfate [ProAir HFA] 90 mcg/actuation HFA aerosol inhaler See Rx Instructions .ROUTE .COMPLEX RF: 0 loperamide [Anti-Diarrheal (loperamide)] 1 mg/7.5 mL liquid 2 mg PO Q4H PRN (Reason: loose stool) Qty: 120 RF: 0 Eliquis 5 mg tablet 5 mg PO BEDTIME RF: 0 Hold Instructions: Resume on 11/19/20. discuss with general surgery regarding timing of resuming after sigmoidoscopy magnesium oxide 400 mg magnesium tablet 400 mg PO BID RF: 0 Hold Instructions: Until diarrhea is resolved prochlorperazine maleate 10 mg tablet 10 mg PO Q4H PRN (Reason: Nausea) RF: 0 tramadol [Ultram] 50 mg Tablet 50 mg PO BID PRN (Reason: Pain) RF: 0 oxycodone-acetaminophen 10-325 mg tablet 1 tab PO Q6H PRN (Reason: Pain) RF: 0 torsemide 100 mg tablet 25 mg PO DAILY@17 RF: 0 Hold Instructions: Until stabilized Discharge Orders: Discharge ED (Routine); Ordered 12/14/20 Ordered By: Wing Jones Referrals: ANTONIO Torres, ALIGNER TYPEWRITER [Primary Care Provider] - Discharge Diet: Usual diet Discharge Activity: Resume usual activity Patient Instructions: Opioid Safety, Weakness (Generalized) Activity Restrictions/Additional Instructions: Please continue your current medications that you are prescribed a couple days ago while in the ER. Please follow-up with your primary care provider in 2 days for recheck of your labs. Please monitor your pure water intake and add Gatorade or other electrolyte drinks. Coding Level of Care Code ED Tubing Oiler for [place] Fwd Exam Detailed
[2020-12-14] MEDS: lactated ringers 1,000 ML 999 ML IV (20:48)
[2020-12-14 21:03] LABS: Basophils % 0.6 %; Eosinophils % 0.3 %; Hematocrit 26.7 % (42.0-52.0); Hemoglobin 7.9 g/dL (11.7-16.6); Lymphocytes # 2.6 10^3/uL (0.8-4.8); Lymphocytes % 41.2 %; Mean Corpuscular HGB Conc 29.6 g/dL (30.0-36.0); Mean Corpuscular Volume 94.7 fL (80-94); Mean Platelet Volume 8.6 fL (7.4-10.4); Monocytes # 0.4 10^3/uL (0.2-0.9); Monocytes % 6.5 %; Neutrophils # 3.19 10^3/uL (1.8-7.7); Neutrophils % 50.8 %; Nucleated Red Blood Cells % 0 %; Platelet Count 165 10^3/cmm (130-400); Red Blood Count 2.82 10^6/uL (4.1-5.3); Red Cell Distribution Width 19.9 % (12.1-15.1); White Blood Count 6.3 10^3/uL (4.0-10.0)
[2020-12-14 21:09] LABS: Lactic Sepsis W/Reflex 0.8 mmol/L (0.5-2.2)
[2020-12-14 21:19] LABS: Procalcitonin 0.13 ng/mL (0-0.5)
[2020-12-14 21:30] LABS: Alanine Aminotransferase < 5 U/L (0-41); Albumin Level 2.1 g/dL (3.5-5.2); Alkaline Phosphatase 72 IU/L (40-130); Anion Gap 10.2 (5-19); Aspartate Amino Transferase 9 U/L (0-40); Blood Urea Nitrogen 3 mg/dL (8-23); Calcium 6.4 mg/dL (8.5-10.5); Carbon Dioxide 23 mmol/L (22-29); Chloride 100 mmol/L (98-107); Globulin 1.7 g/dL (1.3-4.6); Glomerular Filtration Rate 214.6 mL/min (90-130); Glucose 68 mg/dL (65-115); Osmolality Calculated 265 mOsm/kg (285-295); Potassium 3.2 mmol/L (3.5-5.1); Sodium 130 mmol/L (136-145); Total Bilirubin 0.3 mg/dL (0.15-1.2); Total Protein 3.8 g/dL (6.6-8.7)
[2020-12-14 21:31] LABS: Creatinine Clr Calc Pharmacy 90.5043
[2020-12-14 23:11] VITALS: PULSE 104; RESP 18; O2SAT 96
== END 2020-12-14 23:12 | disposition home or self-care (01) ==
PROVIDERS: Emergency Provider Student in an Organized Health Care Education/Training Program; PCP Nurse Practitioner Family
DX: R53.1 Weakness (principal); R19.7 Diarrhea, unspecified; Z79.01 Long term (current) use of anticoagulants
CPT/HCPCS: 36415; 71045; 74018; 80053; 83605; 84145; 85025; 87040; 96360; 99284

== ENCOUNTER 2021-03-13 11:05 | Inpatient (IN) | payer MEDICARE, MEDICAID, SELFPAY ==
[2021-03-13] VITALS (16 sets, daily range): BP systolic 86–109; BP diastolic 44–66; PULSE 77–113; RESP 14–28; TEMP 36.6–39.4; O2SAT 92–100; BMI 25.0
--- NOTE | 2021-03-13 11:13 | XRR_ITS ---
PROCEDURE INFORMATION: Exam: XR Chest Exam date and time: 03/13/2021 11:13 AM Age: 65 years old Clinical indication: Shortness of breath. Reduced breath sounds. TECHNIQUE: Imaging protocol: XR of the chest. Views: 1 view. COMPARISON: CR XR chest 1V portable [id number] 12/14/2020 8:06 PM FINDINGS: Tubes, catheters and devices: Right port with tip at the SVC/right atrial junction. Lungs: Possible subtle hazy opacity in the right upper lobe. There is bibasilar scarring or atelectasis. Pleural spaces: No pleural effusion.; No pneumothorax. Heart/Mediastinum: The cardiac silhouette is unchanged. No gross evidence of pneumomediastinum. Bones/joints: Median sternotomy wires are seen. No gross fracture. Soft tissues: Left axillary clips are noted. XR/XR chest 1V portable [id number] IMPRESSION: Possible subtle hazy opacity in the right upper lobe. Consider CT chest to further assess.
--- NOTE | 2021-03-13 11:16 | W.ED.GENADLT ---
HPI - General Adult General: Chief complaint: General Medical Stated complaint: WEAKNESS; UNABLE TO URINATE Time Seen by Provider: 03/13/21 11:07 History of Present Illness: HPI narrative: The patient is a 65-year-old male who comes to the ER complaining of weakness, reduced urination, vomiting and diarrhea since yesterday. He also has bright red lower extremities and says this is normal when he sits in a wheelchair too long. He has a past medical history atrial fibrillation on Eliquis, diabetes, CHF and multiple myeloma. Apparently diarrhea is chronic for him however it has been severe vomiting and diarrhea since yesterday. He says he has been admitted multiple times for colitis. Blood pressure on arrival 80/46. EMS reports similar blood pressures. He is alert and talking. Onset (ago): day(s) (1) Severity: severe Relieving factors: none Associated symptoms: Reports decreased appetite, nausea, vomiting and weakness; Deny chest pain, cough, dyspnea, headache(s), rash or short of breath Review of Systems General: Reports: 10 or more systems reviewed and unremarkable except in HPI and below Const: Reports: fatigue; Denies: fever(s) Eyes: Denies: change in vision, blurry vision or eye redness ENMT: Denies: throat pain, swelling of lips/tongue, ear or mastoid pain or nasal congestion Card: Denies: chest pain Resp: Denies: dyspnea, productive cough or non-productive cough GI: Reports: nausea, vomiting and diarrhea : Denies: flank pain, urinary frequency or urinary urgency Musc: Denies: neck pain, back pain, extremity pain, joint pain, joint redness, limited range of motion or muscle weakness Skin/Breast: Denies: rash, pruritus, erythema, skin pain or skin tenderness Neuro: Denies: headache(s) Psych: Denies: anxiety or depression Endo: Denies: polyuria All/Imm: Denies: urticaria, throat swelling or tongue swelling PFSH ED PFSH: Medical History Acute lower respiratory infection Anxiety ASHD (arteriosclerotic heart disease) Atrial fibrillation Chronic pain syndrome Chronic recurrent sinusitis Chronic seasonal allergic rhinitis Colitis Congestive heart failure (CHF) Diabetes mellitus, type II Essential hypertension Hemorrhoid Hypertrophic cardiomyopathy Hypomagnesemia Hypothyroidism Insomnia Iron deficiency Lower respiratory infection Melanoma Mixed hyperlipidemia Multilevel degenerative disc disease Sleep apnea Smoking addiction Vitamin D deficiency Surgical History Coronary angioplasty status [facility] 2105 H/O ventricular septal myectomy Family History Mother Myocardial infarction Father Hypertension Other Diabetes Family history of CABG Social History Smoking and tobacco status: current every day smoker Second hand smoke exposure: No Desire information about alcohol rehabilitation?: No Counseling given: No Desire information about substance/drug rehabilitation?: No Counseling given: No Physical Exam Narrative: EXAM NARRATIVE: Hypotensive. Bilateral lower extremity erythema that appears to be cellulitis. Mild associated tenderness there. Const: COMMON NORMALS: no acute distress, average body habitus, patient oriented x3, no limitations, healthy appearing, alert and well nourished GENERAL APPEARANCE: cooperative, comfortable, well kempt and well developed ORIENTATION/CONSCIOUSNESS: Yes awake, Yes oriented to person, Yes oriented to place and Yes oriented to time HENMT: COMMON NORMALS: normocephalic, external ears normal and Normal external nose present HEAD & SCALP: normal to inspection and normocephalic NOSE: Normal external nose present EXTERNAL EAR: Yes external ears normal MOUTH: Normal oral and palatal mucosa present THROAT: posterior oropharynx normal Eye: COMMON NORMALS: Equal, round and reactive pupils present and EOMs intact bilaterally GENERAL EYE: appearance normal, both eyes and all related structures PUPIL: Yes Equal, round and reactive pupils present Neck/C-Spine: COMMON NORMALS: full ROM, no lymphadenopathy, no meningeal signs and no JVD GENERAL: Yes normal visual inspection Lymph: LYMPHATIC: no lymphadenopathy noted Chest: COMMONS NORMALS: normal inspection of the chest and normal palpation of entire chest wall Resp: COMMON NORMALS: normal respiratory effort, No retractions, No use of accessory muscles, clear to auscultation bilaterally and percussion normal EFFORT & INSPECTION: Yes able to speak in complete sentences AUSCULTATION: clear to auscultation bilaterally PERCUSSION: percussion normal Cardio: COMMON NORMALS: no JVD, regular rate, regular rhythm, S1 normal heart sound present, S2 normal heart sound present and Peripheral pulses 2+ throughout RATE: regular rate RHYTHM: regular rhythm HEART SOUNDS: S1 normal heart sound present and S2 normal heart sound present PERIPHERAL PULSES: Peripheral pulses 2+ throughout GI: COMMON NORMALS: Normal to inspection, nondistended, normoactive bowel sounds present, Soft to palpation, non-tender and no masses INSPECTION: Yes normal to inspection PALPATION: Yes Soft to palpation : COMMON NORMALS: Yes no CVA tenderness BLADDER/KIDNEY EXAM: Yes no CVA tenderness Back/Pelvis: COMMON NORMALS: no CVA tenderness, thoracic and lumbar spine normal to inspection, no thoracic nor lumbar tenderness and thoraco-lumbar ROM normal Extremity: COMMON NORMALS: normal to inspection, full ROM, capillary refill normal, no joint enlargement and no pedal edema GENERAL: Yes normal exam except as noted EXTREMITY IMAGE (FRONT): 1. Likely cellulitis to this distribution. Associated tenderness. Neuro: COMMON NORMALS: patient oriented x3, CN's II-XII intact bilaterally, moves all extremities, no focal motor deficits, no sensory deficits noted and gait normal SENSORIUM/ORIENTATION: Yes alert, Yes oriented to person, Yes oriented to place and Yes oriented to time MENINGEAL SIGNS: Yes no meningeal signs Psych: COMMON NORMALS: mental status grossly normal, Normal thought process present, cooperative, normal affect and speech normal APPEARANCE: Yes well kempt ATTITUDE: Yes calm SPEECH: Yes normal speech THOUGHT PROCESS: Normal thought process present Skin: COMMON NORMALS: no rashes or lesions noted GENERAL SKIN EXAM: no rashes or lesions noted Course Vital Signs: Vital signs: Vital Signs Temperature 97.8 F 03/13/21 11:12 Pulse Rate 77 03/13/21 13:17 Respiratory Rate 14 03/13/21 13:17 Blood Pressure 86/47 03/13/21 13:17 Pulse Oximetry 96 03/13/21 13:17 MDM - General Adult MDM Narrative: Medical decision making narrative: This patient came to the ER hypotensive complaining of difficulty urinating. 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 He has been having increased diarrhea over the past couple days and decreased oral intake as well. He was given IV fluid bolus and started on Vanco and Zosyn as he likely has a cellulitis to bilateral lower extremities. He remained hypotensive and was started on norepinephrine drip. Discussed with Dr. Wilkerson who accepts for admission to ICU. Lab Data: Labs: Lab Results 03/13/21 03/13/21 03/13/21 Range/Units 12:35 12:35 12:35 WBC 9.7 (4.0-10.0) 10^3/ uL RBC 3.05 L (4.1-5.3) 10^6/u L Hgb 7.3 L (11.7-16.6) g/dL Hct 25.0 L (42.0-52.0) % MCV 82.0 (80-94) fL MCH 23.9 L (28.0-34.0) pg MCHC 29.2 L (30.0-36.0) g/dL RDW 16.8 H (12.1-15.1) % Plt Count 449 H (130-400) 10^3/c mm MPV 8.6 (7.4-10.4) fL Neut % (Auto) 55.4 % Lymph % (Auto) 25.8 % Hudson % (Auto) 14.6 % Eos % (Auto) 2.3 % Baso % (Auto) 0.7 % Neut # (Auto) 5.34 (1.8-7.7) 10^3/u L Lymph # (Auto) 2.5 (0.8-4.8) 10^3/u L Hudson # (Auto) 1.4 H (0.2-0.9) 10^3/u L Eos # (Auto) 0.2 (0.0-0.8) 10^3/u L Baso # (Auto) 0.1 (0.0-0.1) 10^3/u L Nucleated RBC % (a uto) 0 % Nucleated RBCs # 0.0 /100WBC Sodium 128 L (136-145) mmol/L Potassium 3.0 L (3.5-5.1) mmol/L Chloride 90 L (98-107) mmol/L Carbon Dioxide 31 H (22-29) mmol/L Anion Gap 10.0 (5-19) BUN 6 L (8-23) mg/dL Creatinine 0.8 (0.7-1.2) mg/dL GFR Calculation 96.4 (90-130) mL/min Glucose 77 (65-115) mg/dL Calculated Osmolal ity 262 L (285-295) mOsm/k g Lactic Acid (0.5-2.2) mmol/L Calcium 7.0 L (8.5-10.5) mg/dL Total Bilirubin 0.5 (0.15-1.2) mg/dL AST 15 (0-40) U/L ALT < 5 (0-41) U/L Alkaline Phosphata se 96 (40-130) IU/L Troponin T Baselin e 26 H (0-15) ng/L NT-Pro-B Natriuret Pep 762 H (0-125) pg/mL Total Protein 4.0 L (6.6-8.7) g/dL Albumin 2.2 L (3.5-5.2) g/dL Globulin 1.8 (1.3-4.6) g/dL Urine Color (Yellow) Urine Appearance (CLEAR) Urine pH (5-7) Ur Specific Gravit y (1.005-1.030) Urine Protein (Negative) Urine Glucose (UA) (Normal) Urine Ketones (Negative) Urine Blood (Negative) Urine Nitrate (Negative) Urine Bilirubin (Negative) Urine Urobilinogen (Negative) mg/dL Ur Leukocyte Abida ase (Negative) 03/13/21 03/13/21 Range/Units 12:35 14:17 WBC (4.0-10.0) 10^3/ uL RBC (4.1-5.3) 10^6/u L Hgb (11.7-16.6) g/dL Hct (42.0-52.0) % MCV (80-94) fL MCH (28.0-34.0) pg MCHC (30.0-36.0) g/dL RDW (12.1-15.1) % Plt Count (130-400) 10^3/c mm MPV (7.4-10.4) fL Neut % (Auto) % Lymph % (Auto) % Hudson % (Auto) % Eos % (Auto) % Baso % (Auto) % Neut # (Auto) (1.8-7.7) 10^3/u L Lymph # (Auto) (0.8-4.8) 10^3/u L Hudson # (Auto) (0.2-0.9) 10^3/u L Eos # (Auto) (0.0-0.8) 10^3/u L Baso # (Auto) (0.0-0.1) 10^3/u L Nucleated RBC % (a uto) % Nucleated RBCs # /100WBC Sodium (136-145) mmol/L Potassium (3.5-5.1) mmol/L Chloride (98-107) mmol/L Carbon Dioxide (22-29) mmol/L Anion Gap (5-19) BUN (8-23) mg/dL Creatinine (0.7-1.2) mg/dL GFR Calculation (90-130) mL/min Glucose (65-115) mg/dL Calculated Osmolal ity (285-295) mOsm/k g Lactic Acid 0.8 (0.5-2.2) mmol/L Calcium (8.5-10.5) mg/dL Total Bilirubin (0.15-1.2) mg/dL AST (0-40) U/L ALT (0-41) U/L Alkaline Phosphata se (40-130) IU/L Troponin T Baselin e (0-15) ng/L NT-Pro-B Natriuret Pep (0-125) pg/mL Total Protein (6.6-8.7) g/dL Albumin (3.5-5.2) g/dL Globulin (1.3-4.6) g/dL Urine Color Straw (Yellow) Urine Appearance Clear (CLEAR) Urine pH 5 (5-7) Ur Specific Gravit y 1.010 (1.005-1.030) Urine Protein Neg (Negative) Urine Glucose (UA) Norm (Normal) Urine Ketones Negative (Negative) Urine Blood Neg (Negative) Urine Nitrate Negative (Negative) Urine Bilirubin Neg (Negative) Urine Urobilinogen Norm (Negative) mg/dL Ur Leukocyte Abida ase Negative (Negative) Discharge Plan Discharge Patient Disposition: Admitted As Inpatient Admit Provider: Praneeth Wilkerson Clinical Impression: Colitis, Acute dehydration, Cellulitis, Acute hypotension, Acute hyponatremia Condition: Stable Coding Level of Care Code ED 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
--- NOTE | 2021-03-13 11:21 | PC.NURSE ---
while on room air pt's saturation dropped to 88%. Nurse applied 3L per NC of supplemental oxygen and pt's oxygenation improved
--- NOTE | 2021-03-13 11:22 | CTR_ITS ---
PROCEDURE INFORMATION: Exam: CT Abdomen And Pelvis Without Contrast Exam date and time: 03/13/2021 11:22 AM Age: 65 years old Clinical indication: Abdominal pain. History of colitis. TECHNIQUE: Imaging protocol: Computed tomography of the abdomen and pelvis without contrast. Radiation optimization: All CT scans at this facility use at least one of these dose optimization techniques: automated exposure control; mA and/or kV adjustment per patient size (includes targeted exams where dose is matched to clinical indication); or iterative reconstruction. COMPARISON: CT abdomen pelvis w con* [id number] 11/09/2020 1:41 PM RADIATION DOSE METRICS: Total DLP (mGy-cm): 1476.72 FINDINGS: Lungs: There is mild scarring and/or atelectasis at the lung bases. Coronary arterial calcifications are noted. The blood pool is low in attenuation relative to the cardiac muscle suggesting anemia. No pericardial effusion. No hiatal hernia. Liver: The liver is enlarged measuring 17.6 cm. There is diffuse hepatic steatosis. Gallbladder and bile ducts: The gallbladder has been removed. Pancreas: The pancreas is unremarkable. Spleen: The spleen is unremarkable. Adrenal glands: The adrenal glands are unremarkable. Kidneys and ureters: The kidneys are unremarkable. Stomach and bowel: The stomach and small bowel are unremarkable.; There is mild wall thickening involving the ascending colon, descending colon, sigmoid colon and rectum; query proctocolitis. Appendix: The appendix is unremarkable. Intraperitoneal space: No free intraperitoneal air is seen. Vasculature: No abdominal aortic aneurysm. Lymph nodes: Calcified periportal lymph nodes are noted. Urinary bladder: The bladder wall is thickened. Considerations include partial bladder outlet obstruction or cystitis. Correlate with urinalysis. Trace gas in the bladder likely reflects recent instrumentation. Reproductive: The prostate measures 3.5 x 3.7 cm. Bones/joints: No acute fracture is seen. Soft tissues: Small fat containing left inguinal hernia. Small fat containing umbilical hernia. CT/CT abdomen pelvis wo con [id number] IMPRESSION: 1. Findings suspicious for proctocolitis. The appearance is slightly improved from prior. 2. The bladder wall is thickened. Considerations include partial bladder outlet obstruction or cystitis. Correlate with urinalysis. 3. Hepatomegaly with diffuse hepatic steatosis. 4. Coronary artery disease. 5. Possible anemia. Correlate with hemoglobin/hematocrit. Radiation Dose CTDIVOL = (mGy): DLP = 1476.72 (mGy-cm)
[2021-03-13 13:06] LABS: Basophils # 0.1 10^3/uL (0.0-0.1); Basophils % 0.7 %; Eosinophils # 0.2 10^3/uL (0.0-0.8); Eosinophils % 2.3 %; Hemoglobin 7.3 g/dL (11.7-16.6); Lymphocytes # 2.5 10^3/uL (0.8-4.8); Lymphocytes % 25.8 %; Mean Corpuscular HGB Conc 29.2 g/dL (30.0-36.0); Mean Corpuscular Hemoglobin 23.9 pg (28.0-34.0); Mean Platelet Volume 8.6 fL (7.4-10.4); Monocytes # 1.4 10^3/uL (0.2-0.9); Monocytes % 14.6 %; Neutrophils # 5.34 10^3/uL (1.8-7.7); Neutrophils % 55.4 %; Nucleated Red Blood Cells % 0 %; Platelet Count 449 10^3/cmm (130-400); Red Blood Count 3.05 10^6/uL (4.1-5.3); Red Cell Distribution Width 16.8 % (12.1-15.1); White Blood Count 9.7 10^3/uL (4.0-10.0)
[2021-03-13] MEDS: ondansetron 2 mg/ML SDV 2 mL 4 MG IVP (13:08)
[2021-03-13] MEDS: piperacillin-tazobactam 3.375 GM in sodium chloride 0.9% (plus) 100 ML IV ×2 (13:08→23:35)
[2021-03-13] MEDS: sodium chloride 0.9% 1,000 ML 999 ML IV (13:10)
--- NOTE | 2021-03-13 13:14 | ECG_ITS ---
[facility] Test Date: 2021-03-13 Pat Name: Catrachito Agosto Department: Room: Gender: Male Facility Sales And Admin: : 1955 Requested By: Andrew Garcia Order Number: [id number] José MD: Prince Orlando M.D. Measurements Intervals [place] Rate: 76 P: 7 [place]: 136 QRS: -13 QRSD: 134 T: 101 QT: 445 QTc: 501 Interpretive Statements SINUS RHYTHM INTRAVENTRICULAR CONDUCTION DELAY [130+ ms QRS DURATION] POSSIBLE ANTERIOR MYOCARDIAL INFARCTION [30 ms Q WAVE IN V3/V4, OR R < 0.2 mV IN V4], OF INDETERMINATE AGE Compared to ECG 11/18/2020 18:04:31 Myocardial infarct finding now present ST (T wave) deviation no longer present Electronically Signed On 03-13-2021 20:21:19 CDT by Prince Orlando M.D. [id number]
[2021-03-13 13:23] LABS: Lactic Sepsis W/Reflex 0.8 mmol/L (0.5-2.2)
[2021-03-13 13:26] LABS: Troponin(5th) Baseline 26 ng/L (0-15)
[2021-03-13 13:34] LABS: Alanine Aminotransferase < 5 U/L (0-41); Albumin Level 2.2 g/dL (3.5-5.2); Alkaline Phosphatase 96 IU/L (40-130); Aspartate Amino Transferase 15 U/L (0-40); Blood Urea Nitrogen 6 mg/dL (8-23); Carbon Dioxide 31 mmol/L (22-29); Chloride 90 mmol/L (98-107); Globulin 1.8 g/dL (1.3-4.6); Glomerular Filtration Rate 96.4 mL/min (90-130); Glucose 77 mg/dL (65-115); NT Pro B Type Natriuretic Pept 762 pg/mL (0-125); Osmolality Calculated 262 mOsm/kg (285-295); Sodium 128 mmol/L (136-145); Total Bilirubin 0.5 mg/dL (0.15-1.2)
--- NOTE | 2021-03-13 14:43 | PM.HP ---
Providers/Chief Complaint Primary Care Provider: PORFIRIO Beard Chief Complaint: WEAKNESS; UNABLE TO URINATE History of Present Illness Catrachito Agosto is a 65 year old male who carries history of metastatic melanoma, immunotherapy induced colitis, chronic diarrhea has had multiple admissions secondary to dehydration hyponatremia, received multiple antibiotics in the past for his colitis however it has not resolved, at one point he was put on steroids, cholestyramine, Imodium that did not help his symptoms as well. In October she was transferred to [facility] for colonoscopy and histopathological diagnosis, as per the family he was diagnosed with immunotherapy related colitis. He was also discharged on p.o. potassium but has not been taking it because of his size. He is presented today with chief complaint of worsening diarrhea and anorexia. is at the bedside who is stating that they have home health service, nurse would visit him for 3 to 4 hours every day who has been noticing that he shakes a lot even in his sleep and skin stays extremely cold, he has vomited twice in last few days, chronic diarrhea has not improved at all, no recent fever, chest pain, shortness of breath. With his poor p.o. intake he has been noticing difficulty to urinate and whenever he tries it brings him pain as well. Because of these concerns he decided to come to the hospital for further evaluation. Diagnostics in the ER revealed hypovolemic shock, he did not improve with initial fluid boluses currently on vasopressors, I have requested TSH, random cortisol level, stress dose steroids and 2 L lactated Ringer bolus, he has hyponatremia, hypokalemia without kidney function deranged, he has been noticing bright bleeding whenever he wipes has history of hemorrhoids hemoglobin 7.3 no active hematemesis, he is not septic on admission, sodium 128 IMPRESSION: 1. Findings suspicious for proctocolitis. The appearance is slightly improved from prior. 2. The bladder wall is thickened. Considerations include partial bladder outlet obstruction or cystitis. Correlate with urinalysis. 3. Hepatomegaly with diffuse hepatic steatosis. 4. Coronary artery disease. 5. Possible anemia. Correlate with hemoglobin/hematocri Review of Systems Const: Reports: chills and fatigue; Denies: fever(s) Eyes: Denies: change in vision ENMT: Denies: throat pain Card: Reports: swelling of feet/ankles and dyspnea on exertion; Denies: chest pain Resp: Reports: dyspnea GI: Reports: vomiting and diarrhea; Denies: abdominal pain or nausea : Denies: flank pain Musc: Reports: extremity pain and extremity swelling; Denies: neck pain Skin/Breast: Denies: rash Neuro: Denies: headache(s) Psych: Reports: anxiety Endo: Denies: polyuria Greg/Lymph: Reports: easy bruising All/Imm: Denies: urticaria Medications/Allergies Home Medications Medication Instructions Recorded Confirmed Last Taken Type Januvia 25 mg PO DAILY@09/13/20 03/13/21 03/12/21 History bupropion HCl 300 mg PO DAILY@09/13/20 03/13/21 03/13/21 History citalopram 40 mg PO DAILY@09/13/20 03/13/21 03/13/21 History levothyroxine See Rx Instructions .ROUTE .COMPLEX 09/13/20 03/13/21 03/12/21 History montelukast 10 mg PO DAILY@09/13/20 03/13/21 03/12/21 History trazodone 50 mg PO BEDTIME@ PRN 09/13/20 03/13/21 11/17/20 History albuterol sulfate [ProAir HFA] See Rx Instructions .ROUTE .COMPLEX 10/15/20 03/13/21 10/28/20 History clonazepam 1.5 mg PO DAILY@ PRN 10/15/20 03/13/21 11/17/20 History ergocalciferol (vitamin D2) 1,250 See Rx Instructions .ROUTE 10/20/20 03/13/21 03/08/21 Rx mcg (50,000 unit) capsule .COMPLEX #4 cap Eliquis 5 mg PO BID 10/28/20 03/13/21 03/13/21 History oxycodone-acetaminophen 1 tab PO Q6H PRN 11/09/20 03/13/21 Unknown History cholestyramine (with sugar) 4 gram 4 ea PO DAILY 12/09/20 03/13/21 03/12/21 History powder for susp in a packet midodrine 5 mg tablet 5 mg PO TID tab 12/09/20 03/13/21 03/13/21 History naloxone 4 mg/actuation nasal spray 1 spray INTRANASAL DAILY PRN 12/09/20 03/13/21 Unknown History valganciclovir 450 mg tablet 450 mg PO BID 12/09/20 03/13/21 03/12/21 History fluticasone propionate 50 2 spray INTRANASAL DAILY PRN #16 g 12/14/20 03/13/21 03/12/21 Rx mcg/actuation nasal spray,suspension pantoprazole 40 mg tablet,delayed 40 mg PO DAILY #90 tab 12/14/20 03/13/21 03/12/21 Rx release diphenoxylate-atropine [Lomotil] 1 tab PO QID PRN 03/13/21 03/13/21 Unknown History ezetimibe-simvastatin [Vytorin 1 tab PO BEDTIME 03/13/21 03/13/21 03/12/21 History 10-10] gabapentin 200 mg PO Q8H 03/13/21 03/13/21 03/12/21 History potassium chloride 40 meq PO DAILY 03/13/21 03/13/21 03/12/21 History torsemide 15 mg PO DAILY 03/13/21 03/13/21 03/13/21 History Allergies Allergy/AdvReac Type Severity Reaction Status Date / Time Iodinated Contrast Media Allergy ALGY-Hives Verified 12/12/20 07:20 metoprolol Allergy unknown Verified 12/12/20 07:20 red dye Allergy unknown Verified 12/12/20 07:20 PFSH Acute PFSH: Medical History Acute lower respiratory infection Anxiety ASHD (arteriosclerotic heart disease) Atrial fibrillation Chronic pain syndrome Chronic recurrent sinusitis Chronic seasonal allergic rhinitis Colitis Congestive heart failure (CHF) Diabetes mellitus, type II Essential hypertension Hemorrhoid Hypertrophic cardiomyopathy Hypomagnesemia Hypothyroidism Insomnia Iron deficiency Lower respiratory infection Melanoma Mixed hyperlipidemia Multilevel degenerative disc disease Sleep apnea Smoking addiction Vitamin D deficiency Surgical History Coronary angioplasty status [facility] 2105 H/O ventricular septal myectomy Family History Mother Myocardial infarction Father Hypertension Other Diabetes Family history of CABG Social History Smoking and tobacco status: current every day smoker Second hand smoke exposure: No Desire information about alcohol rehabilitation?: No Counseling given: No Desire information about substance/drug rehabilitation?: No Counseling given: No Vitals/I&O/Wt Last Vital Signs Temp 97.8 F 03/13/21 11:12 Pulse 77 03/13/21 13:17 Resp 14 03/13/21 13:17 BP 86/47 03/13/21 13:17 Pulse Ox 96 03/13/21 13:17 Weight last 48 hrs Weight 72.575 kg Physical Exam Narrative: EXAM NARRATIVE: Pleasant cooperative male hypovolemic shock Dry cracked lips Mucous membranes very dry Clinically looks dry S1, S2 sinus rhythm no murmur appreciated, variable heart rhythm Abdomen soft no signs of peritonitis bowel sounds present Lower extremity venous is dermatitis with 1+ pitting edema bilaterally Appropriate mood and affect No joint swelling Multiple petechial rash noted on his extremities No signs of gangrene or ulcer Multiple melanotic lesions on skin Data : 03/13/21 12:35 03/13/21 12:35 Micro: Microbiology 03/13/21 13:40 Blood Culture - Preliminary Blood SPECIMEN COLLECTED 03/13/21 12:35 Blood Culture - Preliminary Blood SPECIMEN COLLECTED A&P Assessment and plan (1) Acute dehydration: Status: Acute (2) Acute hypotension: Status: Acute (3) Diarrhea: Status: Acute (4) Proctocolitis: Status: Acute (5) Hypokalemia: Status: Acute Additional A&P Information Acute on chronic proctocolitis acute on chronic proctocolitis No active signs of sepsis As per the family histopathological diagnosis of immunotherapy induced colitis Will request records from [facility] For chronic diarrhea he gets Imodium cholestyramine and for drug-induced colitis I would use systemic steroids and Zosyn for now Hypovolemic shock Blood pressure did not improve with fluid resuscitation, currently on vasopressors, I will give him 2 units of PRBC hemoglobin 7.3 history of hemorrhoids denies melanotic stools Admit to ICU Check random cortisol level at 8 AM, TSH, procalcitonin level, added stress dose steroids Hyponatremia, hypokalemia Secondary to dehydration due to diarrhea check magnesium level and replenish potassium His sodium level fluctuates between 121-132, I would not continue fluids as maintenance to avoid rapid correction of sodium Full code Regular diet DVT prophylaxis: Contraindicated due to anemia hemoglobin 7.3, hold Eliquis which he takes for A. fib Patient has home health services, nurse would visit him 3 to 4 hours every day Sunday through Sunday Attestations Medical Necessity Statement*: Currently needs ICU for hypovolemic shock Time Spent in Patient Care: (>than 50% of time spent in counselling and/or direct pt care on unit). 30mins Coding Level of Care Code Acute Retail Sales Teammate for [facility] Fwd Diagnoses Acute dehydration E86.0 Acute hypotension I95.9 Diarrhea R19.7 Proctocolitis K52.9 Hypokalemia E87.6
[2021-03-13 14:47] LABS: Add Urine Microscopic? NO; Charge for UA Resulting for Rev
[2021-03-13 14:56] LABS: Bilirubin Urine Neg (Negative); Blood Urine Neg (Negative); Glucose Urine UA Norm (Normal); Ketones Urine Negative (Negative); Leukocyte Esterase Urine Negative (Negative); Nitrate Urine Negative (Negative); Protein Urine Neg (Negative); Urine Appearance Clear (CLEAR); Urine Color Straw (Yellow); Urobilinogen Urine Norm (Negative); pH Urine 5 (5-7)
[2021-03-13] MEDS: vancomycin 1,000 MG in sodium chloride 0.9% 250 ML 250 MG IV (16:09)
[2021-03-13 16:18] LABS: SARS Covid-2 Antigen Negative (Negative)
[2021-03-13] MEDS: lactated ringers 1,000 ML 999 ML IV (17:11)
--- NOTE | 2021-03-13 17:14 | ECG_ITS ---
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 Measurements Intervals [place] Rate: 79 P: 15 [place]: 138 QRS: -16 QRSD: 133 T: 104 QT: 446 QTc: 514 Interpretive Statements SINUS RHYTHM INTRAVENTRICULAR CONDUCTION DELAY [130+ ms QRS DURATION] POSSIBLE ANTERIOR MYOCARDIAL INFARCTION [30 ms Q WAVE IN V3/V4, OR R < 0.2 mV IN V4], OF INDETERMINATE AGE Compared to ECG 03/13/2021 12:11:57 No significant changes Electronically Signed On 03-13-2021 20:23:00 CDT by Prince Orlando M.D. [id number]
[2021-03-13 19:36] LABS: Troponin 5 2HR 25.61 ng/L (0-15)
[2021-03-13 20:08] LABS: Procalcitonin 0.23 ng/mL (0-0.5); Thyroid Stimulating Hormone 7.42 uIU/mL (0.27-4.20)
--- NOTE | 2021-03-13 21:56 | PC.NURSE ---
pt transported on pvc monitor with levophed infusing. 1200 urine drained from kemp bag on 3lpm via nasal cannula
--- NOTE | 2021-03-13 22:08 | PC.NURSE ---
Addendum entered by Tonny Sinclair RN 03/14/21 00:32: this nurse in formed Dr. Tellez that labs have not been drawn since 1230, this nurse was advised that normal morning labs will be sufficient Original Note: arrived from ED via stretcher, transferred to bed via lif sheet. patient confused about day month year and location. ED nurse reported that is a new finding and was not confused on previous assessment. Dr. Tellez notified of mental status change, HCP to order potassium due to low potassium on lab
[2021-03-13] MEDS: potassium chloride premix 100 ML 25 MEQ IV (22:42)
[2021-03-13] MEDS: midodrine 5 mg TABLET PO (22:44)
[2021-03-13] MEDS: acetaminophen 500 mg Tablet PO (22:44)
[2021-03-13] MEDS: montelukast sodium 10 mg Tablet PO (22:44)
--- NOTE | 2021-03-13 23:00 | PC.NURSE ---
2245 temp 103, patient packed in ice, PRN Tylenol administered
[2021-03-13 23:07] LABS: Troponin 5 6HR 27.31 ng/L (0-15)
[2021-03-13] MEDS: sodium chloride 0.9% (100 ml) 100 ML (23:30)
--- NOTE | 2021-03-13 23:52 | PC.NURSE ---
Temp down to 101, significant tremors present at admissionnto unit an reported by ED nurse, patient able to name town and being in hospital at this time, blood running per order
[2021-03-14] VITALS (53 sets, daily range): BP systolic 84–129; BP diastolic 47–73; PULSE 66–85; RESP 14–26; TEMP 36.4–37.6; O2SAT 91–100
[2021-03-14] MEDS: sodium chloride 0.9% (100 ml) 100 ML 50 ML (04:39)
[2021-03-14 05:48] LABS: Basophils # 0.1 10^3/uL (0.0-0.1); Basophils % 0.6 %; Hematocrit 31.2 % (42.0-52.0); Hemoglobin 9.3 g/dL (11.7-16.6); Lymphocytes # 0.9 10^3/uL (0.8-4.8); Lymphocytes % 7.4 %; Mean Corpuscular HGB Conc 29.8 g/dL (30.0-36.0); Mean Corpuscular Hemoglobin 25.1 pg (28.0-34.0); Mean Corpuscular Volume 84.1 fL (80-94); Mean Platelet Volume 8.6 fL (7.4-10.4); Monocytes # 0.2 10^3/uL (0.2-0.9); Monocytes % 1.9 %; Nucleated Red Blood Cells % 0 %; Platelet Count 450 10^3/cmm (130-400); Red Blood Count 3.71 10^6/uL (4.1-5.3); Red Cell Distribution Width 16.9 % (12.1-15.1); White Blood Count 11.5 10^3/uL (4.0-10.0)
[2021-03-14 06:13] LABS: Anion Gap 13.4 (5-19); Blood Urea Nitrogen 5 mg/dL (8-23); Carbon Dioxide 28 mmol/L (22-29); Chloride 96 mmol/L (98-107); Glomerular Filtration Rate 96.4 mL/min (90-130); Glucose 131 mg/dL (65-115); Osmolality Calculated 277 mOsm/kg (285-295); Potassium 3.4 mmol/L (3.5-5.1); Sodium 134 mmol/L (136-145)
[2021-03-14] MEDS: piperacillin-tazobactam 3.375 GM in sodium chloride 0.9% (plus) 100 ML IV ×3 (06:31→22:50)
--- NOTE | 2021-03-14 07:36 | PC.NURSE ---
Report received. Assessment completed. Pt AAOx2. Unsure of location and reason that he is here, reoriented as needed. Verbalizes understanding. VSS. Blood infusing per protocol upon taking patient, blood finished infusing at this time without any reactions noted. 20g IV to L AC, R chest port with ABT and levophed infusing at 4mcg/min. Lung sounds CTA. O2@2LNC in use. C/O numbness and pain in BLE, mostly the RLE. Will speak with MD about home meds. Lujan cath in place draining freely. Will monitor.
[2021-03-14] MEDS: gabapentin 100 mg Capsule 200 MG PO ×3 (08:42→20:02)
[2021-03-14] MEDS: potassium chloride ER 20 mEq Tablet 40 MEQ PO (08:42)
[2021-03-14] MEDS: levothyroxine 200 mcg Tablet PO (08:42)
[2021-03-14] MEDS: midodrine 5 mg TABLET PO ×3 (08:42→20:02)
[2021-03-14] MEDS: pantoprazole DR 40 mg Tablet PO (08:42)
[2021-03-14] MEDS: lidocaine 1% 5 ML in potassium chloride premix 100 ML 25 ML IV (08:43)
[2021-03-14 08:45] LABS: Magnesium 1.3 mg/dL (1.7-2.3)
[2021-03-14] MEDS: cholestyramine powder 4 gm Pkt PO (09:39)
[2021-03-14 11:32] LABS: Add Urine Microscopic? YES; Bilirubin Urine Neg (Negative); Blood Urine 3+ (Negative); Glucose Urine UA Norm (Normal); Ketones Urine 1+ (Negative); Leukocyte Esterase Urine Trace (Negative); Nitrate Urine Negative (Negative); Protein Urine Neg (Negative); RBC Urine 15-25 /hpf (0-2); Squamous Epithelial Cell Urine 0-4 /hpf (0-5); Urine Appearance Clear (CLEAR); Urine Color Straw (Yellow); Urobilinogen Urine Norm (Negative); pH Urine 5 (5-7)
[2021-03-14 11:33] LABS: Add Urine Culture? Yes; Bacteria Urine TRACE /hpf
--- NOTE | 2021-03-14 12:40 | PC.NURSE ---
Lujan cath removed without difficulty, pt educated to use urinal SARAN in order to assess urinary function. Pt verbalizes understanding. Urinal at bedside. Will monitor.
--- NOTE | 2021-03-14 13:22 | P.PN_ITS ---
Subjective Subjective: Interval history: Patient doing remarkably better today he was eating his breakfast, complexion is much better, hemoglobin 9.3 after 2 units PRBC, Levophed off since 10 AM blood pressure stable, overnight high-grade fever, this morning white count 11.5 he is getting steroids as well Vitals/I&O/Wt Last Vital Signs Temp 98.1 F 03/14/21 11:00 Pulse 81 03/14/21 11:00 Resp 20 H 03/14/21 11:00 BP 102/55 03/14/21 11:00 Pulse Ox 96 03/14/21 11:00 03/13/21 03/14/21 03/14/21 22:59 06:59 14:59 Intake Total 774.866 / 8404.344 5427.397 / 2864.397 Output Total 800 / 800 Balance -25.134 / 4459.071 1748.397 / 2864.397 Weight last 48 hrs Weight 72.575 kg Physical Exam Narrative: EXAM NARRATIVE: In bedPleasant cooperative mood today he was eating breakfast when entered the room S1, S2 sinus rhythm Complexion much better today Not complaining of any active chest pain or abdominal pain Distended abdomen no signs of peritonitis bowel sound present Multiple petechial rashes all over extremities EOMI, PERRLA No neurological deficit Cooperative and pleasant during my evaluation No acute respiratory distress saturating well on room air at the time of my evaluation Urinary Catheter Management^: Lujan: Cath Placed During This Visit: no Reason for Continuing Indwelling Catheter: Accurate Measurement of Urinary Output in Critically Ill Patients Data : 03/14/21 04:06 03/14/21 04:06 Micro: Microbiology 03/13/21 12:35 Blood Culture - Preliminary Blood NEGATIVE TO DATE 03/13/21 13:40 Blood Culture - Preliminary Blood SPECIMEN COLLECTED A&P Assessment and plan (1) Hypokalemia: Status: Acute (2) Proctocolitis: Status: Acute (3) Acute dehydration: Status: Acute (4) Cellulitis: Status: Acute (5) Acute hypotension: Status: Acute (6) Acute hyponatremia: Status: Acute (7) Sepsis: Status: Acute Additional A&P Information Sepsis criteria met on 03/14 Criteria met with fever, tachypnea, leukocytosis Continue Zosyn IV steroids, Blood culture sterile, will request urine culture Remove Lujan catheter on 03/14, voiding trial today Hypovolemic shock: Improved with PRBC 2 units transfusion, off vasopressors since 10 AM, continue stress dose steroids for now Random cortisol level within normal range TSH 7.4 subclinical hypothyroidism previously TSH was abnormal with normal free T4 Hypokalemia, hypomagnesemia and hyponatremia Repleted Electrolyte abnormality secondary to poor p.o. 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
--- NOTE | 2021-03-14 13:45 | CT_ITS ---
WS: [id number] CT CHEST WITHOUT INTRAVENOUS CONTRAST HISTORY: Fever and sepsis. TECHNIQUE: Contiguous 5 mm axial imaging performed on the thorax. Coronal and sagittal reformats are submitted. All CT scans at [facility] use at least one of these dose optimization techniq ues: automated exposure control; mA and/or kV adjustment per patient size (includes targeted exams wh ere dose is matched to clinical indication); or iterative reconstruction. CONTRAST: None DLP: 708.65 mGy.cm COMPARISON: 11/13/2020 Lungs and central airway: Large area of focal pneumonitis with peripheral sparing in the central RIGH T upper lobe. Groundglass attenuation with no solid component. Subsegmental atelectasis in the lower lung ricardo bilaterally. No pleural effusion. Pleura: Normal. No pleural effusion. Heart and pericardium: Moderate cardiomegaly. Mediastinum and dennis: Small mediastinal and hilar lymph nodes. Coronary artery calcifications. Vessels: Enlarged pulmonary artery. Mild atherosclerosis thoracic aorta. Chest wall and lower neck: Negative for in the soft tissues of the LEFT chest. There is an additional partially calcified mass in the LEFT axilla which is actually smaller since 11/13/2020. Upper abdomen: Marked distention of the stomach with fluid and air. Hepatic steatosis. Visualized adr enal glands are negative. Osseous structures: Prior median sternotomy. CT/CT chest wo con [id number] IMPRESSION: 1. Focal area of pneumonitis/groundglass attenuation in the central RIGHT uppe r lobe. Recommend follow-up to resolution. Follow-up chest CT in 3 months recom mended with IV contrast. 2. Moderate cardiomegaly and coronary artery calcifications. 3. Pulmonary hypertension. 4. Bibasilar atelectasis at the lung bases. 5. Marked distention of the stomach with fluid and air.
[2021-03-14] MEDS: magnesium sulfate premix 2 GM/50 ML PIGGYBACK IV (14:08)
--- NOTE | 2021-03-14 18:14 | PC.NURSE ---
O2 off at this time per MD orders. Pt able to urinate well without kemp cath. Several episodes of diarrhea. Cdiff positive result reported to Dr. Wilkerson. No new orders.
--- NOTE | 2021-03-14 18:55 | PC.RESP ---
SMOKING CESSATION INFORMATION SENT TO PATIENT.
[2021-03-14] MEDS: montelukast sodium 10 mg Tablet PO (20:02)
--- NOTE | 2021-03-14 20:57 | PC.NURSE ---
AO to person being in hospital and day, no c/o at this time, follows commands, continues to have loose stools, supine 45 degrees call light within reach
--- NOTE | 2021-03-14 22:48 | PC.NURSE ---
report called to Gianni on medsurg
[2021-03-15] VITALS (12 sets, daily range): BP systolic 95–138; BP diastolic 60–87; PULSE 76–85; RESP 15–19; TEMP 36.4–36.8; O2SAT 91–94
[2021-03-15] MEDS: acetaminophen 500 mg Tablet PO (00:12)
[2021-03-15] MEDS: oxyCODONE-APAP 10-325 mg Tablet 1 TAB PO ×2 (02:51→14:33)
[2021-03-15 06:53] LABS: Basophils % 0.2 %; Hematocrit 33.3 % (42.0-52.0); Hemoglobin 10.1 g/dL (11.7-16.6); Lymphocytes % 6.1 %; Mean Corpuscular HGB Conc 30.3 g/dL (30.0-36.0); Mean Corpuscular Hemoglobin 25.6 pg (28.0-34.0); Mean Corpuscular Volume 84.3 fL (80-94); Mean Platelet Volume 8.6 fL (7.4-10.4); Monocytes # 0.5 10^3/uL (0.2-0.9); Neutrophils # 14.03 10^3/uL (1.8-7.7); Nucleated Red Blood Cells % 0 %; Platelet Count 426 10^3/cmm (130-400); Red Blood Count 3.95 10^6/uL (4.1-5.3); Red Cell Distribution Width 16.7 % (12.1-15.1); White Blood Count 15.8 10^3/uL (4.0-10.0)
[2021-03-15] MEDS: piperacillin-tazobactam 3.375 GM in sodium chloride 0.9% (plus) 100 ML IV (06:53)
[2021-03-15 07:17] LABS: Anion Gap 12.2 (5-19); Blood Urea Nitrogen 11 mg/dL (8-23); Calcium 7.2 mg/dL (8.5-10.5); Carbon Dioxide 27 mmol/L (22-29); Chloride 96 mmol/L (98-107); Glomerular Filtration Rate 84.2 mL/min (90-130); Glucose 223 mg/dL (65-115); Osmolality Calculated 278 mOsm/kg (285-295); Potassium 4.2 mmol/L (3.5-5.1); Sodium 131 mmol/L (136-145)
[2021-03-15] MEDS: pantoprazole DR 40 mg Tablet PO (08:31)
[2021-03-15] MEDS: gabapentin 100 mg Capsule 200 MG PO ×3 (08:31→21:14)
[2021-03-15] MEDS: midodrine 5 mg TABLET PO ×3 (08:32→21:14)
[2021-03-15] MEDS: potassium chloride ER 20 mEq Tablet 40 MEQ PO (08:32)
[2021-03-15] MEDS: levothyroxine 200 mcg Tablet PO (08:42)
--- NOTE | 2021-03-15 16:56 | PM.PN ---
Subjective Subjective: Interval history: Patient has been having profuse diarrhea, could not make it to the bathroom several times, hemodynamically stable leukocytosis likely worsened, steroids discontinued today, Zosyn discontinued, continue p.o. 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 I also talked with his sister today and discussed current plan and disposition Vitals/I&O/Wt Last Vital Signs Temp 98.2 F 03/15/21 16:00 Pulse 78 03/15/21 16:00 Resp 18 03/15/21 16:00 BP 118/61 03/15/21 16:00 Pulse Ox 93 03/15/21 16:00 03/15/21 03/15/21 03/15/21 06:59 14:59 22:59 Intake Total 100 / 3354.397 580 / 580 Balance 100 / 2504.397 580 / 580 Physical Exam Narrative: EXAM NARRATIVE: Patient was laying comfortable in his bed No active chest pain shortness of breath or abdominal pain S1, S2 Soft abdomen without any tenderness or signs of peritonitis Bowel sounds present Lower extremity no edema gangrene ulcer Multiple petechial rash all over his extremities EOMI, PERRLA Clinically looks euvolemic Urinary Catheter Management^: Lujan: Cath Placed During This Visit: no Reason for Continuing Indwelling Catheter: Accurate Measurement of Urinary Output in Critically Ill Patients Data : 03/15/21 06:18 03/15/21 06:18 Micro: Microbiology 03/14/21 11:00 Urine Culture - Preliminary Urine,Clean Catch 03/14/21 11:00 C.difficile Toxin B Gene (PCR) - Final Stool - Stool Aspirate 03/13/21 13:40 Blood Culture - Preliminary Blood NEGATIVE TO DATE 03/13/21 12:35 Blood Culture - Preliminary Blood NEGATIVE TO DATE A&P Assessment and plan (1) Sepsis: Status: Acute (2) Hypokalemia: Status: Acute (3) Proctocolitis: Status: Acute (4) Acute dehydration: Status: Acute (5) C. difficile colitis: Status: Acute Additional A&P Information Sepsis due to C. difficile colitis Afebrile in last 24 hours, leukocytosis worsened Zosyn discontinued, currently on p.o. vancomycin Discontinue steroids Hypovolemic shock: Resolved on 03/14 Acute on chronic blood loss anemia Status post 2 units PRBC hemoglobin 10.1 Patient has history of hemorrhoids, Will need outpatient colonoscopy once he is stable Hyponatremia: Improved with fluid resuscitation this was secondary to dehydration Electrolyte derangement: Repleted Hypomagnesemia repleted Full code Regular diet DVT prophylaxis contraindicated Eliquis on hold Patient has in-home service, lives alone, agreeable to go to penitentiary, he is not able to take care of himself because of profuse diarrhea Attestations Medical Necessity Statement*: Continue medical management for C. difficile colitis with profuse diarrhea currently on p.o. 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 difficile colitis A04.72
[2021-03-15] MEDS: ipratropium-albuterol 3 mL Neb INHALATION (20:35)
[2021-03-15] MEDS: montelukast sodium 10 mg Tablet PO (21:15)
[2021-03-15] MEDS: CLONazepam 1 mg Tablet 1.5 MG PO (22:23)
[2021-03-16] VITALS (9 sets, daily range): BP systolic 102–132; BP diastolic 64–82; PULSE 85–101; RESP 16–18; TEMP 36.4–37.6; O2SAT 87–95
[2021-03-16 06:10] LABS: Basophils % 0.1 %; Hematocrit 33.8 % (42.0-52.0); Hemoglobin 10.1 g/dL (11.7-16.6); Lymphocytes # 1.2 10^3/uL (0.8-4.8); Lymphocytes % 7.6 %; Mean Corpuscular HGB Conc 29.9 g/dL (30.0-36.0); Mean Corpuscular Hemoglobin 25.8 pg (28.0-34.0); Mean Corpuscular Volume 86.2 fL (80-94); Mean Platelet Volume 8.2 fL (7.4-10.4); Monocytes % 6.2 %; Neutrophils # 13.28 10^3/uL (1.8-7.7); Neutrophils % 85.1 %; Nucleated Red Blood Cells % 0 %; Platelet Count 373 10^3/cmm (130-400); Red Blood Count 3.92 10^6/uL (4.1-5.3); Red Cell Distribution Width 17.1 % (12.1-15.1); White Blood Count 15.6 10^3/uL (4.0-10.0)
[2021-03-16 06:25] LABS: Anion Gap 9.4 (5-19); Blood Urea Nitrogen 13 mg/dL (8-23); Calcium 7.9 mg/dL (8.5-10.5); Carbon Dioxide 29 mmol/L (22-29); Chloride 102 mmol/L (98-107); Glomerular Filtration Rate 112.5 mL/min (90-130); Glucose 123 mg/dL (65-115); Magnesium 1.9 mg/dL (1.7-2.3); Osmolality Calculated 283 mOsm/kg (285-295); Potassium 4.4 mmol/L (3.5-5.1); Sodium 136 mmol/L (136-145)
[2021-03-16] MEDS: ipratropium-albuterol 3 mL Neb INHALATION ×2 (07:54→19:35)
--- NOTE | 2021-03-16 10:06 | PC.SOCIAL ---
IMM UPDATE Gave patient IMM update. Provided copy of pg 2. 03/16/21 @ 0850 Initialed, dated, timed and placed in chart.
[2021-03-16] MEDS: midodrine 5 mg TABLET PO ×3 (10:08→22:20)
[2021-03-16] MEDS: potassium chloride ER 20 mEq Tablet 40 MEQ PO (10:08)
[2021-03-16] MEDS: levothyroxine 200 mcg Tablet PO (10:08)
[2021-03-16] MEDS: gabapentin 100 mg Capsule 200 MG PO ×3 (10:08→22:20)
[2021-03-16] MEDS: pantoprazole DR 40 mg Tablet PO (10:08)
--- NOTE | 2021-03-16 15:16 | P.PN_ITS ---
Subjective Subjective: Interval history: Patient is stating that he has been having frequent bowel movements almost a few every hour with a lot of flatus, he has been afebrile hemodynamically stable blood pressure has been within good range Able to finish his meals, no abdominal pain Caregiver at the bedside Vitals/I&O/Wt Last Vital Signs Temp 97.5 F L 03/16/21 12:00 Pulse 98 03/16/21 12:00 Resp 17 03/16/21 12:00 BP 115/68 03/16/21 12:00 Pulse Ox 91 03/16/21 12:00 Physical Exam Narrative: EXAM NARRATIVE: Patient was eating breakfast when I entered the room No active chest pain shortness of breath or abdominal pain S1, S2 Soft abdomen without any tenderness or signs of peritonitis Bowel sounds present Lower extremity no edema gangrene ulcer Multiple petechial rash all over his extremities EOMI, PERRLA Clinically looks euvolemic Urinary Catheter Management^: Lujan: Cath Placed During This Visit: no Reason for Continuing Indwelling Catheter: Accurate Measurement of Urinary Outp ut in Critically Ill Patients Data : 03/16/21 05:45 03/16/21 05:45 Micro: Microbiology 03/14/21 11:00 Urine Culture - Final Urine,Clean Catch A&P Assessment and plan (1) C. difficile colitis: Status: Acute (2) Sepsis: Status: Acute (3) Hypokalemia: Status: Acute (4) Proctocolitis: Status: Acute (5) Acute dehydration: Status: Acute Additional A&P Information Sepsis due to C. difficile colitis Sepsis resolved, he has stayed afebrile for 48 hours, 15,000 leukocytosis Patient endorsing frequent bowel movement every hour, Hypovolemic shock: Resolved on 03/14 Acute on chronic blood loss anemia Status post 2 units PRBC hemoglobin 10.1 Patient has history of hemorrhoids, Will need outpatient colonoscopy once he is stable Hyponatremia: Sodium 136, improved with fluid resuscitation this was secondary to dehydration Electrolyte derangement: Repleted Hypomagnesemia repleted Full code Regular diet DVT prophylaxis contraindicated Eliquis on hold Patient has in-home service, lives alone, agreeable to go to prison versus home health service, Attestations Medical Necessity Statement*: Awaiting placement to a prison Time Spent in Patient Care: 30mins Coding Level of Care Code 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 difficile colitis A04.72 Sepsis A41.9 Hypokalemia E87.6 Proctocolitis K52.9 Acute dehydration E86.0
[2021-03-16] MEDS: montelukast sodium 10 mg Tablet PO (22:20)
[2021-03-17 04:00] VITALS: BP 130/76; PULSE 83; RESP 18; TEMP 36.8; O2SAT 93
[2021-03-17 06:01] LABS: Basophils % 0.4 %; Eosinophils % 0.4 %; Hematocrit 33.4 % (42.0-52.0); Hemoglobin 9.8 g/dL (11.7-16.6); Lymphocytes # 1.6 10^3/uL (0.8-4.8); Lymphocytes % 16.5 %; Mean Corpuscular HGB Conc 29.3 g/dL (30.0-36.0); Mean Corpuscular Hemoglobin 25.1 pg (28.0-34.0); Mean Corpuscular Volume 85.6 fL (80-94); Mean Platelet Volume 8.1 fL (7.4-10.4); Monocytes # 0.7 10^3/uL (0.2-0.9); Monocytes % 7.4 %; Neutrophils # 7.11 10^3/uL (1.8-7.7); Neutrophils % 74.6 %; Nucleated Red Blood Cells % 0 %; Platelet Count 343 10^3/cmm (130-400); Red Cell Distribution Width 17.4 % (12.1-15.1); White Blood Count 9.5 10^3/uL (4.0-10.0)
[2021-03-17 08:30] VITALS: BP 143/83; PULSE 79; RESP 18; TEMP 36.9; O2SAT 97
[2021-03-17] MEDS: gabapentin 100 mg Capsule 200 MG PO ×2 (09:19→16:03)
[2021-03-17] MEDS: midodrine 5 mg TABLET PO ×2 (09:20→16:04)
[2021-03-17] MEDS: potassium chloride ER 20 mEq Tablet 40 MEQ PO (09:20)
[2021-03-17] MEDS: pantoprazole DR 40 mg Tablet PO (09:20)
[2021-03-17] MEDS: levothyroxine 200 mcg Tablet PO (09:20)
[2021-03-17 09:25] VITALS: PULSE 82; RESP 18; O2SAT 91
[2021-03-17 11:31] VITALS: BP 131/81; PULSE 83; RESP 17; TEMP 36.8; O2SAT 95
--- NOTE | 2021-03-17 11:57 | P.DS_ITS ---
Discharge Providers Date of Admission: 03/13/21 15:07 Date of Discharge: March 17, 2021 Attending Provider at Admission: Praneeth Wilkerson MD Attending Provider at Discharge: Praneeth Wilkerson MD Primary Care Provider: PORFIRIO Beard Diagnoses at Discharge Discharge Diagnosis (1) C. difficile colitis: Status: Acute (2) Sepsis: Status: Acute (3) Hypokalemia: Status: Acute (4) Proctocolitis: Status: Acute (5) Acute dehydration: Status: Acute Reason for Visit Reason for Visit: WEAKNESS; UNABLE TO URINATE Hospital Course Hospital Course Catrachito Agosto is a 65 year old male who carries history of metastatic melanoma, immunotherapy induced colitis, chronic diarrhea has had multiple admissions secondary to dehydration hyponatremia, received multiple antibiotics in the past for his colitis however it has not resolved, at one point he was put on steroids, cholestyramine, Imodium that did not help his symptoms as well. In October she was transferred to [facility] for colonoscopy and histopathological diagnosis, as per the family he was diagnosed with immunotherapy related colitis. He was also discharged on p.o. potassium but has not been taking it because of his size. He is presented today with chief complaint of worsening diarrhea and anorexia. is at the bedside who is stating that they have home health service, nurse would visit him for 3 to 4 hours every day who has been noticing that he shakes a lot even in his sleep and skin stays extremely cold, he has vomited twice in last few days, chronic diarrhea has not improved at all, no recent fever, chest pain, shortness of breath. With his poor p.o. intake he has been noticing difficulty to urinate and whenever he tries it brings him pain as well. Because of these concerns he decided to come to the hospital for further evaluation. Diagnostics in the ER revealed hypovolemic shock, he did not improve with init ial fluid boluses currently on vasopressors, I have requested TSH, random cortisol level, stress dose steroids and 2 L lactated Ringer bolus, he has hyponatremia, hypokalemia without kidney function deranged, he has been noticing bright bleeding whenever he wipes has history of hemorrhoids hemoglobin 7.3 no active hematemesis, he is not septic on admission, sodium 128 IMPRESSION: 1. Findings suspicious for proctocolitis. The appearance is slightly improved from prior. 2. The bladder wall is thickened. Considerations include partial bladder outlet obstruction or cystitis. Correlate with urinalysis. 3. Hepatomegaly with diffuse hepatic steatosis. 4. Coronary artery disease. 5. Possible anemia. Correlate with hemoglobin/hematocri Hospital course Patient on admission was diagnosed with sepsis secondary to proctocolitis for which he received Zosyn, steroids, & for his hypotension he received fluids, 2 units of PRBC, stress dose steroids in the ER. He was in ICU for 24 hours, his vasopressors/Levophed was turned off within 24 hours and he was transitioned to medical floor. Tested positive for C. difficile colitis, he was transitioned to p.o. vancomycin hence steroids, & Zosyn were discontinued. His blood pressure stayed stable, hemoglobin stable around 9.8, his Eliquis was held during hospitalization but no profuse active bleeding was noted throughout his hospitalization. 24 hours prior to discharge he only had 3 bowel movements, he is able to tolerate his diet his vital are stable clinically he has made good progress. Stress dose steroids were only given in the E,R they were not continued and his blood pressure stayed stable he showed adequate random cortisol level. TSH 7 Medications on discharge p.o. vancomycin 7-day regimen Medications on hold antidiarrheal, torsemide Medications to be resumed: Eliquis Physical Exam Narrative: EXAM NARRATIVE: Patient was laying comfortable in his bed No active chest pain shortness of breath or abdominal pain S1, S2 Soft abdomen without any tenderness or signs of peritonitis Bowel sounds present Lower extremity no edema gangrene ulcer Multiple petechial rash all over his extremities EOMI, PERRLA Clinically looks euvolemic Urinary Catheter Management^: Lujan: Cath Placed During This Visit: no Reason for Continuing Indwelling Catheter: Accurate Measurement of Urinary Output in Critically Ill Patients Discharge Data Data Completed and Pending: Completed Studies During Hospitalization Category Date Time Status CT abdomen pelvis wo con [id number] Urge nt Cat Scan 03/13/21 11:[address] chest wo con 7 [id number] Stat Cat Scan 03/14/21 13:45 Completed XR chest 1V gerda ble [id number] Urgent Exams 03/13/21 11:13 Completed Pending at discharge Category Date Time Status Blood Culture Sta t Lab 03/13/21 13:40 Results SARS Covid-2 Anti gen Stat Lab 03/17/21 11:15 Uncollected Labs from last 24 hours 03/17/21 05:50 WBC 9.5 RBC 3.90 L Hgb 9.8 L Hct 33.4 L MCV 85.6 MCH 25.1 L MCHC 29.3 L RDW 17.4 H Plt Count 343 MPV 8.1 Neut % (Auto) 74.6 Lymph % (Auto) 16.5 Brewster % (Auto) 7.4 Eos % (Auto) 0.4 Baso % (Auto) 0.4 Neut # (Auto) 7.11 Lymph # (Auto) 1.6 Brewster # (Auto) 0.7 Eos # (Auto) 0.0 Baso # (Auto) 0.0 Nucleated RBC % (a uto) 0 Nucleated RBCs # 0.0 Vitals: Last Vital Signs Temp 98.2 F 03/17/21 11:31 Pulse 83 03/17/21 11:31 Resp 17 03/17/21 11:31 BP 131/81 03/17/21 11:31 Pulse Ox 95 03/17/21 11:31 Discharge Plan Discharge Patient Disposition: Home Condition: Stable Prescriptions: New vancomycin 1,000 mg Recon Soln 125 mg PO QID 7 Days Qty: 28 RF: 0 Continued midodrine 5 mg tablet 5 mg PO TID RF: 0 cholestyramine (with sugar) 4 gram powder in packet 4 ea PO DAILY RF: 0 naloxone 4 mg/actuation spray,non-aerosol 1 spray intranasal DAILY PRN (Reason: overdose) RF: 0 valganciclovir [Valcyte] 450 mg tablet 450 mg PO BID RF: 0 ergocalciferol (vitamin D2) [Vitamin D2] 1,250 mcg (50,000 unit) capsule See Rx Instructions .ROUTE .COMPLEX Qty: 4 RF: 3 fluticasone propionate 50 mcg/actuation spray,suspension 2 spray INTRANASAL DAILY PRN (Reason: Allergy Symptoms) Qty: 16 RF: 2 pantoprazole [Protonix] 40 mg tablet,delayed release (DR/EC) 40 mg PO DAILY Qty: 90 RF: 1 citalopram 40 mg tablet 40 mg PO DAILY@07 RF: 0 trazodone 50 mg tablet 50 mg PO BEDTIME@21 PRN (Reason: Sleep) RF: 0 montelukast 10 mg tablet 10 mg PO DAILY@21 RF: 0 levothyroxine 200 mcg tablet See Rx Instructions .ROUTE .COMPLEX RF: 0 bupropion HCl 300 mg tablet extended release 24 hr 300 mg PO DAILY@07 RF: 0 Januvia 25 mg tablet 25 mg PO DAILY@07 RF: 0 Hold Instructions: Overall stabilization clonazepam 1 mg tablet 1.5 mg PO DAILY@21 PRN (Reason: Anxiety) RF: 0 albuterol sulfate [ProAir HFA] 90 mcg/actuation HFA aerosol inhaler See Rx Instructions .ROUTE .COMPLEX RF: 0 Lomotil 2.5-0.025 mg Tablet 1 tab PO QID PRN (Reason: Diarrhea) RF: 0 gabapentin 100 mg Capsule 200 mg PO Q8H RF: 0 Vytorin 10-10 10-10 mg Tablet 1 tab PO BEDTIME RF: 0 potassium chloride 20 mEq tablet extended release 40 meq PO DAILY RF: 0 Eliquis 5 mg tablet 5 mg PO BID RF: 0 Hold Instructions: Resume on 11/19/20. discuss with general surgery regarding timing of resuming after sigmoidoscopy oxycodone-acetaminophen 10-325 mg tablet 1 tab PO Q6H PRN (Reason: Pain) RF: 0 Held torsemide 5 mg Tablet 15 mg PO DAILY RF: 0 Hold Instructions: Resume on 03/31/21. Do not take torsemide if you are having profuse diarrhea or dehydrated Discharge Orders: Discharge Order (Routine); Ordered 03/17/21 Ordered By: Praneeth Wilkerson Referrals: ANTONIO Torres, PORFIRIO [Primary Care Provider] - 1 month Discharge Diet: Diabetic Discharge Activity: Increase activity as tolerated Patient Instructions: Opioid Safety Activity Restrictions/Additional Instructions: Finish 7 days of p.o. vancomycin and do not use Lomotil or any medication to stop your bowel movements you can use antidiarrheal medications after you finish p.o. vancomycin course Your hemoglobin has stayed stable, you can resume your Eliquis in future if you notice any heavy bleeding then Eliquis needs to be stopped Do not take torsemide if you are dehydrated or experiencing profuse diarrhea Discharge Attestations Time Spent in Discharge Care*: less than 30 min Quality Metrics Clinical Quality Measures During this hospital stay, did patient experience: None Coding Level of Care Code Acute Chg FW DC note Diagnoses C. difficile colitis A04.72 Sepsis A41.9 Hypokalemia E87.6 Proctocolitis K52.9 Acute dehydration E86.0
[2021-03-17 12:41] LABS: SARS Covid-2 Antigen Negative (Negative)
--- NOTE | 2021-03-17 15:06 | PC.NURSE ---
called report to [facility] and spoke with GREGORIO Anglin
[2021-03-17 16:03] VITALS: BP 111/65; PULSE 93; RESP 16; O2SAT 92
--- NOTE | 2021-03-17 17:16 | PC.NURSE ---
patient taken to private vehicle via wheelchair. and transported to [facility] by [employer].
[2021-03-17 17:17] VITALS: BP 111/65; PULSE 93; RESP 16; O2SAT 92
== END 2021-03-17 17:23 | disposition skilled nursing facility (03) | DRG 871 ==
LOC: ER 14:58 → ICU 15:57 → MEDSURG 03-14 23:03
PROVIDERS: Admitting Provider Internal Medicine; Emergency Provider Family Medicine; PCP Nurse Practitioner Family; Visit Provider Internal Medicine
DX: A41.89 Other specified sepsis (principal); R57.1 Hypovolemic shock; A04.72 Enterocolitis due to Clostridium difficile, not specified as recurrent; E87.1 Hypo-osmolality and hyponatremia; E86.0 Dehydration; E87.6 Hypokalemia; K76.0 Fatty (change of) liver, not elsewhere classified; R16.0 Hepatomegaly, not elsewhere classified; I25.10 Atherosclerotic heart disease of native coronary artery without angina pectoris; I95.9 Hypotension, unspecified; D64.9 Anemia, unspecified; I11.0 Hypertensive heart disease with heart failure; I50.9 Heart failure, unspecified; G89.4 Chronic pain syndrome; E03.9 Hypothyroidism, unspecified; E11.9 Type 2 diabetes mellitus without complications; G47.30 Sleep apnea, unspecified; E55.9 Vitamin D deficiency, unspecified; E83.42 Hypomagnesemia; F17.200 Nicotine dependence, unspecified, uncomplicated; Z85.820 Personal history of malignant melanoma of skin; Z79.01 Long term (current) use of anticoagulants; Z79.899 Other long term (current) drug therapy; Z85.79 Personal history of other malignant neoplasms of lymphoid, hematopoietic and related tissues; Z79.84 Long term (current) use of oral hypoglycemic drugs
CPT/HCPCS: 36415; 36430; 36591; 71045; 71250; 74176; 80048; 80053; 81001; 81003; 82533; 83605; 83735; 83880; 84132; 84145; 84443; 84484; 85025; 86850; 86900; 86920; 87040; 87086; 87426; 87493; 93005; 94640; 96365; 96367; 96375; 97110; 97116; 97162; 97166; 97530; 97535; 99285; J2405; J2543; J2920; J2930; J3370; J3475; J3480; J7030; J7050; P9016

== ENCOUNTER 2021-03-22 15:46 | Outpatient (CLI) | payer MEDICARE, MEDICAID, SELFPAY ==
[2021-03-22 17:04] LABS: Anion Gap 13.4 (5-19); Blood Urea Nitrogen 3 mg/dL (8-23); Calcium 7.1 mg/dL (8.5-10.5); Carbon Dioxide 25 mmol/L (22-29); Chloride 101 mmol/L (98-107); Glomerular Filtration Rate 134.4 mL/min (90-130); Glucose 86 mg/dL (65-115); Osmolality Calculated 278 mOsm/kg (285-295); Potassium 3.4 mmol/L (3.5-5.1); Sodium 136 mmol/L (136-145)
== END 2021-03-22 15:47 | disposition home or self-care (01) ==
PROVIDERS: PCP Nurse Practitioner Family; Visit Provider Internal Medicine
DX: M62.81 Muscle weakness (generalized) (principal)
CPT/HCPCS: 80048

== ENCOUNTER 2021-03-31 15:31 | Outpatient (CLI) | payer MEDICARE, MEDICAID, SELFPAY ==
[2021-03-31 18:42] LABS: Alanine Aminotransferase < 5 U/L (0-41); Albumin Level 2.1 g/dL (3.5-5.2); Alkaline Phosphatase 108 IU/L (40-130); Anion Gap 13.3 (5-19); Aspartate Amino Transferase 27 U/L (0-40); Blood Urea Nitrogen 2 mg/dL (8-23); Calcium 7.6 mg/dL (8.5-10.5); Carbon Dioxide 26 mmol/L (22-29); Chloride 94 mmol/L (98-107); Globulin 2.2 g/dL (1.3-4.6); Glomerular Filtration Rate 134.4 mL/min (90-130); Glucose 83 mg/dL (65-115); Osmolality Calculated 265 mOsm/kg (285-295); Potassium 3.3 mmol/L (3.5-5.1); Sodium 130 mmol/L (136-145); Total Bilirubin 0.4 mg/dL (0.15-1.2); Total Protein 4.3 g/dL (6.6-8.7)
== END 2021-03-31 15:32 | disposition home or self-care (01) ==
PROVIDERS: PCP Nurse Practitioner Family; Visit Provider Internal Medicine
DX: E87.6 Hypokalemia (principal)
CPT/HCPCS: 80053

== ENCOUNTER 2021-04-08 11:27 | Outpatient (CLI) | payer MEDICARE, MEDICAID, SELFPAY ==
--- NOTE | 2021-04-08 13:36 | ONC FU_ITS ---
Dr. Mendenhall follow up note Patient: Catrachito Agosto Unit #: [id number]: [id number] Dicatated By: Darlene Mendenhall M.D.Date of Visit:Apr 08, 2021 Onc Med Follow-up/Prog Note History of Present Illness: Mr. Agosto is a 65-year-old gentleman with a year-long history of left axillary lymphadenopathy. In OctoberNovember 2019, he noticed the LEFT axillary mass seemed to increase with associated pain. He also noticed fullness in the RIGHT axilla. The right axillary mass grew significantly over 1 to 2-month interval. He did have minor trauma to the right axillary mass which led to significant bleeding from the mass requiring a trip to the emergency room for suture to secure the bleeding. At that time he stopped his aspirin but continued Eliquis for history of atrial fib. He did have follow-up with his PCP who did refer him to his surgery for a biopsy. On 03/16/2020 he underwent excisional biopsy of the left axillary mass with pathology demonstrating large cell malignancy, most suggestive of high-grade sarcomatous differentiation quotation. 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 On 03/18/[address] of the chest abdomen pelvis which demonstrated bilateral axillary lymphadenopathy (with the largest left axillary lymph node measuring 5.2 x 3.8 cm) and bowel wall thickening in the distal rectum and some calcified nodes in the abdomen. 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 CT PET scan was done on June 02, 2020 which showed bilateral breast involvement, 8.4 x 5.1 cm on the left side with a maximum SUV of 15.95, left axillary lymphadenopathy with a dominant 3.7 x 2.6 cm mass with a maximum SUV of 19.88 and the right breast mass also is present laterally extending to the skin with possibly involving measuring 5.9 x 3.7 cm with SUV of 17.43. And a single enlarged left superior phrenic lymph node size 1.7 cm with SUV of 13.38 and incidental findings in the ascending colon with SUV of 12.64 may reflect tumor activity. Otherwise no lung involvement no liver involvement or any osseous metastatic disease. On 06/15/[address] Simon (surgical oncology) and on 06/25/2020 he underwent right axillary mass excision for diagnostic and palliative indications. On 06/19/2020 the final pathology with molecular profiling and IHC stains determined to represent dedifferentiated melanoma, he was referred to Dr. Rosado in the Melanoma clinic at [facility] on 07/26/2020. 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 Mets to bilateral breast/axilla, and left deep axillary/retrocrural spicular cesar conglomerate and a left retroperitoneal soft tissue mass on PET CT from 06/02/2020. NRAS mutated, TERT promoter mutated, TMB high, PD-L1 greater than 99%. It was recommended that he have repeat chest abdomen pelvis for new baseline given the imaging at that point was greater than 2 months old. He also was recommended to have brain MRI to complete staging. In the interim it was an option to treat him with ipilimumab/nivolumab with inverted dosing (Ipi 1 mg/kg/Nivo 3 mg/kg) Mr. Agosto began his first treatment on 08/17/2020. PMH: Mr Agosto denies any night sweats, denies any weight loss, denies any recurrent fever or infection denies any abdominal fullness denies any trauma to upper extremity denies any skin rash denies any travel to foreign land, denies any tick bite, denies any ascv-gaa-ljeaepf herbal medication, denies any IV drug abuse. He has longstanding history of heavy smoking about 1 to 2 packs a day for more than 50 years. Other medical illnesses include atrial for, anxiety, asthma, CAD, CHF, depression, diabetes mellitus, GERD, hyperlipidemia, hypertension, hypertrophic cardiomyopathy, hypothyroidism, OR (mitral competence), HARESH, sleep apnea. Surgeries include cardiac stent placement 2009 heart surgery septum myectomy for hypertrophic cardiomyopathy in 2016. MRI of the brain on 08/18/2020 reports no evidence of metastatic disease to the brain or calvarium. There is moderate chronic microvascular ischemic changes in the white matter. Left axillary lymphadenopathy with the largest lymph node measuring 5.2 x 3.6 cm similar in appearance to 02/17/2020. CTA neck from 08/13/2020 reports no significant cervical chain lymphadenopathy. Small cervical chain lymph nodes but these are less than 1 cm with no significant enhancement. Also noted high-grade right ICA stenosis. CT of the chest abdomen pelvis with contrast from 08/16/2020 reports increase in size of the necrotic lobulated mass in the left axilla since 02/17/2020. Probably representing necrotic neoplastic lymph node now measuring 5.7 x 10 x 5.8 cm. There was a new lobulated mass in the left upper thorax posterior to the left clavicle and posterior to the left subclavian artery measuring 5.6 x 2.3 x 3.5 cm. There is a new 1.6 nodule in the retroperitoneal metastatic deposit or associated with the medial limb of the left adrenal gland which was suspicious for metastatic site. No metastatic lesions within the liver or right adrenal gland no ascites. There were 2 sclerotic foci within the left ischium which have been present and stable since 05/20/2019 and are probably benign bone islands . There are additional bone islands in the right femoral head noted. Left lower extremity venous Doppler study done on August 24, 2020 showed no evidence of DVT Started on ipilimumab/nivolumab Every 3 weeks on August 17, 2020.Last dose was given on September 28, 2020, subsequently patient developed pancolitis As per patient and family in the last week of October 2020 he was admitted to [facility] with mental status changes and diagnosed with sepsis, prior to that on November 09, [address] scan of chest abdomen pelvis which showed, no acute abnormality but an approximately 4.3 cm low density structure in the left axilla with some calcification or suture material and this margin likely reflects a seroma or abnormal lymph node. Otherwise no abnormality seen in the lungs or mediastinum CT scan of abdomen pelvis done on November 09, 2020 showed diffuse colonic thickening with mucosal enhancement involving entire colon consistent with pancolitis, appears slightly progressed compared to October 28, 2020. No evidence of bowel obstruction. CT scan of the head done on November 18, 2020 showed no acute intracranial abnormality Patient was transferred to [facility] for further evaluation for sepsis and colitis, as per patient and family he underwent colonoscopy there and biopsy was done and they were told that he got colon damage from immunotherapy. , His serum CMV PCR was 57,700, he was started on valganciclovir, Omnicef, Flagyl and GI pathogen panel was negative CT scan of abdomen pelvis without contrast revealed persistent findings of enteritis and nonspecific colitis as per medical record he was treated with Remicade also for possible inflammatory bowel disease and intravenous steroids followed by oral steroids for immunotherapy induced colitis and as mentioned earlier with valganciclovir for CMV patient's symptom improved somewhat but diarrhea did not resolve completely and patient continued to have multiple loose stools every day, on January 03, 2021 he underwent flexible sigmoidoscopy and biopsies were obtained and it showed moderate severe ulcerative colitis in the contiguous pattern with loss of vascular pattern, friability, granularity and superficial ulceration appearing similar to prior exam and biopsy was obtained because of 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 During that time patient also developed questionable mental status changes for which he underwent CT scan of the head on December 31, 2020 which shows no abnormality, patient was discharged home on February 04, 2021 from [place] then readmitted to [facility] on March 13, 2021 and at that time he was admitted with sepsis/septic shock persistent diarrhea hypokalemia and CT scan of the abdomen showed findings suspicious for proctocolitis, hepatomegaly with diffuse hepatic steatosis patient was treated with antibiotics he was given 2 units of packed RBC, IV fluid vasopressors and he was tested for C. difficile colitis treated with oral vancomycin electrolytes were supplemented patient was discharged home on March 17, 2021, Came for follow-up, complaining of generalized weakness and fatigue, persistent diarrhea, poor oral intake, off and on mild confusion, but no fever chills, no nausea or vomiting, no abdominal pain, no jaundice, No blurred vision double vision Medications: Acetaminophen Extra Strength 1 - 2 Capsule (of 500 mg) Oral daily PRN, buPROPion HCl ER (XL) 1 Tablet (of 300 mg) Tablet SR 24 HR Oral daily, Cholestyramine (4 g/dose) Powder Oral daily, Citalopram Hydrobromide 1 Tablet (of 40 mg) Oral daily, clonazePAM 1.5 Tablet (of 1 mg) Oral daily, Eliquis 1 Tablet (of 5 mg) Oral b.i.d., Gabapentin 2 (100 mg) Capsule Oral t.i.d., Januvia 1 Tablet (of 25 mg) Oral daily, Levothyroxine Sodium 0.5 Tablet (of 200 mcg) Oral daily, Midodrine HCl (5 mg) Tablet Oral t.i.d., Montelukast Sodium 1 Tablet (of 10 mg) Oral daily, Pantoprazole Sodium 1 Tablet (of 40 mg) Tablet, enteric coated Oral daily, Potassium Chloride ER 1 Tablet (of 40 meq) Tablet, controlled release Oral daily, Torsemide 1 Tablet (of 100 mg) Oral daily, Vitamin D 1 Capsule (of 1.25 mg) Oral q 7 days Allergies: Metoprolol Tartrate and Red Dye. Review of Systems: Review of Systems is not available for this patient. Vital Signs: Performed on Apr 08, 2021 12:03 Height - 67.00 in Weight - 157.8 lbs (LOW) BSA - 1.83 sq.m BMI - 24.72 Temperature - 97.1 F (LOW) Pulse - 66 /min Respiration - 18 /min BP - 70/40 mm(hg) (LOW) Performance Status: 2 - Ambulatory/capable of all self-care, unable to perform any work activities. Up and about more than 50% of waking hours. (ECOG) Physical Examination: ENMT - Poor oral hygiene but no mouth sores, no thrush, no jaundice, Respiratory - Lungs are clear to auscultation, Cardiovascular - Regular rate and rhythm of heart, Abdomen - Soft, bowel sounds present, Extremities - 1+ edema with lower extremity pigmentation due to venous stasis. Lab/Imaging: Most recent lab results are not available for this patient. Impression: 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 excisional biopsy done on June 25, 2020 at [facility]; NRAS mutated, T ERT promoter mutated, TMB high, PD-L1 more than 99% Initially diagnosed with Poorly differentiated carcinoma high-grade sarcomatous differentiation versus histiocytic sarcoma with plasmacytoid differentiation versus other per excisional biopsy of left axillary lymph node, Later on at [place] patient underwent another biopsy On June 25, 2020, as mentioned above, based on molecular profiling and IHC staining it was confirmed as dedifferentiated melanoma rather sarcoma Cancer type ID confirmed undifferentiated sarcoma with 90% probability CT scan of chest abdomen pelvis done on February 17, 2020 showed bilateral axillary lymphadenopathy and fatty liver. CT PET scan done on June 02, 2020 showed prominent bilateral breast tissue tumor activity with additional left axillary lymph node involvement e.g. left breast showed 8.4 x 5.1 cm with SUV of 15.95 and 3.7 x 2.6 cm dominant lymph node with SUV of 19.88 and right breast mass also present laterally extending to the skin measuring 5.9 x 3.7 cm with SUV of 17.43 and a single enlarged 1.7 cm left superior phrenic lymph node with SUV of 13.38 and There is intense increase of metabolic activity associated with the descending colon with SUV of 12.64. Mr Agosto presented to us for followup and initiation of treatment closer to home. He had upper anterior chest wall discomfort/pain as well as bilateral axillary fullness more on the left side not being controlled with tramadol/hydrocodone. Initially patient was diagnosed with undifferentiated sarcoma, then patient was referred to [place] where he underwent a biopsy of right axillary mass on June 25, 2020 and final pathology report based on molecular profiling and IHC stains confirmed dedifferentiated melanoma, patient was seen in the melanoma clinic on July 26, [address] Henao recommended immunotherapy with ipilimumab 1 mg/kg and nivolumab 3 mg/kg every 3 weeks x4 and then evaluation and also recommended pretreatment CT scan of chest abdomen pelvis as last CT PET scan was done in May 2020, also suggested MRI scan of the brain., Testing for guardant ct DNA was ordered and now awaiting report. Mr Agosto was offered treatment with Ipilimumab/nivolumab. He began his 1st cycle on August 17, 2020., Last and third dose was given on September 28, 2020, subsequently developed pancolitis for which he was admitted to hospital in [place] from he was transferred to [facility] in [place] where he underwent colonoscopy and biopsy shows moderately severe ulcerative colitis, patient was treated with IV steroids followed by oral steroids, his CMV titer was 57,700 for which he was treated with valganciclovir and there was a concern about possibility of inflammatory bowel disease so he was also treated with Remicade Plan: Discussed with patient regarding his disease status and concerns, especially due to persistent diarrhea due to persistent colitis, patient was admitted to [facility] in [place] where he underwent multiple CT scan of abdomen pelvis and colonoscopy/sigmoidoscopy and last one was in December 2020 which showed persistent moderately severe ulcerative colitis and there was a concern regarding CMV colitis versus immunotherapy induced colitis versus inflammatory bowel disease, as per medical record biopsies were obtained to rule out CMV induced colitis if negative plan was taken Remicade for possible inflammatory bowel disease if no improvement colectomy with consideration. Discussed with patient and his Sister Estrellita regarding further planning, so far, as per medical record it is not clear whether his persistent colitis is due to immunotherapy induced colitis or CMV colitis or inflammatory bowel disease but patient is being treated for all of them at [facility] and patient still has persistent diarrhea and his last sigmoidoscopy done December 2020 showed persistent moderately severe ulcerative colitis and patient was recently admitted to hospital with persistent diarrhea dehydration and was diagnosed with C. difficile colitis, at this point we will refer him to GI clinic at [place] to clarify etiology of colitis, if patient has immunotherapy induced colitis then he will not be a candidate for immunotherapy for his melanoma. We will also refer him back to melanoma clinic at [place] for reevaluation. Patient return to clinic 1 week after his visit to [facility] with CBC CMP for further discussion Signed By: Darlene Mendenhall M.D. <<Signature on File>>
== END 2021-04-08 11:28 | disposition home or self-care (01) ==
LOC: ONCMED 11:32
PROVIDERS: PCP Internal Medicine; Visit Provider Internal Medicine Hematology & Oncology
DX: C43.59 Malignant melanoma of other part of trunk (principal); C78.7 Secondary malignant neoplasm of liver and intrahepatic bile duct; C77.8 Secondary and unspecified malignant neoplasm of lymph nodes of multiple regions; K52.3 Indeterminate colitis; Z79.899 Other long term (current) drug therapy; Z92.21 Personal history of antineoplastic chemotherapy
CPT/HCPCS: 99214

== ENCOUNTER 2021-04-10 11:56 | Inpatient (IN) | payer MEDICARE, MEDICAID, SELFPAY ==
[2021-04-10] VITALS (63 sets, daily range): BP systolic 44–139; BP diastolic 25–85; PULSE 63–86; RESP 16–25; TEMP 32.7–33.5; O2SAT 86–100; BMI 21.9; BMI 23.1
--- NOTE | 2021-04-10 12:02 | W.ED.AMS ---
HPI - Altered Mental Status General: Chief Complaint: ER Hold Stated Complaint: AMS Time Seen by Provider: 04/10/21 12:01 History of Present Illness: HPI narrative: Per chart review Mr. Agosto is a 65-year-old gentleman with significant past medical history of metastatic melanoma and hospitalization for C. difficile who presents emergency department due to altered mental status. Upon arrival patient is critically ill and history is significantly limited. Per EMS report there is little supplemental information provided by patient long-term facility. There is no family immediately at bedside. MD complaint: altered mental status and decreased responsiveness Review of Systems Narrative: Unable to obtain due to acuity of condition [facility] ED [facility]: Medical History Acute lower respiratory infection Anxiety ASHD (arteriosclerotic heart disease) Atrial fibrillation Chronic pain syndrome Chronic recurrent sinusitis Chronic seasonal allergic rhinitis Colitis Congestive heart failure (CHF) Diabetes mellitus, type II Essential hypertension Hemorrhoid Hypertrophic cardiomyopathy Hypomagnesemia Hypothyroidism Insomnia Iron deficiency Lower respiratory infection Melanoma Mixed hyperlipidemia Multilevel degenerative disc disease Proctocolitis Sleep apnea Smoking addiction Vitamin D deficiency Surgical History Coronary angioplasty status [facility] 210 H/O ventricular septal myectomy Family History Mother Myocardial infarction Father Hypertension Other Diabetes Family history of CABG Social History Smoking and tobacco status: current every day smoker Second hand smoke exposure: No Desire information about alcohol rehabilitation?: No Counseling given: No Desire information about substance/drug rehabilitation?: No Counseling given: No Physical Exam Narrative: EXAM NARRATIVE: GENERAL/CONSTITUTIONAL -toxic and ill-appearing. Patient is requiring supplemental oxygen. Unable to obtain blood pressure. Decreased level of consciousness Eyes - PERRL, no scleral icterus ENMT - Atraumatic external nose and ears. Dry mucous membranes NECK - supple. trachea midline. No meningeal signs CARDIOVASCULAR - regular rate and rhythm. Unable to palpate peripheral pulses RESPIRATORY -coarse breath sounds throughout.. No retractions or accessory muscle use. ABDOMEN/GI - there is tenderness to palpation diffusely with moderate to deep palpation. Nondistended. No immediate evidence of surgical abdomen MSK - Extremities without obvious deformity or significant traumatic injuries SKIN -pale, cool, mottled NEURO - responsive only to painful stimuli, patient requires frequent stimuli to stay awake and mumbles incomprehensible words. He moves all extremities spontaneously. Procedures ABG Interpretation ABG Interpretation 1: ABG Results: 7.28, 39, 239 Interpretation: abnormal and metabolic acidosis Arterial Line Time Out Performed: Yes Size (Gauge): 20 Technique Used: guide wire technique Post-Procedure: dry sterile dressing placed Patient Tolerated Procedure: well Complications: none Site: left and radial Central Line Placement Right IJ: Time Out Performed: Yes Patient Placed on Monitor/Pulse Ox: Yes MD Prep: mask, gown and gloves Central Line Prep: Chlorhexidine scrub and sterile drapes applied Local Anesthetic: lidocaine 1% Amount of anesthesia used (mL): 3 Ultrasound Used for Placement: Yes Central Line Lumen Inserted: triple Post Procedure: sutured in place, good blood return, all ports aspirated, flushed, capped and sterile dressing applied Post Procedure X-Ray: no pneumothorax seen Patient Tolerated Procedure: well and no complications Complications: catheter malposition Additional Comments: Replacement over wire with intraprocedure x-ray verifying wire now projecting in SVC/IVC system. Course ED course: - Patient was seen and evaluated by me at bedside - Patient placed on cardiac monitors - Initial evaluation notable for as noted above, unable to obtain blood pressure. -Patient's port accessed per protocol and IV fluids ordered with some improvement in overall clinical picture/mental status however patient still markedly ill. -Arterial line inserted showing marked hypotension with systolics 35-40.. -Vasopressors ordered - Labs notable for leukocytosis and elevated lactate. Glucose low and D50 ordered though this did not have an effect significantly on mental status. -Patient required additional vasopressors though continued of some clinical improvement with improvement in blood pressure -Given need for additional access including multiple vasopressors and IV antibiotics as well as IV fluids - Imaging notable for subclavian terminus of right IJ line. -This required repositioning -Repeat lactate 7.3, improving. -Antibiotics have been given. -Patient meets criteria for septic shock though compared to initial presentation clinically is mildly improved though remains critically ill. He now opens eyes spontaneously and communicates though he is still difficult to understand -Imaging with CT scan delayed due to critical illness and instability for taking to CT scan. When completed there is evidence of ileus and enteritis. - Based on patient history, evaluation, labs, and imaging as interpreted the most likely cause of the patient's condition is septic shock from multiple sources including pneumonia and possibly intra-abdominal source. - The results of ED evaluation were discussed with the patient including plan for admission due to requirement for level of care not available if discharged to prevent significant worsening/deterioration. -Case discussed with hospitalist and critical care physician. Patient to be admitted to the ICU -Patient transported to ICU on multiple vasopressors and, though improved from initial presentation, in critical condition. Vital Signs: Vital signs: Vital Signs Temperature 95.7 F L 04/11/21 04:05 Pulse Rate 82 04/11/21 10:30 Respiratory Rate 23 H 04/11/21 10:30 Blood Pressure 82/67 04/11/21 09:30 Pulse Oximetry 72 L 04/11/21 09:30 MDM - Altered Mental Status Medical Records: Attestation: I reviewed the patient's medical records. Lab Data: Attestation: I reviewed the patient's lab results. Labs: Lab Results 04/10/21 04/10/21 04/10/21 Range/Units 12:20 12:20 12:20 WBC 13.9 H (4.0-10.0) 10^3/ uL RBC 5.56 H (4.1-5.3) 10^6/u L Hgb 14.1 (11.7-16.6) g/dL Hct 45.5 (42.0-52.0) % MCV 81.8 (80-94) fl MCH 25.4 L (28.0-34.0) pg MCHC 31.0 (30.0-36.0) g/dL RDW 21.1 H (12.1-15.1) % Plt Count 346 (130-400) 10^3/c mm MPV 9.4 (7.4-10.4) fL Neut % (Auto) 74.2 % Lymph % (Auto) 20.8 % Valencia % (Auto) 2.4 % Eos % (Auto) 1.7 % Baso % (Auto) 0.8 % Neut # (Auto) 10.27 H (1.8-7.7) 10^3/u L Lymph # (Auto) 2.9 (0.8-4.8) 10^3/u L Valencia # (Auto) 0.3 (0.2-0.9) 10^3/u L Eos # (Auto) 0.2 (0.0-0.8) 10^3/u L Baso # (Auto) 0.1 (0.0-0.1) 10^3/u L Nucleated RBC % (a uto) 0 % Nucleated RBCs # 0.0 /100WBC PT (12.1-14.9) SECO NDS INR (0.8-1.2) Specimen Type Sample Site ABG pH (7.35-7.45) ABG pCO2 (35-45) mmHg ABG pO2 (80.0-100.0) mmH g ABG HCO3 (22-26) mmol/L ABG O2 Saturation ABG Base Excess (-2.0-2.0) mmol/ L Esvin Test A-a O2 Gradient (5-10) mmHg Hematocrit (42-52) % Hgb O2 Saturation (95-100) % Carboxyhemoglobin (0.4-20.1) %THgb Methemoglobin (0.4-1.5) % Total Hemoglobin (14-18) g/dL Ionized Calcium (1.1-1.4) mmol/L O2 Delivery Device O2 Liters/Min % FiO2 % Roll Capper ID Sodium 132 L (136-145) mmol/L Potassium 3.5 (3.5-5.1) mmol/L Chloride 91 L (98-107) mmol/L Carbon Dioxide 19 L (22-29) mmol/L Anion Gap 25.5 H (5-19) BUN 16 (8-23) mg/dL Creatinine 3.4 H (0.7-1.2) mg/dL GFR Calculation 18.2 L (90-130) mL/min Glucose 39 L* (65-115) mg/dL POC Glucose (70-110) mg/dL Calculated Osmolal ity 272 L (285-295) mOsm/k g Lactic Acid 9.9 H* (0.5-2.2) mmol/L Lactate (0.5-2.2) mmol/L Calcium 8.2 L (8.5-10.5) mg/dL Phosphorus (2.5-4.5) mg/dL Magnesium (1.7-2.3) mg/dL Total Bilirubin 0.7 (0.15-1.2) mg/dL AST 117 H (0-40) U/L ALT 17 (0-41) U/L Alkaline Phosphata se 136 H (40-130) IU/L Creatine Kinase (39-308) U/L Troponin T Baselin e (0-15) ng/L Troponin T 120 Min [place] (0-15) ng/L Delta Troponin T (0-10) ABS# C-Reactive Protein (0.0-4.9) mg/L NT-Pro-B Natriuret Pep (0-125) pg/mL Total Protein 3.7 L (6.6-8.7) g/dL Albumin 1.9 L (3.5-5.2) g/dL Globulin 1.8 (1.3-4.6) g/dL Procalcitonin 4.42 H (0-0.5) ng/mL TSH (0.27-4.20) uIU/ mL Free T4 (0.82-1.77) ng/d L Free T3 (2.0-4.4) PG/ML Urine Color (Yellow) Urine Appearance (CLEAR) Urine pH (5-7) Ur Specific Gravit y (1.005-1.030) Urine Protein (Negative) Urine Glucose (UA) (Normal) Urine Ketones (Negative) Urine Blood (Negative) Urine Nitrate (Negative) Urine Bilirubin (Negative) Urine Urobilinogen (Negative) mg/dL Ur Leukocyte Abida ase (Negative) Urine RBC (0-2) /hpf Urine WBC (0-5) /hpf Ur Squamous Epith Cells (0-5) /hpf Amorphous Sediment Urine Bacteria (NONE) /hpf Nasal/Oral COVID-1 9 PCR SARS-CoV-2 Ag (Rap id) (Negative) 04/10/21 04/10/21 04/10/21 Range/Units 12:20 12:20 12:21 WBC (4.0-10.0) 10^3/ uL RBC (4.1-5.3) 10^6/u L Hgb (11.7-16.6) g/dL Hct (42.0-52.0) % MCV (80-94) fl MCH (28.0-34.0) pg MCHC (30.0-36.0) g/dL RDW (12.1-15.1) % Plt Count (130-400) 10^3/c mm MPV (7.4-10.4) fL Neut % (Auto) % Lymph % (Auto) % Valencia % (Auto) % Eos % (Auto) % Baso % (Auto) % Neut # (Auto) (1.8-7.7) 10^3/u L Lymph # (Auto) (0.8-4.8) 10^3/u L Valencia # (Auto) (0.2-0.9) 10^3/u L Eos # (Auto) (0.0-0.8) 10^3/u L Baso # (Auto) (0.0-0.1) 10^3/u L Nucleated RBC % (a uto) % Nucleated RBCs # /100WBC PT 33.20 H (12.1-14.9) SECO NDS INR 3.19 H (0.8-1.2) Specimen Type Sample Site ABG pH (7.35-7.45) ABG pCO2 (35-45) mmHg ABG pO2 (80.0-100.0) mmH g ABG HCO3 (22-26) mmol/L ABG O2 Saturation ABG Base Excess (-2.0-2.0) mmol/ L Esvin Test A-a O2 Gradient (5-10) mmHg Hematocrit (42-52) % Hgb O2 Saturation (95-100) % Carboxyhemoglobin (0.4-20.1) %THgb Methemoglobin (0.4-1.5) % Total Hemoglobin (14-18) g/dL Ionized Calcium (1.1-1.4) mmol/L O2 Delivery Device O2 Liters/Min % FiO2 % Roll Capper ID Sodium (136-145) mmol/L Potassium (3.5-5.1) mmol/L Chloride (98-107) mmol/L Carbon Dioxide (22-29) mmol/L Anion Gap (5-19) BUN (8-23) mg/dL Creatinine (0.7-1.2) mg/dL GFR Calculation (90-130) mL/min Glucose (65-115) mg/dL POC Glucose (70-110) mg/dL Calculated Osmolal ity (285-295) mOsm/k g Lactic Acid (0.5-2.2) mmol/L Lactate (0.5-2.2) mmol/L Calcium (8.5-10.5) mg/dL Phosphorus (2.5-4.5) mg/dL Magnesium (1.7-2.3) mg/dL Total Bilirubin (0.15-1.2) mg/dL AST (0-40) U/L ALT (0-41) U/L Alkaline Phosphata se (40-130) IU/L Creatine Kinase (39-308) U/L Troponin T Baselin e 86 H (0-15) ng/L Troponin T 120 Min [place] (0-15) ng/L Delta Troponin T (0-10) ABS# C-Reactive Protein (0.0-4.9) mg/L NT-Pro-B Natriuret Pep (0-125) pg/mL Total Protein (6.6-8.7) g/dL Albumin (3.5-5.2) g/dL Globulin (1.3-4.6) g/dL Procalcitonin (0-0.5) ng/mL TSH (0.27-4.20) uIU/ mL Free T4 (0.82-1.77) ng/d L Free T3 (2.0-4.4) PG/ML Urine Color Tatiana (Yellow) Urine Appearance Clear (CLEAR) Urine pH 5 (5-7) Ur Specific Gravit y 1.015 (1.005-1.030) Urine Protein Trace (Negative) Urine Glucose (UA) Norm (Normal) Urine Ketones Negative (Negative) Urine Blood Neg (Negative) Urine Nitrate Negative (Negative) Urine Bilirubin 1+ H (Negative) Urine Urobilinogen 1 H (Negative) mg/dL Ur Leukocyte Abida ase Negative (Negative) Urine RBC 0-4 H (0-2) /hpf Urine WBC 0-4 H (0-5) /hpf Ur Squamous Epith Cells Rare (0-5) /hpf Amorphous Sediment Not Reportable Urine Bacteria Trace (NONE) /hpf Nasal/Oral COVID-1 9 PCR SARS-CoV-2 Ag (Rap id) (Negative) 04/10/21 04/10/21 04/10/21 Range/Units 12:34 14:02 14:02 WBC (4.0-10.0) 10^3/ uL RBC (4.1-5.3) 10^6/u L Hgb (11.7-16.6) g/dL Hct (42.0-52.0) % MCV (80-94) fl MCH (28.0-34.0) pg MCHC (30.0-36.0) g/dL RDW (12.1-15.1) % Plt Count (130-400) 10^3/c mm MPV (7.4-10.4) fL Neut % (Auto) % Lymph % (Auto) % Valencia % (Auto) % Eos % (Auto) % Baso % (Auto) % Neut # (Auto) (1.8-7.7) 10^3/u L Lymph # (Auto) (0.8-4.8) 10^3/u L Valencia # (Auto) (0.2-0.9) 10^3/u L Eos # (Auto) (0.0-0.8) 10^3/u L Baso # (Auto) (0.0-0.1) 10^3/u L Nucleated RBC % (a uto) % Nucleated RBCs # /100WBC PT (12.1-14.9) SECO NDS INR (0.8-1.2) Specimen Type Arterial Sample Site Radial, right ABG pH 7.28 L (7.35-7.45) ABG pCO2 39.6 (35-45) mmHg ABG pO2 239.0 H (80.0-100.0) mmH g ABG HCO3 18.7 L (22-26) mmol/L ABG O2 Saturation ABG Base Excess -7.5 L (-2.0-2.0) mmol/ L Esvin Test N/a A-a O2 Gradient (5-10) mmHg Hematocrit 35.3 L (42-52) % Hgb O2 Saturation (95-100) % Carboxyhemoglobin (0.4-20.1) %THgb Methemoglobin (0.4-1.5) % Total Hemoglobin (14-18) g/dL Ionized Calcium (1.1-1.4) mmol/L O2 Delivery Device Nrb O2 Liters/Min 15.0 % FiO2 100.0 % Roll Capper ID Duner Sodium (136-145) mmol/L Potassium (3.5-5.1) mmol/L Chloride (98-107) mmol/L Carbon Dioxide (22-29) mmol/L Anion Gap (5-19) BUN (8-23) mg/dL Creatinine (0.7-1.2) mg/dL GFR Calculation (90-130) mL/min Glucose (65-115) mg/dL POC Glucose (70-110) mg/dL Calculated Osmolal ity (285-295) mOsm/k g Lactic Acid (0.5-2.2) mmol/L Lactate (0.5-2.2) mmol/L Calcium (8.5-10.5) mg/dL Phosphorus (2.5-4.5) mg/dL Magnesium (1.7-2.3) mg/dL Total Bilirubin (0.15-1.2) mg/dL AST (0-40) U/L ALT (0-41) U/L Alkaline Phosphata se (40-130) IU/L Creatine Kinase 1084 H* (39-308) U/L Troponin T Baselin e (0-15) ng/L Troponin T 120 Min [place] 68.21 H (0-15) ng/L Delta Troponin T -17.79 L (0-10) ABS# C-Reactive Protein 59.4 H (0.0-4.9) mg/L NT-Pro-B Natriuret Pep 1348 H (0-125) pg/mL Total Protein (6.6-8.7) g/dL Albumin (3.5-5.2) g/dL Globulin (1.3-4.6) g/dL Procalcitonin 4.00 H (0-0.5) ng/mL TSH 44.38 H (0.27-4.20) uIU/ mL Free T4 (0.82-1.77) ng/d L Free T3 (2.0-4.4) PG/ML Urine Color (Yellow) Urine Appearance (CLEAR) Urine pH (5-7) Ur Specific Gravit y (1.005-1.030) Urine Protein (Negative) Urine Glucose (UA) (Normal) Urine Ketones (Negative) Urine Blood (Negative) Urine Nitrate (Negative) Urine Bilirubin (Negative) Urine Urobilinogen (Negative) mg/dL Ur Leukocyte Abida ase (Negative) Urine RBC (0-2) /hpf Urine WBC (0-5) /hpf Ur Squamous Epith Cells (0-5) /hpf Amorphous Sediment Urine Bacteria (NONE) /hpf Nasal/Oral COVID-1 9 PCR SARS-CoV-2 Ag (Rap id) (Negative) 04/10/21 04/10/21 04/10/21 Range/Units 14:02 14:02 14:35 WBC (4.0-10.0) 10^3/ uL RBC (4.1-5.3) 10^6/u L Hgb (11.7-16.6) g/dL Hct (42.0-52.0) % MCV (80-94) fl MCH (28.0-34.0) pg MCHC (30.0-36.0) g/dL RDW (12.1-15.1) % Plt Count (130-400) 10^3/c mm MPV (7.4-10.4) fL Neut % (Auto) % Lymph % (Auto) % Valencia % (Auto) % Eos % (Auto) % Baso % (Auto) % Neut # (Auto) (1.8-7.7) 10^3/u L Lymph # (Auto) (0.8-4.8) 10^3/u L Valencia # (Auto) (0.2-0.9) 10^3/u L Eos # (Auto) (0.0-0.8) 10^3/u L Baso # (Auto) (0.0-0.1) 10^3/u L Nucleated RBC % (a uto) % Nucleated RBCs # /100WBC PT (12.1-14.9) SECO NDS INR (0.8-1.2) Specimen Type Sample Site ABG pH (7.35-7.45) ABG pCO2 (35-45) mmHg ABG pO2 (80.0-100.0) mmH g ABG HCO3 (22-26) mmol/L ABG O2 Saturation ABG Base Excess (-2.0-2.0) mmol/ L Esvin Test A-a O2 Gradient (5-10) mmHg Hematocrit (42-52) % Hgb O2 Saturation (95-100) % Carboxyhemoglobin (0.4-20.1) %THgb Methemoglobin (0.4-1.5) % Total Hemoglobin (14-18) g/dL Ionized Calcium (1.1-1.4) mmol/L O2 Delivery Device O2 Liters/Min % FiO2 % Roll Capper ID Sodium (136-145) mmol/L Potassium (3.5-5.1) mmol/L Chloride (98-107) mmol/L Carbon Dioxide (22-29) mmol/L Anion Gap (5-19) BUN (8-23) mg/dL Creatinine (0.7-1.2) mg/dL GFR Calculation (90-130) mL/min Glucose (65-115) mg/dL POC Glucose (70-110) mg/dL Calculated Osmolal ity (285-295) mOsm/k g Lactic Acid (0.5-2.2) mmol/L Lactate 7.3 H* (0.5-2.2) mmol/L Calcium (8.5-10.5) mg/dL Phosphorus 4.7 H (2.5-4.5) mg/dL Magnesium 1.3 L (1.7-2.3) mg/dL Total Bilirubin (0.15-1.2) mg/dL AST (0-40) U/L ALT (0-41) U/L Alkaline Phosphata se (40-130) IU/L Creatine Kinase (39-308) U/L Troponin T Baselin e (0-15) ng/L Troponin T 120 Min [place] (0-15) ng/L Delta Troponin T (0-10) ABS# C-Reactive Protein (0.0-4.9) mg/L NT-Pro-B Natriuret Pep (0-125) pg/mL Total Protein (6.6-8.7) g/dL Albumin (3.5-5.2) g/dL Globulin (1.3-4.6) g/dL Procalcitonin (0-0.5) ng/mL TSH (0.27-4.20) uIU/ mL Free T4 0.54 L (0.82-1.77) ng/d L Free T3 1.4 L (2.0-4.4) PG/ML Urine Color (Yellow) Urine Appearance (CLEAR) Urine pH (5-7) Ur Specific Gravit y (1.005-1.030) Urine Protein (Negative) Urine Glucose (UA) (Normal) Urine Ketones (Negative) Urine Blood (Negative) Urine Nitrate (Negative) Urine Bilirubin (Negative) Urine Urobilinogen (Negative) mg/dL Ur Leukocyte Abida ase (Negative) Urine RBC (0-2) /hpf Urine WBC (0-5) /hpf Ur Squamous Epith Cells (0-5) /hpf Amorphous Sediment Urine Bacteria (NONE) /hpf Nasal/Oral COVID-1 9 PCR SARS-CoV-2 Ag (Rap id) (Negative) 04/10/21 04/10/21 04/10/21 Range/Units 14:46 16:29 17:03 WBC (4.0-10.0) 10^3/ uL RBC (4.1-5.3) 10^6/u L Hgb (11.7-16.6) g/dL Hct (42.0-52.0) % MCV (80-94) fl MCH (28.0-34.0) pg MCHC (30.0-36.0) g/dL RDW (12.1-15.1) % Plt Count (130-400) 10^3/c mm MPV (7.4-10.4) fL Neut % (Auto) % Lymph % (Auto) % Valencia % (Auto) % Eos % (Auto) % Baso % (Auto) % Neut # (Auto) (1.8-7.7) 10^3/u L Lymph # (Auto) (0.8-4.8) 10^3/u L Valencia # (Auto) (0.2-0.9) 10^3/u L Eos # (Auto) (0.0-0.8) 10^3/u L Baso # (Auto) (0.0-0.1) 10^3/u L Nucleated RBC % (a uto) % Nucleated RBCs # /100WBC PT (12.1-14.9) SECO NDS INR (0.8-1.2) Specimen Type Sample Site ABG pH (7.35-7.45) ABG pCO2 (35-45) mmHg ABG pO2 (80.0-100.0) mmH g ABG HCO3 (22-26) mmol/L ABG O2 Saturation ABG Base Excess (-2.0-2.0) mmol/ L Esvin Test A-a O2 Gradient (5-10) mmHg Hematocrit (42-52) % Hgb O2 Saturation (95-100) % Carboxyhemoglobin (0.4-20.1) %THgb Methemoglobin (0.4-1.5) % Total Hemoglobin (14-18) g/dL Ionized Calcium (1.1-1.4) mmol/L O2 Delivery Device O2 Liters/Min % FiO2 % Roll Capper ID Sodium (136-145) mmol/L Potassium (3.5-5.1) mmol/L Chloride (98-107) mmol/L Carbon Dioxide (22-29) mmol/L Anion Gap (5-19) BUN (8-23) mg/dL Creatinine (0.7-1.2) mg/dL GFR Calculation (90-130) mL/min Glucose (65-115) mg/dL POC Glucose 124 H 83 84 (70-110) mg/dL Calculated Osmolal ity (285-295) mOsm/k g Lactic Acid (0.5-2.2) mmol/L Lactate (0.5-2.2) mmol/L Calcium (8.5-10.5) mg/dL Phosphorus (2.5-4.5) mg/dL Magnesium (1.7-2.3) mg/dL Total Bilirubin (0.15-1.2) mg/dL AST (0-40) U/L ALT (0-41) U/L Alkaline Phosphata se (40-130) IU/L Creatine Kinase (39-308) U/L Troponin T Baselin e (0-15) ng/L Troponin T 120 Min [place] (0-15) ng/L Delta Troponin T (0-10) ABS# C-Reactive Protein (0.0-4.9) mg/L NT-Pro-B Natriuret Pep (0-125) pg/mL Total Protein (6.6-8.7) g/dL Albumin (3.5-5.2) g/dL Globulin (1.3-4.6) g/dL Procalcitonin (0-0.5) ng/mL TSH (0.27-4.20) uIU/ mL Free T4 (0.82-1.77) ng/d L Free T3 (2.0-4.4) PG/ML Urine Color (Yellow) Urine Appearance (CLEAR) Urine pH (5-7) Ur Specific Gravit y (1.005-1.030) Urine Protein (Negative) Urine Glucose (UA) (Normal) Urine Ketones (Negative) Urine Blood (Negative) Urine Nitrate (Negative) Urine Bilirubin (Negative) Urine Urobilinogen (Negative) mg/dL Ur Leukocyte Abida ase (Negative) Urine RBC (0-2) /hpf Urine WBC (0-5) /hpf Ur Squamous Epith Cells (0-5) /hpf Amorphous Sediment Urine Bacteria (NONE) /hpf Nasal/Oral COVID-1 9 PCR SARS-CoV-2 Ag (Rap id) (Negative) 04/10/21 04/10/21 04/10/21 Range/Units 17:28 17:28 17:56 WBC (4.0-10.0) 10^3/ uL RBC (4.1-5.3) 10^6/u L Hgb (11.7-16.6) g/dL Hct (42.0-52.0) % MCV (80-94) fl MCH (28.0-34.0) pg MCHC (30.0-36.0) g/dL RDW (12.1-15.1) % Plt Count (130-400) 10^3/c mm MPV (7.4-10.4) fL Neut % (Auto) % Lymph % (Auto) % Valencia % (Auto) % Eos % (Auto) % Baso % (Auto) % Neut # (Auto) (1.8-7.7) 10^3/u L Lymph # (Auto) (0.8-4.8) 10^3/u L Valencia # (Auto) (0.2-0.9) 10^3/u L Eos # (Auto) (0.0-0.8) 10^3/u L Baso # (Auto) (0.0-0.1) 10^3/u L Nucleated RBC % (a uto) % Nucleated RBCs # /100WBC PT (12.1-14.9) SECO NDS INR (0.8-1.2) Specimen Type Sample Site ABG pH (7.35-7.45) ABG pCO2 (35-45) mmHg ABG pO2 (80.0-100.0) mmH g ABG HCO3 (22-26) mmol/L ABG O2 Saturation ABG Base Excess (-2.0-2.0) mmol/ L Esvin Test A-a O2 Gradient (5-10) mmHg Hematocrit (42-52) % Hgb O2 Saturation (95-100) % Carboxyhemoglobin (0.4-20.1) %THgb Methemoglobin (0.4-1.5) % Total Hemoglobin (14-18) g/dL Ionized Calcium (1.1-1.4) mmol/L O2 Delivery Device O2 Liters/Min % FiO2 % Roll Capper ID Sodium (136-145) mmol/L Potassium (3.5-5.1) mmol/L Chloride (98-107) mmol/L Carbon Dioxide (22-29) mmol/L Anion Gap (5-19) BUN (8-23) mg/dL Creatinine (0.7-1.2) mg/dL GFR Calculation (90-130) mL/min Glucose (65-115) mg/dL POC Glucose 161 H (70-110) mg/dL Calculated Osmolal ity (285-295) mOsm/k g Lactic Acid (0.5-2.2) mmol/L Lactate (0.5-2.2) mmol/L Calcium (8.5-10.5) mg/dL Phosphorus (2.5-4.5) mg/dL Magnesium (1.7-2.3) mg/dL Total Bilirubin (0.15-1.2) mg/dL AST (0-40) U/L ALT (0-41) U/L Alkaline Phosphata se (40-130) IU/L Creatine Kinase (39-308) U/L Troponin T Baselin e (0-15) ng/L Troponin T 120 Min [place] (0-15) ng/L Delta Troponin T (0-10) ABS# C-Reactive Protein (0.0-4.9) mg/L NT-Pro-B Natriuret Pep (0-125) pg/mL Total Protein (6.6-8.7) g/dL Albumin (3.5-5.2) g/dL Globulin (1.3-4.6) g/dL Procalcitonin (0-0.5) ng/mL TSH (0.27-4.20) uIU/ mL Free T4 (0.82-1.77) ng/d L Free T3 (2.0-4.4) PG/ML Urine Color (Yellow) Urine Appearance (CLEAR) Urine pH (5-7) Ur Specific Gravit y (1.005-1.030) Urine Protein (Negative) Urine Glucose (UA) (Normal) Urine Ketones (Negative) Urine Blood (Negative) Urine Nitrate (Negative) Urine Bilirubin (Negative) Urine Urobilinogen (Negative) mg/dL Ur Leukocyte Abida ase (Negative) Urine RBC (0-2) /hpf Urine WBC (0-5) /hpf Ur Squamous Epith Cells (0-5) /hpf Amorphous Sediment Urine Bacteria (NONE) /hpf Nasal/Oral COVID-1 9 PCR Cancelled SARS-CoV-2 Ag (Rap id) Negative (Negative) 04/10/21 04/10/21 04/10/21 Range/Units 18:49 20:10 20:45 WBC (4.0-10.0) 10^3/ uL RBC (4.1-5.3) 10^6/u L Hgb (11.7-16.6) g/dL Hct (42.0-52.0) % MCV (80-94) fl MCH (28.0-34.0) pg MCHC (30.0-36.0) g/dL RDW (12.1-15.1) % Plt Count (130-400) 10^3/c mm MPV (7.4-10.4) fL Neut % (Auto) % Lymph % (Auto) % [place] % (Auto) % Eos % (Auto) % Baso % (Auto) % Neut # (Auto) (1.8-7.7) 10^3/u L Lymph # (Auto) (0.8-4.8) 10^3/u L [place] # (Auto) (0.2-0.9) 10^3/u L Eos # (Auto) (0.0-0.8) 10^3/u L Baso # (Auto) (0.0-0.1) 10^3/u L Nucleated RBC % (a uto) % Nucleated RBCs # /100WBC PT (12.1-14.9) SECO NDS INR (0.8-1.2) Specimen Type Arterial Sample Site Radial, left ABG pH 7.09 L* (7.35-7.45) ABG pCO2 31.0 L (35-45) mmHg ABG pO2 96.9 (80.0-100.0) mmH g ABG HCO3 9.3 L (22-26) mmol/L ABG O2 Saturation 94.7 ABG Base Excess -19.5 L (-2.0-2.0) mmol/ L Esvin Test N/a A-a O2 Gradient 1.7 L (5-10) mmHg Hematocrit 40.6 L (42-52) % Hgb O2 Saturation 94.1 L (95-100) % Carboxyhemoglobin 0.2 L (0.4-20.1) %THgb Methemoglobin 0.4 (0.4-1.5) % Total Hemoglobin 13.2 L (14-18) g/dL Ionized Calcium 1.1 (1.1-1.4) mmol/L O2 Delivery Device Nrb O2 Liters/Min 15.0 % FiO2 % Roll Capper ID ellpe Sodium 129.0 L (136-145) mmol/L Potassium 3.1 L (3.5-5.1) mmol/L Chloride (98-107) mmol/L Carbon Dioxide (22-29) mmol/L Anion Gap (5-19) BUN (8-23) mg/dL Creatinine (0.7-1.2) mg/dL GFR Calculation (90-130) mL/min Glucose 139.0 H (65-115) mg/dL POC Glucose 172 H 133 H (70-110) mg/dL Calculated Osmolal ity (285-295) mOsm/k g Lactic Acid (0.5-2.2) mmol/L Lactate (0.5-2.2) mmol/L Calcium (8.5-10.5) mg/dL Phosphorus (2.5-4.5) mg/dL Magnesium (1.7-2.3) mg/dL Total Bilirubin (0.15-1.2) mg/dL AST (0-40) U/L ALT (0-41) U/L Alkaline Phosphata se (40-130) IU/L Creatine Kinase (39-308) U/L Troponin T Baselin e (0-15) ng/L Troponin T 120 Min [place] (0-15) ng/L Delta Troponin T (0-10) ABS# C-Reactive Protein (0.0-4.9) mg/L NT-Pro-B Natriuret Pep (0-125) pg/mL Total Protein (6.6-8.7) g/dL Albumin (3.5-5.2) g/dL Globulin (1.3-4.6) g/dL Procalcitonin (0-0.5) ng/mL TSH (0.27-4.20) uIU/ mL Free T4 (0.82-1.77) ng/d L Free T3 (2.0-4.4) PG/ML Urine Color (Yellow) Urine Appearance (CLEAR) Urine pH (5-7) Ur Specific Gravit y (1.005-1.030) Urine Protein (Negative) Urine Glucose (UA) (Normal) Urine Ketones (Negative) Urine Blood (Negative) Urine Nitrate (Negative) Urine Bilirubin (Negative) Urine Urobilinogen (Negative) mg/dL Ur Leukocyte Abida ase (Negative) Urine RBC (0-2) /hpf Urine WBC (0-5) /hpf Ur Squamous Epith Cells (0-5) /hpf Amorphous Sediment Urine Bacteria (NONE) /hpf Nasal/Oral COVID-1 9 PCR SARS-CoV-2 Ag (Rap id) (Negative) 04/10/21 04/10/21 Range/Units 21:09 21:09 WBC (4.0-10.0) 10^3/ uL RBC (4.1-5.3) 10^6/u L Hgb (11.7-16.6) g/dL Hct (42.0-52.0) % MCV (80-94) fl MCH (28.0-34.0) pg MCHC (30.0-36.0) g/dL RDW (12.1-15.1) % Plt Count (130-400) 10^3/c mm MPV (7.4-10.4) fL Neut % (Auto) % Lymph % (Auto) % Valencia % (Auto) % Eos % (Auto) % Baso % (Auto) % Neut # (Auto) (1.8-7.7) 10^3/u L Lymph # (Auto) (0.8-4.8) 10^3/u L Valencia # (Auto) (0.2-0.9) 10^3/u L Eos # (Auto) (0.0-0.8) 10^3/u L Baso # (Auto) (0.0-0.1) 10^3/u L Nucleated RBC % (a uto) % Nucleated RBCs # /100WBC PT (12.1-14.9) SECO NDS INR (0.8-1.2) Specimen Type Sample Site ABG pH (7.35-7.45) ABG pCO2 (35-45) mmHg ABG pO2 (80.0-100.0) mmH g ABG HCO3 (22-26) mmol/L ABG O2 Saturation ABG Base Excess (-2.0-2.0) mmol/ L Esvin Test A-a O2 Gradient (5-10) mmHg Hematocrit (42-52) % Hgb O2 Saturation (95-100) % Carboxyhemoglobin (0.4-20.1) %THgb Methemoglobin (0.4-1.5) % Total Hemoglobin (14-18) g/dL Ionized Calcium (1.1-1.4) mmol/L O2 Delivery Device O2 Liters/Min % FiO2 % Roll Capper ID Sodium 133 L (136-145) mmol/L Potassium 3.6 (3.5-5.1) mmol/L Chloride 95 L (98-107) mmol/L Carbon Dioxide 12 L (22-29) mmol/L Anion Gap 29.6 H (5-19) BUN 16 (8-23) mg/dL Creatinine 3.2 H (0.7-1.2) mg/dL GFR Calculation 19.5 L (90-130) mL/min Glucose 134 H (65-115) mg/dL POC Glucose (70-110) mg/dL Calculated Osmolal ity 279 L (285-295) mOsm/k g Lactic Acid (0.5-2.2) mmol/L Lactate 11.3 H* (0.5-2.2) mmol/L Calcium 7.8 L (8.5-10.5) mg/dL Phosphorus (2.5-4.5) mg/dL Magnesium (1.7-2.3) mg/dL Total Bilirubin (0.15-1.2) mg/dL AST (0-40) U/L ALT (0-41) U/L Alkaline Phosphata se (40-130) IU/L Creatine Kinase (39-308) U/L Troponin T Baselin e (0-15) ng/L Troponin T 120 Min [place] [employer] [place] (0-15) ng/L Delta Troponin T (0-10) ABS# C-Reactive Protein (0.0-4.9) mg/L NT-Pro-B Natriuret Pep (0-125) pg/mL Total Protein (6.6-8.7) g/dL Albumin (3.5-5.2) g/dL Globulin (1.3-4.6) g/dL Procalcitonin (0-0.5) ng/mL TSH (0.27-4.20) uIU/ mL Free T4 (0.82-1.77) ng/d L Free T3 (2.0-4.4) PG/ML Urine Color (Yellow) Urine Appearance (CLEAR) Urine pH (5-7) Ur Specific Gravit y (1.005-1.030) Urine Protein (Negative) Urine Glucose (UA) (Normal) Urine Ketones (Negative) Urine Blood (Negative) Urine Nitrate (Negative) Urine Bilirubin (Negative) Urine Urobilinogen (Negative) mg/dL Ur Leukocyte Abida ase (Negative) Urine RBC (0-2) /hpf Urine WBC (0-5) /hpf Ur Squamous Epith Cells (0-5) /hpf Amorphous Sediment Urine Bacteria (NONE) /hpf Nasal/Oral COVID-1 9 PCR SARS-CoV-2 Ag (Rap id) (Negative) Imaging Data^: CXR: Attestation: I personally reviewed and interpreted this imaging study as follows: My impression: Right IJ placed with tracking to the right subclavian. Requires repositioning. Nurse instructed not to infuse vasopressors through this line. EKG Data^: EKG 1: Attestation: I personally reviewed and interpreted this EKG as follows: EKG interpretation date: 04/10/21 EKG interpretation time: 12:23 Prior EKG tracings: available for review Ischemic changes: non-specific ST-T wave changes Interpretation: Twelve-lead EKG shows regular sinus rhythm at a rate of 74. NJ interval 152, QRS duration 139, QTc 548. Left axis deviation. Interventricular conduction delay (left bundle branch block) Interpretation: Sinus rhythm. Left bundle branch block. EKG 2: Attestation: I personally reviewed and interpreted this EKG as follows: EKG interpretation date: 04/10/21 EKG interpretation time: 14:05 Prior EKG tracings: available for review Ischemic changes: non-specific ST-T wave changes Interpretation: Twelve-lead EKG shows regular sinus rhythm at a rate of 69. NJ interval 152, QRS duration 154, QTC 558. Left bundle branch block. Interpretation sinus rhythm. Left bundle branch block. Critical Care Time Critical Care Time: Critical Care Time: Yes Total Critical Care Time: 150 Attestation: This case had a high probability of a clinically significant, sudden, or life threatening deterioration of this patient's condition which required my full and direct attention, intervention and personal management. Discharge Plan Discharge Admit Provider: Curt Youssef Coding Level of Care Code ED Fabrication Engineer for mitali Donaldson
--- NOTE | 2021-04-10 12:05 | ECG_ITS ---
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 Measurements Intervals [place] Rate: 74 P: 5 NH: 152 QRS: -9 QRSD: 139 T: 140 QT: 492 QTc: 548 Interpretive Statements SINUS RHYTHM INTRAVENTRICULAR CONDUCTION DELAY [130+ ms QRS DURATION] POSSIBLE ANTERIOR MYOCARDIAL INFARCTION , OF INDETERMINATE AGE [30 ms Q WAVE IN V3/V4, OR R < 0.2 mV IN V4] Nonspecific ST-T changes Compared to ECG 03/13/2021 17:46:34 No significant changes Electronically Signed On 04-10-2021 16:31:34 CDT by Prince Orlando M.D. [id number]
--- NOTE | 2021-04-10 12:13 | PC.NURSE ---
unable to obtain temperature and BP initially upon triage. attempting rectal temperature and manual BP reading
[2021-04-10] MEDS: piperacillin-tazobactam 4.5 GM in sodium chloride 0.9% (plus) 50 ML IV (12:25)
[2021-04-10] MEDS: sodium chloride 0.9% 1,000 ML 999 ML IV ×2 (12:26→13:27)
[2021-04-10 12:45] LABS: Basophils # 0.1 10^3/uL (0.0-0.1); Basophils % 0.8 %; Eosinophils # 0.2 10^3/uL (0.0-0.8); Eosinophils % 1.7 %; Hematocrit 45.5 % (42.0-52.0); Hemoglobin 14.1 g/dL (11.7-16.6); Lymphocytes # 2.9 10^3/uL (0.8-4.8); Lymphocytes % 20.8 %; Mean Corpuscular Hemoglobin 25.4 pg (28.0-34.0); Mean Corpuscular Volume 81.8 fl (80-94); Mean Platelet Volume 9.4 fL (7.4-10.4); Monocytes # 0.3 10^3/uL (0.2-0.9); Monocytes % 2.4 %; Neutrophils # 10.27 10^3/uL (1.8-7.7); Neutrophils % 74.2 %; Nucleated Red Blood Cells % 0 %; Platelet Count 346 10^3/cmm (130-400); Red Blood Count 5.56 10^6/uL (4.1-5.3); Red Cell Distribution Width 21.1 % (12.1-15.1); White Blood Count 13.9 10^3/uL (4.0-10.0)
[2021-04-10 12:46] LABS: ABG PCO2 39.6 mmHg (35-45); ABG PH Result 7.28 (7.35-7.45); Arterial Blood Gas Hematocrit 35.3 % (42-52); Base Excess ABG -7.5 mmol/L (-2.0-2.0); Blood Gas Sample Site Radial, right; Blood Gas Sample Type Arterial; HCO3 ABG 18.7 mmol/L (22-26); Oxygen Device NRB
[2021-04-10] MEDS: norepinephrine 8 MG in dextrose 5 % 500 ML 45.72 MG IV (12:56)
[2021-04-10 13:01] LABS: Alanine Aminotransferase 17 U/L (0-41); Albumin Level 1.9 g/dL (3.5-5.2); Alkaline Phosphatase 136 IU/L (40-130); Anion Gap 25.5 (5-19); Aspartate Amino Transferase 117 U/L (0-40); Blood Urea Nitrogen 16 mg/dL (8-23); Calcium 8.2 mg/dL (8.5-10.5); Carbon Dioxide 19 mmol/L (22-29); Chloride 91 mmol/L (98-107); Globulin 1.8 g/dL (1.3-4.6); Glomerular Filtration Rate 18.2 mL/min (90-130); Osmolality Calculated 272 mOsm/kg (285-295); Potassium 3.5 mmol/L (3.5-5.1); Sodium 132 mmol/L (136-145); Total Bilirubin 0.7 mg/dL (0.15-1.2); Total Protein 3.7 g/dL (6.6-8.7)
[2021-04-10 13:05] LABS: Glucose 39 mg/dL (65-115); Lactic Sepsis W/Reflex 9.9 mmol/L (0.5-2.2)
[2021-04-10 13:07] LABS: Procalcitonin 4.42 ng/mL (0-0.5)
[2021-04-10] MEDS: dextrose 50% syringe 50 mL IVP ×2 (13:11→17:10)
[2021-04-10 13:16] LABS: Slide Review Slide Review Perform
--- NOTE | 2021-04-10 13:38 | XRR_ITS ---
PROCEDURE INFORMATION: Exam: XR Chest Exam date and time: 04/10/2021 1:38 PM Age: 65 years old Clinical indication: Device placement; Other: Central line placement TECHNIQUE: Imaging protocol: XR of the chest. Views: 1 view. COMPARISON: CT chest con [id number] 03/14/2021 2:27 PM FINDINGS: Tubes, catheters and devices: There is a right subclavian catheter whose tip is in the right atrium. Lungs: There is patchy opacification in the right lung. Pleural spaces: Unremarkable. No pleural effusion. No pneumothorax. Heart/Mediastinum: Unremarkable. No cardiomegaly. Bones/joints: There has been a sternotomy. XR/XR chest 1V portable [id number] IMPRESSION: There is a right subclavian catheter whose tip is in the right atrium. Readjust as clinically indicated.
--- NOTE | 2021-04-10 13:41 | CTR_ITS ---
PROCEDURE INFORMATION: Exam: CT Chest Without Contrast; Diagnostic Exam date and time: 04/10/2021 1:41 PM Age: 65 years old Clinical indication: Other: Shock; Shortness of breath; Additional info: AMS, shock TECHNIQUE: Imaging protocol: Diagnostic computed tomography of the chest without contrast. Radiation optimization: All CT scans at this facility use at least one of these dose optimization techniques: automated exposure control; mA and/or kV adjustment per patient size (includes targeted exams where dose is matched to clinical indication); or iterative reconstruction. COMPARISON: CT chest [facility] [id number] 03/14/2021 2:27 PM RADIATION DOSE METRICS: Total DLP (mGy-cm): 1868.34 FINDINGS: Tubes, catheters and devices: There is a right IJ catheter which enters the right axilla with the tip likely in the right basilic vein. There is a right-sided port whose tip is at the cavoatrial junction. Lungs: There is bilateral lower lobe lung consolidation, right worse than left. There is patchy opacification in the bilateral upper lobes of the lung. Pleural spaces: Unremarkable. No pneumothorax. No pleural effusion. Heart: Unremarkable. No cardiomegaly. No pericardial effusion. Aorta: Unremarkable. No aortic aneurysm. Lymph nodes: Unremarkable. No enlarged lymph nodes. Bones/joints: Unremarkable. No acute fracture. Soft tissues: Unremarkable. IMPRESSION: There is multifocal bilateral lung consolidation consistent with multifocal pneumonia and/or edema. There is a right IJ catheter which enters the right axilla with the tip likely in the right basilic vein. Readjust as clinically indicated. PROCEDURE INFORMATION: Exam: CT Abdomen And Pelvis Without Contrast Exam date and time: 04/10/2021 1:41 PM Age: 65 years old Clinical indication: Other: Shock; Shortness of breath; Additional info: AMS, shock TECHNIQUE: Imaging protocol: Computed tomography of the abdomen and pelvis without contrast. Radiation optimization: All CT scans at this facility use at least one of these dose optimization techniques: automated exposure control; mA and/or kV adjustment per patient size (includes targeted exams where dose is matched to clinical indication); or iterative reconstruction. COMPARISON: CT chest [facility] [id number] 03/14/2021 2:27 PM RADIATION DOSE METRICS: Total DLP (mGy-cm): 1868.34 FINDINGS: Liver: Findings consistent with fatty infiltration of the liver are identified. Gallbladder and bile ducts: Normal. No calcified stones. No ductal dilation. Pancreas: Normal. No ductal dilation. Spleen: Normal. No splenomegaly. Adrenal glands: Normal. No mass. Kidneys and ureters: Normal. No hydronephrosis. Stomach and bowel: There is an air-fluid level in a distended stomach. There also air-fluid levels in dilated small bowel with a maximal diameter of 3.4 cm. No pneumatosis. No volvulus, intussusception or significant hernia. Appendix: No evidence of appendicitis. Intraperitoneal space: Unremarkable. No free air. No significant fluid collection. Vasculature: Unremarkable. No abdominal aortic aneurysm. Lymph nodes: Unremarkable. No enlarged lymph nodes. Urinary bladder: There is a Lujan catheter in a decompressed bladder. Reproductive: Unremarkable as visualized. Bones/joints: Unremarkable. No acute fracture. Soft tissues: There are bilateral fat containing inguinal hernias. CT/CT chest abd pel wo con IMPRESSION: Findings are consistent with gastroenteritis and bowel ileus. Radiation Dose CTDIVOL = (mGy): DLP = 1868.34~1868.34 (mGy-cm)
--- NOTE | 2021-04-10 13:41 | CTR_ITS ---
PROCEDURE INFORMATION: Exam: CT Head Without Contrast Exam date and time: 04/10/2021 1:41 PM Age: 65 years old Clinical indication: Altered mental status/memory loss; Additional info: AMS, shock TECHNIQUE: Imaging protocol: Computed tomography of the head without contrast. Radiation optimization: All CT scans at this facility use at least one of these dose optimization techniques: automated exposure control; mA and/or kV adjustment per patient size (includes targeted exams where dose is matched to clinical indication); or iterative reconstruction. COMPARISON: CT head wo con* [id number] 11/18/2020 5:21 PM RADIATION DOSE METRICS: Total DLP (mGy-cm): 841.15 FINDINGS: Brain: Mild volume loss and white matter disease are identified. There is no acute infarct or edema. No hemorrhage. Cerebral ventricles: No ventriculomegaly. Paranasal sinuses: Visualized sinuses are unremarkable. No fluid levels. Mastoid air cells: Visualized mastoid air cells are well aerated. Bones/joints: Unremarkable. No acute fracture. Soft tissues: Unremarkable. CT/CT head wo con* [id number] IMPRESSION: There are no acute concerning abnormalities. Radiation Dose CTDIVOL = (mGy): DLP = 841.15 (mGy-cm)
--- NOTE | 2021-04-10 14:05 | ECG_ITS ---
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 Measurements Intervals [place] Rate: 69 P: 47 [place]: 152 QRS: -11 QRSD: 154 T: 156 QT: 519 QTc: 558 Interpretive Statements SINUS RHYTHM INTRAVENTRICULAR CONDUCTION DELAY [130+ ms QRS DURATION] Compared to ECG 03/13/2021 17:46:[address] T changes in the anterolateral leads Myocardial infarct finding no longer present Electronically Signed On 04-10-2021 16:36:10 CDT by Prince Orlando M.D. [id number]
[2021-04-10 14:10] LABS: Reflex Lactate Order REFLEX LACTIC ORDERD
[2021-04-10 14:21] LABS: Troponin(5th) Baseline 86 ng/L (0-15)
--- NOTE | 2021-04-10 14:49 | PC.NURSE ---
per ok to use central line for antibiotic
[2021-04-10 14:50] LABS: Glucose Point of Care 124 mg/dL (70-110)
[2021-04-10 15:04] LABS: Troponin 5 2HR 68.21 ng/L (0-15)
[2021-04-10 15:05] LABS: Troponin 5 2HR Delta -17.79 ABS# (0-10)
[2021-04-10 15:07] LABS: Add Urine Microscopic? YES; Bilirubin Urine 1+ (Negative); Blood Urine Neg (Negative); Glucose Urine UA Norm (Normal); Ketones Urine Negative (Negative); Leukocyte Esterase Urine Negative (Negative); Nitrate Urine Negative (Negative); Protein Urine Trace (Negative); Specific Gravity, Urine 1.015 (1.005-1.030); Urine Appearance Clear (CLEAR); Urine Color Amber (Yellow); Urobilinogen Urine 1 mg/dL (Negative); pH Urine 5 (5-7)
[2021-04-10 15:07] LABS: Lactate (Lactic Acid level) 7.3 mmol/L (0.5-2.2)
[2021-04-10 15:08] LABS: Add Urine Culture? No; Bacteria Urine TRACE /hpf; RBC Urine 0-4 /hpf (0-2); Squamous Epithelial Cell Urine RARE /hpf (0-5); WBC Urine 0-4 /hpf (0-5)
[2021-04-10] MEDS: fentaNYL 50 mcg/mL INJ 2mL IVP (15:42)
--- NOTE | 2021-04-10 15:44 | XRR_ITS ---
PROCEDURE INFORMATION: Exam: XR Chest Exam date and time: 04/10/2021 3:44 PM Age: 65 years old Clinical indication: Device placement; Other: Central line placement TECHNIQUE: Imaging protocol: XR of the chest. Views: 1 view. COMPARISON: CT chest abd pel wo con 04/10/2021 3:08 PM FINDINGS: Tubes, catheters and devices: There is a right IJ catheter whose tip is in the right atrium. There is a right port catheter whose tip is at the cavoatrial junction. Lungs: There is multifocal opacification in the bilateral lungs, right worse than left. Pleural spaces: Unremarkable. No pleural effusion. No pneumothorax. Heart/Mediastinum: Cardiomegaly is identified. Bones/joints: There has been a sternotomy. XR/XR chest 1V portable [id number] IMPRESSION: There is a right IJ catheter whose tip is in the right atrium.
--- NOTE | 2021-04-10 16:26 | PC.NURSE ---
keep Map at 60 and greater. patient is more awake now.
[2021-04-10 16:32] LABS: Glucose Point of Care 83 mg/dL (70-110)
[2021-04-10] MEDS: EPINEPHrine 2.5 MG in sodium chloride 0.9% 250 ML 36.36 MG IV ×2 (16:52→22:55)
[2021-04-10] MEDS: hydrocortisone 100 mg/2 mL SDV IVP (16:56)
--- NOTE | 2021-04-10 17:00 | PC.NURSE ---
sister here, updated.
[2021-04-10 17:07] LABS: Glucose Point of Care 84 mg/dL (70-110)
[2021-04-10 17:34] LABS: NT Pro B Type Natriuretic Pept 1348 pg/mL (0-125); Thyroid Stimulating Hormone 44.38 uIU/mL (0.27-4.20)
--- NOTE | 2021-04-10 17:37 | P.HP_ITS ---
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, with recurrent chronic diarrhea, recently admitted in February for sepsis secondary to C. difficile colitis, atrial fibrillation on Eliquis, history of uso-cqwdywa-rcvlyrxyf type 2 diabetes mellitus, chronic pain syndrome, CHF, hypertension, hypothyroidism, who presents to [facility] due to unresponsive episode and low blood pressures. Currently patient is alert to person, not to place, not to time, altered mental status, most of the history was obtained by from [facility] and from sister at bedside. Patient recently was seen by Dr. Mendenhall as an outpatient follow-up for his chronic diarrhea, he is being referred to [facility], his blood pressure in Dr. Mendenhall's office according to his sister was in the 70s over 40s, he chronically has low blood pressures on midodrine, but he was not feeling well, and he has chronic diarrhea, but no other complaints. Was not feeling well over the weekend, no fevers, no chills, no cough, no dysuria, no hematuria, no abdominal pain, no headache, blurry vision, no neck pain, no skin rashes reported. this morning, nursing staff were getting patient up to see his caregiver, when he suddenly became nonresponsive, he was not responding appropriately to questioning, no facial droop, slurring of speech, no significant focal neurologic deficits, they could not get a blood pressure on him, he was maintaining his airway, EMS was called, they are able to get his blood pressure, it sounds like it was in the 50s over 40s, he was cool, clammy, blood sugar was in the 70s, he was a bit more responsive to EMS staff, received fluids, he was brought to [facility]. At [facility] patient was found to be in septic shock, lactic acid 9.9, receiving sepsis bolus, placed on 3 pressors, art line placed, central line in place, his blood sugar was in the low 30s, which was treated, he is put on 10 L oxygen, so urce of infection include pneumonia and or GI source, he was given broad- spectrum antibiotic therapy, hydrocortisone, hospitalist team and pulmonary team were called for admission. Currently, he is alert to person, he answers some questions appropriate, but becomes drowsy, confused, is a bit agitated with his art line in place, he is on 10 L, continues airway, his MAP is greater than 65, he is on 3 pressors, receiving fluids. Review of Systems General: Reports: ROS unobtainable due to medical condition Medications/Allergies Home Medications Medication Instructions Recorded Confirmed Last Taken Type Januvia 25 mg PO DAILY@09/13/20 04/10/21 03/22/21 History bupropion HCl 300 mg PO DAILY@09/13/20 04/10/21 04/10/21 History citalopram 40 mg PO DAILY@09/13/20 04/10/21 03/22/21 History montelukast 10 mg PO DAILY@09/13/20 04/10/21 04/09/21 History albuterol sulfate [ProAir HFA] 1 - 2 puff INHALATION Q4H PRN 10/15/20 04/10/21 10/28/20 History clonazepam 1.5 mg PO BEDTIME@2100 PRN 10/15/20 04/10/21 11/17/20 History ergocalciferol (vitamin D2) 1,250 See Rx Instructions .ROUTE 10/20/20 04/10/21 04/05/21 Rx mcg (50,000 unit) capsule .COMPLEX #4 cap Eliquis 5 mg PO BID 10/28/20 04/10/21 04/10/21 History oxycodone-acetaminophen 1 tab PO Q6H PRN 11/09/20 04/10/21 04/03/21 History cholestyramine (with sugar) 4 gram 4 ea PO DAILY 12/09/20 04/10/21 04/10/21 History powder for susp in a packet midodrine 5 mg tablet 5 mg PO TID tab 12/09/20 04/10/21 04/10/21 History naloxone 4 mg/actuation nasal spray 1 spray INTRANASAL DAILY PRN 12/09/20 04/10/21 Unknown History fluticasone propionate 50 2 spray INTRANASAL DAILY PRN #16 g 12/14/20 04/10/21 03/12/21 Rx mcg/actuation nasal spray,suspension pantoprazole 40 mg tablet,delayed 40 mg PO DAILY #90 tab 12/14/20 04/10/21 04/10/21 Rx release diphenoxylate-atropine [Lomotil] 1 tab PO QID PRN 03/13/21 04/10/21 04/01/21 History gabapentin 200 mg PO Q8H 03/13/21 04/10/21 04/10/21 History acetaminophen [Tylenol] 325 mg PO Q6H PRN 04/10/21 04/10/21 Unknown History bisacodyl [Dulcolax (bisacodyl)] 5 mg PO DAILY PRN 04/10/21 04/10/21 Unknown History bisacodyl [Dulcolax (bisacodyl)] 10 mg WI DAILY PRN 04/10/21 04/10/21 Unknown History levothyroxine 100 mcg PO DAILY 04/10/21 04/10/21 04/10/21 History magnesium hydroxide [Milk of 30 ml PO DAILY PRN 04/10/21 04/10/21 Unknown History Magnesia] potassium chloride 40 meq PO DAILY 04/10/21 04/10/21 04/10/21 History psyllium husk (aspartame) 3 g PO DAILY 04/10/21 04/10/21 04/10/21 History [Reguloid (aspartame)] sodium phosphates [Fleet Enema] 118 ml WI DAILY PRN 04/10/21 04/10/21 Unknown History Allergies Allergy/AdvReac Type Severity Reaction Status Date / Time Iodinated Contrast Media Allergy ALGY-Hives Verified 12/12/20 07:20 metoprolol Allergy unknown Verified 12/12/20 07:20 red dye Allergy unknown Verified 12/12/20 07:20 PFSH Acute PFSH: Medical History Acute lower respiratory infection Anxiety ASHD (arteriosclerotic heart disease) Atrial fibrillation Chronic pain syndrome Chronic recurrent sinusitis Chronic seasonal allergic rhinitis Colitis Congestive heart failure (CHF) Diabetes mellitus, type II Essential hypertension Hemorrhoid Hypertrophic cardiomyopathy Hypomagnesemia Hypothyroidism Insomnia Iron deficiency Lower respiratory infection Melanoma Mixed hyperlipidemia Multilevel degenerative disc disease Proctocolitis Sleep apnea Smoking addiction Vitamin D deficiency Surgical History Coronary angioplasty status [facility] 2105 H/O ventricular septal myectomy Family History Mother Myocardial infarction Father Hypertension Other Diabetes Family history of CABG Social History Smoking and tobacco status: current every day smoker Second hand smoke exposure: No Desire information about alcohol rehabilitation?: No Counseling given: No Desire information about substance/drug rehabilitation?: No Counseling given: No Vitals/I&O/Wt Last Vital Signs Pulse 78 04/10/21 17:15 Resp 20 H 04/10/21 17:15 BP 85/57 04/10/21 17:15 Pulse Ox 100 04/10/21 16:49 04/10/21 04/10/21 04/10/21 06:59 14:59 22:59 Intake Total 1062.611 / 1062.611 142.875 / 1205.486 Balance 1062.611 / 1062.611 142.875 / 1205.486 Weight last 48 hrs Weight 63.503 kg Physical Exam Const: COMMON NORMALS: no acute distress EXAM LIMITATIONS: altered mental status ORIENTATION/CONSCIOUSNESS: Yes awake, Yes oriented to person and Yes confused; not oriented to place and not oriented to time Eye: COMMON NORMALS: Equal, round and reactive pupils present and EOMs intact bilaterally GENERAL EYE: appearance normal, both eyes and all related structures PUPIL: Yes Equal, round and reactive pupils present Neck/C-Spine: COMMON NORMALS: full ROM and no lymphadenopathy THYROID: Th yroid normal Lymph: LYMPHATIC: no lymphadenopathy noted Resp: COMMON NORMALS: normal respiratory effort, No retractions, No use of accessory muscles and clear to auscultation bilaterally AUSCULTATION: crackles Cardio: COMMON NORMALS: regular rate, regular rhythm, S1 normal heart sound present, S2 normal heart sound present, No gallops present (Cardio), No clicks present (Cardio) and No murmurs present (Cardio) RATE: regular rate RHYTHM: regular rhythm HEART SOUNDS: S1 normal heart sound present and S2 normal heart sound present GI: COMMON NORMALS: Normal to inspection, nondistended, normoactive bowel sounds present, Soft to palpation, non-tender and No hepatosplenomegaly present Extremity: COMMON NORMALS: no pedal edema Neuro: SENSORIUM/ORIENTATION: Yes alert Urinary Catheter Management^: Lujan: Cath Placed During This Visit: yes Urinary Catheter Date of Insertion: 04/10/21 Urinary Catheter Time of Insertion: 12:30 Sepsis: Is patient septic: Yes Focused sepsis exam performed: Yes Date exam was performed: 04/10/21 Time exam was performed: 17:30 Data : 04/10/21 12:20 04/10/21 12:20 Micro: Microbiology 04/10/21 14:02 Blood Culture - Preliminary Blood SPECIMEN COLLECTED 04/10/21 12:20 Blood Culture - Preliminary Blood SPECIMEN COLLECTED A&P Assessment and plan (1) Septic shock: Status: Acute (2) Pneumonia: Status: Acute (3) Acute respiratory failure with hypoxia: Status: Acute (4) Lactic acidosis: Status: Acute (5) Dehydration: Status: Acute (6) Hypothyroidism: Status: Acute Qualifiers: Hypothyroidism type: acquired Qualified Code(s): E03.9 - Hypothyroidism, unspecified (7) Diabetes mellitus, type II: Status: Acute Qualifiers: 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 insulin use: without long chain dyeing machine operator use Diabetes mellitus complication status: without complication Qualified Code(s): E11.9 - Type 2 diabetes mellitus without complications (8) Congestive heart failure (CHF): Status: Acute Qualifiers: Heart failure type: diastolic Heart failure chronicity: chronic Qualified Code(s): I50.32 - Chronic diastolic (congestive) heart failure (9) Essential hypertension: Status: Acute (10) Atrial fibrillation: Status: Acute (11) Hyponatremia: Status: Acute (12) WILLIAM (acute kidney injury): Status: Acute (13) Hypoglycemia: Status: Acute (14) Rhabdomyolysis: Status: Acute (15) NSTEMI (non-ST elevated myocardial infarction): Status: Acute Additional A&P Information Septic shock Source of infection: Pulmonary, CT of the chest shows multifocal bilateral lung consolidation consistent with multifocal pneumonia and/or edema Chronic diarrhea, CT scan shows gastroenteritis and bowel ileus, possible recurrent C. difficile infection and/or CMV colitis -Pro-Roberto 4, WBC 13.9, lactic acid 9.9 now 7.3 Plan: -Admit to ICU -Consult pulmonary critical care -Has a right chest port, left IJ -Has a left art line -Has a Lujan catheter -Currently on 10 L nonrebreather, repeat ABG pending -Currently on maximum dose Levophed, vasopressin, epinephrine -Received 100 mg of hydrocortisone, start hydrocortisone 50 every 6 hours -Albumin 25 every 6hrs, albumin 1.9 -Receiving IV fluids -Receiving vancomycin, cefepime, Flagyl -P.o. vancomycin started for possible recurrent C. difficile -Follow blood cultures, sputum cultures, urine bacterial antigens, urine cultures, C. difficile, CMV, stool studies -With acute hypoxic respiratory failure requiring 10 L nonrebreather -Secondary to pneumonia -Repeat ABG pending -But is clinically improved, monitor respiratory status closely, -Consult respiratory therapy -Covid PCR and antigen ordered, he had a negative Covid PCR on 04/06/2021 has not received Covid vaccine -With lactic acidosis, acidemia -Secondary to septic shock, dehydration -Receiving fluids, pressors as above, monitor lactic acid -With dehydration -As above receiving fluids, pressors -With hyponatremia -As above, receiving pressors, fluids -With WILLIAM- -creatinine 3.4 -Multifactorial from sepsis, rhabdo -Receiving fluids, pressors, monitor urine output, Lujan catheter in place -UA unremarkable for UTI -with rhabdomyolysis, CK 1084 -Secondary unresponsive episode, septic shock, possible myxedema coma? -With hypoglycemia -Secondary to sepsis, received D50, receiving D5 at piggyback with Levophed, blood sugar still in the low 80s, received another amp of D50 -monitor blood sugars closely q1hr -Receiving hydrocortisone -With NSTEMI, likely type II NSTEMI -Likely secondary to septic shock, unresponsiveness -with hypothermia -rewarming -Likely secondary to septic shock, -Hypothyroidism, TSH 44.38 -Takes 100 mcg of levothyroxine at home -free T3, free T4 pending -Start 100 mcg of IV levothyroxine, trend TSH, free T3, free T4 -Possible component of myxedema coma, given alteration of mentation, unresponsive episode, rhabdo, hyponatremia -rend tsh, t3, t4 Atrial fibrillation, telemetry monitoring, continue Eliquis NIDDM -sliding scale -Full code -Eliquis for DVT prophylaxis -Protonix for GI prophylaxis -Sister at bedside was updated patient is critically ill, prognosis guarded -All questions answered, opportunity to ask questions Attestations Medical Necessity Statement*: Patient requires hospitalization, inpatient, greater than 2 midnights for septic shock secondary to multifocal pneumonia, gastroenteritis, requiring isolation, on 3 pressors, 10 L nonrebreather Coding Level of Care Code Acute Contact Center Assistant for g Fwd Diagnoses Septic shock A41.9; R65.21 Pneumonia J18.9 Acute respiratory failure with hypoxia J96.01 Lactic acidosis E87.2 Dehydration E86.0 Hypothyroidism E03.9 Hypothyroidism type: acquired Diabetes mellitus, type II E11.9 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 insulin use: without long chain dyeing machine operator use Diabetes mellitus complication status: without complication Congestive heart failure (CHF) I50.32 Heart failure type: diastolic Heart failure chronicity: chronic Essential hypertension I10 Atrial fibrillation I48.91 Hyponatremia E87.1 WILLIAM (acute kidney injury) N17.9 Hypoglycemia E16.2 Rhabdomyolysis M62.82 NSTEMI (non-ST elevated myocardial infarction) I21.4 Sepsis Event Note Evaluation Current stage of sepsis: severe sepsis Reason for ruling out sepsis: correction he is in septic shock Initial hypotension due to sepsis/infection: SBP < 90 mmHg Persistent hypotension due to sepsis/infection: SBP < 90 mmHg Possible source: pulmonary and GI tract/intra-abdominal Focused Exam Vital Signs Temp Pulse Pulse Resp BP Pulse Ox 04/10/21 17:46 90.9 F L 04/10/21 17:30 75 20 H 84/62 100 04/10/21 17:15 78 20 H 85/57 04/10/21 16:49 71 21 H 77/58 100 04/10/21 16:30 71 20 H 72/57 04/10/21 16:15 70/55 04/10/21 16:05 74/54 04/10/21 15:45 68 18 84/67 97 04/10/21 15:30 67 20 H 84/64 100 04/10/21 15:20 63 18 95/71 100 04/10/21 15:16 80 93/53 100 04/10/21 15:10 69 17 108/78 100 04/10/21 15:00 67 97/67 04/10/21 14:50 66 17 117/74 04/10/21 14:40 72 16 90/62 97 04/10/21 14:35 70 18 85/57 100 04/10/21 14:30 69 18 93/60 99 04/10/21 14:20 71 18 88/68 96 04/10/21 14:16 72 21 H 104/68 04/10/21 14:05 86 18 67/57 98 04/10/21 14:00 77 17 76/51 100 04/10/21 13:56 78 17 66/49 04/10/21 13:40 77 19 H 77/32 100 04/10/21 13:15 22 H 95/32 04/10/21 13:11 72 77/38 100 04/10/21 13:05 71 20 H 69/32 100 04/10/21 13:00 71 19 H 68/41 100 04/10/21 12:55 21 H 47/27 04/10/21 12:51 21 H 44/25 95 04/10/21 12:23 90/40 04/10/21 12:15 139/82 04/10/21 11:58 77 17 100 Respiratory exam: Absent accessory muscle use Cardiovascular exam: Absent murmur Capillary refill: < 3 Seconds Peripheral pulse strength: 1+ Faint Peripheral pulse location: Pedal Skin exam: flushed Date exam was performed: 04/10/21 Time exam was performed: 17:51 Problem List (1) Septic shock: Status: Acute (2) Pneumonia: Status: Acute (3) Acute respiratory failure with hypoxia: Status: Acute (4) Lactic acidosis: Status: Acute (5) Dehydration: Status: Acute (6) Hypothyroidism: Status: Acute (7) Diabetes mellitus, type II: Status: Acute (8) Congestive heart failure (CHF): Status: Acute (9) Essential hypertension: Status: Acute (10) Atrial fibrillation: Status: Acute (11) Hyponatremia: Status: Acute (12) WILLIAM (acute kidney injury): Status: Acute (13) Hypoglycemia: Status: Acute (14) Rhabdomyolysis: Status: Acute (15) NSTEMI (non-ST elevated myocardial infarction): Status: Acute
[2021-04-10 17:45] LABS: C Reactive Protein 59.4 mg/L (0.0-4.9)
[2021-04-10 17:49] LABS: Creatine Phosphokinase 1084 U/L (39-308)
[2021-04-10 17:58] LABS: Glucose Point of Care 161 mg/dL (70-110)
[2021-04-10 18:03] LABS: INR 3.19 (0.8-1.2)
--- NOTE | 2021-04-10 18:03 | PC.NURSE ---
upon arrival, patient responsive only t opainful stimuli, was unable to obtain blood pressure. patient is more alert at this time. able to answer simple questions correctly. skin cool to touch, rectal temp 90.9, awared. covered with warm blankets. waiting for elisa Hugger.
[2021-04-10 18:16] LABS: SARS Covid-2 Antigen Negative (Negative)
[2021-04-10 18:24] LABS: Magnesium 1.3 mg/dL (1.7-2.3); Phosphorus 4.7 mg/dL (2.5-4.5)
[2021-04-10] MEDS: haloperidol inj 5 mg/mL INJ 1 mL 1 MG IVP (18:26)
[2021-04-10] MEDS: levothyroxine 100 mcg SDV IVP (18:30)
[2021-04-10 18:35] LABS: Free T4 Free Thyroxine 0.54 ng/dL (0.82-1.77); T3 Free 1.4 PG/ML (2.0-4.4)
[2021-04-10 18:52] LABS: Glucose Point of Care 172 mg/dL (70-110)
--- NOTE | 2021-04-10 19:19 | PC.NURSE ---
Report from MARIE Ceron
--- NOTE | 2021-04-10 19:35 | PC.NURSE ---
Sister Kimberly Mobley ([phone]) left for the night. Asked to be called with any changes.
--- NOTE | 2021-04-10 19:37 | PC.NURSE ---
Pt answering some questions appropriately, but still appears confused, and is repeating questions. Vasopressers infusing; Art line, central line and port access in place; all patent. MAP maintaining above 60. Leo hugger in place. After sister left; pt is resting calmly; eyes closed, equal rise and fall of chest, easily awakened. Will continue to monitor.
[2021-04-10 20:12] LABS: Glucose Point of Care 133 mg/dL (70-110)
[2021-04-10 20:53] LABS: Blood Gas Sample Type Arterial; Methemoglobin 0.4 % (0.4-1.5)
[2021-04-10 21:08] LABS: Alveolar-Arterial Oxygen Gradi 1.7 mmHg (5-10); Arterial Blood Gas Hematocrit 40.6 % (42-52); Base Excess ABG -19.5 mmol/L (-2.0-2.0); Blood Gas Sample Site Radial, left; Carboxyhemoglobin 0.2 %THgb (0.4-20.1); HCO3 ABG 9.3 mmol/L (22-26); HGB O2 Sat 94.1 % (95-100); Ionized Calcium Level - ABG 1.1 mmol/L (1.1-1.4); Oxygen Device NRB; Oxygen Saturation ABG 94.7; PO2 ABG 96.9 mmHg (80.0-100.0); Potassium Level - ABG 3.1 mmol/L (3.5-5.0); Total Hemoglobin 13.2 g/dL (14-18)
[2021-04-10 21:10] LABS: ABG PH Result 7.09 (7.35-7.45)
[2021-04-10 21:39] LABS: Anion Gap 29.6 (5-19); Blood Urea Nitrogen 16 mg/dL (8-23); Calcium 7.8 mg/dL (8.5-10.5); Carbon Dioxide 12 mmol/L (22-29); Chloride 95 mmol/L (98-107); Glomerular Filtration Rate 19.5 mL/min (90-130); Glucose 134 mg/dL (65-115); Osmolality Calculated 279 mOsm/kg (285-295); Potassium 3.6 mmol/L (3.5-5.1); Sodium 133 mmol/L (136-145)
[2021-04-10 21:44] LABS: Lactate (Lactic Acid level) 11.3 mmol/L (0.5-2.2)
[2021-04-10 22:27] LABS: Glucose Point of Care 112 mg/dL (70-110)
[2021-04-10] MEDS: norepinephrine 8 MG in dextrose 5 % 500 ML 76.2 MG IV (22:56)
[2021-04-10] MEDS: metroNIDAZOLE IV 500 MG/100 ML PREMIX 100 MG IV (23:04)
[2021-04-10] MEDS: hydrocortisone 100 mg/2 mL SDV 50 MG IVP (23:04)
[2021-04-10] MEDS: pantoprazole 40 mg SDV IVP (23:04)
[2021-04-10] MEDS: apixaban 5 mg Tablet PO (23:05)
[2021-04-10] MEDS: sodium chloride 0.9% 500 ML IV (23:05)
--- NOTE | 2021-04-10 23:34 | PC.NURSE ---
Patient arrived via stretcher with 2 ER nurses. Norepi drip going ar 20 mcg/min or 75 ml/hr. Epi drip going at 6 mcg/min or 36 ml/hr. Vassopressin going at 0.03 mcg/min or 1.8 ml/hr. Port a cath accessed, TLC in right IJ, and Left arterial line. Patient transfered to ICU bed and monitor placed on patient. Oxygen sat at 90% on 6L NC, kemp in place and bear hugger placed on patient. Will continue to monitor.
[2021-04-11] VITALS (115 sets, daily range): BP systolic 57–92; BP diastolic 24–67; PULSE 0–94; RESP 0–28; TEMP 34.6–36.4; O2SAT 65–100
--- NOTE | 2021-04-11 00:03 | PC.PHAR ---
Pharmacokinetic dosing service Date: 04/11/21 Time: 0000 Objective: Patient: Catrachito Agosto Floor: ICU-12 Age: 65 yo Serum creatinine: 3.2 mg/dL Height: 68.0 Inches Weight (kg): 69.1 Diagnosis: Relevant medical/social history: Cultures and sensitivities: Other labs: Assessment: IBW (kg): 68.40 Dosing wt(kg): 69.1 Estimated Creatinine clearance (ml/min): 21.7 CRCL method: Cockcroft and Gault using ibw(default). Drug selected: Vancomycin Loading dose (mg): 0 Vd (liters): 62.2 (factor used: 0.9 L/kg) Alec (hr-1): 0.022 Half life (hrs): 31.51 Recommended dose: 1250 mg Interval: 36 hrs Infusion time (hrs): 1.5 Predicted peak (mcg/mL): 36.1 Predicted trough (mcg/mL): 16.90 Total body weight is being used for vancomycin dosing. Renal function is stable [ ] /unstable [ ] Recommendations: Give Vancomycin 1250 mg q 36 hrs with an expected Cpeak of 36.1 mcg/ml and an expected Ctrough of 16.90 mcg/ml Renal dosing of other antibiotics (review renal dosing of other medications and list guidelines here): Thank you for the consult, will continue to follow. Signature: Gaby Brady [facility]
[2021-04-11 00:06] LABS: Glucose Point of Care 91 mg/dL (70-110)
[2021-04-11] MEDS: dextrose 5%-sod chloride 0.9% 1,000 ML 100 ML IV ×2 (00:25→11:59)
[2021-04-11 03:54] LABS: Glucose Point of Care 104 mg/dL (70-110)
--- NOTE | 2021-04-11 04:00 | XRR_ITS ---
PROCEDURE INFORMATION: Exam: XR Chest Exam date and time: 04/11/2021 4:00 AM Age: 65 years old Clinical indication: Shortness of breath; Prior surgery; Surgery date: 6+ months; Surgery type: Cabg; Patient HX: Resp failure; Additional info: Pneumonia TECHNIQUE: Imaging protocol: XR of the chest. Views: 1 view. COMPARISON: CR (CHEST, ) 04/10/2021 3:41 PM FINDINGS: Tubes, catheters and devices: Support tubes and lines are in good position. Lungs: Interval worsening of right-sided pulmonary opacities. Pleural spaces: Unremarkable. No pleural effusion. No pneumothorax. Heart/Mediastinum: Unremarkable. No cardiomegaly. Bones/joints: There has been a median sternotomy. XR/XR chest 1V portable [id number] IMPRESSION: 1. Support tubes and lines are in good position. 2. Interval worsening of right-sided pulmonary opacities.
[2021-04-11] MEDS: hydrocortisone 100 mg/2 mL SDV 50 MG IVP ×2 (04:07→09:25)
[2021-04-11 05:18] LABS: ABG PCO2 22.1 mmHg (35-45); Arterial Blood Gas Hematocrit 35.4 % (42-52); Base Excess ABG -24.6 mmol/L (-2.0-2.0); Blood Gas Allen Test Pos; Blood Gas Sample Site Radial, right; Blood Gas Sample Type Arterial; HCO3 ABG 5.3 mmol/L (22-26); Oxygen Device NC; PO2 ABG 83.2 mmHg (80.0-100.0)
[2021-04-11 05:26] LABS: ABG PH Result 6.99 (7.35-7.45)
[2021-04-11 05:30] LABS: Basophils # 0.1 10^3/uL (0.0-0.1); Basophils % 0.6 %; Eosinophils # 0.1 10^3/uL (0.0-0.8); Eosinophils % 0.5 %; Hematocrit 40.7 % (42.0-52.0); Hemoglobin 11.6 g/dL (11.7-16.6); Lymphocytes # 1.1 10^3/uL (0.8-4.8); Lymphocytes % 7.8 %; Mean Corpuscular HGB Conc 28.5 g/dL (30.0-36.0); Mean Corpuscular Hemoglobin 25.4 pg (28.0-34.0); Mean Corpuscular Volume 89.3 fl (80-94); Mean Platelet Volume 9.7 fL (7.4-10.4); Monocytes # 0.4 10^3/uL (0.2-0.9); Monocytes % 2.5 %; Neutrophils % 88.3 %; Nucleated Red Blood Cells # 0.1 /100WBC; Nucleated Red Blood Cells % 0.4 %; Platelet Count 277 10^3/cmm (130-400); Red Blood Count 4.56 10^6/uL (4.1-5.3); Red Cell Distribution Width 20.3 % (12.1-15.1); White Blood Count 14.4 10^3/uL (4.0-10.0)
[2021-04-11 06:04] LABS: Free T4 Free Thyroxine 0.92 ng/dL (0.82-1.77); Procalcitonin 9.92 ng/mL (0-0.5); T3 Free 1.5 PG/ML (2.0-4.4); Thyroid Stimulating Hormone 43.31 uIU/mL (0.27-4.20)
[2021-04-11] MEDS: metroNIDAZOLE IV 500 MG/100 ML PREMIX 100 MG IV (06:04)
[2021-04-11] MEDS: norepinephrine 8 MG in dextrose 5 % 500 ML 76.2 MG IV (06:04)
[2021-04-11] MEDS: EPINEPHrine 2.5 MG in sodium chloride 0.9% 250 ML 36.36 MG IV (06:18)
[2021-04-11 06:22] LABS: Slide Review Slide Review Perform
[2021-04-11 06:43] LABS: Alanine Aminotransferase 56 U/L (0-41); Alkaline Phosphatase 87 IU/L (40-130); Aspartate Amino Transferase 410 U/L (0-40); Blood Urea Nitrogen 16 mg/dL (8-23); C Reactive Protein 69.5 mg/L (0.0-4.9); Calcium 7.9 mg/dL (8.5-10.5); Chloride 93 mmol/L (98-107); Globulin 1.6 g/dL (1.3-4.6); Glomerular Filtration Rate 18.2 mL/min (90-130); Glucose 129 mg/dL (65-115); Magnesium 1.7 mg/dL (1.7-2.3); Osmolality Calculated 275 mOsm/kg (285-295); Sodium 131 mmol/L (136-145); Total Bilirubin 1.1 mg/dL (0.15-1.2); Total Protein 3.6 g/dL (6.6-8.7)
[2021-04-11 06:51] LABS: Lactate (Lactic Acid level) 15.1 mmol/L (0.5-2.2)
[2021-04-11 06:51] LABS: Creatine Phosphokinase 798 U/L (39-308)
[2021-04-11 06:52] LABS: Anion Gap 38.1 (5-19); Carbon Dioxide 4 mmol/L (22-29); Phosphorus 7.6 mg/dL (2.5-4.5); Potassium 4.1 mmol/L (3.5-5.1)
[2021-04-11 08:09] LABS: Fibrinogen 163 mg/dL (174-498)
[2021-04-11 08:11] LABS: D Dimer 2.95 ug/mIFEU (0-0.59)
[2021-04-11] MEDS: sodium bicarbonate 150 MEQ in dextrose 5% 1,000 ML 100 MEQ IV (08:16)
[2021-04-11 08:17] LABS: Partial Thromboplastin Time 143.1 SECONDS (23.9-36.7)
[2021-04-11 08:24] LABS: INR 9.88 (0.8-1.2)
[2021-04-11 08:57] LABS: Glucose Point of Care 120 mg/dL (70-110)
--- NOTE | 2021-04-11 08:57 | PC.CHAP ---
Pastoral Care Encounter/Spiritual Assessment Type of Contact [] Declined comb tender visit [] Patient/Family/Request visit [] Outpatient visit [] Follow-up visit [] Physician referral [] Code/Alert [x] Routine visit [] Staff referral [] Actively dying [] Patient sleeping [] Family support [] [] Out of room [] Palliative care [] [x] Receiving care in room [] Pre-surgical visit [] Trauma [] Long length of stay [x] ICU visit [x] Other: oxygen Relational/Emotional Strength [] Patient feels connected with others/family/visitors/staff [] Distress [] Loneliness/isolation [] Abandonment Spirituality of Patient [] Person of Maria Esther [] Attends Taoist of their Maria Esther [] Believes in Prayer [] Reads Bible or Lutheran materials [] There are Spiritual issues to be addressed Industrial Sociologist Interventions [x] Prayer [] Active listening [] Non-anxious presence [] Spiritual/emotional support [] Crisis/trauma care [] Spiritual counseling [] Bereavement support [] Provided bereavement packet [] Provided Bible/devotional materials [] Provided toy/stuffed animal, coloring book to patient or family member [] Provided Communion [] Anointing/[place] [] Salvation [x] Completed spiritual assessment [] Other: Impact on Illness or Injury [] Angry [] Fearful [] Anxious [] Often cries [] Exhaustion [] Unable to work [] Unable to attend denominational [] Unable to walk/stand [] Unable to read [] Unable to drive [] Unable to eat/drink [] Unable to sleep [] Unable to be with family [] Patient intubated [] Other: Summary Time spent with patient
[2021-04-11] MEDS: sodium bicarbonate 8.4% 1 mEq/mL 50mL Syr 50 MEQ IVP ×2 (09:25→09:58)
--- NOTE | 2021-04-11 10:00 | PC.NURSE ---
Progressive hypotension noted. Vasopressin maxed out at 0.3units /hr, Epinephrine maxed out at 10mcg/min and LEvophed at 20mcg/min. Databrett stated the Levophed could be up to 30mcg/min. Mottling noted on pt's trunk.. Unable to get reading off pulse ox due to BP and lower temp. Mottling noted on flank and abdomen. Pt occasionally alert and responding to sister and daughter.
--- NOTE | 2021-04-11 10:15 | PC.NURSE ---
LOw rectal tems persist. Pt has heating blanket on set at 32 degrees Celsius. increased temp to 38 degrees.
[2021-04-11] MEDS: EPINEPHrine 2.5 MG in sodium chloride 0.9% 250 ML 60.6 MG IV (11:57)
[2021-04-11 12:19] LABS: ABG PCO2 31.1 mmHg (35-45); ABG PH Result 6.92 (7.35-7.45); Base Excess ABG -24.7 mmol/L (-2.0-2.0); Blood Gas Operator Identificat AMH; Blood Gas Sample Site Not specified; Blood Gas Sample Type Arterial; Carboxyhemoglobin 0.5 %THgb (0.4-20.1); HCO3 ABG 6.4 mmol/L (22-26); HGB O2 Sat 96.1 % (95-100); Methemoglobin 0.7 % (0.4-1.5); Oxygen Device OXY MASK; Oxygen Saturation ABG 97.3; Potassium Level - ABG 4.1 mmol/L (3.5-5.0); Total Hemoglobin 9.1 g/dL (14-18)
[2021-04-11] MEDS: norepinephrine 8 MG in dextrose 5 % 500 ML 114.3 MG IV (12:34)
--- NOTE | 2021-04-11 12:37 | PM.PN ---
Subjective Subjective: Interval history: Catrachito is a very ill 65-year-old male who I saw this morning. History and physical was reviewed. I briefly discussed him with the pulmonary critical care physician as well. Patient himself can moderate few words but otherwise does not communicate effectively at this time secondary to his degree of illness. Medications: Reviewed: Yes Vitals/I&O/Wt Last Vital Signs Temp 95.7 F L 04/11/21 04:05 Pulse 82 04/11/21 10:30 Resp 23 H 04/11/21 10:30 BP 82/67 04/11/21 09:30 Pulse Ox 72 L 04/11/21 09:30 04/10/21 04/11/21 04/11/21 22:59 06:59 14:59 Intake Total 2165.367 / 3277.978 1086.9 / 4364.878 2060.500 / 2060.500 Output Total 200 / 200 0 / 200 Balance 1965.367 / 3077.978 1086.9 / 4164.878 2060.500 / 2059.500 Weight last 48 hrs Weight 69.1 kg Weight 63.503 kg Physical Exam Narrative: EXAM NARRATIVE: Hearing male, who appears to have at least some delirium. Blood pressure low HEENT: Pupils equally round. Oropharynx with dry mucous membranes Neck supple no lymphadenopathy or thyromegaly Cardiovascular regular rate and rhythm, heart sounds distant. Blood pressure noted to lungs diminished breath sounds bilaterally Abdomen is firm, positive bowel sounds. Appears to have pain with palpation. Extremities mottled. Pulses difficult to feel. Refill 2 to 3 seconds. Skin see findings above Neurologic: No focal deficits. Response is slow. Urinary Catheter Management^: Lujan: Cath Placed During This Visit: yes Reason for Continuing Indwelling Catheter: Accurate Measurement of Urinary Output in Critically Ill Patients Urinary Catheter Date of Insertion: 04/10/21 Urinary Catheter Time of Insertion: 12:30 Data : 04/11/21 05:15 04/11/21 05:15 Micro: Microbiology 04/10/21 12:21 Bacterial Antigens - Final Urine,Clean Catch 04/10/21 14:02 Blood Culture - Preliminary Blood SPECIMEN COLLECTED 04/10/21 12:20 Blood Culture - Preliminary Blood SPECIMEN COLLECTED A&P Assessment and plan (1) Septic shock: Patient requiring 3 pressors norepinephrine, epinephrine, vasopressin, albumin being used as well Hydrocortisone added IV Becoming significantly acidotic despite bicarbonate drip, and pushes of bicarbonate Overall prognosis poor Pulmonary critical care has seen, discussed with family, and have changed patient to allow natural IV antibiotics consisting of vancomycin, cefepime, Flagyl currently. Associated with significant DIC Status: Acute (2) Pneumonia: IV antibiotics as above Covid PCR ordered. Status: Acute (3) Acute respiratory failure with hypoxia: Oxygen as tolerated. He has been changed to allow natural . He would not be intubated. Status: Acute (4) Lactic acidosis: Pressors to improve perfusion. He is already been fluid resuscitated Bicarbonate drip Status: Acute (5) Dehydration: Status: Acute (6) Hypothyroidism: Thyroid hormone IV Status: Acute Qualifiers: Hypothyroidism type: acquired Qualified Code(s): E03.9 - Hypothyroidism, unspecified (7) Diabetes mellitus, type II: Sliding scale insulin Status: Acute Qualifiers: Diabetes mellitus assisted insulin use: without terminal operator use Diabetes mellitus complication status: without complication Qualified Code(s): E11.9 - Type 2 diabetes mellitus without complications (8) Congestive heart failure (CHF): No evidence of CHF currently Status: Acute Qualifiers: Heart failure type: diastolic Heart failure chronicity: chronic Qualified Code(s): I50.32 - Chronic diastolic (congestive) heart failure (9) Essential hypertension: Status: Acute (10) Atrial fibrillation: Appears to be in sinus rhythm Status: Acute (11) Hyponatremia: Likely secondary to renal failure Status: Acute (12) WILLIAM (acute kidney injury): Significant acute kidney injury with low output Likely will progress Associated with severe metabolic acidosis, with sepsis contributing Status: Acute (13) Hypoglycemia: Change to mild sliding scale insulin, cautious use Status: Acute (14) Rhabdomyolysis: Relatively mild and probably not currently influencing his disease process. Status: Acute (15) NSTEMI (non-ST elevated myocardial infarction): Status: Acute Additional A&P Information Chronic diarrhea. Studies pending. CT demonstrates ileus/gastroenteritis. Past history of C. difficile +1-month ago. Currently on Flagyl. Decompensating enough currently that oral vancomycin or even vancomycin by enema should not be attempted currently and is contraindicated. Also has history of CMV colitis. Elevated troponin, type II Hypothyroidism. Supplement currently. No evidence for myxedema coma. Metastatic melanoma Atrial fibrillation, appears to be in sinus rhythm currently Allow natural , changed by pulmonary critical care after conversation with family Overall prognosis poor Attestations Medical Necessity Statement*: Needs continued hospitalization secondary to septic shock requiring multiple pressors. Critical Care Time: Critical Care Time (min): 40 Other Attestations: The high probability of a clinically significant, sudden or life threatening deterioration of the patient's [GI, vascular, pulmonary] system(s) required my full and direct attention, intervention and personal management. The critical care time is as shown. 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 Diagnoses Septic shock A41.9; R65.21 Pneumonia J18.9 Acute respiratory failure with hypoxia J96.01 Lactic acidosis E87.2 Dehydration E86.0 Hypothyroidism E03.9 Hypothyroidism type: acquired Diabetes mellitus, type II E11.9 Diabetes mellitus assisted insulin use: without terminal operator use Diabetes mellitus complication status: without complication Congestive heart failure (CHF) I50.32 Heart failure type: diastolic Heart failure chronicity: chronic Essential hypertension I10 Atrial fibrillation I48.91 Hyponatremia E87.1 WILLIAM (acute kidney injury) N17.9 Hypoglycemia E16.2 Rhabdomyolysis M62.82 NSTEMI (non-ST elevated myocardial infarction) I21.4
[2021-04-11 13:09] LABS: Glucose Point of Care 136 mg/dL (70-110)
[2021-04-11] MEDS: morphine 4 mg/mL SDV 1 mL 2 MG IVP (13:57)
--- NOTE | 2021-04-11 14:51 | PM.DDS ---
Discharge Providers DDS Date of Admission: 04/10/21 22:10 Date Summary Completed: 04/12/21 Attending Provider at Admission: Curt Youssef MD Time of : 14:35 Attending Provider at Discharge: Honorio Last MD Primary Care Provider: DO ANDRZE[facility] Diagnoses (1) Septic shock: (2) Pneumonia: (3) Acute respiratory failure with hypoxia: (4) Lactic acidosis: (5) Dehydration: (6) Hypothyroidism: Qualifiers: Hypothyroidism type: acquired Qualified Code(s): E03.9 - Hypothyroidism, unspecified (7) Diabetes mellitus, type II: Qualifiers: Diabetes mellitus complication status: without complication Diabetes mellitus [facility] insulin use: without production cloth cutter use Qualified Code(s): E11.9 - Type 2 diabetes mellitus without complications (8) Congestive heart failure (CHF): Qualifiers: Heart failure chronicity: chronic Heart failure type: diastolic Qualified Code(s): I50.32 - Chronic diastolic (congestive) heart failure (9) Essential hypertension: (10) Atrial fibrillation: (11) Hyponatremia: (12) WILLIAM (acute kidney injury): (13) Hypoglycemia: (14) Rhabdomyolysis: (15) NSTEMI (non-ST elevated myocardial infarction): Reason for Visit Reason for Visit: AMS Summary Date and Time of Date of : 04/11/21 Time of : 14:35 Summary Summary: Catrachito is a 65-year-old white male with history of metastatic melanoma residing at a nursing facility who presented to the hospital with hypotension, unresponsiveness. He been having issues with chronic diarrhea. On arrival to the emergency department he was found to be in septic shock, requiring pressors, fluids. Hypoglycemia was noted as well. Severe oliguric acute kidney injury was noted. He was placed on a bicarbonate drip after fluid resuscitated. IV antibiotics consisting of vancomycin cefepime and Flagyl were initiated. Large amounts of oxygen were given. Hydrocortisone and thyroid hormone were given IV. He escalated to requiring 3 pressors relatively quickly. Pulmonary critical care was consulted. They reviewed his history, examined the patient, and concurred with current treatment. They discussed with the family CODE STATUS and he was made DNR secondary to his very poor prognosis. He continued to worsen through the day and I visited with the family again and they chose to make him comfort measures only. Treatment for this was initiated and he passed comfortably. Final diagnosis is septic shock, pneumonia, acute respiratory failure with hypoxia secondary to pneumonia, acute kidney injury. 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 Diagnoses Septic shock A41.9; R65.21 Pneumonia J18.9 Acute respiratory failure with hypoxia J96.01 Lactic acidosis E87.2 Dehydration E86.0 Hypothyroidism E03.9 Hypothyroidism type: acquired Diabetes mellitus, type II E11.9 Diabetes mellitus complication status: without complication Diabetes mellitus production cloth cutter insulin use: without [facility] use Congestive heart failure (CHF) I50.32 Heart failure chronicity: chronic Heart failure type: diastolic Essential hypertension I10 Atrial fibrillation I48.91 Hyponatremia E87.1 WILLIAM (acute kidney injury) N17.9 Hypoglycemia E16.2 Rhabdomyolysis M62.82 NSTEMI (non-ST elevated myocardial infarction) I21.4
--- NOTE | 2021-04-11 15:30 | PC.NURSE ---
Post mortem care provided. All lines and tubes removed.
--- NOTE | 2021-04-11 15:47 | PC.NURSE ---
1450: [facility] Meghan notified. 1547: [facility] called back not a candidate. Awaiting eye referral.
--- NOTE | 2021-04-11 16:28 | PC.NURSE ---
Addendum entered by Stefany Mcrae RN 04/11/21 18:39: This occured at 1355 Original Note: Family has decided to start comfort care. All vasopressors and IV fluids stopped. Morphine admin for comfort. Family at bedside. Pastoral care contacted for family support.
--- NOTE | 2021-04-11 16:47 | PC.RESP ---
SMOKING CESSATION INFORMATION SENT TO PATIENT.
--- NOTE | 2021-04-11 18:30 | PC.NURSE ---
Called [facility]. Not a candidate.
--- NOTE | 2021-04-11 18:40 | PC.NURSE ---
home, Juli notified.
--- NOTE | 2021-04-11 19:15 | PC.NURSE ---
Body released to Juli
--- NOTE | 2021-04-11 22:03 | P.CONIM_ITS ---
Providers/Reason For Consult Consulting Physician/Specialty*: Jose Nix MD/ Pulmonary Critical Care Reason for Consult*: septic shock Requesting Physician: Curt Youssef MD Attending Physician: Honorio Last MD Primary Care Provider: Jesus Meza DO History of Present Illness History of Present Illness Catrachito Agosto is a 65 year old male with a past medical history of metastatic melanoma per right axillary mass, s/ post chemo and immunotherapy, admission in October 2020 for CMV colitis treated with jessica ganciclovir, underwent colonoscopy showing severe ulcerative colitis treated with Remicade and steroids, but has persistent colitis, immunotherapy induced colitis or CMV or IBD but was treated for all of them at [facility], with recurrent chronic diarrhea, recently admitted in February for sepsis secondary to C. difficile colitis, atrial fibrillation on Eliquis, history of gug-kyqtchm-araoqlodt type 2 diabetes mellitus, chronic pain syndrome, CHF, hypertension, hypothyroidism, who presents to [facility] Yesterday 04/10/21 due to unresponsive episode and low blood pressures. Currently patient is alert to person, not to place, not to time, altered mental status, most of the history was obtained from sister at bedside. Patient recently was seen by Dr. Mendenhall as an outpatient follow-up for his chronic diarrhea, he is being referred to [facility], his blood pressure in Dr. Mendenhall's office according to his sister was in the 70s over 40s, he chronically has low blood pressures on midodrine, but he was not feeling well, and he has chronic diarrhea, but no other complaints. Was not feeling well over the weekend, no fevers, no chills, no cough, no dysuria, no hematuria, no abdominal pain, no headache, blurry vision, no neck pain, no skin rashes reported. this morning, nursing staff were getting patient up to see his caregiver, when he suddenly became nonresponsive, he was not responding appropriately to questioning, no facial droop, slurring of speech, no significant focal neurologic deficits, they could not get a blood pressure on him, he was maintaining his airway, EMS was called, they are able to get his blood pressure, it sounds like it was in the 50s over 40s, he was cool, clammy, blood sugar was in the 70s, he was a bit more responsive to EMS staff, received fluids, he was brought to [facility]. At [facility] patient was found to be in septic shock, lactic acid 9.9, receiving sepsis bolus, placed on 3 pressors, art line placed, central line in place, his blood sugar was in the low 30s, which was treated, he is put on 10 L oxygen, source of infection include pneumonia and or GI source, he was given broad-spectrum antibiotic therapy, hydrocortisone, hospitalist team and pulmonary team were called for admission. Currently, ABG and 7.2 / 100% FiO2 and he is alert to person, he answers some questions appropriate, but becomes drowsy, confused, is a bit agitated with his art line in place, he is on 10 L, continues airway, his MAP is greater than 65, he is on 3 pressors, receiving fluids. Pulmonary critical care consulted via ED physician and hospitalist team-decision was made to admit patient to intensive care unit for close monitoring of septic shock requiring 2 pressors. Overnight patient ABG showed pH 7.09 and started on bicarb drip Today morning I saw the patient at bedside He was requiring third pressor epinephrine and barely able to keep maps between 60-65. Morning ABG showed pH 6.99 despite being on bicarb drip and started giving bicarb pushes. Morning labs showed multiorgan failure with patient in DIC and INR is 9, renal failure due to septic shock requiring 3 pressors, worsening metabolic acidosis due to lactic acidosis and renal failure and was becoming hypothermic. He is covered with broad-spectrum antibiotic coverage vancomycin, cefepime, Flagyl, p.o. Vanco-all cultures pending. Patient himself reported does not want aggressive measures. Notified family and patient sister and daughter both are allowed to visit the patient in ICU. At bedside; initially they did not want to do aggressive resuscitative measures including intubation or CPR wanted to continue care and later opted for comfort care as patient continued to worsen. Time of reported as 1434 Review of Systems General: Reports: ROS unobtainable due to medical condition Meds/Allergies Home Medications and Allergies Home Medications Medication Instructions Recorded Confirmed Last Taken Type Januvia 25 mg PO DAILY@09/13/20 04/10/21 03/22/21 History bupropion HCl 300 mg PO DAILY@09/13/20 04/10/21 04/10/21 History citalopram 40 mg PO DAILY@07 09/13/20 04/10/21 03/22/21 History montelukast 10 mg PO DAILY@09/13/20 04/10/21 04/09/21 History albuterol sulfate [ProAir HFA] 1 - 2 puff INHALATION Q4H PRN 10/15/20 04/10/21 10/28/20 History clonazepam 1.5 mg PO BEDTIME@2100 PRN 10/15/20 04/10/21 11/17/20 History ergocalciferol (vitamin D2) 1,250 See Rx Instructions .ROUTE 10/20/20 04/10/21 04/05/21 Rx mcg (50,000 unit) capsule .COMPLEX #4 cap Eliquis 5 mg PO BID 10/28/20 04/10/21 04/10/21 History oxycodone-acetaminophen 1 tab PO Q6H PRN 11/09/20 04/10/21 04/03/21 History cholestyramine (with sugar) 4 gram 4 ea PO DAILY 12/09/20 04/10/21 04/10/21 History powder for susp in a packet midodrine 5 mg tablet 5 mg PO TID tab 12/09/20 04/10/21 04/10/21 History naloxone 4 mg/actuation nasal spray 1 spray INTRANASAL DAILY PRN 12/09/20 04/10/21 Unknown History fluticasone propionate 50 2 spray INTRANASAL DAILY PRN #16 g 12/14/20 04/10/21 03/12/21 Rx mcg/actuation nasal spray,suspension pantoprazole 40 mg tablet,delayed 40 mg PO DAILY #90 tab 12/14/20 04/10/21 04/10/21 Rx release diphenoxylate-atropine [Lomotil] 1 tab PO QID PRN 03/13/21 04/10/21 04/01/21 History gabapentin 200 mg PO Q8H 03/13/21 04/10/21 04/10/21 History acetaminophen [Tylenol] 325 mg PO Q6H PRN 04/10/21 04/10/21 Unknown History bisacodyl [Dulcolax (bisacodyl)] 5 mg PO DAILY PRN 04/10/21 04/10/21 Unknown History bisacodyl [Dulcolax (bisacodyl)] 10 mg OR DAILY PRN 04/10/21 04/10/21 Unknown History levothyroxine 100 mcg PO DAILY 04/10/21 04/10/21 04/10/21 History magnesium hydroxide [Milk of 30 ml PO DAILY PRN 04/10/21 04/10/21 Unknown History Magnesia] potassium chloride 40 meq PO DAILY 04/10/21 04/10/21 04/10/21 History psyllium husk (aspartame) 3 g PO DAILY 04/10/21 04/10/21 04/10/21 History [Reguloid (aspartame)] sodium phosphates [Fleet Enema] 118 ml OR DAILY PRN 04/10/21 04/10/21 Unknown History Allergies Allergy/AdvReac Type Severity Reaction Status Date / Time Iodinated Contrast Media Allergy ALGY-Hives Verified 12/12/20 07:20 metoprolol Allergy unknown Verified 12/12/20 07:20 red dye Allergy unknown Verified 12/12/20 07:20 PFSH Acute PFSH: Medical History Acute lower respiratory infection Anxiety ASHD (arteriosclerotic heart disease) Atrial fibrillation Chronic pain syndrome Chronic recurrent sinusitis Chronic seasonal allergic rhinitis Colitis Congestive heart failure (CHF) Diabetes mellitus, type II Essential hypertension Hemorrhoid Hypertrophic cardiomyopathy Hypomagnesemia Hypothyroidism Insomnia Iron deficiency Lower respiratory infection Melanoma Mixed hyperlipidemia Multilevel degenerative disc disease Proctocolitis Sleep apnea Smoking addiction Vitamin D deficiency Surgical History Coronary angioplasty status [facility] 2105 H/O ventricular septal myectomy Family History Mother Myocardial infarction Father Hypertension Other Diabetes Family history of CABG Social History Smoking and tobacco status: current every day smoker Second hand smoke exposure: No Desire information about alcohol rehabilitation?: No Counseling given: No Desire information about substance/drug rehabilitation?: No Counseling given: No Vitals/I&O/Wt Last Vital Signs Temp 96.8 F L 04/11/21 14:00 Pulse 0 L 04/11/21 15:00 Resp 0 L 04/11/21 15:00 BP 57/24 04/11/21 14:00 Pulse Ox 68 L 04/11/21 14:00 04/11/21 04/11/21 04/11/21 06:59 14:59 22:59 Intake Total 1086.9 / 4364.878 3155.457 / 3155.457 Output Total 0 / 200 30 / 30 Balance 1086.9 / 4164.878 3125.457 / 3125.457 Weight last 48 hrs Weight 152 lb 5.431 oz Weight 140 lb Physical Exam Narrative: EXAM NARRATIVE: General: drowsy but arousable, communicative appropriately, NAD, thin cachectic elderly male HEENT: conj clear, EOMI, PERRL, mmm, Neck: supple, no meningismus Heme: no cervical LAP Pulmonary: Bilateral diffuse crackles Cardiovascular: rrr, nl s1s2, no mrg Abdomen: soft, nt, nd, no r/g, bs+ Extremities: pulses +, no edema, no c/c : no CVA tenderness Skin: intact, no rash MSK: no back or neck pain Neurologic: grossly intact Urinary Catheter Management^: Lujan: Cath Placed During This Visit: yes, but has since been removed by the nurse Reason for Continuing Indwelling Catheter: Accurate Measurement of Urinary Output in Critically Ill Patients Urinary Catheter Date of Insertion: 04/10/21 Urinary Catheter Time of Insertion: 12:30 Date Urinary Catheter Removed: 04/11/21 Time Urinary Catheter Discontinued: 15:30 Data Labs: Other Labs: Laboratory Results WBC 14.4 10^3/uL (4.0 -10.0) H 04/11/21 05:15 RBC 4.56 10^6/uL (4.1 -5.3) 04/11/21 05:15 Hgb 11.6 g/dL (11.7-1 6.6) L 04/11/21 05:15 Hct 40.7 % (42.0-52.0 ) L 04/11/21 05:15 MCV 89.3 fl (80-94) D 04/11/21 05:15 MCH 25.4 pg (28.0-34. 0) L 04/11/21 05:15 MCHC 28.5 g/dL (30.0-3 6.0) L D 04/11/21 05:15 RDW 20.3 % (12.1-15.1 ) H 04/11/21 05:15 Plt Count 277 10^3/cmm (130 -400) 04/11/21 05:15 MPV 9.7 fL (7.4-10.4) 04/11/21 05:15 Neut % (Auto) 88.3 % 04/11/21 05:15 Lymph % (Auto) 7.8 % 04/11/21 05:15 [place] % (Auto) 2.5 % 04/11/21 05:15 Eos % (Auto) 0.5 % 04/11/21 05:15 Baso % (Auto) 0.6 % 04/11/21 05:15 Neut # (Auto) 12.70 10^3/uL (1. 8-7.7) H 04/11/21 05:15 Lymph # (Auto) 1.1 10^3/uL (0.8- 4.8) 04/11/21 05:15 [place] # (Auto) 0.4 10^3/uL (0.2- 0.9) 04/11/21 05:15 Eos # (Auto) 0.1 10^3/uL (0.0- 0.8) 04/11/21 05:15 Baso # (Auto) 0.1 10^3/uL (0.0- 0.1) 04/11/21 05:15 Nucleated RBC % (a uto) 0.4 % 04/11/21 05:15 Nucleated RBCs # 0.1 /100WBC 04/11/21 05:15 PT 79.70 SECONDS (12 .1-14.9) H 04/11/21 05:45 INR 9.88 (0.8-1.2) H* 04/11/21 05:45 APTT 143.1 SECONDS (23 .9-36.7) H 04/11/21 05:45 Fibrinogen 163 mg/dL (174-49 8) L 04/11/21 05:45 Fibrin Degrad Prod ucts Pos, >=40 ug/mL ( NEG) H 04/11/21 05:45 D-Dimer 2.95 ug/mIFEU (0- 0.59) H 04/11/21 05:45 Specimen Type Arterial 04/11/21 12:07 Sample Site Not specified 04/11/21 12:07 ABG pH 6.92 (7.35-7.45) L* 04/11/21 12:07 ABG pCO2 31.1 mmHg (35-45) L 04/11/21 12:07 ABG pO2 123.0 mmHg (80.0- 100.0) H 04/11/21 12:07 ABG HCO3 6.4 mmol/L (22-26 ) L 04/11/21 12:07 ABG O2 Saturation 97.3 04/11/21 12:07 ABG Base Excess -24.7 mmol/L (-2. 0-2.0) L 04/11/21 12:07 Esvin Test N/a 04/11/21 12:07 A-a O2 Gradient Not Reportable 04/11/21 12:07 Hematocrit 28.0 % (42-52) L 04/11/21 12:07 Hgb O2 Saturation 96.1 % (95-100) 04/11/21 12:07 Carboxyhemoglobin 0.5 %THgb (0.4-20 .1) 04/11/21 12:07 Methemoglobin 0.7 % (0.4-1.5) 04/11/21 12:07 Total Hemoglobin 9.1 g/dL (14-18) L 04/11/21 12:07 Sodium 130.0 mmol/L (131 -143) L 04/11/21 12:07 Potassium 4.1 mmol/L (3.5-5 .0) 04/11/21 12:07 Glucose 161.0 mg/dL (70-1 15) H 04/11/21 12:07 Ionized Calcium 1.0 mmol/L (1.1-1 .4) L 04/11/21 12:07 O2 Delivery Device Oxy mask 04/11/21 12:07 O2 Liters/Min 6.0 % 04/11/21 05:00 FiO2 100.0 % 04/10/21 12:34 Talent Acquisition Coordinator ID Amh 04/11/21 12:07 Sodium 131 mmol/L (136-1 45) L 04/11/21 05:15 Potassium 4.1 mmol/L (3.5-5 .1) 04/11/21 05:15 Chloride 93 mmol/L (98-107 ) L 04/11/21 05:15 Carbon Dioxide 4 mmol/L (22-29) L* 04/11/21 05:15 Anion Gap 38.1 (5-19) H 04/11/21 05:15 BUN 16 mg/dL (8-23) 04/11/21 05:15 Creatinine 3.4 mg/dL (0.7-1. 2) H 04/11/21 05:15 GFR Calculation 18.2 mL/min (90-1 30) L 04/11/21 05:15 Glucose 129 mg/dL (65-115 ) H 04/11/21 05:15 POC Glucose 136 mg/dL (70-110 ) H 04/11/21 11:56 Calculated Osmolal ity 275 mOsm/kg (285- 295) L 04/11/21 05:15 Lactic Acid 9.9 mmol/L (0.5-2 .2) H* 04/10/21 12:20 Lactate 15.1 mmol/L (0.5- 2.2) H* 04/11/21 05:45 Calcium 7.9 mg/dL (8.5-10 .5) L 04/11/21 05:15 Phosphorus 7.6 mg/dL (2.5-4. 5) H D 04/11/21 05:15 Magnesium 1.7 mg/dL (1.7-2. 3) 04/11/21 05:15 Total Bilirubin 1.1 mg/dL (0.15-1 .2) 04/11/21 05:15 AST 410 U/L (0-40) H 04/11/21 05:15 ALT 56 U/L (0-41) H 04/11/21 05:15 Alkaline Phosphata se 87 IU/L (40-130) 04/11/21 05:15 Creatine Kinase 798 U/L (39-308) H* 04/11/21 05:15 Troponin T Baselin e 86 ng/L (0-15) H 04/10/21 12:20 Troponin T 120 Min kaitlynn 68.21 ng/L (0-15) H 04/10/21 14:02 Delta Troponin T -17.79 ABS# (0-10 ) L 04/10/21 14:02 C-Reactive Protein 69.5 mg/L (0.0-4. 9) H 04/11/21 05:15 NT-Pro-B Natriuret Pep 80545 pg/mL (0-12 5) H 04/11/21 05:15 Total Protein 3.6 g/dL (6.6-8.7 ) L 04/11/21 05:15 Albumin 2.0 g/dL (3.5-5.2 ) L 04/11/21 05:15 Globulin 1.6 g/dL (1.3-4.6 ) 04/11/21 05:15 Procalcitonin 9.92 ng/mL (0-0.5 ) H 04/11/21 05:15 TSH 43.31 uIU/mL (0.2 7-4.20) H 04/11/21 05:15 Free T4 0.92 ng/dL (0.82- 1.77) 04/11/21 05:15 Free T3 1.5 PG/ML (2.0-4. 4) L 04/11/21 05:15 Random Cortisol 208.80 ug/dL (2.4 7-19.5) H 04/11/21 05:15 Urine Color Tatiana (Yellow) 04/10/21 12:21 Urine Appearance Clear (CLEAR) 04/10/21 12:21 Urine pH 5 (5-7) 04/10/21 12:21 Ur Specific Gravit y 1.015 (1.005-1.0 30) 04/10/21 12:21 Urine Protein Trace (Negative) 04/10/21 12:21 Urine Glucose (UA) Norm (Normal) 04/10/21 12:21 Urine Ketones Negative (Negati ve) 04/10/21 12:21 Urine Blood Neg (Negative) 04/10/21 12:21 Urine Nitrate Negative (Negati ve) 04/10/21 12:21 Urine Bilirubin 1+ (Negative) H 04/10/21 12:21 Urine Urobilinogen 1 mg/dL (Negative ) H 04/10/21 12:21 Ur Leukocyte Abida ase Negative (Negati ve) 04/10/21 12:21 Urine RBC 0-4 /hpf (0-2) H 04/10/21 12:21 Urine WBC 0-4 /hpf (0-5) H 04/10/21 12:21 Ur Squamous Epith Cells Rare /hpf (0-5) 04/10/21 12:21 Amorphous Sediment Not Reportable 04/10/21 12:21 Urine Bacteria Trace /hpf (NONE) 04/10/21 12:21 Nasal/Oral COVID-1 9 PCR Cancelled 04/10/21 17:28 SARS-CoV-2 Ag (Rap id) Negative (Negati ve) 04/10/21 17:28 Impressions Chest/Abdomen/Pelvis CT 04/10/21 13:41 IMPRESSION: Findings are consistent with gastroenteritis and bowel ileus. Radiation Dose CTDIVOL = (mGy): DLP = 1868.34~1868.34 (mGy-cm) Head CT 04/10/21 13:41 IMPRESSION: There are no acute concerning abnormalities. Radiation Dose CTDIVOL = (mGy): DLP = 841.15 (mGy-cm) Chest X-Ray 04/11/21 04:00 IMPRESSION: 1. Support tubes and lines are in good position. 2. Interval worsening of right-sided pulmonary opacities. Micro: Micro: Microbiology 04/10/21 12:20 Blood Culture - Pr eliminary Blood 04/10/21 14:02 Blood Culture - Pr eliminary Blood NEGATIVE TO DARLENE E 04/10/21 12:21 Bacterial Antigens - Final Urine,Clean Catch A&P Assessment and plan (1) Septic shock: Status: Acute (2) Pneumonia: Status: Acute Qualifiers: Pneumonia type: due to unspecified organism Laterality: bilateral Lung location: lower lobe of lung Qualified Code(s): J18.9 - Pneumonia, unspecified organism (3) DIC syndrome: Status: Acute (4) WILLIAM (acute kidney injury): Status: Acute (5) NSTEMI (non-ST elevated myocardial infarction): Status: Acute (6) Lactic acidosis: Status: Acute (7) Rhabdomyolysis: Status: Acute Qualifiers: Rhabdomyolysis type: non-traumatic Qualified Code(s): M62.82 - Rhabdomyolysis (8) Acute respiratory failure with hypoxia: Status: Acute (9) C. difficile colitis: Status: Acute (10) Hypothyroidism: Status: Acute Qualifiers: Hypothyroidism type: acquired Qualified Code(s): E03.9 - Hypothyroidism, unspecified (11) Diabetes mellitus, type II: Status: Acute Qualifiers: Diabetes mellitus prison insulin use: without prison use Diabetes mellitus complication status: without complication Qualified Code(s): E11.9 - Type 2 diabetes mellitus without complications (12) Congestive heart failure (CHF): Status: Acute Qualifiers: Heart failure type: diastolic Heart failure chronicity: chronic Qualified Code(s): I50.32 - Chronic diastolic (congestive) heart failure (13) Tobacco abuse: Status: Acute (14) Counseling regarding advance directives and goals of care: Status: Acute #Septic shock leading to multiorgan failure and DIC-likely due to pneumonia versus chronic diarrhea with history of recent C. difficile inpatient with undifferentiated melanoma and ulcerative colitis chronic diarrhea -On 3 pressors and maps between 60-65 -ABG severe metabolic acidosis with pH 6.91 -On bicarb drip and bicarb pushes -On vancomycin, cefepime, Zosyn and p.o. Vanco -All cultures pending -Labs suggestive of severe metabolic acidosis with bicarb 4 and DIC -Family at bedside-choose comfort care -Patient at 1435 Recommendations conveyed to hospitalist, RN, RT covering the patient Goals of care discussion with family they verbalized understanding and understands the grave prognosis. Initially with me the do not want to escalate care. Later they had another meeting with Dr. Last and opted for comfort c are Consult Attestations Medical Necessity Statement: Patient Time Spent in Patient Care: Greater than 35 minutes (>than 50% of time spent in counselling and/or direct pt care on unit) . Predominantly time spent in goals of care discussion Critical Care Time: Critical Care Time (min): 65 Coding Level of Care Code Established Pt Acute Premium Card Cancellation Clerk for Chg Fwd Patient Type Established History Comprehensive Exam Comprehensive Medical Decision Making High Complexity Diagnoses Septic shock A41.9; R65.21 Pneumonia J18.9 Pneumonia type: due to unspecified organism Laterality: bilateral Lung location: lower lobe of lung DIC syndrome D65 WILLIAM (acute kidney injury) N17.9 NSTEMI (non-ST elevated myocardial infarction) I21.4 Lactic acidosis E87.2 Rhabdomyolysis M62.82 Rhabdomyolysis type: non-traumatic Acute respiratory failure with hypoxia J96.01 C. difficile colitis A04.72 Hypothyroidism E03.9 Hypothyroidism type: acquired Diabetes mellitus, type II E11.9 Diabetes mellitus prison insulin use: without predatory animal exterminator use Diabetes mellitus complication status: without complication Congestive heart failure (CHF) I50.32 Heart failure type: diastolic Heart failure chronicity: chronic Tobacco abuse Z72.0 Counseling regarding advance directives and goals of care Z71.89 Time Spent (min) 65 Comment Time spent in treating patient until family arrived and later establishing goals of care
[2021-04-12 15:48] LABS: Cytomegalovirus Antibody (IGG) >10.00 U/mL
[2021-04-12 19:32] LABS: Quest SARS-CoV-2 RNA NOT DETECTED (NOT DETECTED)
[2021-04-14 13:02] LABS: CMV DNA By PCR <200 IU/mL; CMV DNA, QN PCR <2.30 Log IU/mL; SOURCE WHOLE BLOOD
== END 2021-04-11 19:15 | disposition expired | DRG 871 ==
LOC: ER 17:23 → ICU 04-11 00:04 → ER IP 04-11 05:51 → ICU 04-11 05:51
PROVIDERS: Internal Medicine Pulmonary Disease; Admitting Provider Family Medicine; Emergency Provider Emergency Medicine; PCP Internal Medicine; Visit Provider Internal Medicine
DX: A41.9 Sepsis, unspecified organism (principal); J18.9 Pneumonia, unspecified organism; R65.21 Severe sepsis with septic shock; J96.01 Acute respiratory failure with hypoxia; I21.A1 Myocardial infarction type 2; N17.9 Acute kidney failure, unspecified; E87.2 Acidosis; I42.2 Other hypertrophic cardiomyopathy; M62.82 Rhabdomyolysis; E87.1 Hypo-osmolality and hyponatremia; C79.9 Secondary malignant neoplasm of unspecified site; I50.32 Chronic diastolic (congestive) heart failure; K52.9 Noninfective gastroenteritis and colitis, unspecified; E86.0 Dehydration; E03.9 Hypothyroidism, unspecified; E11.649 Type 2 diabetes mellitus with hypoglycemia without coma; I95.9 Hypotension, unspecified; I25.10 Atherosclerotic heart disease of native coronary artery without angina pectoris; I11.0 Hypertensive heart disease with heart failure; I48.91 Unspecified atrial fibrillation; E83.42 Hypomagnesemia; E78.2 Mixed hyperlipidemia; G47.33 Obstructive sleep apnea (adult) (pediatric); F17.210 Nicotine dependence, cigarettes, uncomplicated; Z85.820 Personal history of malignant melanoma of skin; Z95.1 Presence of aortocoronary bypass graft; Z82.49 Family history of ischemic heart disease and other diseases of the circulatory system; Z79.84 Long term (current) use of oral hypoglycemic drugs; Z79.01 Long term (current) use of anticoagulants; Z86.19 Personal history of other infectious and parasitic diseases; Z66 Do not resuscitate; Z86.79 Personal history of other diseases of the circulatory system
CPT/HCPCS: 36415; 36416; 36556; 36600; 51702; 70450; 71045; 71250; 74176; 80048; 80051; 80053; 81001; 82330; 82533; 82550; 82803; 82805; 82962; 83605; 83735; 83880; 84100; 84145; 84439; 84443; 84481; 84484; 85025; 85362; 85378; 85384; 85610; 85730; 86140; 86403; 87040; 87086; 87205; 87426; 87496; 87635; 93005; 94664; 96365; 96366; 96367; 96368; 96375; 99214; 99291; 99292; C1751; C9113; J0171; J0692; J1630; J1720; J2270; J2543; J3010; J3370; J3490; J7030; J7040; J7050; P9047; S0030